=== PATIENT | female | born 1945 | race Caucasian/White ===

== ENCOUNTER → 2016-04-30 | Outpatient (CLI) | payer MEDICARE, MEDICAID | LOC: RAD 14:34 | PROVIDERS: ATTEND Nurse Practitioner Adult Health | DX: R91.1 Solitary pulmonary nodule (principal) | CPT/HCPCS: 71250 ==

== ENCOUNTER 2016-07-01 14:19 | Emergency (ER) | payer MEDICARE, MEDICAID ==
[2016-07-01] MEDS ORDERED: IPRATROPIUM/ALBUTEROL 0.5-2.5 MG/3 ML AMPUL NEB ONE (16:31)
[2016-07-01] MEDS ORDERED: METHYLPREDNISOLONE INJ 125 MG/2 ML SDV IV ONE (16:32)
--- NOTE | 2016-07-01 16:45 | ER Document Report ---
ED Medical Screen (RME) - General Chief Complaint: General Weakness Stated Complaint: WEAKNESS,COUGH,CONGESTION Time seen by provider: 16:44 Mode of Arrival: Wheelchair Information source: Patient Notes: 70-year-old female history of COPD (oxygen dependent) presents to the emergency room with progressively worsening cough, shortness of breath, weakness unresponsive to outpatient antibiotics. PCP: Dr Sarabia TRAVEL OUTSIDE OF THE [place] IN LAST 30 DAYS: No - Related Data Allergies/Adverse Reactions: No Known Allergies Allergy (Verified 07/01/16 15:04) Past Medical History - Social History Frequency of alcohol use: Daily 1/2-1 glass wine Drug Abuse: None Pulmonary Medical History: Reports: Hx Bronchitis, Hx COPD, Hx Pneumonia Renal/ Medical History: Denies: Hx Peritoneal Dialysis Past Surgical History: Reports: Hx Cholecystectomy, Hx Orthopedic Surgery - Right Hip Replacement - Immunizations Hx Diphtheria, Pertussis, Tetanus Vaccination: No Physical Exam - Vital signs Vitals: Temp Pulse Resp BP Pulse Ox 98.9 F 88 20 117/66 94 07/01/16 15:01 07/01/16 15:01 07/01/16 15:01 07/01/16 15:01 07/01/16 15:01 Course - Vital Signs Vital signs: Temp Pulse Resp BP Pulse Ox 98.9 F 88 20 117/66 94 07/01/16 15:01 07/01/16 15:01 07/01/16 15:01 07/01/16 15:01 07/01/16 15:01
[2016-07-01 18:16] LABS: ABSOLUTE LYMPHOCYTES (AUTO) 0.4 10^3/uL (0.5-4.7); ABSOLUTE MONOCYTES (AUTO) 0.3 10^3/uL (0.1-1.4); ABSOLUTE NEUT (AUTO) 6.2 10^3/uL (1.7-8.2); BASOPHILS % (AUTO) 0.1 % (0-2); EOSINOPHILS % (AUTO) 0.1 % (0-6); HEMATOCRIT 43.6 % (36.0-47.0); HEMOGLOBIN 15.1 g/dL (12.0-15.5); HGB HCT DIFFERENCE 1.7; LYMPHOCYTES % (AUTO) 6.3 % (13-45); MEAN CORPUSCULAR HEMOGLOBIN 34.6 pg (27.0-33.4); MEAN CORPUSCULAR HGB CONC 34.6 g/dL (32.0-36.0); MEAN CORPUSCULAR VOLUME 100 fl (80-97); MONOCYTES % (AUTO) 3.8 % (3-13); RED BLOOD COUNT 4.37 10^6/uL (3.72-5.28); RED CELL DISTRIBUTION WIDTH 14.4 % (11.5-14.0); SEGMENTED NEUTROPHILS % (AUTO) 89.7 % (42-78)
[2016-07-01 18:34] LABS: ALANINE AMINOTRANSFERASE 80 U/L (9-52); ALBUMIN 4.1 g/dL (3.5-5.0); ALKALINE PHOSPHATASE 101 U/L (38-126); ANION GAP 7 (5-19); ASPARTATE AMINO TRANSFERASE 37 U/L (14-36); BILIRUBIN,DIRECT 0.2 mg/dL (0.0-0.4); BILIRUBIN,TOTAL 0.9 mg/dL (0.2-1.3); BLOOD UREA NITROGEN 30 mg/dL (7-20); CALCIUM 11.4 mg/dL (8.4-10.2); CARBON DIOXIDE 35 mmol/L (22-30); CHLORIDE 95 mmol/L (98-107); CREATINE KINASE 33 U/L (30-135); CREATININE RESULT 0.58 mg/dL (0.52-1.25); GLUCOSE 202 mg/dL (75-110); POTASSIUM 3.6 mmol/L (3.6-5.0); SODIUM 137.2 mmol/L (137-145); TOTAL PROTEIN 6.5 g/dL (6.3-8.2)
[2016-07-01 18:47] LABS: CREATINE KINASE MB 2.59 ng/mL (<4.55); TROPONIN I 0.027 ng/mL
--- NOTE | 2016-07-01 18:54 | ER Document Report ---
ED General - General Chief Complaint: General Weakness Stated Complaint: WEAKNESS,COUGH,CONGESTION Mode of Arrival: Wheelchair Notes: Patient is a 70-year-old female with past medical history of oxygen dependent COPD who presents with 3 weeks of persistent cough and mildly worsened shortness of breath relative to her baseline. She has associated generalized weakness. She has seen her primary care doctor on 3 occasions and notes that despite 3 rounds of different antibiotics her symptoms have not improved. She has also continued on steroids. Nothing seems to worsen her symptoms. Denies any associated fever, nausea, vomiting, chest pain, headache or altered mental status. States she's had similar symptoms in the past with bronchitis. She does not currently smoke. Her symptoms have been unchanged since onset. TRAVEL OUTSIDE OF THE [place] IN LAST 30 DAYS: No - Related Data Allergies/Adverse Reactions: No Known Allergies Allergy (Verified 07/01/16 15:04) Past Medical History - General Information source: Patient - Social History Smoking Status: Former Smoker Frequency of alcohol use: Daily 1/2-1 glass wine Drug Abuse: None Lives with: Spouse/Significant other Family History: Reviewed & Not Pertinent Patient has suicidal ideation: No Patient has homicidal ideation: No Pulmonary Medical History: Reports: Hx Bronchitis, Hx COPD, Hx Pneumonia Renal/ Medical History: Denies: Hx Peritoneal Dialysis Past Surgical History: Reports: Hx Cholecystectomy, Hx Orthopedic Surgery - Right Hip Replacement - Immunizations Hx Diphtheria, Pertussis, Tetanus Vaccination: No Hx Pneumococcal Vaccination: 02/25/11 Review of Systems - Review of Systems Notes: Constitutional: Negative for fever. HENT: Negative for sore throat. Eyes: Negative for visual changes. Cardiovascular: Negative for chest pain. Respiratory: Positive for shortness of breath. Gastrointestinal: Negative for abdominal pain, vomiting or diarrhea. Genitourinary: Negative for dysuria. Musculoskeletal: Negative for back pain. Skin: Negative for rash. Neurological: Negative for headaches, weakness or numbness. 10 point ROS negative except as marked above and in HPI. Physical Exam - Vital signs Vitals: Temp Pulse Resp BP Pulse Ox 98.9 F 88 20 117/66 94 07/01/16 15:01 07/01/16 15:01 07/01/16 15:01 07/01/16 15:01 07/01/16 15:01 Interpretation: Normal Notes: PHYSICAL EXAMINATION: GENERAL: Well-appearing, well-nourished and in no acute distress. HEAD: Atraumatic, normocephalic. EYES: Pupils equal round and reactive to light, extraocular movements intact, sclera anicteric, conjunctiva are normal. ENT: nares patent, oropharynx clear without exudates. Moist mucous membranes. NECK: Normal range of motion, supple without lymphadenopathy LUNGS: Breath sounds clear to auscultation bilaterally and equal. Trace wheezes in all lung springer without diminished air movement HEART: Regular rate and rhythm without murmurs ABDOMEN: Soft, nontender, normoactive bowel sounds. No guarding, no rebound. No masses appreciated. EXTREMITIES: Normal range of motion, no pitting or edema. No cyanosis. NEUROLOGICAL: No focal neurological deficits. Moves all extremities spontaneously and on command. PSYCH: Normal mood, normal affect. SKIN: Warm, Dry, normal turgor, no rashes or lesions noted. Course - Re-evaluation Re-evalutation: 07/01/16 18:52 Patient presents with a mild exacerbation of their baseline COPD. Mild wheezing at time of presentation but vitals do not show significant hypoxemia or tachypnea. No retractions. Patient did clinically improve after receiving nebulizers here in the emergency department. Chest x-ray without evidence of an acute pneumonia. She has already been treated with 3 different antibiotics as an outpatient and her symptoms are likely secondary to a viral bronchitis as opposed to an actual bacterial infection. Laboratories do not show acute kidney injury or significant leukocytosis. Patient able to ambulate without any respiratory distress. 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 Patient is already on steroids. Patient has nebulizers at home. I do not suspect an acute alternative pathology at this time based on history and exam including acute pulmonary embolus, ACS, pneumothorax, or aortic dissection. At this time will discharge with return precautions and follow-up recommendations. Verbal discharge instructions given a the bedside and opportunity for questions given. Medication warnings reviewed. Patient is in agreement with this plan and has verbalized understanding of return precautions and the need for primary care follow-up in the next 24-72 hours. 07/02/16 03:13 - Vital Signs Vital signs: Temp Pulse Resp BP Pulse Ox 98.1 F 84 20 124/71 96 07/01/16 19:13 07/01/16 19:13 07/01/16 15:01 07/01/16 19:13 07/01/16 19:13 - Laboratory Result Diagrams: 07/01/16 17:50 07/01/16 17:50 Laboratory results interpreted by me: 07/01/16 07/01/16 17:50 17:50 MCV 100 H MCH 34.6 H RDW 14.4 H Plt Count 143 L Seg Neutrophils % 89.7 H Lymphocytes % 6.3 L Absolute Lymphocytes 0.4 L Chloride 95 L Carbon Dioxide 35 H BUN 30 H Glucose 202 H Calcium 11.4 H AST 37 H ALT 80 H - Diagnostic Test Radiology reviewed: Image reviewed, Reports reviewed Radiology results interpreted by me: 07/01/16 18:53 Chest x-ray: No acute infiltrate - EKG Interpretation by Me Additional EKG results interpreted by me: 07/02/16 03:14 Sinus rhythm. Rate 79. No ST elevations or depressions. QTC is 441. Limited interpretation secondary to movement Discharge - Discharge Clinical Impression: COPD exacerbation Condition: Good Disposition: HOME, SELF-CARE Additional Instructions: You were seen for a COPD exacerbation. Your symptoms improved with treatment here in the emergency department. However, it is very important that you return to the emergency department immediately if you began to have worsening difficulty breathing that does not respond to your normal home nebulizers. Please continue to take your home steroids as prescribed. Please also follow closely with your primary care physician. You should eturn to emergency department if you develop fever greater than 101, persistent cough, persistent vomiting, pass out, or any other symptoms that are concerning to you. Referrals: DANYA DE LA TORRE MD [Primary Care Provider] - Follow up as needed
[2016-07-01 19:15] VITALS: BP 124/71
--- NOTE | 2016-07-01 20:46 | EKG REPORT ---
SEVERITY:- ABNORMAL ECG - SINUS RHYTHM BIATRIAL ABNORMALITIES ABNORMAL T, CONSIDER ISCHEMIA, LATERAL LEADS BORDERLINE ST ELEVATION, INFERIOR LEADS : Confirmed by: Abrahan James MD 01-Jul-2016 20:46:05
== END 2016-07-01 19:24 | disposition home or self-care (01) ==
LOC: ER 14:19
DX: J44.1 Chronic obstructive pulmonary disease with (acute) exacerbation (principal); Z99.81 Dependence on supplemental oxygen; R05 Cough; R06.02 Shortness of breath; R53.1 Weakness; Z79.2 Long term (current) use of antibiotics; Z87.891 Personal history of nicotine dependence; Z87.01 Personal history of pneumonia (recurrent)
CPT/HCPCS: 93005; 94640; 99285; 96374; 36415; 82553; 82550; 85025; 80053; 84484; 71020; 93010; J2930; A9270; J7620

== ENCOUNTER → 2016-08-07 | Outpatient (CLI) | payer MEDICARE, MEDICAID ==
[2016-08-07 18:54] LABS: ABSOLUTE LYMPHOCYTES (AUTO) 0.6 10^3/uL (0.5-4.7); ABSOLUTE MONOCYTES (AUTO) 0.5 10^3/uL (0.1-1.4); ABSOLUTE NEUT (AUTO) 8.9 10^3/uL (1.7-8.2); BASOPHILS % (AUTO) 0.2 % (0-2); EOSINOPHILS % (AUTO) 0.2 % (0-6); HEMATOCRIT 39.3 % (36.0-47.0); HEMOGLOBIN 13.1 g/dL (12.0-15.5); LYMPHOCYTES % (AUTO) 5.9 % (13-45); MEAN CORPUSCULAR HEMOGLOBIN 34.3 pg (27.0-33.4); MEAN CORPUSCULAR HGB CONC 33.3 g/dL (32.0-36.0); MEAN CORPUSCULAR VOLUME 103 fl (80-97); MONOCYTES % (AUTO) 4.9 % (3-13); RED BLOOD COUNT 3.81 10^6/uL (3.72-5.28); RED CELL DISTRIBUTION WIDTH 15.3 % (11.5-14.0); SEGMENTED NEUTROPHILS % (AUTO) 88.8 % (42-78); WHITE BLOOD COUNT 10.1 10^3/uL (4.0-10.5)
[2016-08-07 19:28] LABS: ALANINE AMINOTRANSFERASE 131 U/L (9-52); ALBUMIN 4.2 g/dL (3.5-5.0); ALKALINE PHOSPHATASE 103 U/L (38-126); ANION GAP 9 (5-19); ASPARTATE AMINO TRANSFERASE 60 U/L (14-36); BILIRUBIN,DIRECT 0.3 mg/dL (0.0-0.4); BILIRUBIN,TOTAL 0.8 mg/dL (0.2-1.3); BLOOD UREA NITROGEN 26 mg/dL (7-20); CALCIUM 10.2 mg/dL (8.4-10.2); CARBON DIOXIDE 36 mmol/L (22-30); CHLORIDE 92 mmol/L (98-107); CREATININE RESULT 0.63 mg/dL (0.52-1.25); GLUCOSE 157 mg/dL (75-110); POTASSIUM 3.6 mmol/L (3.6-5.0); TOTAL PROTEIN 6.7 g/dL (6.3-8.2)
[2016-08-09 16:40] LABS: A/G RATIO 1.8 (0.7-1.7); ALPHA-1-GLOBULIN 2 0.2 g/dL (0.0-0.4); GAMMA GLOBULIN 0.4 g/dL (0.4-1.8); PROTEIN TOTAL SERUM 6.2 g/dL (6.0-8.5)
[2016-08-10 16:39] LABS: M-SPIKE % UR Not Observed % (Not Observed)
[2016-08-11 02:36] LABS: M001-IGE PENICILLIUM CHRYSOGEN <0.10 kU/L (Class 0); M002-IGE CLADOSPORIUM HERBARUM <0.10 kU/L (Class 0); M003-IGE ASPERGILLUS FUMIGATUS <0.10 kU/L (Class 0); M004-IGE MUCOR RACEMOSUS <0.10 kU/L (Class 0); M005-IGE CANDIDA ALBICANS <0.10 kU/L (Class 0); M006-IGE ALTERNARIA ALTERNATA <0.10 kU/L (Class 0); M008-IGE SETOMELANOMMA ROSTRAT <0.10 kU/L (Class 0); M009-IGE FUSARIUM PROLIFERATUM <0.10 kU/L (Class 0); M012-IGE AUREOBASIDI PULLULANS <0.10 kU/L (Class 0); M013-IGE PHOMA BETAE <0.10 kU/L (Class 0); M014-IGE EPICOCCUM PURPURASCEN <0.10 kU/L (Class 0)
[2016-08-11 10:57] LABS: M010-IGE STEMPHYLIUM HERBARUM <0.10 kU/L (Class 0)
== END ==
LOC: LAB 18:17
PROVIDERS: ATTEND Internal Medicine Pulmonary Disease
DX: E83.52 Hypercalcemia (principal); J96.11 Chronic respiratory failure with hypoxia; D53.1 Other megaloblastic anemias, not elsewhere classified; Z87.2 Personal history of diseases of the skin and subcutaneous tissue
CPT/HCPCS: 36415; 80053; 84165; 84166; 85025; 86003

== ENCOUNTER 2016-08-23 14:52 | Inpatient (IN) | payer MEDICARE, MEDICAID ==
[2016-08-23] MEDS ORDERED: NORMAL SALINE 1000 ML 1,000 ML IV ONE (15:09)
[2016-08-23] MEDS ORDERED: ONDANSETRON HCL INJ/PF 4 MG/2 ML SDV IV ONE (15:10)
--- NOTE | 2016-08-23 15:10 | ER Document Report ---
ED Medical Screen (RME) - General Chief Complaint: Back Pain Stated Complaint: BACK PAIN Time Seen by Provider: 08/23/16 15:08 TRAVEL OUTSIDE OF THE [place] IN LAST 30 DAYS: No - HPI Notes: 08/23/16 15:10 Nausea vomiting dehydration lower back pain. Patient is on chronic home O2 requesting laboratory results from recent pulmonary visit - Related Data Allergies/Adverse Reactions: No Known Allergies Allergy (Verified 08/23/16 15:00) Past Medical History Pulmonary Medical History: Reports: Hx Bronchitis, Hx COPD, Hx Pneumonia Renal/ Medical History: Denies: Hx Peritoneal Dialysis Past Surgical History: Reports: Hx Cholecystectomy, Hx Orthopedic Surgery - Right Hip Replacement - Immunizations Hx Diphtheria, Pertussis, Tetanus Vaccination: No Review of Systems - Review of Systems Gastrointestinal: Nausea, Vomiting Physical Exam - Vital signs Vitals: Temp Pulse Resp BP Pulse Ox 97.5 F 88 20 133/76 H 92 08/23/16 15:00 08/23/16 15:00 08/23/16 15:00 08/23/16 15:00 08/23/16 15:00 - Cardiovascular Rhythm: Regular Heart sounds: Normal auscultation Course - Vital Signs Vital signs: Temp Pulse Resp BP Pulse Ox 97.5 F 88 20 133/76 H 92 08/23/16 15:00 08/23/16 15:00 08/23/16 15:00 08/23/16 15:00 08/23/16 15:00
[2016-08-23 15:54] LABS: HEMATOCRIT 44.7 % (36.0-47.0); HEMOGLOBIN 15.1 g/dL (12.0-15.5); HGB HCT DIFFERENCE 0.6; MEAN CORPUSCULAR HEMOGLOBIN 34.4 pg (27.0-33.4); MEAN CORPUSCULAR HGB CONC 33.7 g/dL (32.0-36.0); MEAN CORPUSCULAR VOLUME 102 fl (80-97); RED BLOOD COUNT 4.38 10^6/uL (3.72-5.28); RED CELL DISTRIBUTION WIDTH 13.9 % (11.5-14.0); WHITE BLOOD COUNT 15.8 10^3/uL (4.0-10.5)
[2016-08-23 16:02] LABS: BAND NEUTROPHILS % (MANUAL) 2 % (3-5); BASOPHILS % (MANUAL) 0 % (0-2); EOSINOPHILS % (MANUAL) 0 % (0-6); LYMPHOCYTES % (MANUAL) 9 % (13-45); TOTAL CELLS COUNTED 100
[2016-08-23 16:06] LABS: TOXIC GRANULATION SLIGHT
[2016-08-23 16:07] LABS: ANISOCYTOSIS SLIGHT; PLATELET CLUMPS PRESENT; POIKILOCYTOSIS SLIGHT; TOXIC VACUOLATION PRESENT
--- NOTE | 2016-08-23 16:08 | ER Document Report ---
ED General - General Mode of Arrival: Ambulatory Information source: Patient TRAVEL OUTSIDE OF THE [place] IN LAST 30 DAYS: No - HPI Patient complains to provider of: Vomiting, Headache, and Poor Apetite Onset: Other - 2 weeks ago Associated symptoms: Other - see notes above <MAX ROLON - Last Filed: 08/23/16 19:57> <GREYVIKA ANN - Last Filed: 08/23/16 22:27> - General Chief Complaint: Back Pain Stated Complaint: BACK PAIN Time Seen by Provider: 08/23/16 16:00 Notes: 70 year old female with history of oxygen dependent COPD (recently stopped taking chronic Prednisone) presents to the ED complaining of headache that started 2 weeks ago and vomiting and poor appetite that started 5 days ago and worsened over the past few days. Patient reports that she develops nausea and a 'gaggy' feeling to her abdomen when eating. The reports that the patient has been having coughing 'spells' and the patient explains that her chronic back pain is worsening because of this. Patient denies any trouble with her bowel movements. Patient was given kaopectate x2 at 1100 this morning secondary to nausea. Patient has not vomited since leaving her house earlier this morning. PCP: Dr. Macedo (MAX ROLON) - Related Data Allergies/Adverse Reactions: No Known Allergies Allergy (Verified 08/23/16 15:00) Home Medications: Current Home Medications Albuterol Sulfate [Proair HFA] 2 puff IH Q4HP PRN 08/23/16 [History] Fluticasone/Salmeterol [Advair 250-50 Diskus 28 dose] 1 puff IH BID 08/23/16 [ History] Furosemide [Lasix] 40 mg PO DAILY 08/23/16 [History] Potassium Chloride [K-Tab ER] 10 meq PO BID 08/23/16 [History] Prednisone [Deltasone 10 mg Tablet] 10 mg PO BID 08/23/16 [History] Roflumilast [Daliresp 500 mcg Tablet] 500 mcg PO DAILY 08/23/16 [History] Tiotropium [place] [Spiriva Respimat] 2 puff IH DAILY 08/23/16 [History] Past Medical History - Social History Family History: Reviewed & Not Pertinent Patient has suicidal ideation: No Patient has homicidal ideation: No Pulmonary Medical History: Reports: Hx Bronchitis, Hx COPD, Hx Pneumonia Renal/ Medical History: Denies: Hx Peritoneal Dialysis Past Surgical History: Reports: Hx Cholecystectomy, Hx Orthopedic Surgery - Right Hip Replacement - Immunizations Hx Diphtheria, Pertussis, Tetanus Vaccination: No Hx Pneumococcal Vaccination: 02/25/11 <MAX ROLON - Last Filed: 08/23/16 19:57> - Social History Smoking Status: Former Smoker <VIKA EDMONDS - Last Filed: 08/23/16 22:27> Review of Systems - Review of Systems Constitutional: See HPI, Chills EENT: No symptoms reported Cardiovascular: No symptoms reported Respiratory: See HPI, Cough Gastrointestinal: See HPI, Abdominal pain, Nausea, Vomiting, Poor appetite. denies: Diarrhea, Constipation Genitourinary: No symptoms reported Female Genitourinary: No symptoms reported Musculoskeletal: No symptoms reported Skin: No symptoms reported Hematologic/Lymphatic: No symptoms reported Neurological/Psychological: See HPI, Headaches -: Yes All other systems reviewed and negative <MAX ROLON - Last Filed: 08/23/16 19:57> Physical Exam - Vital signs Interpretation: Hypoxic - General General appearance: Alert In distress: Mild - HEENT Head: Normocephalic, Atraumatic Eyes: Normal Pupils: PERRL Mucous membranes: Dry - Respiratory Respiratory status: No respiratory distress Chest status: Nontender Breath sounds: Normal Chest palpation: Normal - Cardiovascular Rhythm: Regular Heart sounds: Normal auscultation Murmur: No - Abdominal Inspection: Normal Distension: Distended Bowel sounds: Normal Tenderness: Tender - periUmbilical Organomegaly: No organomegaly - Back Back: Normal, Nontender - Extremities General upper extremity: Normal inspection, Nontender, Normal color, Normal ROM , Normal temperature General lower extremity: Normal inspection, Nontender, Normal color, Normal ROM , Normal temperature, Normal weight bearing. No: Bakari's sign - Neurological Neuro grossly intact: Yes Orientation: AAOx4 Osbaldo Coma Scale Eye Opening: Spontaneous Osbaldo Coma Scale Verbal: Oriented Osbaldo Coma Scale Motor: Obeys Commands Osbaldo Coma Scale Total: 15 Speech: Normal Motor strength normal: LUE, RUE, LLE, RLE Sensory: Normal - Psychological Associated symptoms: Normal affect, Normal mood - Skin Skin Temperature: Warm Skin Moisture: Dry Skin Color: Normal <VIKA EDMONDS - Last Filed: 08/23/16 22:27> - Vital signs Vitals: Temp Pulse Resp BP Pulse Ox 97.5 F 88 20 133/76 H 92 08/23/16 15:00 08/23/16 15:00 08/23/16 15:00 08/23/16 15:00 08/23/16 15:00 Course - Laboratory Result Diagrams: 08/23/16 15:20 08/23/16 16:48 - Consults Dr. Abraham Time consulted: 17:30 <MAX ROLON - Last Filed: 08/23/16 19:57> - Laboratory Result Diagrams: 08/23/16 15:20 08/23/16 16:48 - Diagnostic Test Radiology reviewed: Reports reviewed <VIKA EDMONDS - Last Filed: 08/23/16 22:27> - Re-evaluation Re-evalutation: 08/23/16 Patient is a 70-year-old female who comes in for vomiting. Patient with elevated lipase and pancreatitis on CT. Patient denies any pain right now. Patient is also hypokalemic and hypercalcemic. Potassium has been replaced with IV. Patient was discussed with the hospitalist service and will be referred for admission. Stable at time of admission. (VIKA EDMONDS) - Vital Signs Vital signs: Temp Pulse Resp BP Pulse Ox 97.5 F 67 18 148/71 H 98 08/23/16 21:55 08/23/16 21:55 08/23/16 21:55 08/23/16 21:55 08/23/16 21:55 - Laboratory Laboratory results interpreted by me: 08/23/16 08/23/16 15:20 16:48 WBC 15.8 H MCV 102 H MCH 34.4 H Seg Neuts % (Manual) 85 H Band Neutrophils % 2 L Lymphocytes % (Manual) 9 L Abs Neuts (Manual) 13.7 H Sodium 134.9 L Potassium 2.7 L* Chloride 80 L Carbon Dioxide 38 H BUN 30 H Glucose 148 H Calcium 12.7 H* Direct Bilirubin 0.5 H AST 70 H ALT 77 H Lipase 3539.6 H - Consults Dr. Abraham Reason for consultation: 08/23/16 19:30 Patient was discussed with Dr. Abraham who agrees to admit the patient. (MAX ROLON) Discharge <MAX ROLON - Last Filed: 08/23/16 19:57> - Discharge Admitting Provider: Hospitalist - [place] [facility] Admitted: [facility] <VIKA EDMONDS - Last Filed: 08/23/16 22:27> - Discharge Clinical Impression: Hypokalemia, Dehydration Pancreatitis Qualifiers: Chronicity: acute Pancreatitis type: unspecified pancreatitis type Acute pancreatitis complication: unspecified Qualified Code(s): K85.90 - Acute pancreatitis without necrosis or infection, unspecified Condition: Stable Disposition: ADMITTED INPATIENT Scribe Attestation: 08/23/16 22:27 I personally performed the services described in the documentation, reviewed and edited the documentation which was dictated to the scribe in my presence, and it accurately records my words and actions. (VIKA EDMONDS) Scribe Documentation - Scribe Written by Scribe:: Deven Alfred, 08/23/2016 1743 acting as scribe for :: Grey <MAX ROLON - Last Filed: 08/23/16 19:57>
--- NOTE | 2016-08-23 16:50 | RADIOLOGY REPORT (SQ) ---
EXAM DESCRIPTION: CT ABD/PELVIS NO ORAL OR IV COMPLETED DATE/TIME: 08/23/2016 4:31 pm REASON FOR STUDY: abd pain, N/V COMPARISON: None. TECHNIQUE: CT scan of the abdomen and pelvis performed without intravenous or oral contrast. Images reviewed with lung, soft tissue, and bone windows. Reconstructed coronal and sagittal MPR images revi ewed. All images stored on PACS. All CT scanners at this facility use dose modulation, iterative reconstruction, and/or weight based d osing when appropriate to reduce radiation dose to as low as reasonably achievable (ALARA). [facility]: Dose Right [facility]: CareDose [facility]: Dose Right [facility]: Teradose 4D [facility]: [employer] RADIATION DOSE: Up-to-date CT equipment and radiation dose reduction techniques were employed. CTDIv ol: 16.9 mGy. DLP: 825 mGy-cm.mGy. LIMITATIONS: None. FINDINGS: LOWER CHEST: No significant findings. No nodules or infiltrates. NON-CONTRASTED LIVER, SPLEEN, ADRENALS: Evaluation limited by lack of IV contrast. Diffuse decreased attenuation throughout the liver consistent with fatty deposition. No identified significant masses . PANCREAS: There is haziness surrounding the pancreatic head. There is enlargement of the pancreatic head as well as the remainder of the pancreas. No peripancreatic fluid noted. No pancreatic fluid c ollections. Definite mass lesion is seen in this area though evaluation is limited without IV contra st. Question possible pancreatitis. GALLBLADDER: Surgically absent. RIGHT KIDNEY AND URETER: No suspicious masses. Assessment limited by lack of IV contrast. No signif icant calcifications. No hydronephrosis or hydroureter. LEFT KIDNEY AND URETER: No suspicious masses. Assessment limited by lack of IV contrast. No signifi cant calcifications. No hydronephrosis or hydroureter. AORTA AND RETROPERITONEUM: No aneurysm. Calcific atherosclerotic plaque throughout the aorta and its branches. No retroperitoneal masses or adenopathy. BOWEL AND PERITONEAL CAVITY: No obvious masses or inflammatory changes. No free fluid. Diffuse moder ate colonic diverticulosis without acute inflammation. APPENDIX: Normal. PELVIS, BLADDER, AND ABDOMINAL WALL:No abnormal masses. No free fluid. Bladder normal. BONES: Right total hip arthroplasty. No acute abnormality identified. Degenerative changes noted in the spine. OTHER: No other significant finding. IMPRESSION: 1. Inflammatory fat stranding surrounding the pancreatic head as well as diffuse enlarg ement of the pancreas most notably in the pancreatic head. Question possible pancreatitis, correlate clinically. No definite pancreatic mass lesion is identified this region toe evaluation is limited without IV contrast. No peripancreatic fluid collections or pseudocysts identified. No intra-abdomi nal free air fluid. 2. Uncomplicated moderate colonic diverticulosis. 3. Hepatic steatosis. 4. Prior cholecystectomy. TECHNICAL DOCUMENTATION: JOB ID: [id number] Quality ID # [id number]: Final reports with documentation of one or more dose reduction techniques (e.g., Au tomated exposure control, adjustment of the mA and/or kV according to patient size, use of iterative reconstruction technique) 2010 [employer]- All Rights Reserved
[2016-08-23 17:15] LABS: ALANINE AMINOTRANSFERASE 77 U/L (9-52); ALBUMIN 4.3 g/dL (3.5-5.0); ALKALINE PHOSPHATASE 71 U/L (38-126); ANION GAP 17 (5-19); ASPARTATE AMINO TRANSFERASE 70 U/L (14-36); BILIRUBIN,DIRECT 0.5 mg/dL (0.0-0.4); BILIRUBIN,TOTAL 1.1 mg/dL (0.2-1.3); BLOOD UREA NITROGEN 30 mg/dL (7-20); CARBON DIOXIDE 38 mmol/L (22-30); CHLORIDE 80 mmol/L (98-107); GLUCOSE 148 mg/dL (75-110); SODIUM 134.9 mmol/L (137-145); TOTAL PROTEIN 6.9 g/dL (6.3-8.2)
[2016-08-23 17:23] LABS: LIPASE 3539.6 U/L (23-300)
[2016-08-23 17:26] LABS: CALCIUM 12.7 mg/dL (8.4-10.2); POTASSIUM 2.7 mmol/L (3.6-5.0)
[2016-08-23] MEDS ORDERED: ACETAMINOPHEN 325 MG TABLET PO PRN (17:43)
--- NOTE | 2016-08-23 18:23 | PDOC H&P ---
History of Present Illness Admission Date/PCP: DANYA DE LA TORRE, Patient complains of: nausea, vomiting History of Present Illness: ALIE PATTERSON is a 70 year old female with past medical history of chronic pain, oxygen dependent COPD and presents with 2 week history of nausea, vomiting , headache, chills, cough. Patient stated to the emergency department provider that she did not drink however upon further questioning it appears that she does have a couple glasses of wine a day. She has no prior history of pancreatitis. She is status post cholecystectomy. Last cholesterol panel a few years ago indicated normal triglyceride level. Medications have not been verified but include Lasix, Daliresp, potassium chloride, prednisone, Advair. Past Medical History Pulmonary Medical History: Reports: Bronchitis, Chronic Obstructive Pulmonary Disease (COPD), Pneumonia Musculoskeltal Medical History: Reports: Arthritis Psychiatric Medical History: Reports: Alcohol Dependency Past Surgical History Past Surgical History: Reports: Cholecystectomy, Orthopedic Surgery - Right Hip Replacement Social History Information Source: Patient Lives with: Spouse/Significant other Smoking Status: Former Smoker Frequency of Alcohol Use: Heavy - 2 drinks daily - Advance Directive Resuscitation Status: Full Code Surrogate healthcare decision maker:: Merle Family History Family History: Malignancy - father-?rectal cancer Parental Family History Reviewed: Yes Children Family History Reviewed: Yes Sibling(s) Family History Reviewed.: Yes Medication/Allergy Home Medications: Albuterol Sulfate [Proair HFA Inhalation Aerosol 8.5 gm MDI] 2 puff IH Q4H 04/25 Cyclobenzaprine HCl [Flexeril 10 Mg Tablet] 10 mg PO TID #10 tablet 04/25/12 Doxycycline Hyclate [Morgidox] 100 mg PO BID 04/25/12 Prednisone [Deltasone 10 mg Tablet] 10 mg PO ASDIR PRN 04/25/12 Tiotropium [place] [Spiriva Handihaler 18 mcg/dose (30 Dose)] 1 cap IH DAILY 03/09 Allergies/Adverse Reactions: No Known Allergies Allergy (Verified 08/23/16 15:00) Review of Systems Constitutional: PRESENT: fatigue, fever(s), headache(s), weakness. ABSENT: chills, weight gain, weight loss Eyes: ABSENT: visual disturbances Ears: ABSENT: hearing changes Cardiovascular: ABSENT: chest pain, dyspnea on exertion, edema, orthropnea, palpitations Respiratory: PRESENT: cough. ABSENT: hemoptysis Gastrointestinal: PRESENT: abdominal pain, nausea, vomiting. ABSENT: constipation, diarrhea, hematemesis, hematochezia Genitourinary: ABSENT: dysuria, hematuria Musculoskeletal: ABSENT: joint swelling Integumentary: ABSENT: rash, wounds Neurological: ABSENT: abnormal gait, abnormal speech, confusion, dizziness, focal weakness, syncope Psychiatric: ABSENT: anxiety, depression, homidical ideation, suicidal ideation Endocrine: ABSENT: cold intolerance, heat intolerance, polydipsia, polyuria Hematologic/Lymphatic: ABSENT: easy bleeding, easy bruising Physical Exam Vital Signs: Temp Pulse Resp BP Pulse Ox 97.5 F 88 20 133/76 H 92 08/23/16 15:00 08/23/16 15:00 08/23/16 15:00 08/23/16 15:00 08/23/16 15:00 Intake & Output 08/22/16 08/23/16 08/24/16 06:59 06:59 06:59 Weight 80.2 kg PHYSICAL EXAM: GENERAL: Appears well, no acute distress HEENT: Normocephalic, no scleral icterus, conjunctiva clear, EOEM intact, PERRLA , moist mucous membranes NECK: trachea midline, no thyromegally RESPIRATORY: Rhonchi noted in the left anterior lung field CARDIAC: Regular rate and rhythm, no murmur/hernando/rub ABDOMEN: Soft, no distension, mild mid abdominal tenderness, no guarding, normal bowel sounds, negative Camp sign RECTAL: deferred : deferred EXTREMITIES: No edema, cyanosis, clubbing MUSCULOSKELETAL: No joint swelling or deformity VASCULAR: normal peripheral pulses NEUROLOGIC: Alert, oriented to person/place/time, normal speech, cranial nerves grossly intact, 5/5 strength in all extremities, tactile sensation intact in all extremities SKIN: No rash, no wounds, no worrisome skin lesions PSYCHIATRIC: Normal mood, normal affect Results Laboratory Results: 08/23/16 15:20 08/23/16 16:48 08/23/16 08/23/16 08/23/16 15:20 15:20 16:48 WBC 15.8 H RBC 4.38 Hgb 15.1 Hct 44.7 MCV 102 H MCH 34.4 H MCHC 33.7 RDW 13.9 Plt Count 317 Seg Neutrophils % Not Reportable Lymphocytes % Not Reportable Monocytes % Not Reportable Eosinophils % Not Reportable Basophils % Not Reportable Absolute Neutrophils Not Reportable Absolute Lymphocytes Not Reportable Absolute Monocytes Not Reportable Absolute Eosinophils Not Reportable Absolute Basophils Not Reportable Sodium Cancelled 134.9 L Potassium Cancelled 2.7 L* Chloride Cancelled 80 L Carbon Dioxide Cancelled 38 H Anion Gap Cancelled 17 BUN Cancelled 30 H Creatinine Cancelled 0.90 Est GFR ( Amer) Cancelled > 60 Est GFR (Non-Af Amer) Cancelled > 60 Glucose Cancelled 148 H Calcium Cancelled 12.7 H* Total Bilirubin Cancelled 1.1 AST Cancelled 70 H ALT Cancelled 77 H Alkaline Phosphatase Cancelled 71 Total Protein Cancelled 6.9 Albumin Cancelled 4.3 Lipase Cancelled 3539.6 H Impressions: Abdomen/Pelvis CT 08/23/16 16:07 IMPRESSION: 1. Inflammatory fat stranding surrounding the pancreatic head as well as diffuse enlargement of the pancreas most notably in the pancreatic head. Question possible pancreatitis, correlate clinically. No definite pancreatic mass lesion is identified this region toe evaluation is limited without IV contrast. No peripancreatic fluid collections or pseudocysts identified. No intra-abdominal free air fluid. 2. Uncomplicated moderate colonic diverticulosis. 3. Hepatic steatosis. 4. Prior cholecystectomy. Assessment & Plan - Diagnosis (1) Pancreatitis Is this a current diagnosis for this admission?: YesPlan: Likely secondary to alcohol use. Viral illness also consideration given other constitutional symptoms. Patient is status post cholecystectomy. I will repeat cholesterol panel however triglyceride level was normal on cholesterol panel a few years ago. N.p.o., IV fluids, analgesic, antiemetics. (2) COPD (chronic obstructive pulmonary disease) Is this a current diagnosis for this admission?: YesPlan: Continue Advair, prednisone, albuterol. Patient is followed by Dr. Dhaliwal as an outpatient. She is chronic oxygen dependent at baseline. (3) Alcohol abuse Is this a current diagnosis for this admission?: YesPlan: Thiamine. As needed Ativan. (4) Hypercalcemia Is this a current diagnosis for this admission?: YesPlan: Repeat labs when dehydration is corrected. (5) Cough Is this a current diagnosis for this admission?: YesPlan: Check chest x-ray. Patient clinically sounds like she has pneumonia so I will initiate IV Rocephin and IV azithromycin. We will check blood cultures. (6) Chronic hypoxemic respiratory failure Is this a current diagnosis for this admission?: Yes (7) Dehydration Is this a current diagnosis for this admission?: Yes (8) Hypokalemia Is this a current diagnosis for this admission?: YesPlan: Replace. Repeat potassium and magnesium level in the morning. - Time Time Spent: Greater than 70 Minutes
--- NOTE | 2016-08-23 18:35 | RADIOLOGY REPORT (SQ) ---
EXAM DESCRIPTION: CHEST SINGLE VIEW COMPLETED DATE/TIME: 08/23/2016 6:24 pm REASON FOR STUDY: cough, left lung rhonchi COMPARISON: 07/01/2016. NUMBER OF VIEWS: One view. TECHNIQUE: Single frontal radiographic view of the chest acquired. LIMITATIONS: None. FINDINGS: LUNGS AND PLEURA: No opacities, masses or pneumothorax. No pleural effusion. Attenuated bl ood vessels and flattened aquilino-diaphragms. MEDIASTINUM AND HILAR STRUCTURES: No masses. Contour normal. HEART AND VASCULAR STRUCTURES: Heart normal in size. Normal vasculature. BONES: No acute findings. HARDWARE: None in the chest. OTHER: No other significant finding. IMPRESSION: COPD. NO ACUTE RADIOGRAPHIC FINDING IN THE CHEST. TECHNICAL DOCUMENTATION: JOB ID: [id number] [employer]- All Rights Reserved
[2016-08-23] MEDS: POTASSI CL 20 MEQ/D5NS 1L 1,000 ML IV PRN (18:39)
[2016-08-23] MEDS: POTASSI CL 20 MEQ/50 ML RIDER 50 ML IV SCH ×2 (18:40→22:00)
[2016-08-23] MEDS ORDERED: ENOXAPARIN SODIUM INJ 40 MG/0.4 ML DISP.SYRIN SUBCUT ONE (20:00)
[2016-08-23] MEDS: CEFTRIAXONE 1 GM/D5W RTU 1 GM/50 ML RTUPB IV SCH (20:16)
[2016-08-23] MEDS: ALBUTEROL SULFATE 0.083% NEB 2.5 MG/3 ML AMPUL NEB PRN ×2 (20:23→23:36)
[2016-08-23] MEDS: FAMOTIDINE INJ/PF 20 MG/2 ML SDV IV SCH (22:37)
[2016-08-23] MEDS: FLUTICASONE/SALMETEROL DISKUS 250-50 MCG/DOSE IH SCH (22:37)
[2016-08-23] MEDS: AZITHROMYCIN 500 MG in DEXTROSE 5%-WATER 250 ML IV SCH (22:38)
[2016-08-23] MEDS: ONDANSETRON HCL INJ/PF 4 MG/2 ML SDV IV PRN (23:51)
[2016-08-24] MEDS: POTASSI CL 20 MEQ/D5NS 1L 1,000 ML IV PRN ×2 (02:47→11:43)
[2016-08-24 02:57] LABS: APPEARANCE,URINE CLOUDY; BILIRUBIN,URINE NEGATIVE (NEGATIVE); GLUCOSE, URINE NEGATIVE (NEGATIVE); KETONES,URINE TRACE mg/dL (NEGATIVE); LEUKOCYTE ESTERASE,URINE NEGATIVE (NEGATIVE); NITRITE,URINE NEGATIVE (NEGATIVE); PROTEIN,URINE 30 mg/dL (NEGATIVE); URINE SPECIFIC GRAVITY 1.014; UROBILINOGEN,URINE NEGATIVE mg/dL (<2.0)
[2016-08-24] MEDS: ALBUTEROL SULFATE 0.083% NEB 2.5 MG/3 ML AMPUL NEB PRN ×4 (04:06→20:12)
[2016-08-24 07:17] LABS: HEMOGLOBIN 13.9 g/dL (12.0-15.5); HGB HCT DIFFERENCE 0.7; MEAN CORPUSCULAR HEMOGLOBIN 34.3 pg (27.0-33.4); MEAN CORPUSCULAR HGB CONC 33.8 g/dL (32.0-36.0); MEAN CORPUSCULAR VOLUME 102 fl (80-97); RED BLOOD COUNT 4.04 10^6/uL (3.72-5.28); RED CELL DISTRIBUTION WIDTH 13.9 % (11.5-14.0); WHITE BLOOD COUNT 16.2 10^3/uL (4.0-10.5)
[2016-08-24 07:34] LABS: ALANINE AMINOTRANSFERASE 64 U/L (9-52); ALBUMIN 3.7 g/dL (3.5-5.0); ALKALINE PHOSPHATASE 60 U/L (38-126); ANION GAP 9 (5-19); ASPARTATE AMINO TRANSFERASE 54 U/L (14-36); BILIRUBIN,DIRECT 0.4 mg/dL (0.0-0.4); BILIRUBIN,TOTAL 0.8 mg/dL (0.2-1.3); BLOOD UREA NITROGEN 29 mg/dL (7-20); CARBON DIOXIDE 35 mmol/L (22-30); CHLORIDE 93 mmol/L (98-107); CREATININE RESULT 0.82 mg/dL (0.52-1.25); Direct HDL 76 mg/dL (>40); GLUCOSE 212 mg/dL (75-110); MAGNESIUM 1.3 mg/dL (1.6-2.3); POTASSIUM 3.2 mmol/L (3.6-5.0); SODIUM 136.8 mmol/L (137-145); TOTAL PROTEIN 6.4 g/dL (6.3-8.2); TRIGLYCERIDES 141 mg/dL (<150)
[2016-08-24 07:40] LABS: BASOPHILS % (MANUAL) 0 % (0-2); EOSINOPHILS % (MANUAL) 1 % (0-6); LYMPHOCYTES % (MANUAL) 1 % (13-45); TOTAL CELLS COUNTED 100
[2016-08-24 07:42] LABS: TOXIC GRANULATION SLIGHT
[2016-08-24 07:45] LABS: DIRECT LDL 72 mg/dL (<100)
[2016-08-24 07:58] LABS: LIPASE 4971.4 U/L (23-300)
[2016-08-24] MEDS ORDERED: MAGNESIUM SULFATE/D5W 100 ML IV ONE (08:10)
[2016-08-24] MEDS: POTASSI CL 20 MEQ/50 ML RIDER 50 ML IV SCH ×2 (08:39→10:00)
[2016-08-24] MEDS: FAMOTIDINE INJ/PF 20 MG/2 ML SDV IV SCH ×2 (10:00→22:31)
[2016-08-24] MEDS: PREDNISONE 10 MG TABLET PO SCH ×2 (10:00→17:22)
[2016-08-24] MEDS: THIAMINE HCL 100 MG in NORMAL SALINE 50 ML IV SCH (10:00)
[2016-08-24] MEDS: ENOXAPARIN SODIUM INJ 40 MG/0.4 ML DISP.SYRIN SUBCUT SCH (10:00)
[2016-08-24] MEDS: FLUTICASONE/SALMETEROL DISKUS 250-50 MCG/DOSE IH SCH ×2 (10:01→22:30)
[2016-08-24] MEDS ORDERED: FUROSEMIDE INJ/PF 20 MG/2 ML SDV IV ONE (14:49)
[2016-08-24] MEDS ORDERED: POTASSI CL 20 MEQ/D5NS 1L 1,000 ML IV PRN (14:49)
--- NOTE | 2016-08-24 17:14 | PDOC PROGRESS REPORT ---
Subjective Progress Note for:: 08/24/16 Subjective:: Patient has continued abdominal pain. Physical Exam Vital Signs: Temp Pulse Resp BP Pulse Ox 97.5 F 101 H 18 149/85 H 100 08/24/16 15:19 08/24/16 15:19 08/24/16 15:19 08/24/16 15:19 08/24/16 15:19 Intake & Output 08/23/16 08/24/16 08/25/16 06:59 06:59 06:59 Intake Total 1481 Output Total 0 Balance 1481 0 Weight 82.4 kg GENERAL: No acute distress HEENT: Conjunctiva clear, nonicteric, moist mucous membranes, no JVD, midline trachea RESPIRATORY: Clear to auscultation bilaterally, no wheezes, no rhonchi CARDIAC: Regular rate and rhythm, no murmurs/gallops/rubs ABDOMEN: Soft, nondistended, mid abdominal tenderness, positive bowel sounds, no rebound, no guarding EXTREMETIES: No edema, cyanosis, clubbing NEUROLOGIC: Alert, oriented to person/place/time, CN's grossly intact, no focal deficits SKIN: No rash, wounds PSYCH: Normal mood, normal affect Results Laboratory Results: 08/24/16 06:58 08/24/16 06:00 08/24/16 08/24/16 08/24/16 02:34 06:00 06:58 WBC 16.2 H RBC 4.04 Hgb 13.9 Hct 41.0 MCV 102 H MCH 34.3 H MCHC 33.8 RDW 13.9 Plt Count 256 Seg Neutrophils % Not Reportable Lymphocytes % Not Reportable Monocytes % Not Reportable Eosinophils % Not Reportable Basophils % Not Reportable Absolute Neutrophils Not Reportable Absolute Lymphocytes Not Reportable Absolute Monocytes Not Reportable Absolute Eosinophils Not Reportable Absolute Basophils Not Reportable Sodium 136.8 L Potassium 3.2 L Chloride 93 L Carbon Dioxide 35 H Anion Gap 9 BUN 29 H Creatinine 0.82 Est GFR ( Amer) > 60 Est GFR (Non-Af Amer) > 60 Glucose 212 H Calcium 12.0 H* Magnesium 1.3 L Total Bilirubin 0.8 AST 54 H ALT 64 H Alkaline Phosphatase 60 Total Protein 6.4 Albumin 3.7 Triglycerides 141 Cholesterol 188.40 LDL Cholesterol Direct 72 VLDL Cholesterol 28.0 HDL Cholesterol 76 Lipase 4971.4 H Urine Color YELLOW Urine Appearance CLOUDY Urine pH 5.0 Ur Specific [place] 1.014 Urine Protein 30 H Urine Glucose (UA) NEGATIVE Urine Ketones TRACE H Urine Blood SMALL H Urine Nitrite NEGATIVE Ur Leukocyte Esterase NEGATIVE Urine WBC (Auto) 17 Urine RBC (Auto) 1 Impressions: Abdomen/Pelvis CT 08/23/16 16:07 IMPRESSION: 1. Inflammatory fat stranding surrounding the pancreatic head as well as diffuse enlargement of the pancreas most notably in the pancreatic head. Question possible pancreatitis, correlate clinically. No definite pancreatic mass lesion is identified this region toe evaluation is limited without IV contrast. No peripancreatic fluid collections or pseudocysts identified. No intra-abdominal free air fluid. 2. Uncomplicated moderate colonic diverticulosis. 3. Hepatic steatosis. 4. Prior cholecystectomy. Chest X-Ray 08/23/16 18:10 IMPRESSION: COPD. NO ACUTE RADIOGRAPHIC FINDING IN THE CHEST. Assessment & Plan - Diagnosis (1) Pancreatitis Qualifiers: Chronicity: acute Pancreatitis type: unspecified pancreatitis type Acute pancreatitis complication: unspecified Qualified Code(s): K85.90 - Acute pancreatitis without necrosis or infection, unspecified Is this a current diagnosis for this admission?: YesPlan: Likely secondary to alcohol use. Viral illness also consideration given other constitutional symptoms. Patient is status post cholecystectomy. N.p.o., IV fluids, analgesic, antiemetics. (2) COPD (chronic obstructive pulmonary disease) Is this a current diagnosis for this admission?: YesPlan: Continue Advair, prednisone, albuterol. Patient is followed by Dr. Dhaliwal as an outpatient. She is chronic oxygen dependent at baseline. (3) Alcohol abuse Is this a current diagnosis for this admission?: YesPlan: Thiamine. As needed Ativan. (4) Hypercalcemia Is this a current diagnosis for this admission?: YesPlan: Repeat labs when dehydration is corrected. (5) Chronic hypoxemic respiratory failure Is this a current diagnosis for this admission?: Yes (6) Dehydration Is this a current diagnosis for this admission?: Yes (7) Hypokalemia Is this a current diagnosis for this admission?: YesPlan: Replace. Repeat potassium and magnesium level in the morning. (8) Pulmonary edema Qualifiers: Chronicity: acute Qualified Code(s): J81.0 - Acute pulmonary edema Is this a current diagnosis for this admission?: YesPlan: Lasix 40 mg IV 1 dose. Decrease IV fluid rate. Check proBNP and echocardiogram. (9) Hypomagnesemia Is this a current diagnosis for this admission?: YesPlan: Replace as needed - Time Time Spent with patient: 35 or more minutes
[2016-08-24] MEDS: CEFTRIAXONE 1 GM/D5W RTU 1 GM/50 ML RTUPB IV SCH (18:12)
[2016-08-24] MEDS: AZITHROMYCIN 500 MG in DEXTROSE 5%-WATER 250 ML IV SCH (22:29)
[2016-08-24 22:31] LABS: VENOUS BLOOD BASE EXCESS 6.7 mmol/L; VENOUS BLOOD HCO3 34.4 mmol/L (20-32); VENOUS BLOOD PCO2 61.7 mmHg (35-63); VENOUS BLOOD PH 7.36 (7.30-7.42)
[2016-08-24 22:33] LABS: HEMOGLOBIN 13.6 g/dL (12.0-15.5); HGB HCT DIFFERENCE -0.2; MEAN CORPUSCULAR HEMOGLOBIN 34.3 pg (27.0-33.4); MEAN CORPUSCULAR HGB CONC 33.1 g/dL (32.0-36.0); MEAN CORPUSCULAR VOLUME 104 fl (80-97); RED BLOOD COUNT 3.95 10^6/uL (3.72-5.28); RED CELL DISTRIBUTION WIDTH 14.1 % (11.5-14.0); WHITE BLOOD COUNT 19.1 10^3/uL (4.0-10.5)
--- NOTE | 2016-08-24 22:33 | RADIOLOGY REPORT (SQ) ---
EXAM DESCRIPTION: CHEST SINGLE VIEW COMPLETED DATE/TIME: 08/24/2016 10:17 pm REASON FOR STUDY: pna, tachypnea COMPARISON: 08/23/2016 EXAM PARAMETERS: NUMBER OF VIEWS: One view. TECHNIQUE: Single frontal radiographic view of the chest acquired. RADIATION DOSE: NA LIMITATIONS: None. FINDINGS: LUNGS AND PLEURA: No opacities, masses or pneumothorax. No pleural effusion. MEDIASTINUM AND HILAR STRUCTURES: No masses. Contour normal. HEART AND VASCULAR STRUCTURES: Heart normal in size. Normal vasculature. BONES: No acute findings. HARDWARE: None in the chest. OTHER: No other significant finding. IMPRESSION: NO ACUTE RADIOGRAPHIC FINDING IN THE CHEST. TECHNICAL DOCUMENTATION: JOB ID: [id number]
[2016-08-24 22:44] LABS: ALANINE AMINOTRANSFERASE 63 U/L (9-52); ALBUMIN 3.3 g/dL (3.5-5.0); ALKALINE PHOSPHATASE 61 U/L (38-126); ANION GAP 8 (5-19); ASPARTATE AMINO TRANSFERASE 53 U/L (14-36); BILIRUBIN,DIRECT 0.4 mg/dL (0.0-0.4); BILIRUBIN,TOTAL 0.6 mg/dL (0.2-1.3); BLOOD UREA NITROGEN 22 mg/dL (7-20); CALCIUM 10.3 mg/dL (8.4-10.2); CARBON DIOXIDE 34 mmol/L (22-30); CHLORIDE 97 mmol/L (98-107); CREATININE RESULT 0.84 mg/dL (0.52-1.25); GLUCOSE 191 mg/dL (75-110); MAGNESIUM 1.4 mg/dL (1.6-2.3); POTASSIUM 3.4 mmol/L (3.6-5.0); SODIUM 139.3 mmol/L (137-145); TOTAL PROTEIN 5.9 g/dL (6.3-8.2)
[2016-08-24 22:49] LABS: BASOPHILS % (MANUAL) 0 % (0-2); EOSINOPHILS % (MANUAL) 0 % (0-6); LYMPHOCYTES % (MANUAL) 3 % (13-45); TOTAL CELLS COUNTED 100
[2016-08-24 22:51] LABS: ANISOCYTOSIS SLIGHT; TOXIC GRANULATION SLIGHT
[2016-08-24] MEDS ORDERED: MAGNESIUM SULFATE/D5W 1 GM/100 ML RTUPB IV SCH (23:30)
[2016-08-25] MEDS: POTASSI CL 20 MEQ/50 ML RIDER 20 MEQ/50 ML RTUPB IV SCH ×2 (00:54→03:18)
[2016-08-25] MEDS: ALBUTEROL SULFATE 0.083% NEB 2.5 MG/3 ML AMPUL NEB PRN (03:50)
[2016-08-25 06:28] LABS: HEMATOCRIT 37.3 % (36.0-47.0); HEMOGLOBIN 12.5 g/dL (12.0-15.5); HGB HCT DIFFERENCE 0.2; MEAN CORPUSCULAR HEMOGLOBIN 34.3 pg (27.0-33.4); MEAN CORPUSCULAR HGB CONC 33.4 g/dL (32.0-36.0); MEAN CORPUSCULAR VOLUME 103 fl (80-97); RED BLOOD COUNT 3.63 10^6/uL (3.72-5.28); RED CELL DISTRIBUTION WIDTH 14.3 % (11.5-14.0); VENOUS BLOOD BASE EXCESS 3.7 mmol/L; VENOUS BLOOD HCO3 29.9 mmol/L (20-32); VENOUS BLOOD PCO2 51.7 mmHg (35-63); VENOUS BLOOD PH 7.38 (7.30-7.42); WHITE BLOOD COUNT 15.9 10^3/uL (4.0-10.5)
[2016-08-25 06:38] LABS: ALANINE AMINOTRANSFERASE 64 U/L (9-52); ALKALINE PHOSPHATASE 60 U/L (38-126); ANION GAP 10 (5-19); ASPARTATE AMINO TRANSFERASE 43 U/L (14-36); BILIRUBIN,DIRECT 0.5 mg/dL (0.0-0.4); BILIRUBIN,TOTAL 0.7 mg/dL (0.2-1.3); BLOOD UREA NITROGEN 23 mg/dL (7-20); CALCIUM 9.5 mg/dL (8.4-10.2); CARBON DIOXIDE 28 mmol/L (22-30); CHLORIDE 100 mmol/L (98-107); CREATININE RESULT 0.78 mg/dL (0.52-1.25); GLUCOSE 181 mg/dL (75-110); MAGNESIUM 2.1 mg/dL (1.6-2.3); POTASSIUM 3.9 mmol/L (3.6-5.0); SODIUM 137.7 mmol/L (137-145); TOTAL PROTEIN 5.2 g/dL (6.3-8.2)
[2016-08-25 06:50] LABS: BAND NEUTROPHILS % (MANUAL) 1 % (3-5); BASOPHILS % (MANUAL) 0 % (0-2); EOSINOPHILS % (MANUAL) 0 % (0-6); LYMPHOCYTES % (MANUAL) 4 % (13-45); TOTAL CELLS COUNTED 100
[2016-08-25 06:52] LABS: ANISOCYTOSIS SLIGHT; TOXIC GRANULATION SLIGHT; TOXIC VACUOLATION PRESENT
[2016-08-25] MEDS ORDERED: FUROSEMIDE INJ/PF 40 MG/4 ML SDV IV ONE (08:00)
--- NOTE | 2016-08-25 08:29 | RADIOLOGY REPORT (SQ) ---
EXAM DESCRIPTION: CHEST SINGLE VIEW COMPLETED DATE/TIME: 08/25/2016 8:16 am REASON FOR STUDY: resp failure COMPARISON: 08/24/2016. FINDINGS: Single-view chest AP portable upright timed approximately 0808 hours. No developing infiltrates. Clear lungs without pneumothorax or pleural fluid. Stable cardiomediasti nal silhouette. IMPRESSION: Stable chest, no acute cardiopulmonary disease. TECHNICAL DOCUMENTATION: JOB ID: [id number]
[2016-08-25] MEDS: PREDNISONE 10 MG TABLET PO SCH (10:14)
[2016-08-25] MEDS: ENOXAPARIN SODIUM INJ 40 MG/0.4 ML DISP.SYRIN SUBCUT SCH (10:14)
[2016-08-25] MEDS: FAMOTIDINE INJ/PF 20 MG/2 ML SDV IV SCH ×2 (10:14→21:30)
[2016-08-25] MEDS: THIAMINE HCL 100 MG in NORMAL SALINE 50 ML IV SCH (10:18)
[2016-08-25] MEDS: FLUTICASONE/SALMETEROL DISKUS 250-50 MCG/DOSE IH SCH ×2 (10:27→21:27)
[2016-08-25] MEDS ORDERED: DEXTROSE 50%-WATER 25 GM/50 ML DISP.SYRIN IV PRN ×2 (11:14)
[2016-08-25] MEDS ORDERED: GLUCAGON,HUMAN RECOMB 1 MG INJ IM PRN (11:14)
[2016-08-25] MEDS ORDERED: DEXTROSE 40% GEL 15 GM TUBE PO PRN ×2 (11:14)
[2016-08-25] MEDS ORDERED: METHYLPREDNISOLONE INJ 40 MG/1 ML SDV IV ONE (12:00)
[2016-08-25] MEDS ORDERED: POTASSI CL 20 MEQ/1/2NS 1L 1,000 ML IV PRN (15:13)
--- NOTE | 2016-08-25 15:13 | PDOC PROGRESS REPORT ---
Subjective Progress Note for:: 08/25/16 Subjective:: Patient has had worsening dyspnea overnight and has required initiation of BiPAP. She is wondering when she is going to be able to eat but I have advised her that she needs to remain on bowel rest secondary to acute pancreatitis. Denies fever, chills, headache, chest pain. She does continue to have abdominal pain. Physical Exam Vital Signs: Temp Pulse Resp BP Pulse Ox 97.5 F 95 27 H 149/83 H 100 08/25/16 12:11 08/25/16 13:59 08/25/16 12:11 08/25/16 12:11 08/25/16 12:11 Intake & Output 08/24/16 08/25/16 08/26/16 06:59 06:59 06:59 Intake Total 1481 2772 Output Total 600 400 Balance 1481 2172 -400 Weight 82.4 kg 85.1 kg GENERAL: No acute distress HEENT: Conjunctiva clear, nonicteric, moist mucous membranes, no JVD, midline trachea RESPIRATORY: Bilateral wheezes, diminished air excursion CARDIAC: Regular rate and rhythm, no murmurs/gallops/rubs ABDOMEN: Soft, nondistended, mid abdominal tenderness, positive bowel sounds, no rebound, no guarding EXTREMETIES: No edema, cyanosis, clubbing NEUROLOGIC: Alert, oriented to person/place/time, CN's grossly intact, no focal deficits SKIN: No rash, wounds PSYCH: Normal mood, normal affect Results Laboratory Results: 08/25/16 06:16 08/25/16 06:16 08/24/16 08/24/16 08/24/16 22:19 22:19 22:19 WBC 19.1 H RBC 3.95 Hgb 13.6 Hct 41.0 MCV 104 H MCH 34.3 H MCHC 33.1 RDW 14.1 H Plt Count 225 Seg Neutrophils % Not Reportable Lymphocytes % Not Reportable Monocytes % Not Reportable Eosinophils % Not Reportable Basophils % Not Reportable Absolute Neutrophils Not Reportable Absolute Lymphocytes Not Reportable Absolute Monocytes Not Reportable Absolute Eosinophils Not Reportable Absolute Basophils Not Reportable VBG pH VBG pCO2 VBG HCO3 VBG Base Excess Sodium 139.3 Potassium 3.4 L Chloride 97 L Carbon Dioxide 34 H Anion Gap 8 BUN 22 H Creatinine 0.84 Est GFR ( Amer) > 60 Est GFR (Non-Af Amer) > 60 Glucose 191 H Calcium 10.3 H Magnesium 1.4 L Total Bilirubin 0.6 AST 53 H ALT 63 H Alkaline Phosphatase 61 Total Protein 5.9 L Albumin 3.3 L Lipase TSH 0.96 08/24/16 08/25/16 08/25/16 22:19 06:16 06:16 WBC 15.9 H RBC 3.63 L Hgb 12.5 Hct 37.3 MCV 103 H MCH 34.3 H MCHC 33.4 RDW 14.3 H Plt Count 172 Seg Neutrophils % Not Reportable Lymphocytes % Not Reportable Monocytes % Not Reportable Eosinophils % Not Reportable Basophils % Not Reportable Absolute Neutrophils Not Reportable Absolute Lymphocytes Not Reportable Absolute Monocytes Not Reportable Absolute Eosinophils Not Reportable Absolute Basophils Not Reportable VBG pH 7.36 VBG pCO2 61.7 VBG HCO3 34.4 H VBG Base Excess 6.7 Sodium 137.7 Potassium 3.9 Chloride 100 Carbon Dioxide 28 Anion Gap 10 BUN 23 H Creatinine 0.78 Est GFR ( Amer) > 60 Est GFR (Non-Af Amer) > 60 Glucose 181 H Calcium 9.5 Magnesium 2.1 Total Bilirubin 0.7 AST 43 H ALT 64 H Alkaline Phosphatase 60 Total Protein 5.2 L Albumin 3.0 L Lipase 1826.0 H TSH 08/25/16 06:16 WBC RBC Hgb Hct MCV MCH MCHC RDW Plt Count Seg Neutrophils % Lymphocytes % Monocytes % Eosinophils % Basophils % Absolute Neutrophils Absolute Lymphocytes Absolute Monocytes Absolute Eosinophils Absolute Basophils VBG pH 7.38 VBG pCO2 51.7 VBG HCO3 29.9 VBG Base Excess 3.7 Sodium Potassium Chloride Carbon Dioxide Anion Gap BUN Creatinine Est GFR ( Amer) Est GFR (Non-Af Amer) Glucose Calcium Magnesium Total Bilirubin AST ALT Alkaline Phosphatase Total Protein Albumin Lipase TSH 08/24/16 18:32 NT-Pro-B Natriuret Pep 3530 H Impressions: Abdomen/Pelvis CT 08/23/16 16:07 IMPRESSION: 1. Inflammatory fat stranding surrounding the pancreatic head as well as diffuse enlargement of the pancreas most notably in the pancreatic head. Question possible pancreatitis, correlate clinically. No definite pancreatic mass lesion is identified this region toe evaluation is limited without IV contrast. No peripancreatic fluid collections or pseudocysts identified. No intra-abdominal free air fluid. 2. Uncomplicated moderate colonic diverticulosis. 3. Hepatic steatosis. 4. Prior cholecystectomy. Chest X-Ray 08/25/16 07:45 IMPRESSION: Stable chest, no acute cardiopulmonary disease. Assessment & Plan - Diagnosis (1) Acute on chronic respiratory failure with hypoxemia Is this a current diagnosis for this admission?: YesPlan: Secondary to acute exacerbation of COPD. Continue oxygen supplementation. Patient has chronic home oxygen dependent at baseline. (2) Pancreatitis Qualifiers: Chronicity: acute Pancreatitis type: unspecified pancreatitis type Acute pancreatitis complication: unspecified Qualified Code(s): K85.90 - Acute pancreatitis without necrosis or infection, unspecified Is this a current diagnosis for this admission?: YesPlan: Likely secondary to alcohol use. Viral illness also consideration given other constitutional symptoms. Patient is status post cholecystectomy. Triglyceride level is normal. N.p.o., IV fluids, analgesic, antiemetics. (3) COPD (chronic obstructive pulmonary disease) Is this a current diagnosis for this admission?: YesPlan: Continue Advair, prednisone, albuterol. Patient is followed by Dr. Dhaliwal as an outpatient. She is chronic oxygen dependent at baseline. Start patient on IV Solu-Medrol. Continue bronchodilators. Continue IV azithromycin and IV Rocephin. (4) Alcohol abuse Is this a current diagnosis for this admission?: YesPlan: Thiamine. As needed Ativan. (5) Hypercalcemia Is this a current diagnosis for this admission?: YesPlan: Resolved. Resolved. (6) Dehydration Is this a current diagnosis for this admission?: Yes (7) Hypokalemia Is this a current diagnosis for this admission?: Yes (8) Pulmonary edema Qualifiers: Chronicity: acute Qualified Code(s): J81.0 - Acute pulmonary edema Is this a current diagnosis for this admission?: YesPlan: Lasix 40 mg IV 1 dose. Decrease IV fluid rate. ProBNP elevated. Echocardiogram pending. (9) Hypomagnesemia Is this a current diagnosis for this admission?: Yes (10) Hyperglycemia Is this a current diagnosis for this admission?: YesPlan: Hemoglobin A1c 6.1. Patient with no prior history of diabetes. Likely steroid- induced hyperglycemia. Sliding scale insulin coverage. Discontinue dextrose and maintenance IV fluids. - Time Time Spent with patient: 35 or more minutes
[2016-08-25] MEDS: METHYLPREDNISOLONE INJ 40 MG/1 ML SDV IV SCH (17:32)
[2016-08-25] MEDS: INSULIN LISPRO 100 UNIT/ML 3 ML VIAL SUBCUT PRN (17:33)
[2016-08-25] MEDS: CEFTRIAXONE 1 GM/D5W RTU 1 GM/50 ML RTUPB IV SCH (18:51)
[2016-08-25] MEDS: IPRATROPIUM/ALBUTEROL 0.5-2.5 MG/3 ML AMPUL NEB SCH (19:48)
[2016-08-25] MEDS: AZITHROMYCIN 500 MG in DEXTROSE 5%-WATER 250 ML IV SCH (21:28)
[2016-08-26] MEDS: METHYLPREDNISOLONE INJ 40 MG/1 ML SDV IV SCH (03:37)
[2016-08-26 06:54] LABS: ALANINE AMINOTRANSFERASE 57 U/L (9-52); ALBUMIN 2.8 g/dL (3.5-5.0); ALKALINE PHOSPHATASE 63 U/L (38-126); ANION GAP 7 (5-19); ASPARTATE AMINO TRANSFERASE 27 U/L (14-36); BILIRUBIN,DIRECT 0.3 mg/dL (0.0-0.4); BILIRUBIN,TOTAL 0.4 mg/dL (0.2-1.3); BLOOD UREA NITROGEN 24 mg/dL (7-20); CARBON DIOXIDE 30 mmol/L (22-30); CHLORIDE 102 mmol/L (98-107); CREATININE RESULT 0.68 mg/dL (0.52-1.25); GLUCOSE 146 mg/dL (75-110); LIPASE 586.8 U/L (23-300); MAGNESIUM 1.8 mg/dL (1.6-2.3); POTASSIUM 3.9 mmol/L (3.6-5.0); TOTAL PROTEIN 5.1 g/dL (6.3-8.2)
[2016-08-26 06:55] LABS: MEAN CORPUSCULAR HEMOGLOBIN 34.5 pg (27.0-33.4); MEAN CORPUSCULAR HGB CONC 33.3 g/dL (32.0-36.0); MEAN CORPUSCULAR VOLUME 104 fl (80-97); RED BLOOD COUNT 3.19 10^6/uL (3.72-5.28); RED CELL DISTRIBUTION WIDTH 14.2 % (11.5-14.0); WHITE BLOOD COUNT 9.7 10^3/uL (4.0-10.5)
[2016-08-26 07:43] LABS: BASOPHILS % (MANUAL) 0 % (0-2); EOSINOPHILS % (MANUAL) 0 % (0-6); LYMPHOCYTES % (MANUAL) 0 % (13-45); TOTAL CELLS COUNTED 100
[2016-08-26 07:45] LABS: HYPOCHROMASIA SLIGHT
[2016-08-26] MEDS: IPRATROPIUM/ALBUTEROL 0.5-2.5 MG/3 ML AMPUL NEB SCH ×3 (08:16→19:32)
--- NOTE | 2016-08-26 10:31 | PDOC PROGRESS REPORT ---
Subjective Progress Note for:: 08/26/16 Subjective:: Patient feeling much better with regard to abdominal pain, nausea. No vomiting. Dyspnea much improved. No fever, chills. Physical Exam Vital Signs: Temp Pulse Resp BP Pulse Ox 98.1 F 77 18 119/62 98 08/26/16 07:55 08/26/16 08:16 08/26/16 08:16 08/26/16 07:55 08/26/16 07:55 Intake & Output 08/25/16 08/26/16 08/27/16 06:59 06:59 06:59 Intake Total 2772 1557 Output Total 600 400 Balance 2172 1157 Weight 85.1 kg 85 kg General appearance: PRESENT: no acute distress, well-developed, well-nourished Head exam: PRESENT: atraumatic, normocephalic Eye exam: PRESENT: conjunctiva pink, EOMI, PERRLA. ABSENT: scleral icterus Ear exam: PRESENT: normal external ear exam Mouth exam: PRESENT: moist, tongue midline Neck exam: ABSENT: carotid bruit, JVD, lymphadenopathy, thyromegaly Respiratory exam: PRESENT: clear to auscultation madeline. ABSENT: rales, rhonchi, wheezes Cardiovascular exam: PRESENT: RRR. ABSENT: diastolic murmur, rubs, systolic murmur Pulses: PRESENT: normal dorsalis pedis pul Vascular exam: PRESENT: normal capillary refill GI/Abdominal exam: PRESENT: normal bowel sounds, soft. ABSENT: distended, guarding, mass, organolmegaly, rebound, tenderness Rectal exam: PRESENT: deferred Extremities exam: PRESENT: full ROM. ABSENT: calf tenderness, clubbing, pedal edema Neurological exam: PRESENT: alert, awake, oriented to person, oriented to place , oriented to time, oriented to situation, CN II-XII grossly intact. ABSENT: motor sensory deficit Psychiatric exam: PRESENT: appropriate affect, normal mood. ABSENT: homicidal ideation, suicidal ideation Skin exam: PRESENT: dry, intact, warm. ABSENT: cyanosis, rash Results Laboratory Results: 08/26/16 05:50 08/26/16 05:50 08/26/16 08/26/16 05:50 05:50 WBC 9.7 RBC 3.19 L Hgb 11.0 L Hct 33.0 L MCV 104 H MCH 34.5 H MCHC 33.3 RDW 14.2 H Plt Count 197 Seg Neutrophils % Not Reportable Lymphocytes % Not Reportable Monocytes % Not Reportable Eosinophils % Not Reportable Basophils % Not Reportable Absolute Neutrophils Not Reportable Absolute Lymphocytes Not Reportable Absolute Monocytes Not Reportable Absolute Eosinophils Not Reportable Absolute Basophils Not Reportable Sodium 139.0 Potassium 3.9 Chloride 102 Carbon Dioxide 30 Anion Gap 7 BUN 24 H Creatinine 0.68 Est GFR ( Amer) > 60 Est GFR (Non-Af Amer) > 60 Glucose 146 H Calcium 8.0 L Magnesium 1.8 Total Bilirubin 0.4 AST 27 ALT 57 H Alkaline Phosphatase 63 Total Protein 5.1 L Albumin 2.8 L Lipase 586.8 H 08/24/16 18:32 NT-Pro-B Natriuret Pep 3530 H Impressions: Abdomen/Pelvis CT 08/23/16 16:07 IMPRESSION: 1. Inflammatory fat stranding surrounding the pancreatic head as well as diffuse enlargement of the pancreas most notably in the pancreatic head. Question possible pancreatitis, correlate clinically. No definite pancreatic mass lesion is identified this region toe evaluation is limited without IV contrast. No peripancreatic fluid collections or pseudocysts identified. No intra-abdominal free air fluid. 2. Uncomplicated moderate colonic diverticulosis. 3. Hepatic steatosis. 4. Prior cholecystectomy. Chest X-Ray 08/25/16 07:45 IMPRESSION: Stable chest, no acute cardiopulmonary disease. Assessment & Plan - Diagnosis (1) Acute on chronic respiratory failure with hypoxemia Is this a current diagnosis for this admission?: YesPlan: Secondary to acute exacerbation of COPD. Continue oxygen supplementation. Patient has chronic home oxygen dependent at baseline. (2) Pancreatitis Qualifiers: Chronicity: acute Pancreatitis type: unspecified pancreatitis type Acute pancreatitis complication: unspecified Qualified Code(s): K85.90 - Acute pancreatitis without necrosis or infection, unspecified Is this a current diagnosis for this admission?: YesPlan: Start liquid diet. D/c IVF's (3) COPD (chronic obstructive pulmonary disease) Is this a current diagnosis for this admission?: YesPlan: Continue Advair, prednisone, albuterol. Patient is followed by Dr. Dhaliwal as an outpatient. She is chronic oxygen dependent at baseline. D/c IV Solu-Medrol. Start prednisone. Continue bronchodilators. Discontinue IV azithromycin and IV Rocephin. Start oral doxycycline. (4) Alcohol abuse Is this a current diagnosis for this admission?: YesPlan: Thiamine. As needed Ativan. (5) Hypercalcemia Is this a current diagnosis for this admission?: Yes (6) Dehydration Is this a current diagnosis for this admission?: Yes (7) Hypokalemia Is this a current diagnosis for this admission?: Yes (8) Pulmonary edema Qualifiers: Chronicity: acute Qualified Code(s): J81.0 - Acute pulmonary edema Is this a current diagnosis for this admission?: YesPlan: D/c IV fluid. ProBNP elevated. Echocardiogram pending. (9) Hypomagnesemia Is this a current diagnosis for this admission?: Yes (10) Hyperglycemia Is this a current diagnosis for this admission?: YesPlan: Hemoglobin A1c 6.1. Patient with no prior history of diabetes. Likely steroid- induced hyperglycemia. Sliding scale insulin coverage. - Time Time Spent with patient: 35 or more minutes Anticipated discharge: Home
[2016-08-26] MEDS: ENOXAPARIN SODIUM INJ 40 MG/0.4 ML DISP.SYRIN SUBCUT SCH (10:55)
[2016-08-26] MEDS: FLUTICASONE/SALMETEROL DISKUS 250-50 MCG/DOSE IH SCH ×2 (10:58→21:20)
[2016-08-26] MEDS ORDERED: POTASSIUM CHLORIDE 10 MEQ TABLET.SA PO ONE (11:04)
[2016-08-26] MEDS ORDERED: DOXYCYCLINE HYCLATE 100 MG TABLET PO ONE (11:30)
[2016-08-26] MEDS ORDERED: PREDNISONE 20 MG TABLET PO ONE (11:30)
[2016-08-26] MEDS ORDERED: THIAMINE HCL 100 MG TABLET PO ONE (11:30)
[2016-08-26] MEDS: HYDROMORPHONE HCL INJ/PF 2 MG/ML AMPULE IV PRN (18:42)
[2016-08-26] MEDS: DOXYCYCLINE HYCLATE 100 MG TABLET PO SCH (21:21)
[2016-08-26] MEDS: FAMOTIDINE 20 MG TABLET PO SCH (21:28)
[2016-08-26] MEDS: INSULIN LISPRO 100 UNIT/ML 3 ML VIAL SUBCUT PRN (22:47)
[2016-08-27 06:17] LABS: ALANINE AMINOTRANSFERASE 52 U/L (9-52); ALBUMIN 3.2 g/dL (3.5-5.0); ALKALINE PHOSPHATASE 72 U/L (38-126); ANION GAP 7 (5-19); ASPARTATE AMINO TRANSFERASE 27 U/L (14-36); BILIRUBIN,DIRECT 0.4 mg/dL (0.0-0.4); BILIRUBIN,TOTAL 0.5 mg/dL (0.2-1.3); BLOOD UREA NITROGEN 26 mg/dL (7-20); CALCIUM 7.9 mg/dL (8.4-10.2); CARBON DIOXIDE 32 mmol/L (22-30); CHLORIDE 100 mmol/L (98-107); CREATININE RESULT 0.58 mg/dL (0.52-1.25); GLUCOSE 156 mg/dL (75-110); LIPASE 599.7 U/L (23-300); SODIUM 138.9 mmol/L (137-145); TOTAL PROTEIN 5.7 g/dL (6.3-8.2)
[2016-08-27 06:37] LABS: POTASSIUM 4.9 mmol/L (3.6-5.0)
[2016-08-27 06:41] LABS: HEMATOCRIT 35.9 % (36.0-47.0); HEMOGLOBIN 11.9 g/dL (12.0-15.5); HGB HCT DIFFERENCE -0.2; MEAN CORPUSCULAR HEMOGLOBIN 34.4 pg (27.0-33.4); MEAN CORPUSCULAR HGB CONC 33.2 g/dL (32.0-36.0); MEAN CORPUSCULAR VOLUME 104 fl (80-97); RED BLOOD COUNT 3.47 10^6/uL (3.72-5.28); RED CELL DISTRIBUTION WIDTH 13.9 % (11.5-14.0); WHITE BLOOD COUNT 9.9 10^3/uL (4.0-10.5)
[2016-08-27 06:43] LABS: BAND NEUTROPHILS % (MANUAL) 1 % (3-5); BASOPHILS % (MANUAL) 0 % (0-2); EOSINOPHILS % (MANUAL) 0 % (0-6); LYMPHOCYTES % (MANUAL) 6 % (13-45); TOTAL CELLS COUNTED 100
[2016-08-27 06:45] LABS: TOXIC GRANULATION 1+
[2016-08-27 06:46] LABS: HYPOCHROMASIA SLIGHT; POLYCHROMASIA SLIGHT
[2016-08-27] MEDS: IPRATROPIUM/ALBUTEROL 0.5-2.5 MG/3 ML AMPUL NEB SCH ×3 (08:15→20:40)
[2016-08-27] MEDS: FAMOTIDINE 20 MG TABLET PO SCH (09:22)
[2016-08-27] MEDS: PREDNISONE 20 MG TABLET PO SCH (09:22)
[2016-08-27] MEDS: FLUTICASONE/SALMETEROL DISKUS 250-50 MCG/DOSE IH SCH ×2 (09:22→21:34)
[2016-08-27] MEDS: DOXYCYCLINE HYCLATE 100 MG TABLET PO SCH ×2 (09:22→21:31)
[2016-08-27] MEDS: ENOXAPARIN SODIUM INJ 40 MG/0.4 ML DISP.SYRIN SUBCUT SCH (09:22)
[2016-08-27] MEDS: THIAMINE HCL 100 MG TABLET PO SCH (09:22)
[2016-08-27] MEDS ORDERED: MAG HYDROX/AL HYDROX/SIMETH SUSP 30 ML UDCUP ONE (10:56)
[2016-08-27] MEDS: HYDROMORPHONE HCL INJ/PF 2 MG/ML AMPULE IV PRN ×3 (11:08→22:04)
[2016-08-27] MEDS ORDERED: PANTOPRAZOLE SODIUM 40 MG VIAL IV ONE (15:00)
[2016-08-27] MEDS: NORMAL SALINE 1000 ML 1,000 ML IV PRN (16:17)
--- NOTE | 2016-08-27 17:27 | PDOC PROGRESS REPORT ---
Subjective Progress Note for:: 08/27/16 Subjective:: Patient having more abdominal pain since being started on liquid diet yesterday. She denies nausea vomiting. She has continued dyspnea. Physical Exam Vital Signs: Temp Pulse Resp BP Pulse Ox 97.5 F 96 18 131/74 H 95 08/27/16 11:22 08/27/16 14:00 08/27/16 13:35 08/27/16 11:22 08/27/16 13:35 Intake & Output 08/26/16 08/27/16 08/28/16 06:59 06:59 06:59 Intake Total 1557 746 150 Output Total 400 800 Balance 1157 -54 150 Weight 85 kg 85.3 kg GENERAL: No acute distress HEENT: Conjunctiva clear, nonicteric, moist mucous membranes, no JVD, midline trachea RESPIRATORY: Bilateral wheezes, diminished air excursion CARDIAC: Regular rate and rhythm, no murmurs/gallops/rubs ABDOMEN: Soft, nondistended, mid abdominal tenderness, positive bowel sounds, no rebound, no guarding EXTREMETIES: No edema, cyanosis, clubbing NEUROLOGIC: Alert, oriented to person/place/time, CN's grossly intact, no focal deficits SKIN: No rash, wounds PSYCH: Normal mood, normal affect Results Laboratory Results: 08/27/16 05:36 08/27/16 05:36 08/27/16 08/27/16 05:36 05:36 WBC 9.9 RBC 3.47 L Hgb 11.9 L Hct 35.9 L MCV 104 H MCH 34.4 H MCHC 33.2 RDW 13.9 Plt Count 236 Seg Neutrophils % Not Reportable Lymphocytes % Not Reportable Monocytes % Not Reportable Eosinophils % Not Reportable Basophils % Not Reportable Absolute Neutrophils Not Reportable Absolute Lymphocytes Not Reportable Absolute Monocytes Not Reportable Absolute Eosinophils Not Reportable Absolute Basophils Not Reportable Sodium 138.9 Potassium 4.9 D Chloride 100 Carbon Dioxide 32 H Anion Gap 7 BUN 26 H Creatinine 0.58 Est GFR ( Amer) > 60 Est GFR (Non-Af Amer) > 60 Glucose 156 H Calcium 7.9 L Total Bilirubin 0.5 AST 27 ALT 52 Alkaline Phosphatase 72 Total Protein 5.7 L Albumin 3.2 L Lipase 599.7 H 08/24/16 18:32 NT-Pro-B Natriuret Pep 3530 H Impressions: Abdomen/Pelvis CT 08/23/16 16:07 IMPRESSION: 1. Inflammatory fat stranding surrounding the pancreatic head as well as diffuse enlargement of the pancreas most notably in the pancreatic head. Question possible pancreatitis, correlate clinically. No definite pancreatic mass lesion is identified this region toe evaluation is limited without IV contrast. No peripancreatic fluid collections or pseudocysts identified. No intra-abdominal free air fluid. 2. Uncomplicated moderate colonic diverticulosis. 3. Hepatic steatosis. 4. Prior cholecystectomy. Chest X-Ray 08/25/16 07:45 IMPRESSION: Stable chest, no acute cardiopulmonary disease. Assessment & Plan - Diagnosis (1) Acute on chronic respiratory failure with hypoxemia Is this a current diagnosis for this admission?: YesPlan: Secondary to acute exacerbation of COPD. Continue oxygen supplementation. Patient has chronic home oxygen dependent at baseline. (2) Pancreatitis Qualifiers: Chronicity: acute Pancreatitis type: unspecified pancreatitis type Acute pancreatitis complication: unspecified Qualified Code(s): K85.90 - Acute pancreatitis without necrosis or infection, unspecified Is this a current diagnosis for this admission?: YesPlan: Patient has had recurrence of pain since being initiated on liquid diet yesterday. I will make her n.p.o. again and start IV fluids. Repeat labs in the morning. (3) COPD (chronic obstructive pulmonary disease) Is this a current diagnosis for this admission?: YesPlan: Continue Advair, prednisone, albuterol. Patient is followed by Dr. Dhaliwal as an outpatient. She is chronic oxygen dependent at baseline. Continue prednisone. Continue bronchodilators. Continue oral doxycycline. (4) Alcohol abuse Is this a current diagnosis for this admission?: Yes (5) Hypercalcemia Is this a current diagnosis for this admission?: Yes (6) Dehydration Is this a current diagnosis for this admission?: Yes (7) Hypokalemia Is this a current diagnosis for this admission?: Yes (8) Pulmonary edema Qualifiers: Chronicity: acute Qualified Code(s): J81.0 - Acute pulmonary edema Is this a current diagnosis for this admission?: Yes (9) Hypomagnesemia Is this a current diagnosis for this admission?: Yes (10) Hyperglycemia Is this a current diagnosis for this admission?: Yes - Time Time Spent with patient: 15-24 minutes
--- NOTE | 2016-08-27 17:45 | XCELERA REPORT ---
[address] [address] Transthoracic Echocardiogram Report Name: ALIE PATTERSON Age: 70 yrs Gender: Female : 1945 Patient Status: Inpatient Patient Location: [id number]\S\330\S\A Study Date: 08/24/2016 03:41 PM Height: 67 in Weight: 181 lb BSA: 1.9 m2 Procedure: A two-dimensional transthoracic echocardiogram with color flow and Doppler was performed. Study Quality: Technically suboptimal. The study was technically difficult with many images being suboptimal in quality. The study was technically limited with all images being suboptimal in quality. Reason For Study: pulm edema, dyspnea History: pulm edema, dyspnea. Ordering Physician: MARLENE MURRY Performed By: Solis Aldana Interpretation Summary The left ventricle is normal in size. There is normal left ventricular wall thickness. Left ventricular systolic function is normal. Doppler measurements suggest normal left ventricular diastolic function The left ventricular wall motion is normal. The right ventricle is not well visualized secondary to technical limitations The left atrial size is normal. There is no evidence of mitral valve prolapse. There is no vegetation seen on the mitral valve. There is a mild amount of mitral regurgitation There is no mitral valve stenosis. There is no aortic valve stenosis There is no LVOT obstruction. No aortic regurgitation is present. There is a trace amount of tricuspid regurgitation Right ventricular systolic pressure is normal. RVSP is 25 MM OF Hg , with RA mean of 5. There is no pericardial effusion. MMode/2D Measurements \T\ Calculations RVDd: 2.5 cm LVIDd: 3.8 cm FS: 38.9 % Ao root diam: 3.2 cm IVSd: 0.96 cm LVIDs: 2.3 cm EDV(Teich): 61.7 ml LVPWd: 0.96 cm ESV(Teich): 18.5 ml Ao root area: 7.9 cm2 EF(Teich): 70.0 % LA dimension: 3.1 cm Doppler Measurements \T\ Calculations MV E max nickolas: MV P1/2t max nickolas: Ao V2 max: LV V1 max P.4 cm/sec 81.9 cm/sec 114.8 cm/sec 3.4 mmHg MV A max nickolas: MV P1/2t: 56.0 msec Ao max PG: LV V1 max: 109.1 cm/sec 5.3 mmHg 91.6 cm/sec MV E/A: 0.75 MVA(P1/2t): 3.9 cm2 MV dec slope: 428.3 cm/sec2 PA V2 max: TR max nickolas: RAP systole: 93.2 cm/sec 195.9 cm/sec 5.0 mmHg PA max P.5 mmHgTR max P.3 mmHg RVSP(TR): 20.3 mmHg Left Ventricle The left ventricle is normal in size. There is normal left ventricular wall thickness. LV EF is 65%. Left ventricular systolic function is normal. Doppler measurements suggest normal left ventricular diastolic function. The left ventricular wall motion is normal. Right Ventricle The right ventricle is not well visualized secondary to technical limitations. Atria Right atrium not well visualized secondary to technical limitations. The left atrial size is normal. Mitral Valve There is no evidence of mitral valve prolapse. There is no vegetation seen on the mitral valve. There is no mitral valve stenosis. There is a mild amount of mitral regurgitation. Aortic Valve There is no aortic valvular vegetation. There is no aortic valve stenosis. There is no LVOT obstruction. No aortic regurgitation is present. Tricuspid Valve There is no tricuspid stenosis. There is a trace amount of tricuspid regurgitation. Right ventricular systolic pressure is normal. RVSP is 25 MM OF Hg , with RA mean of 5. Pulmonic Valve There is no pulmonic valvular stenosis. There is no pulmonic valvular regurgitation. Great Vessels The aortic root is normal size. Effusions There is no pericardial effusion. : MARLENE MURRY Lakshmi
[2016-08-27] MEDS: PANTOPRAZOLE SODIUM 40 MG VIAL IV SCH (21:31)
[2016-08-27] MEDS: INSULIN LISPRO 100 UNIT/ML 3 ML VIAL SUBCUT PRN (23:43)
[2016-08-28] MEDS: NORMAL SALINE 1000 ML 1,000 ML IV PRN (02:54)
[2016-08-28] MEDS: HYDROMORPHONE HCL INJ/PF 2 MG/ML AMPULE IV PRN ×4 (03:10→19:52)
[2016-08-28 06:17] LABS: ALANINE AMINOTRANSFERASE 49 U/L (9-52); ALBUMIN 2.9 g/dL (3.5-5.0); ALKALINE PHOSPHATASE 63 U/L (38-126); ANION GAP 8 (5-19); ASPARTATE AMINO TRANSFERASE 45 U/L (14-36); BILIRUBIN,DIRECT 0.4 mg/dL (0.0-0.4); BILIRUBIN,TOTAL 0.5 mg/dL (0.2-1.3); BLOOD UREA NITROGEN 20 mg/dL (7-20); CARBON DIOXIDE 28 mmol/L (22-30); CHLORIDE 105 mmol/L (98-107); CREATININE RESULT 0.48 mg/dL (0.52-1.25); GLUCOSE 154 mg/dL (75-110); LIPASE 281.2 U/L (23-300); SODIUM 140.9 mmol/L (137-145); TOTAL PROTEIN 5.4 g/dL (6.3-8.2)
[2016-08-28 06:26] LABS: CALCIUM 6.8 mg/dL (8.4-10.2); POTASSIUM 3.6 mmol/L (3.6-5.0)
[2016-08-28 06:36] LABS: HEMATOCRIT 35.5 % (36.0-47.0); HEMOGLOBIN 11.6 g/dL (12.0-15.5); HGB HCT DIFFERENCE -0.7; MEAN CORPUSCULAR HEMOGLOBIN 34.4 pg (27.0-33.4); MEAN CORPUSCULAR HGB CONC 32.8 g/dL (32.0-36.0); MEAN CORPUSCULAR VOLUME 105 fl (80-97); RED BLOOD COUNT 3.38 10^6/uL (3.72-5.28); RED CELL DISTRIBUTION WIDTH 13.9 % (11.5-14.0); WHITE BLOOD COUNT 8.8 10^3/uL (4.0-10.5)
[2016-08-28 07:05] LABS: BAND NEUTROPHILS % (MANUAL) 1 % (3-5); BASOPHILS % (MANUAL) 0 % (0-2); EOSINOPHILS % (MANUAL) 0 % (0-6); LYMPHOCYTES % (MANUAL) 3 % (13-45); TOTAL CELLS COUNTED 100
[2016-08-28 07:06] LABS: POLYCHROMASIA SLIGHT; TEAR DROP CELLS SLIGHT; TOXIC GRANULATION SLIGHT; TOXIC VACUOLATION PRESENT
[2016-08-28 07:07] LABS: OVALOCYTES SLIGHT; POIKILOCYTOSIS SLIGHT
[2016-08-28] MEDS: IPRATROPIUM/ALBUTEROL 0.5-2.5 MG/3 ML AMPUL NEB SCH ×3 (08:13→20:52)
[2016-08-28] MEDS: PREDNISONE 20 MG TABLET PO SCH (09:02)
[2016-08-28] MEDS: THIAMINE HCL 100 MG TABLET PO SCH (09:02)
[2016-08-28] MEDS: DOXYCYCLINE HYCLATE 100 MG TABLET PO SCH ×2 (09:02→21:48)
[2016-08-28] MEDS: PANTOPRAZOLE SODIUM 40 MG VIAL IV SCH ×2 (09:03→21:47)
[2016-08-28] MEDS: ENOXAPARIN SODIUM INJ 40 MG/0.4 ML DISP.SYRIN SUBCUT SCH (09:03)
[2016-08-28] MEDS: FLUTICASONE/SALMETEROL DISKUS 250-50 MCG/DOSE IH SCH ×2 (09:03→21:48)
[2016-08-28] MEDS ORDERED: (PENDING PHARMACY ID) (Tiotropium Bromide [Spiriva Respimat] 2 PUFF) IH SCH (10:00)
[2016-08-28] MEDS ORDERED: CALCIUM GLUCONATE 2,000 MG in DEXTROSE 5%-WATER 100 ML IV ONE (10:00)
[2016-08-28] MEDS ORDERED: FUROSEMIDE INJ/PF 20 MG/2 ML SDV IV ONE (11:00)
[2016-08-28] MEDS: POTASSI CL 20 MEQ/50 ML RIDER 50 ML IV SCH ×3 (11:27→15:20)
--- NOTE | 2016-08-28 11:30 | RADIOLOGY REPORT (SQ) ---
EXAM DESCRIPTION: KUB/ABDOMEN (SINGLE VIEW) COMPLETED DATE/TIME: 08/28/2016 11:20 am REASON FOR STUDY: no bs concern for ileus COMPARISON: CT 08/23/2016. NUMBER OF VIEWS: One view. TECHNIQUE: Supine radiographic image of the abdomen acquired. LIMITATIONS: None. FINDINGS: BOWEL GAS PATTERN: Mild gaseous distension of the stomach. Mild gaseous distension of the transverse colon and rectum. No dilated small bowel loops to suggest obstruction. No significant s tool appreciated. CALCIFICATIONS: No suspicious calcifications. SOFT TISSUES: No gross mass or suggestion of organomegaly. HARDWARE: Right hip replacement. BONES: Osteopenic. OTHER: No other significant finding. IMPRESSION: No acute abnormality. Mild gaseous distension of stomach and a portion of colon and rec ronna. No significant stool retention. No dilated small bowel loops. TECHNICAL DOCUMENTATION: JOB ID: [id number] [employer]- All Rights Reserved
[2016-08-28] MEDS ORDERED: PHARMACY COMMUNICATION ORDER MC NR (13:00)
[2016-08-28] MEDS ORDERED: DIPHENHYDRAMINE HCL 50 MG/ML VIAL ONE (13:50)
[2016-08-28] MEDS: MAG HYDROX/AL HYDROX/SIMETH SUSP 30 ML UDCUP PO PRN (13:56)
[2016-08-28] MEDS ORDERED: DIPHENHYDRAMINE HCL 50 MG/ML VIAL IV PRN ×2 (14:22→14:48)
--- NOTE | 2016-08-28 15:25 | PDOC PROGRESS REPORT ---
Subjective Progress Note for:: 08/28/16 Subjective:: Patient reports she is having a significant amount of gas. Patient is not having flatus. Patient has not had a bowel movement. Patient is noted to have bilateral upper extremity edema. Her shortness of breath is worse with ambulation. Patient reports that her abdominal pain is well controlled. Patient complains of itching. Denies chest pain, fever, chills, vomiting. Physical Exam Vital Signs: Temp Pulse Resp BP Pulse Ox 97.5 F 84 12 131/71 H 97 08/28/16 03:26 08/28/16 03:26 08/28/16 04:13 08/28/16 03:26 08/28/16 04:13 Intake & Output 08/27/16 08/28/16 08/29/16 06:59 06:59 06:59 Intake Total 746 1580 Output Total 800 150 Balance -54 1430 Weight 85.3 kg 87 kg Exam: GENERAL: No acute distress, Mild pain, appears older than stated age HEENT: Conjunctiva clear, nonicteric, moist mucous membranes, no JVD, midline trachea RESPIRATORY: Prolonged expiratory phase, otherwise clear with poor air excursion CARDIAC: Regular rate and rhythm, no murmurs/gallops/rubs ABDOMEN: Soft, nondistended, mid abdominal tenderness, hypoactive bowel sounds, no rebound, no guarding EXTREMETIES: No cyanosis, clubbing; 1+ BUE edema, trace BLE edema NEUROLOGIC: Alert, oriented to person/place/time, CN's grossly intact, no focal deficits SKIN: No rash; ecchymosis right wrist/arm PSYCH: Normal mood, normal affect Results Laboratory Results: 08/28/16 05:00 08/28/16 05:00 08/28/16 08/28/16 05:00 05:00 WBC 8.8 RBC 3.38 L Hgb 11.6 L Hct 35.5 L MCV 105 H MCH 34.4 H MCHC 32.8 RDW 13.9 Plt Count 208 Seg Neutrophils % Not Reportable Lymphocytes % Not Reportable Monocytes % Not Reportable Eosinophils % Not Reportable Basophils % Not Reportable Absolute Neutrophils Not Reportable Absolute Lymphocytes Not Reportable Absolute Monocytes Not Reportable Absolute Eosinophils Not Reportable Absolute Basophils Not Reportable Sodium 140.9 Potassium 3.6 D Chloride 105 Carbon Dioxide 28 Anion Gap 8 BUN 20 Creatinine 0.48 L Est GFR ( Amer) > 60 Est GFR (Non-Af Amer) > 60 Glucose 154 H Calcium 6.8 L* Total Bilirubin 0.5 AST 45 H ALT 49 Alkaline Phosphatase 63 Total Protein 5.4 L Albumin 2.9 L Lipase 281.2 08/24/16 18:32 NT-Pro-B Natriuret Pep 3530 H Impressions: Abdomen/Pelvis CT 08/23/16 16:07 IMPRESSION: 1. Inflammatory fat stranding surrounding the pancreatic head as well as diffuse enlargement of the pancreas most notably in the pancreatic head. Question possible pancreatitis, correlate clinically. No definite pancreatic mass lesion is identified this region toe evaluation is limited without IV contrast. No peripancreatic fluid collections or pseudocysts identified. No intra-abdominal free air fluid. 2. Uncomplicated moderate colonic diverticulosis. 3. Hepatic steatosis. 4. Prior cholecystectomy. Chest X-Ray 08/25/16 07:45 IMPRESSION: Stable chest, no acute cardiopulmonary disease. Assessment & Plan - Diagnosis (1) Pancreatitis Qualifiers: Chronicity: acute Pancreatitis type: alcohol induced Acute pancreatitis complication: unspecified Qualified Code(s): K85.20 - Alcohol induced acute pancreatitis without necrosis or infection Is this a current diagnosis for this admission?: YesPlan: Patient has history per chart of alcohol abuse. Continue n.p.o. IV Fluids and pain relief Continue to monitor and replete electrolytes Concern for developing ileus. Will obtain KUB and place NG if needed. (2) Acute on chronic respiratory failure with hypoxemia Is this a current diagnosis for this admission?: YesPlan: Patient uses 2L home O2 and is still not at baseline. Continue patient on oxygen. Bipap if needed (3) COPD (chronic obstructive pulmonary disease) Qualifiers: COPD type: COPD with acute exacerbation Qualified Code(s): J44.1 - Chronic obstructive pulmonary disease with (acute) exacerbation Is this a current diagnosis for this admission?: YesPlan: Patient is on chronic prednisone and has done well with increasing this to 40mg po daily. Continue scheduled nebulized treatments. (4) Hypokalemia Is this a current diagnosis for this admission?: YesPlan: Replete and change fluids to contain KCl. Check and keep Mag repleted. (5) Hypomagnesemia Is this a current diagnosis for this admission?: YesPlan: Recheck and replete (6) Hypocalcemia Is this a current diagnosis for this admission?: YesPlan: 2/2 pancreatitis replete and recheck (7) Steatohepatitis, alcoholic Is this a current diagnosis for this admission?: YesPlan: Patient with steatohepatitis and history of alcohol abuse. Concern for evolution into cirrhosis. Discussed with patient modifying her risk factors including alcohol consumption, obesity, diabetes mellitus, and hyperlipidemia. (8) Obesity Qualifiers: Obesity type: due to excess calories Obesity severity: non-morbid Qualified Code(s): E66.09 - Other obesity due to excess calories Is this a current diagnosis for this admission?: YesPlan: Patient with severe obesity Recommend physician monitored weight loss as an outpatient - Time Time Spent with patient: 25-34 minutes Medications reviewed and adjusted accordingly: Yes - Inpatient Certification Based on my medical assessment, after consideration of the patient's comorbidities, presenting symptoms, or acuity I expect that the services needed warrant INPATIENT care.: Yes I certify that my determination is in accordance with my understanding of Medicare's requirements for reasonable and necessary INPATIENT services [42 CFR 412.3e].: Yes Medical Necessity: Need For IV Fluids, Need for Pain Control Post Hospital Care: D/C Cardiac Cath Rn Documentation
[2016-08-28] MEDS ORDERED: MAGNESIUM SULFATE/D5W 100 ML IV ONE (16:00)
--- NOTE | 2016-08-28 17:56 | RADIOLOGY REPORT (SQ) ---
EXAM DESCRIPTION: CHEST SINGLE VIEW COMPLETED DATE/TIME: 08/28/2016 5:41 pm REASON FOR STUDY: copd exacerbation COMPARISON: 08/25/2016 EXAM PARAMETERS: NUMBER OF VIEWS: One view. TECHNIQUE: Single frontal radiographic view of the chest acquired. RADIATION DOSE: NA LIMITATIONS: None. FINDINGS: LUNGS AND PLEURA: No opacities, masses or pneumothorax. No pleural effusion. I cannot exc lude a component of obstructive lung disease. MEDIASTINUM AND HILAR STRUCTURES: No masses. Contour normal. HEART AND VASCULAR STRUCTURES: Heart normal in size. Normal vasculature. BONES: No acute findings. HARDWARE: None in the chest. OTHER: No other significant finding. IMPRESSION: No significant interval change. No acute findings. Other findings as noted above TECHNICAL DOCUMENTATION: JOB ID: [id number]
[2016-08-28] MEDS: POTASSI CL 20 MEQ/NS 1L 1,000 ML IV PRN (18:00)
[2016-08-29] MEDS: HYDROMORPHONE HCL INJ/PF 2 MG/ML AMPULE IV PRN ×3 (02:30→20:41)
[2016-08-29] MEDS: POTASSI CL 20 MEQ/NS 1L 1,000 ML IV PRN ×2 (03:45→15:16)
[2016-08-29] MEDS: IPRATROPIUM/ALBUTEROL 0.5-2.5 MG/3 ML AMPUL NEB SCH ×3 (08:22→20:03)
[2016-08-29] MEDS: ENOXAPARIN SODIUM INJ 40 MG/0.4 ML DISP.SYRIN SUBCUT SCH (09:23)
[2016-08-29] MEDS: DOXYCYCLINE HYCLATE 100 MG TABLET PO SCH ×2 (09:23→22:55)
[2016-08-29] MEDS: THIAMINE HCL 100 MG TABLET PO SCH (09:23)
[2016-08-29] MEDS: PREDNISONE 20 MG TABLET PO SCH (09:23)
[2016-08-29] MEDS: FLUTICASONE/SALMETEROL DISKUS 250-50 MCG/DOSE IH SCH ×2 (09:23→22:56)
[2016-08-29] MEDS: PANTOPRAZOLE SODIUM 40 MG VIAL IV SCH ×2 (09:23→22:56)
[2016-08-29] MEDS: ALBUTEROL SULFATE 0.083% NEB 2.5 MG/3 ML AMPUL NEB PRN ×2 (12:12→17:53)
[2016-08-29] MEDS: LORAZEPAM INJ 2 MG/1 ML VIAL IV PRN ×2 (13:43→17:59)
--- NOTE | 2016-08-29 15:44 | PDOC PROGRESS REPORT ---
Subjective Progress Note for:: 08/29/16 Subjective:: The patient states to feel better. She is presently on BiPAP. She still has not had a bowel movement. She denies any significant abdominal pain. She has not been out of bed. She is presently n.p.o. Physical Exam Vital Signs: Temp Pulse Resp BP Pulse Ox 97.7 F 111 H 18 148/71 H 98 08/29/16 11:25 08/29/16 14:37 08/29/16 14:37 08/29/16 11:25 08/29/16 12:12 Intake & Output 08/28/16 08/29/16 08/30/16 06:59 06:59 06:59 Intake Total 1580 1800 Output Total 150 1700 300 Balance 1430 100 -300 Weight 87 kg 87 kg General appearance: PRESENT: mild distress Head exam: PRESENT: atraumatic Eye exam: PRESENT: conjunctival injection Neck exam: ABSENT: carotid bruit Respiratory exam: PRESENT: decreased breath sounds, prolonged expiratory phas, rhonchi, wheezes Cardiovascular exam: PRESENT: RRR, +S1, +S2 Pulses: PRESENT: +1 pedal pulses bilateral GI/Abdominal exam: PRESENT: soft, tenderness Extremities exam: PRESENT: tenderness Musculoskeletal exam: PRESENT: tenderness Neurological exam: PRESENT: alert, altered, oriented to time, CN II-XII grossly intact Results Laboratory Results: 08/28/16 05:00 08/28/16 05:00 08/23/16 22:11 Blood Blood Culture - Final NO GROWTH IN 5 DAYS 08/23/16 20:44 Blood Blood Culture - Final NO GROWTH IN 5 DAYS 08/24/16 18:32 NT-Pro-B Natriuret Pep 3530 H Impressions: Abdomen/Pelvis CT 08/23/16 16:07 IMPRESSION: 1. Inflammatory fat stranding surrounding the pancreatic head as well as diffuse enlargement of the pancreas most notably in the pancreatic head. Question possible pancreatitis, correlate clinically. No definite pancreatic mass lesion is identified this region toe evaluation is limited without IV contrast. No peripancreatic fluid collections or pseudocysts identified. No intra-abdominal free air fluid. 2. Uncomplicated moderate colonic diverticulosis. 3. Hepatic steatosis. 4. Prior cholecystectomy. Chest X-Ray 08/28/16 00:00 IMPRESSION: No significant interval change. No acute findings. Other findings as noted above KUB X-Ray 08/28/16 00:00 IMPRESSION: No acute abnormality. Mild gaseous distension of stomach and a portion of colon and rectum. No significant stool retention. No dilated small bowel loops. Assessment & Plan - Diagnosis (1) Acute on chronic respiratory failure with hypoxemia Is this a current diagnosis for this admission?: YesPlan: Continue BiPAP and steroids (2) Pancreatitis Qualifiers: Chronicity: acute Pancreatitis type: alcohol induced Acute pancreatitis complication: unspecified Qualified Code(s): K85.20 - Alcohol induced acute pancreatitis without necrosis or infection Is this a current diagnosis for this admission?: YesPlan: Improving with lipase down below 300. Discussed with the patient the pancreatitis. He states that she only drinks less than glass of wine every night (3) Hypomagnesemia Is this a current diagnosis for this admission?: YesPlan: Improving with supplementation (4) Hypokalemia Is this a current diagnosis for this admission?: Yes
[2016-08-30] MEDS: ALBUTEROL SULFATE 0.083% NEB 2.5 MG/3 ML AMPUL NEB PRN (02:20)
[2016-08-30 04:55] LABS: HEMATOCRIT 36.6 % (36.0-47.0); HGB HCT DIFFERENCE -0.6; MEAN CORPUSCULAR HEMOGLOBIN 34.5 pg (27.0-33.4); MEAN CORPUSCULAR HGB CONC 32.8 g/dL (32.0-36.0); MEAN CORPUSCULAR VOLUME 105 fl (80-97); RED BLOOD COUNT 3.48 10^6/uL (3.72-5.28); RED CELL DISTRIBUTION WIDTH 14.3 % (11.5-14.0)
[2016-08-30 05:12] LABS: ALANINE AMINOTRANSFERASE 75 U/L (9-52); ALBUMIN 2.9 g/dL (3.5-5.0); ALKALINE PHOSPHATASE 85 U/L (38-126); ANION GAP 12 (5-19); ASPARTATE AMINO TRANSFERASE 70 U/L (14-36); BILIRUBIN,DIRECT 0.5 mg/dL (0.0-0.4); BILIRUBIN,TOTAL 0.6 mg/dL (0.2-1.3); BLOOD UREA NITROGEN 15 mg/dL (7-20); CARBON DIOXIDE 21 mmol/L (22-30); CHLORIDE 111 mmol/L (98-107); CREATININE RESULT 0.44 mg/dL (0.52-1.25); GLUCOSE 145 mg/dL (75-110); MAGNESIUM 1.6 mg/dL (1.6-2.3); POTASSIUM 4.2 mmol/L (3.6-5.0); SODIUM 144.4 mmol/L (137-145); TOTAL PROTEIN 5.3 g/dL (6.3-8.2)
[2016-08-30 05:25] LABS: BAND NEUTROPHILS % (MANUAL) 5 % (3-5); BASOPHILS % (MANUAL) 0 % (0-2); EOSINOPHILS % (MANUAL) 0 % (0-6); LYMPHOCYTES % (MANUAL) 5 % (13-45); TOTAL CELLS COUNTED 100
[2016-08-30 05:27] LABS: ANISOCYTOSIS SLIGHT; OVALOCYTES SLIGHT; POIKILOCYTOSIS SLIGHT; SCHISTOCYTES SLIGHT; TOXIC GRANULATION SLIGHT
[2016-08-30 06:17] LABS: ARTERIAL BLOOD BASE EXCESS -2.2 mmol/L; ARTERIAL BLOOD O2 SATURATION 97.6 % (94-98)
[2016-08-30] MEDS: IPRATROPIUM/ALBUTEROL 0.5-2.5 MG/3 ML AMPUL NEB SCH ×2 (07:40→13:41)
[2016-08-30] MEDS ORDERED: (PENDING PHARMACY ID) (Roflumilast [Daliresp 500 Mcg Tablet] 500 MCG) PO SCH (10:00)
[2016-08-30] MEDS: MAGNESIUM OXIDE 400 MG TABLET PO SCH ×2 (11:01→18:30)
[2016-08-30] MEDS: POTASSIUM CHLORIDE 10 MEQ TABLET.SA PO SCH ×2 (11:01→22:13)
[2016-08-30] MEDS: DOXYCYCLINE HYCLATE 100 MG TABLET PO SCH (11:01)
[2016-08-30] MEDS: FUROSEMIDE 40 MG TABLET PO SCH ×2 (11:02→18:30)
[2016-08-30] MEDS: PREDNISONE 20 MG TABLET PO SCH (11:02)
[2016-08-30] MEDS: ENOXAPARIN SODIUM INJ 40 MG/0.4 ML DISP.SYRIN SUBCUT SCH (11:05)
[2016-08-30] MEDS: ROFLUMILAST 500 MCG TABLET PO SCH (11:06)
[2016-08-30] MEDS: PANTOPRAZOLE SODIUM 40 MG VIAL IV SCH ×2 (11:06→22:12)
[2016-08-30] MEDS: FLUTICASONE/SALMETEROL DISKUS 250-50 MCG/DOSE IH SCH ×2 (11:08→22:12)
[2016-08-30] MEDS: TIOTROPIUM BROMIDE DPI 5 CAP/KIT (18 MCG/CAP) IH SCH (11:09)
[2016-08-30] MEDS: THIAMINE HCL 100 MG TABLET PO SCH (11:29)
--- NOTE | 2016-08-30 12:48 | PDOC PROGRESS REPORT ---
Subjective Progress Note for:: 08/30/16 Subjective:: The patient is still complaining of shortness of breath. She is having difficulty staying off the BiPAP. Her abdominal pain has improved. She denies any bowel movements. Discussed the need for pulmonary consultation with the patient. Physical Exam Vital Signs: Temp Pulse Resp BP Pulse Ox 98.3 F 107 H 25 H 175/87 H 97 08/30/16 08:09 08/30/16 08:09 08/30/16 12:17 08/30/16 08:09 08/30/16 12:17 Intake & Output 08/29/16 08/30/16 08/31/16 06:59 06:59 06:59 Intake Total 1800 1350 0 Output Total 1700 1300 700 Balance 100 50 -700 Weight 87 kg 87.6 kg General appearance: PRESENT: mild distress Head exam: PRESENT: atraumatic Eye exam: PRESENT: conjunctival injection Neck exam: ABSENT: carotid bruit Respiratory exam: PRESENT: accessory muscle use, rhonchi, tachypnea Cardiovascular exam: PRESENT: +S1, +S2 Pulses: PRESENT: normal carotid pulses Vascular exam: PRESENT: normal capillary refill GI/Abdominal exam: PRESENT: soft, tenderness Extremities exam: PRESENT: full ROM, pedal edema Neurological exam: PRESENT: alert, awake Psychiatric exam: PRESENT: anxious Results Laboratory Results: 08/30/16 04:38 08/30/16 04:38 08/30/16 08/30/16 08/30/16 04:38 04:38 04:38 WBC 9.0 RBC 3.48 L Hgb 12.0 Hct 36.6 MCV 105 H MCH 34.5 H MCHC 32.8 RDW 14.3 H Plt Count 270 Seg Neutrophils % Not Reportable Lymphocytes % Not Reportable Monocytes % Not Reportable Eosinophils % Not Reportable Basophils % Not Reportable Absolute Neutrophils Not Reportable Absolute Lymphocytes Not Reportable Absolute Monocytes Not Reportable Absolute Eosinophils Not Reportable Absolute Basophils Not Reportable Carbonic Acid HCO3/H2CO3 Ratio ABG pH ABG pCO2 ABG pO2 ABG HCO3 ABG O2 Saturation ABG Base Excess FiO2 Sodium 144.4 Potassium 4.2 Chloride 111 H Carbon Dioxide 21 L Anion Gap 12 BUN 15 Creatinine 0.44 L Est GFR ( Amer) > 60 Est GFR (Non-Af Amer) > 60 Glucose 145 H Calcium 7.0 L* Magnesium 1.6 Total Bilirubin 0.6 AST 70 H ALT 75 H Alkaline Phosphatase 85 Total Protein 5.3 L Albumin 2.9 L TSH 2.27 08/30/16 06:05 WBC RBC Hgb Hct MCV MCH MCHC RDW Plt Count Seg Neutrophils % Lymphocytes % Monocytes % Eosinophils % Basophils % Absolute Neutrophils Absolute Lymphocytes Absolute Monocytes Absolute Eosinophils Absolute Basophils Carbonic Acid 1.01 L HCO3/H2CO3 Ratio 21:1 ABG pH 7.43 ABG pCO2 33.4 L ABG pO2 96.7 ABG HCO3 21.4 ABG O2 Saturation 97.6 ABG Base Excess -2.2 FiO2 30% Sodium Potassium Chloride Carbon Dioxide Anion Gap BUN Creatinine Est GFR ( Amer) Est GFR (Non-Af Amer) Glucose Calcium Magnesium Total Bilirubin AST ALT Alkaline Phosphatase Total Protein Albumin TSH 08/24/16 08/30/16 18:32 04:38 NT-Pro-B Natriuret Pep 3530 H 2600 H Impressions: Abdomen/Pelvis CT 08/23/16 16:07 IMPRESSION: 1. Inflammatory fat stranding surrounding the pancreatic head as well as diffuse enlargement of the pancreas most notably in the pancreatic head. Question possible pancreatitis, correlate clinically. No definite pancreatic mass lesion is identified this region toe evaluation is limited without IV contrast. No peripancreatic fluid collections or pseudocysts identified. No intra-abdominal free air fluid. 2. Uncomplicated moderate colonic diverticulosis. 3. Hepatic steatosis. 4. Prior cholecystectomy. Chest X-Ray 08/28/16 00:00 IMPRESSION: No significant interval change. No acute findings. Other findings as noted above KUB X-Ray 08/28/16 00:00 IMPRESSION: No acute abnormality. Mild gaseous distension of stomach and a portion of colon and rectum. No significant stool retention. No dilated small bowel loops. Assessment & Plan - Diagnosis (1) Acute on chronic respiratory failure with hypoxemia Is this a current diagnosis for this admission?: YesPlan: We will continue with current treatment. Will add diuretics. Will consult pulmonary (2) Pancreatitis Qualifiers: Chronicity: acute Pancreatitis type: alcohol induced Acute pancreatitis complication: unspecified Qualified Code(s): K85.20 - Alcohol induced acute pancreatitis without necrosis or infection Is this a current diagnosis for this admission?: YesPlan: Improving with lipase down below 300. Discussed with the patient the pancreatitis. He states that she only drinks less than glass of wine every night (3) Hypomagnesemia Is this a current diagnosis for this admission?: YesPlan: Improving with supplementation (4) Hypokalemia Is this a current diagnosis for this admission?: YesPlan: We will supplement with oral potassium
--- NOTE | 2016-08-30 17:28 | PDOC CONSULTATION ---
Consultation Consult Date: 08/30/16 Attending physician:: DANYA DE LA TORRE Consult reason:: dyspnea History of Present Illness Admission Date/PCP: 08/23/16 17:44 DANYA DE LA TORRE, History of Present Illness: ALIE PATTERSON is a 70 year old female with past medical history of chronic pain, oxygen dependent COPD and presents with 2 week history of nausea, vomiting , headache, chills, cough. Patient stated to the emergency department provider that she did not drink however upon further questioning it appears that she does have a couple glasses of wine a day. She has no prior history of pancreatitis. She is status post cholecystectomy. Last cholesterol panel a few years ago indicated normal triglyceride level. .This time patient continues to complain of shortness of breath and a cough is nonproductive she denies hemoptysis and states her PPD was negative but she is not sure when this was no history of chronic lung disease as a child or adolescent exposure to passive smoke as a child as well as an adult no pets no recent travel frequent tightness in her chest sleeps in a recliner no PND no nocturnal cough chronic edema snoring restless sleep nocturia 3 unrestful sleep and daytime somnolence. Past Medical History Pulmonary Medical History: Reports: Bronchitis, Chronic Obstructive Pulmonary Disease (COPD), Pneumonia Musculoskeltal Medical History: Reports: Arthritis Psychiatric Medical History: Reports: Alcohol Dependency Past Surgical History Past Surgical History: Reports: Cholecystectomy, Orthopedic Surgery - Right Hip Replacement Social History Information Source: Patient, DrKami Jorge, [facility] Records Lives with: Spouse/Significant other Smoking Status: Former Smoker Passive smoke exposure as: Both Frequency of Alcohol Use: Social Hx Recreational Drug Use: No Drugs: None Hx Prescription Drug Abuse: No Do you have pets?: No Have you had any respiratory illnesses as a child?: No Have you been exposed to any sick contacts recently?: No Have you travelled outside of [place] in the past 12 months?: No - Advance Directive Resuscitation Status: Full Code Family History Family History: Reviewed & Not Pertinent Parental Family History Reviewed: Yes Children Family History Reviewed: Yes Sibling(s) Family History Reviewed.: Yes Medication/Allergy Home Medications: Albuterol Sulfate [Proair HFA] 2 puff IH Q4HP PRN 08/23/16 Fluticasone/Salmeterol [Advair 250-50 Diskus 28 dose] 1 puff IH BID 08/23/16 Furosemide [Lasix] 40 mg PO DAILY 08/23/16 Potassium Chloride [K-Tab ER] 10 meq PO BID 08/23/16 Prednisone [Deltasone 10 mg Tablet] 10 mg PO BID 08/23/16 Roflumilast [Daliresp 500 mcg Tablet] 500 mcg PO DAILY 08/23/16 Tiotropium [place] [Spiriva Respimat] 2 puff IH DAILY 08/23/16 Allergies/Adverse Reactions: No Known Allergies Allergy (Verified 08/23/16 15:00) Review of Systems All systems: reviewed and no additional remarkable complaints except as stated Physical Exam Vital Signs: Temp Pulse Resp BP Pulse Ox 98.3 F 105 H 24 H 175/87 H 98 08/30/16 08:09 08/30/16 13:49 08/30/16 13:49 08/30/16 08:09 08/30/16 13:49 Intake & Output 08/29/16 08/30/16 08/31/16 06:59 06:59 06:59 Intake Total 1800 1350 0 Output Total 1700 1300 700 Balance 100 50 -700 Weight 87 kg 87.6 kg General appearance: PRESENT: disheveled, mild distress, morbidly obese, well- developed Head exam: PRESENT: atraumatic, normocephalic Eye exam: PRESENT: conjunctiva pale, EOMI Mouth exam: PRESENT: dry mucosa, neck supple, tongue midline Neck exam: ABSENT: carotid bruit, JVD, lymphadenopathy, thyromegaly Respiratory exam: PRESENT: decreased breath sounds, prolonged expiratory phas, rhonchi, symmetrical, unlabored Cardiovascular exam: PRESENT: RRR, +S1, +S2 Pulses: PRESENT: normal radial pulses GI/Abdominal exam: PRESENT: normal bowel sounds, soft. ABSENT: distended, guarding, mass, organolmegaly, rebound, tenderness Rectal exam: PRESENT: deferred Gentrourinary exam: PRESENT: indwelling catheter Musculoskeletal exam: PRESENT: normal inspection Neurological exam: PRESENT: alert, awake Psychiatric exam: PRESENT: anxious Skin exam: PRESENT: dry, warm Results Laboratory Results: 08/30/16 04:38 08/30/16 04:38 08/30/16 08/30/16 08/30/16 04:38 04:38 04:38 WBC 9.0 RBC 3.48 L Hgb 12.0 Hct 36.6 MCV 105 H MCH 34.5 H MCHC 32.8 RDW 14.3 H Plt Count 270 Seg Neutrophils % Not Reportable Lymphocytes % Not Reportable Monocytes % Not Reportable Eosinophils % Not Reportable Basophils % Not Reportable Absolute Neutrophils Not Reportable Absolute Lymphocytes Not Reportable Absolute Monocytes Not Reportable Absolute Eosinophils Not Reportable Absolute Basophils Not Reportable Carbonic Acid HCO3/H2CO3 Ratio ABG pH ABG pCO2 ABG pO2 ABG HCO3 ABG O2 Saturation ABG Base Excess FiO2 Sodium 144.4 Potassium 4.2 Chloride 111 H Carbon Dioxide 21 L Anion Gap 12 BUN 15 Creatinine 0.44 L Est GFR ( Amer) > 60 Est GFR (Non-Af Amer) > 60 Glucose 145 H Calcium 7.0 L* Magnesium 1.6 Total Bilirubin 0.6 AST 70 H ALT 75 H Alkaline Phosphatase 85 Total Protein 5.3 L Albumin 2.9 L TSH 2.27 08/30/16 06:05 WBC RBC Hgb Hct MCV MCH MCHC RDW Plt Count Seg Neutrophils % Lymphocytes % Monocytes % Eosinophils % Basophils % Absolute Neutrophils Absolute Lymphocytes Absolute Monocytes Absolute Eosinophils Absolute Basophils Carbonic Acid 1.01 L HCO3/H2CO3 Ratio 21:1 ABG pH 7.43 ABG pCO2 33.4 L ABG pO2 96.7 ABG HCO3 21.4 ABG O2 Saturation 97.6 ABG Base Excess -2.2 FiO2 30% Sodium Potassium Chloride Carbon Dioxide Anion Gap BUN Creatinine Est GFR ( Amer) Est GFR (Non-Af Amer) Glucose Calcium Magnesium Total Bilirubin AST ALT Alkaline Phosphatase Total Protein Albumin TSH 08/24/16 08/30/16 18:32 04:38 NT-Pro-B Natriuret Pep 3530 H 2600 H Impressions: Abdomen/Pelvis CT 08/23/16 16:07 IMPRESSION: 1. Inflammatory fat stranding surrounding the pancreatic head as well as diffuse enlargement of the pancreas most notably in the pancreatic head. Question possible pancreatitis, correlate clinically. No definite pancreatic mass lesion is identified this region toe evaluation is limited without IV contrast. No peripancreatic fluid collections or pseudocysts identified. No intra-abdominal free air fluid. 2. Uncomplicated moderate colonic diverticulosis. 3. Hepatic steatosis. 4. Prior cholecystectomy. Chest X-Ray 08/28/16 00:00 IMPRESSION: No significant interval change. No acute findings. Other findings as noted above KUB X-Ray 08/28/16 00:00 IMPRESSION: No acute abnormality. Mild gaseous distension of stomach and a portion of colon and rectum. No significant stool retention. No dilated small bowel loops. Assessment & Plan - Diagnosis (1) Acute on chronic respiratory failure with hypoxemia Is this a current diagnosis for this admission?: YesPlan: Mild distress was supplemented with BiPAP (2) COPD (chronic obstructive pulmonary disease) Qualifiers: COPD type: COPD with acute exacerbation Qualified Code(s): J44.1 - Chronic obstructive pulmonary disease with (acute) exacerbation Is this a current diagnosis for this admission?: YesPlan: Patient on optimal medication deborah, laba,lama and inhaled corticosteroids and Daliresp,i will check MOD ba swallow (3) Hypercalcemia Is this a current diagnosis for this admission?: Yes
[2016-08-31] MEDS: ONDANSETRON HCL INJ/PF 4 MG/2 ML SDV IV PRN (04:07)
[2016-08-31 04:56] LABS: HEMATOCRIT 35.4 % (36.0-47.0); HEMOGLOBIN 11.7 g/dL (12.0-15.5); HGB HCT DIFFERENCE -0.3; MEAN CORPUSCULAR HEMOGLOBIN 34.5 pg (27.0-33.4); MEAN CORPUSCULAR VOLUME 105 fl (80-97); RED BLOOD COUNT 3.38 10^6/uL (3.72-5.28); RED CELL DISTRIBUTION WIDTH 14.1 % (11.5-14.0); WHITE BLOOD COUNT 8.9 10^3/uL (4.0-10.5)
[2016-08-31 05:26] LABS: ANION GAP 10 (5-19); BLOOD UREA NITROGEN 16 mg/dL (7-20); CARBON DIOXIDE 25 mmol/L (22-30); CHLORIDE 110 mmol/L (98-107); CREATININE RESULT 0.45 mg/dL (0.52-1.25); GLUCOSE 120 mg/dL (75-110); LIPASE 893.1 U/L (23-300); MAGNESIUM 1.7 mg/dL (1.6-2.3); POTASSIUM 3.6 mmol/L (3.6-5.0); SODIUM 144.8 mmol/L (137-145)
[2016-08-31 05:43] LABS: BAND NEUTROPHILS % (MANUAL) 7 % (3-5); BASOPHILS % (MANUAL) 0 % (0-2); EOSINOPHILS % (MANUAL) 0 % (0-6); LYMPHOCYTES % (MANUAL) 7 % (13-45); TOTAL CELLS COUNTED 100
[2016-08-31 05:46] LABS: CALCIUM 6.9 mg/dL (8.4-10.2)
[2016-08-31 06:32] LABS: ARTERIAL BLOOD O2 SATURATION 98.3 % (94-98)
--- NOTE | 2016-08-31 09:00 | RADIOLOGY REPORT (SQ) ---
EXAM DESCRIPTION: CHEST SINGLE VIEW COMPLETED DATE/TIME: 08/31/2016 8:35 am REASON FOR STUDY: resp distress COMPARISON: CT chest 04/30/2016 08/23/2016, 08/28/2016 EXAM PARAMETERS: NUMBER OF VIEWS: One view. TECHNIQUE: Single frontal radiographic view of the chest acquired. RADIATION DOSE: NA LIMITATIONS: None. FINDINGS: LUNGS AND PLEURA: Upper lobes hyperlucent from obstructive disease. MEDIASTINUM AND HILAR STRUCTURES: No masses. Contour normal. HEART AND VASCULAR STRUCTURES: Mild cardiomegaly. Normal vasculature. BONES: No acute findings. HARDWARE: None in the chest. OTHER: No other significant finding. IMPRESSION: Obstructive disease. Mild cardiomegaly. No acute infiltrates TECHNICAL DOCUMENTATION: JOB ID: [id number]
--- NOTE | 2016-08-31 10:55 | PDOC PROGRESS REPORT ---
Subjective Progress Note for:: 08/31/16 Subjective:: The patient is still complaining of shortness of breath. She is still having difficulty coming off the BiPAP. Blood gas was O2 saturation of over 100 on 30%. He is still complaining of back pain. She is upset about having excessive gas but have not had bowel movements yet. Physical Exam Vital Signs: Temp Pulse Resp BP Pulse Ox 98.4 F 95 26 H 130/71 H 100 08/31/16 07:39 08/31/16 07:39 08/31/16 08:55 08/31/16 07:39 08/31/16 07:39 Intake & Output 08/30/16 08/31/16 09/01/16 06:59 06:59 06:59 Intake Total 1350 124 Output Total 1300 1508 Balance 50 -1384 Weight 87.6 kg 87.4 kg General appearance: PRESENT: mild distress Head exam: PRESENT: atraumatic Eye exam: PRESENT: conjunctiva pink Neck exam: ABSENT: carotid bruit Respiratory exam: PRESENT: rhonchi Cardiovascular exam: PRESENT: +S1, +S2 Pulses: PRESENT: +1 pedal pulses bilateral GI/Abdominal exam: PRESENT: soft, tenderness Extremities exam: PRESENT: full ROM Neurological exam: PRESENT: alert Results Laboratory Results: 08/31/16 04:16 08/31/16 04:16 08/31/16 08/31/16 08/31/16 04:16 04:16 06:15 WBC 8.9 RBC 3.38 L Hgb 11.7 L Hct 35.4 L MCV 105 H MCH 34.5 H MCHC 33.0 RDW 14.1 H Plt Count 276 Seg Neutrophils % Not Reportable Lymphocytes % Not Reportable Monocytes % Not Reportable Eosinophils % Not Reportable Basophils % Not Reportable Absolute Neutrophils Not Reportable Absolute Lymphocytes Not Reportable Absolute Monocytes Not Reportable Absolute Eosinophils Not Reportable Absolute Basophils Not Reportable Carbonic Acid 1.10 HCO3/H2CO3 Ratio 24:1 ABG pH 7.48 H ABG pCO2 36.4 ABG pO2 109.4 H ABG HCO3 26.4 H ABG O2 Saturation 98.3 H ABG Base Excess 3.0 FiO2 30% Sodium 144.8 Potassium 3.6 Chloride 110 H Carbon Dioxide 25 Anion Gap 10 BUN 16 Creatinine 0.45 L Est GFR ( Amer) > 60 Est GFR (Non-Af Amer) > 60 Glucose 120 H Calcium 6.9 L* Magnesium 1.7 Lipase 893.1 H 08/24/16 08/30/16 18:32 04:38 NT-Pro-B Natriuret Pep 3530 H 2600 H Impressions: Abdomen/Pelvis CT 08/23/16 16:07 IMPRESSION: 1. Inflammatory fat stranding surrounding the pancreatic head as well as diffuse enlargement of the pancreas most notably in the pancreatic head. Question possible pancreatitis, correlate clinically. No definite pancreatic mass lesion is identified this region toe evaluation is limited without IV contrast. No peripancreatic fluid collections or pseudocysts identified. No intra-abdominal free air fluid. 2. Uncomplicated moderate colonic diverticulosis. 3. Hepatic steatosis. 4. Prior cholecystectomy. KUB X-Ray 08/28/16 00:00 IMPRESSION: No acute abnormality. Mild gaseous distension of stomach and a portion of colon and rectum. No significant stool retention. No dilated small bowel loops. Chest X-Ray 08/31/16 06:00 IMPRESSION: Obstructive disease. Mild cardiomegaly. No acute infiltrates Assessment & Plan - Diagnosis (1) Acute on chronic respiratory failure with hypoxemia Is this a current diagnosis for this admission?: YesPlan: Discussed with product safety tester. Her blood gas looked okay and we will attempt to wean her off the BiPAP if possible. Unfortunately because of back pain and panic attack and anxiety she is having severe tachypnea once she comes off the BiPAP (2) Pancreatitis Qualifiers: Chronicity: acute Pancreatitis type: alcohol induced Acute pancreatitis complication: unspecified Qualified Code(s): K85.20 - Alcohol induced acute pancreatitis without necrosis or infection Is this a current diagnosis for this admission?: YesPlan: Has resolved and will advance the diet from clear liquid to possibly full liquid once the patient has a bowel movement (3) Hypomagnesemia Is this a current diagnosis for this admission?: Yes (4) Hypokalemia Is this a current diagnosis for this admission?: Yes (5) Back pain Qualifiers: Back pain location: low back pain Chronicity: chronic Is this a current diagnosis for this admission?: YesPlan: We will attempt some nonsteroidals. Because of recent pancreatitis and some mild ileus will avoid narcotics (6) Fluid overload, unspecified Is this a current diagnosis for this admission?: YesPlan: Possibly because of third spacing and fluid overload with IV fluids and antibiotics. Will continue with diuretics since there is a -1700 fluid balance over the past 24 hours which might improve respiratory status
[2016-08-31] MEDS: ENOXAPARIN SODIUM INJ 40 MG/0.4 ML DISP.SYRIN SUBCUT SCH (11:06)
[2016-08-31] MEDS: PREDNISONE 20 MG TABLET PO SCH (11:08)
[2016-08-31] MEDS: FUROSEMIDE 40 MG TABLET PO SCH ×2 (11:08→18:59)
[2016-08-31] MEDS: ROFLUMILAST 500 MCG TABLET PO SCH (11:12)
[2016-08-31] MEDS: FLUTICASONE/SALMETEROL DISKUS 250-50 MCG/DOSE IH SCH ×2 (11:16→21:03)
[2016-08-31] MEDS: THIAMINE HCL 100 MG TABLET PO SCH (11:17)
[2016-08-31] MEDS: POTASSIUM CHLORIDE 10 MEQ TABLET.SA PO SCH ×2 (11:17→21:03)
[2016-08-31] MEDS: MAGNESIUM OXIDE 400 MG TABLET PO SCH ×2 (11:18→19:00)
--- NOTE | 2016-08-31 16:09 | PDOC PROGRESS REPORT ---
Subjective Progress Note for:: 08/31/16 Physical Exam Vital Signs: Temp Pulse Resp BP Pulse Ox 98.4 F 95 26 H 130/71 H 100 08/31/16 07:39 08/31/16 07:39 08/31/16 08:55 08/31/16 07:39 08/31/16 07:39 Intake & Output 08/30/16 08/31/16 09/01/16 06:59 06:59 06:59 Intake Total 1350 124 Output Total 1300 1508 Balance 50 -1384 Weight 87.6 kg 87.4 kg General appearance: PRESENT: cooperative, disheveled, mild distress, morbidly obese, well-developed Head exam: PRESENT: atraumatic, normocephalic Eye exam: PRESENT: conjunctiva pale, EOMI Mouth exam: PRESENT: dry mucosa, neck supple, tongue midline Neck exam: ABSENT: carotid bruit, JVD, lymphadenopathy, thyromegaly Respiratory exam: PRESENT: decreased breath sounds, prolonged expiratory phas, rhonchi, unlabored Cardiovascular exam: PRESENT: RRR, +S1, +S2 Pulses: PRESENT: normal radial pulses GI/Abdominal exam: PRESENT: normal bowel sounds, soft. ABSENT: distended, guarding, mass, organolmegaly, rebound, tenderness Rectal exam: PRESENT: deferred Gentrourinary exam: PRESENT: indwelling catheter Neurological exam: PRESENT: alert, awake Psychiatric exam: PRESENT: anxious Skin exam: PRESENT: warm Results Laboratory Results: 08/31/16 04:16 08/31/16 04:16 08/31/16 08/31/16 08/31/16 04:16 04:16 06:15 WBC 8.9 RBC 3.38 L Hgb 11.7 L Hct 35.4 L MCV 105 H MCH 34.5 H MCHC 33.0 RDW 14.1 H Plt Count 276 Seg Neutrophils % Not Reportable Lymphocytes % Not Reportable Monocytes % Not Reportable Eosinophils % Not Reportable Basophils % Not Reportable Absolute Neutrophils Not Reportable Absolute Lymphocytes Not Reportable Absolute Monocytes Not Reportable Absolute Eosinophils Not Reportable Absolute Basophils Not Reportable Carbonic Acid 1.10 HCO3/H2CO3 Ratio 24:1 ABG pH 7.48 H ABG pCO2 36.4 ABG pO2 109.4 H ABG HCO3 26.4 H ABG O2 Saturation 98.3 H ABG Base Excess 3.0 FiO2 30% Sodium 144.8 Potassium 3.6 Chloride 110 H Carbon Dioxide 25 Anion Gap 10 BUN 16 Creatinine 0.45 L Est GFR ( Amer) > 60 Est GFR (Non-Af Amer) > 60 Glucose 120 H Calcium 6.9 L* Magnesium 1.7 Lipase 893.1 H 08/24/16 08/30/16 18:32 04:38 NT-Pro-B Natriuret Pep 3530 H 2600 H Impressions: Abdomen/Pelvis CT 08/23/16 16:07 IMPRESSION: 1. Inflammatory fat stranding surrounding the pancreatic head as well as diffuse enlargement of the pancreas most notably in the pancreatic head. Question possible pancreatitis, correlate clinically. No definite pancreatic mass lesion is identified this region toe evaluation is limited without IV contrast. No peripancreatic fluid collections or pseudocysts identified. No intra-abdominal free air fluid. 2. Uncomplicated moderate colonic diverticulosis. 3. Hepatic steatosis. 4. Prior cholecystectomy. KUB X-Ray 08/28/16 00:00 IMPRESSION: No acute abnormality. Mild gaseous distension of stomach and a portion of colon and rectum. No significant stool retention. No dilated small bowel loops. Chest X-Ray 08/31/16 06:00 IMPRESSION: Obstructive disease. Mild cardiomegaly. No acute infiltrates Assessment & Plan - Diagnosis (1) Acute on chronic respiratory failure with hypoxemia Is this a current diagnosis for this admission?: YesPlan: S.O.B. associated with pain will limit use of bipap to sleep/naps (2) COPD (chronic obstructive pulmonary disease) Qualifiers: COPD type: COPD with acute exacerbation Qualified Code(s): J44.1 - Chronic obstructive pulmonary disease with (acute) exacerbation Is this a current diagnosis for this admission?: YesPlan: oxygenation and ventilation ok with only supplemental O2 (3) Hypercalcemia Is this a current diagnosis for this admission?: Yes
[2016-09-01] MEDS: LANSOPRAZOLE 30 MG TAB.RAP.DR PO SCH (06:16)
[2016-09-01 06:30] LABS: ARTERIAL BLOOD BASE EXCESS 1.9 mmol/L; ARTERIAL BLOOD O2 SATURATION 97.3 % (94-98)
[2016-09-01 07:11] LABS: HEMATOCRIT 35.3 % (36.0-47.0); HEMOGLOBIN 11.7 g/dL (12.0-15.5); HGB HCT DIFFERENCE -0.2; MEAN CORPUSCULAR HEMOGLOBIN 34.4 pg (27.0-33.4); MEAN CORPUSCULAR HGB CONC 33.1 g/dL (32.0-36.0); MEAN CORPUSCULAR VOLUME 104 fl (80-97); RED CELL DISTRIBUTION WIDTH 13.7 % (11.5-14.0); WHITE BLOOD COUNT 8.6 10^3/uL (4.0-10.5)
[2016-09-01 07:29] LABS: ALANINE AMINOTRANSFERASE 69 U/L (9-52); ALBUMIN 2.8 g/dL (3.5-5.0); ALKALINE PHOSPHATASE 92 U/L (38-126); ANION GAP 11 (5-19); ASPARTATE AMINO TRANSFERASE 52 U/L (14-36); BILIRUBIN,DIRECT 0.4 mg/dL (0.0-0.4); BILIRUBIN,TOTAL 0.6 mg/dL (0.2-1.3); BLOOD UREA NITROGEN 12 mg/dL (7-20); CARBON DIOXIDE 28 mmol/L (22-30); CHLORIDE 100 mmol/L (98-107); CREATININE RESULT 0.41 mg/dL (0.52-1.25); GLUCOSE 110 mg/dL (75-110); MAGNESIUM 1.4 mg/dL (1.6-2.3); PHOSPHORUS 1.3 mg/dL (2.5-4.5); POTASSIUM 3.5 mmol/L (3.6-5.0); TOTAL PROTEIN 5.3 g/dL (6.3-8.2)
[2016-09-01 07:42] LABS: BAND NEUTROPHILS % (MANUAL) 2 % (3-5); BASOPHILS % (MANUAL) 0 % (0-2); EOSINOPHILS % (MANUAL) 0 % (0-6); LYMPHOCYTES % (MANUAL) 6 % (13-45); TOTAL CELLS COUNTED 100
[2016-09-01 07:43] LABS: POLYCHROMASIA SLIGHT
[2016-09-01 07:50] LABS: CALCIUM 6.7 mg/dL (8.4-10.2)
--- NOTE | 2016-09-01 08:55 | RADIOLOGY REPORT (SQ) ---
EXAM DESCRIPTION: CHEST SINGLE VIEW COMPLETED DATE/TIME: 09/01/2016 8:32 am REASON FOR STUDY: volume overload COMPARISON: 08/31/2016 EXAM PARAMETERS: NUMBER OF VIEWS: One view. TECHNIQUE: Single frontal radiographic view of the chest acquired. RADIATION DOSE: NA LIMITATIONS: Patient has made a shallow inspiration. FINDINGS: LUNGS AND PLEURA: No opacities, masses or pneumothorax. No pleural effusion. I cannot exc lude a component of obstructive lung disease. MEDIASTINUM AND HILAR STRUCTURES: No masses. Contour normal. HEART AND VASCULAR STRUCTURES: The configuration of the heart and mediastinal structures is unchanged . BONES: No acute findings. HARDWARE: None in the chest. OTHER: No other significant finding. IMPRESSION: No significant interval change. No acute findings. Other findings as noted above TECHNICAL DOCUMENTATION: JOB ID: [id number]
[2016-09-01] MEDS ORDERED: POTASSIUM PHOS,M-BASIC-D-BASIC 60 MMOL in NORMAL SALINE 1000 ML 1,000 ML IV ONE (10:04)
[2016-09-01] MEDS ORDERED: POTASSIUM CHLORIDE 10 MEQ TABLET.SA PO ONE (10:04)
[2016-09-01] MEDS ORDERED: KETOROLAC TROMETHAMINE INJ/PF 30 MG/1 ML SDV IV PRN (10:05)
[2016-09-01] MEDS ORDERED: LIDOCAINE 5% (700 MG) TRANSDERMAL ADH..PATCH TP ONE (10:30)
[2016-09-01] MEDS: PREDNISONE 20 MG TABLET PO SCH (11:01)
[2016-09-01] MEDS: MAGNESIUM OXIDE 400 MG TABLET PO SCH ×2 (11:03→18:17)
[2016-09-01] MEDS: FUROSEMIDE 40 MG TABLET PO SCH ×2 (11:03→18:22)
[2016-09-01] MEDS: THIAMINE HCL 100 MG TABLET PO SCH (11:03)
[2016-09-01] MEDS: ENOXAPARIN SODIUM INJ 40 MG/0.4 ML DISP.SYRIN SUBCUT SCH (11:03)
[2016-09-01] MEDS: MAGNESIUM SULFATE/D5W 100 ML IV SCH ×2 (11:09→13:01)
[2016-09-01] MEDS: POTASSIUM CHLORIDE 10 MEQ TABLET.SA PO SCH ×2 (11:14→22:24)
[2016-09-01] MEDS: FLUTICASONE/SALMETEROL DISKUS 250-50 MCG/DOSE IH SCH ×2 (13:08→22:24)
[2016-09-01] MEDS: ROFLUMILAST 500 MCG TABLET PO SCH (13:09)
[2016-09-01] MEDS: TIOTROPIUM BROMIDE DPI 5 CAP/KIT (18 MCG/CAP) IH SCH (13:09)
--- NOTE | 2016-09-01 18:48 | PDOC PROGRESS REPORT ---
Subjective Progress Note for:: 09/01/16 Subjective:: Patient is having a significant amount of diarrhea at this time and does continue to be short of breath. Patient also complains of some anxiety and lower back pain. Denies fevers, chills, chest pain, vomiting, constipation. Physical Exam Vital Signs: Temp Pulse Resp BP Pulse Ox 98.4 F 87 18 123/73 100 09/01/16 15:47 09/01/16 15:47 09/01/16 15:47 09/01/16 15:47 09/01/16 15:47 Intake & Output 08/31/16 09/01/16 09/02/16 06:59 06:59 06:59 Intake Total 124 0 375 Output Total 1508 Balance -1384 0 375 Weight 87.4 kg 87.2 kg Exam: GENERAL: No acute distress, appears older than stated age HEENT: Conjunctiva clear, nonicteric, moist mucous membranes, no JVD, midline trachea RESPIRATORY: Prolonged expiratory phase, otherwise clear with poor air excursion CARDIAC: Regular rate and rhythm, no murmurs/gallops/rubs ABDOMEN: Soft, nondistended, NTTP, no rebound, no guarding EXTREMETIES: No cyanosis, clubbing, edema NEUROLOGIC: Alert, oriented to person/place/time, CN's grossly intact, no focal deficits SKIN: No rash; ecchymosis right wrist/arm PSYCH: anxious Results Laboratory Results: 09/01/16 06:47 09/01/16 06:47 09/01/16 09/01/16 09/01/16 06:15 06:47 06:47 WBC 8.6 RBC 3.40 L Hgb 11.7 L Hct 35.3 L MCV 104 H MCH 34.4 H MCHC 33.1 RDW 13.7 Plt Count 247 Seg Neutrophils % Not Reportable Lymphocytes % Not Reportable Monocytes % Not Reportable Eosinophils % Not Reportable Basophils % Not Reportable Absolute Neutrophils Not Reportable Absolute Lymphocytes Not Reportable Absolute Monocytes Not Reportable Absolute Eosinophils Not Reportable Absolute Basophils Not Reportable Carbonic Acid 1.08 HCO3/H2CO3 Ratio 23:1 ABG pH 7.47 H ABG pCO2 35.8 ABG pO2 89.5 ABG HCO3 25.4 ABG O2 Saturation 97.3 ABG Base Excess 1.9 FiO2 25% Sodium 139.0 Potassium 3.5 L Chloride 100 Carbon Dioxide 28 Anion Gap 11 BUN 12 Creatinine 0.41 L Est GFR ( Amer) > 60 Est GFR (Non-Af Amer) > 60 Glucose 110 Calcium 6.7 L* Phosphorus 1.3 L Magnesium 1.4 L Total Bilirubin 0.6 AST 52 H ALT 69 H Alkaline Phosphatase 92 Total Protein 5.3 L Albumin 2.8 L 09/01/16 14:19 WBC RBC Hgb Hct MCV MCH MCHC RDW Plt Count Seg Neutrophils % Lymphocytes % Monocytes % Eosinophils % Basophils % Absolute Neutrophils Absolute Lymphocytes Absolute Monocytes Absolute Eosinophils Absolute Basophils Carbonic Acid HCO3/H2CO3 Ratio ABG pH ABG pCO2 ABG pO2 ABG HCO3 ABG O2 Saturation ABG Base Excess FiO2 Sodium Potassium Chloride Carbon Dioxide Anion Gap BUN Creatinine Est GFR ( Amer) Est GFR (Non-Af Amer) Glucose Calcium Phosphorus Magnesium Total Bilirubin AST ALT Alkaline Phosphatase Total Protein Albumin Cancelled 08/24/16 08/30/16 09/01/16 18:32 04:38 06:47 NT-Pro-B Natriuret Pep 3530 H 2600 H 864 Impressions: Abdomen/Pelvis CT 08/23/16 16:07 IMPRESSION: 1. Inflammatory fat stranding surrounding the pancreatic head as well as diffuse enlargement of the pancreas most notably in the pancreatic head. Question possible pancreatitis, correlate clinically. No definite pancreatic mass lesion is identified this region toe evaluation is limited without IV contrast. No peripancreatic fluid collections or pseudocysts identified. No intra-abdominal free air fluid. 2. Uncomplicated moderate colonic diverticulosis. 3. Hepatic steatosis. 4. Prior cholecystectomy. KUB X-Ray 08/28/16 00:00 IMPRESSION: No acute abnormality. Mild gaseous distension of stomach and a portion of colon and rectum. No significant stool retention. No dilated small bowel loops. Chest X-Ray 09/01/16 06:00 IMPRESSION: No significant interval change. No acute findings. Other findings as noted above Assessment & Plan - Diagnosis (1) Diarrhea Qualifiers: Diarrhea type: unspecified type Qualified Code(s): R19.7 - Diarrhea , unspecified Is this a current diagnosis for this admission?: YesPlan: We will check this for C. difficile. However, I suspect the patient's anxiety and her diarrhea are likely both the result of Daliresp and will stop this medication and monitor for symptomatic resolution. (2) Pancreatitis Qualifiers: Chronicity: acute Pancreatitis type: alcohol induced Acute pancreatitis complication: unspecified Qualified Code(s): K85.20 - Alcohol induced acute pancreatitis without necrosis or infection Is this a current diagnosis for this admission?: YesPlan: Appears to be resolved at this time (3) Acute on chronic respiratory failure with hypoxemia Is this a current diagnosis for this admission?: YesPlan: Patient uses 2L home O2 and is still not at baseline. Continue patient on oxygen. Bipap if needed (4) COPD (chronic obstructive pulmonary disease) Qualifiers: COPD type: COPD with acute exacerbation Qualified Code(s): J44.1 - Chronic obstructive pulmonary disease with (acute) exacerbation Is this a current diagnosis for this admission?: YesPlan: Patient is on chronic prednisone and has done well with increasing this to 40mg po daily. Continue scheduled nebulized treatments. (5) Hypokalemia Is this a current diagnosis for this admission?: YesPlan: replete and Recheck (6) Hypomagnesemia Is this a current diagnosis for this admission?: YesPlan: replete and Recheck (7) Hypocalcemia Is this a current diagnosis for this admission?: YesPlan: replete and Recheck (8) Steatohepatitis, alcoholic Is this a current diagnosis for this admission?: Yes (9) Obesity Qualifiers: Obesity type: due to excess calories Is this a current diagnosis for this admission?: Yes (10) Hypophosphatemia Is this a current diagnosis for this admission?: YesPlan: replete and Recheck - Time Time Spent with patient: 25-34 minutes Medications reviewed and adjusted accordingly: Yes
[2016-09-01] MEDS: OXYCODONE-ACETAMINOPHEN 5-325 MG TABLET PO PRN (22:25)
[2016-09-02 05:46] LABS: HEMATOCRIT 34.3 % (36.0-47.0); HEMOGLOBIN 11.6 g/dL (12.0-15.5); HGB HCT DIFFERENCE 0.5; MEAN CORPUSCULAR HEMOGLOBIN 34.5 pg (27.0-33.4); MEAN CORPUSCULAR HGB CONC 33.8 g/dL (32.0-36.0); MEAN CORPUSCULAR VOLUME 102 fl (80-97); RED BLOOD COUNT 3.36 10^6/uL (3.72-5.28); RED CELL DISTRIBUTION WIDTH 13.9 % (11.5-14.0); WHITE BLOOD COUNT 8.2 10^3/uL (4.0-10.5)
[2016-09-02 05:52] LABS: ALANINE AMINOTRANSFERASE 58 U/L (9-52); ALBUMIN 2.9 g/dL (3.5-5.0); ALKALINE PHOSPHATASE 85 U/L (38-126); ANION GAP 6 (5-19); ASPARTATE AMINO TRANSFERASE 42 U/L (14-36); BILIRUBIN,DIRECT 0.4 mg/dL (0.0-0.4); BILIRUBIN,TOTAL 0.5 mg/dL (0.2-1.3); BLOOD UREA NITROGEN 12 mg/dL (7-20); CARBON DIOXIDE 30 mmol/L (22-30); CHLORIDE 102 mmol/L (98-107); CREATININE RESULT 0.45 mg/dL (0.52-1.25); GLUCOSE 152 mg/dL (75-110); MAGNESIUM 1.5 mg/dL (1.6-2.3); PHOSPHORUS 3.2 mg/dL (2.5-4.5); POTASSIUM 4.3 mmol/L (3.6-5.0); SODIUM 138.4 mmol/L (137-145); TOTAL PROTEIN 5.7 g/dL (6.3-8.2)
[2016-09-02 06:02] LABS: CALCIUM 6.4 mg/dL (8.4-10.2)
[2016-09-02] MEDS: LANSOPRAZOLE 30 MG TAB.RAP.DR PO SCH (06:09)
[2016-09-02] MEDS ORDERED: CALCIUM GLUCONATE 1000 MG/10 ML INJ IV ONE ×2 (06:45→07:33)
[2016-09-02 06:55] LABS: BAND NEUTROPHILS % (MANUAL) 2 % (3-5); BASOPHILS % (MANUAL) 0 % (0-2); EOSINOPHILS % (MANUAL) 0 % (0-6); LYMPHOCYTES % (MANUAL) 2 % (13-45); TOTAL CELLS COUNTED 100
[2016-09-02 06:59] LABS: ANISOCYTOSIS SLIGHT; POIKILOCYTOSIS SLIGHT; POLYCHROMASIA SLIGHT; TEAR DROP CELLS SLIGHT
[2016-09-02] MEDS: MAGNESIUM SULFATE/D5W 1 GM/100 ML RTUPB IV SCH ×3 (08:28→10:41)
[2016-09-02] MEDS: ALBUTEROL SULFATE 0.083% NEB 2.5 MG/3 ML AMPUL NEB PRN ×2 (08:46→14:29)
--- NOTE | 2016-09-02 08:52 | RADIOLOGY REPORT (SQ) ---
EXAM DESCRIPTION: CHEST SINGLE VIEW COMPLETED DATE/TIME: 09/02/2016 8:41 am REASON FOR STUDY: shortness of breath COMPARISON: 09/01/2016 EXAM PARAMETERS: NUMBER OF VIEWS: One view. TECHNIQUE: Single frontal radiographic view of the chest acquired. RADIATION DOSE: NA LIMITATIONS: None. FINDINGS: LUNGS AND PLEURA: No opacities, masses or pneumothorax. No pleural effusion. Oblique line ar density is identified in the left lung base most consistent with subsegmental atelectasis. MEDIASTINUM AND HILAR STRUCTURES: No masses. Contour normal. HEART AND VASCULAR STRUCTURES: Heart normal in size. Normal vasculature. BONES: No acute findings. HARDWARE: None in the chest. OTHER: No other significant finding. IMPRESSION: NO ACUTE RADIOGRAPHIC FINDING IN THE CHEST. TECHNICAL DOCUMENTATION: JOB ID: [id number]
[2016-09-02] MEDS: FUROSEMIDE 40 MG TABLET PO SCH ×2 (09:43→17:07)
[2016-09-02] MEDS: THIAMINE HCL 100 MG TABLET PO SCH (09:44)
[2016-09-02] MEDS: MAGNESIUM OXIDE 400 MG TABLET PO SCH ×2 (09:44→17:07)
[2016-09-02] MEDS: ENOXAPARIN SODIUM INJ 40 MG/0.4 ML DISP.SYRIN SUBCUT SCH (09:44)
[2016-09-02] MEDS: POTASSIUM CHLORIDE 10 MEQ TABLET.SA PO SCH ×2 (09:44→21:44)
[2016-09-02] MEDS: PREDNISONE 20 MG TABLET PO SCH (09:44)
[2016-09-02] MEDS: TIOTROPIUM BROMIDE DPI 5 CAP/KIT (18 MCG/CAP) IH SCH (09:52)
[2016-09-02] MEDS: FLUTICASONE/SALMETEROL DISKUS 250-50 MCG/DOSE IH SCH ×2 (09:52→21:44)
[2016-09-02] MEDS: LIDOCAINE 5% (700 MG) TRANSDERMAL ADH..PATCH TP SCH (09:53)
[2016-09-02] MEDS: INSULIN LISPRO 100 UNIT/ML 3 ML VIAL SUBCUT PRN ×2 (12:03→17:05)
--- NOTE | 2016-09-02 13:14 | PDOC PROGRESS REPORT ---
Subjective Progress Note for:: 09/02/16 Subjective:: Patient reports her diarrhea and anxiety have improved with cessation of darliresp. Patient reports her back pain has improved with toradol and lidoderm patch. She does have continued shortness of breath with exertion, but no PND, orthopnea , or edema. Denies fevers, chills, chest pain, vomiting, constipation. Physical Exam Vital Signs: Temp Pulse Resp BP Pulse Ox 98.5 F 66 22 H 135/73 H 100 09/02/16 03:43 09/02/16 03:43 09/02/16 03:43 09/02/16 03:43 09/02/16 03:43 Intake & Output 09/01/16 09/02/16 09/03/16 06:59 06:59 06:59 Intake Total 0 1485 Output Total 400 Balance 0 1085 Weight 87.2 kg 88 kg Exam: GENERAL: No acute distress, appears older than stated age HEENT: Conjunctiva clear, nonicteric, moist mucous membranes, no JVD, midline trachea RESPIRATORY: Prolonged expiratory phase, otherwise clear with baseline poor air excursion CARDIAC: Regular rate and rhythm, no murmurs/gallops/rubs ABDOMEN: Soft, nondistended, mildly TTP abi, no rebound, no guarding EXTREMETIES: No cyanosis, clubbing, edema NEUROLOGIC: Alert, oriented to person/place/time, CN's grossly intact, no focal deficits SKIN: No rash; ecchymosis right wrist/arm PSYCH: normal mood and affect Results Laboratory Results: 09/02/16 04:45 09/02/16 04:45 09/01/16 09/01/16 09/01/16 06:47 06:47 14:19 WBC 8.6 RBC 3.40 L Hgb 11.7 L Hct 35.3 L MCV 104 H MCH 34.4 H MCHC 33.1 RDW 13.7 Plt Count 247 Seg Neutrophils % Not Reportable Lymphocytes % Not Reportable Monocytes % Not Reportable Eosinophils % Not Reportable Basophils % Not Reportable Absolute Neutrophils Not Reportable Absolute Lymphocytes Not Reportable Absolute Monocytes Not Reportable Absolute Eosinophils Not Reportable Absolute Basophils Not Reportable Sodium 139.0 Potassium 3.5 L Chloride 100 Carbon Dioxide 28 Anion Gap 11 BUN 12 Creatinine 0.41 L Est GFR ( Amer) > 60 Est GFR (Non-Af Amer) > 60 Glucose 110 Calcium 6.7 L* Phosphorus 1.3 L Magnesium 1.4 L Total Bilirubin 0.6 AST 52 H ALT 69 H Alkaline Phosphatase 92 Total Protein 5.3 L Albumin 2.8 L Cancelled 09/02/16 09/02/16 04:45 04:45 WBC 8.2 RBC 3.36 L Hgb 11.6 L Hct 34.3 L MCV 102 H MCH 34.5 H MCHC 33.8 RDW 13.9 Plt Count 222 Seg Neutrophils % Not Reportable Lymphocytes % Not Reportable Monocytes % Not Reportable Eosinophils % Not Reportable Basophils % Not Reportable Absolute Neutrophils Not Reportable Absolute Lymphocytes Not Reportable Absolute Monocytes Not Reportable Absolute Eosinophils Not Reportable Absolute Basophils Not Reportable Sodium 138.4 Potassium 4.3 Chloride 102 Carbon Dioxide 30 Anion Gap 6 BUN 12 Creatinine 0.45 L Est GFR ( Amer) > 60 Est GFR (Non-Af Amer) > 60 Glucose 152 H Calcium 6.4 L* Phosphorus 3.2 Magnesium 1.5 L Total Bilirubin 0.5 AST 42 H ALT 58 H Alkaline Phosphatase 85 Total Protein 5.7 L Albumin 2.9 L 08/24/16 08/30/16 09/01/16 18:32 04:38 06:47 NT-Pro-B Natriuret Pep 3530 H 2600 H 864 Impressions: Abdomen/Pelvis CT 08/23/16 16:07 IMPRESSION: 1. Inflammatory fat stranding surrounding the pancreatic head as well as diffuse enlargement of the pancreas most notably in the pancreatic head. Question possible pancreatitis, correlate clinically. No definite pancreatic mass lesion is identified this region toe evaluation is limited without IV contrast. No peripancreatic fluid collections or pseudocysts identified. No intra-abdominal free air fluid. 2. Uncomplicated moderate colonic diverticulosis. 3. Hepatic steatosis. 4. Prior cholecystectomy. KUB X-Ray 08/28/16 00:00 IMPRESSION: No acute abnormality. Mild gaseous distension of stomach and a portion of colon and rectum. No significant stool retention. No dilated small bowel loops. Chest X-Ray 09/01/16 06:00 IMPRESSION: No significant interval change. No acute findings. Other findings as noted above Assessment & Plan - Diagnosis (1) Diarrhea Qualifiers: Diarrhea type: unspecified type Qualified Code(s): R19.7 - Diarrhea , unspecified Is this a current diagnosis for this admission?: YesPlan: C. difficile is negative. However, I suspect the patient's anxiety and her diarrhea are likely both the result of Daliresp and has improved with the cessation of this medication. (2) Pancreatitis Qualifiers: Chronicity: acute Pancreatitis type: alcohol induced Acute pancreatitis complication: unspecified Qualified Code(s): K85.20 - Alcohol induced acute pancreatitis without necrosis or infection Is this a current diagnosis for this admission?: YesPlan: Appears to be resolved at this time Patient reports drinking approximately 4oz of wine nightly. She has had a cholecystectomy and normal triglycerides. Possible also secondary to medication. (3) Acute on chronic respiratory failure with hypoxemia Is this a current diagnosis for this admission?: YesPlan: Patient uses 2L home O2 and is still not at baseline. Continue patient on oxygen. Bipap if needed (4) COPD (chronic obstructive pulmonary disease) Qualifiers: COPD type: COPD with acute exacerbation Qualified Code(s): J44.1 - Chronic obstructive pulmonary disease with (acute) exacerbation Is this a current diagnosis for this admission?: YesPlan: Patient is on chronic prednisone and will begin decreasing this medication. Continue scheduled nebulized treatments. (5) Hypokalemia Is this a current diagnosis for this admission?: YesPlan: repleted and recheck in am (6) Hypomagnesemia Is this a current diagnosis for this admission?: YesPlan: replete and Recheck (7) Hypocalcemia Is this a current diagnosis for this admission?: YesPlan: replete and Recheck (8) Steatohepatitis, alcoholic Is this a current diagnosis for this admission?: YesPlan: Patient with steatohepatitis and history of alcohol abuse. Concern for evolution into cirrhosis. Discussed with patient modifying her risk factors including alcohol consumption, obesity, diabetes mellitus, and hyperlipidemia. (9) Hypophosphatemia Is this a current diagnosis for this admission?: YesPlan: repleted and recheck in am (10) Physical deconditioning Is this a current diagnosis for this admission?: YesPlan: This is likely part of patients overall shortness of breath. OOB to chair TID with meals. Encourage ADAT Inpt rehabilitation (11) Obesity Qualifiers: Obesity type: due to excess calories Is this a current diagnosis for this admission?: YesPlan: Patient with severe obesity Recommend physician monitored weight loss as an outpatient - Time Time Spent with patient: 25-34 minutes Medications reviewed and adjusted accordingly: Yes Anticipated discharge: SNF
[2016-09-02] MEDS: OXYCODONE-ACETAMINOPHEN 5-325 MG TABLET PO PRN (16:21)
[2016-09-02] MEDS: MAG HYDROX/AL HYDROX/SIMETH SUSP 30 ML UDCUP PO PRN (22:49)
[2016-09-03 04:57] LABS: HEMATOCRIT 34.8 % (36.0-47.0); HEMOGLOBIN 11.6 g/dL (12.0-15.5); MEAN CORPUSCULAR HGB CONC 33.2 g/dL (32.0-36.0); MEAN CORPUSCULAR VOLUME 102 fl (80-97); WHITE BLOOD COUNT 11.8 10^3/uL (4.0-10.5)
[2016-09-03 05:12] LABS: ALANINE AMINOTRANSFERASE 55 U/L (9-52); ALBUMIN 2.7 g/dL (3.5-5.0); ALKALINE PHOSPHATASE 95 U/L (38-126); ANION GAP 8 (5-19); ASPARTATE AMINO TRANSFERASE 38 U/L (14-36); BILIRUBIN,DIRECT 0.3 mg/dL (0.0-0.4); BILIRUBIN,TOTAL 0.4 mg/dL (0.2-1.3); BLOOD UREA NITROGEN 10 mg/dL (7-20); CALCIUM 7.9 mg/dL (8.4-10.2); CARBON DIOXIDE 30 mmol/L (22-30); CHLORIDE 98 mmol/L (98-107); CREATININE RESULT 0.42 mg/dL (0.52-1.25); GLUCOSE 139 mg/dL (75-110); POTASSIUM 3.6 mmol/L (3.6-5.0); SODIUM 135.6 mmol/L (137-145); TOTAL PROTEIN 5.2 g/dL (6.3-8.2)
[2016-09-03 05:39] LABS: BAND NEUTROPHILS % (MANUAL) 6 % (3-5); BASOPHILS % (MANUAL) 0 % (0-2); EOSINOPHILS % (MANUAL) 0 % (0-6); LYMPHOCYTES % (MANUAL) 3 % (13-45); TOTAL CELLS COUNTED 100
[2016-09-03 05:43] LABS: ANISOCYTOSIS SLIGHT; POLYCHROMASIA SLIGHT; TOXIC GRANULATION 1+; TOXIC VACUOLATION PRESENT
[2016-09-03] MEDS: LANSOPRAZOLE 30 MG TAB.RAP.DR PO SCH (05:45)
[2016-09-03] MEDS: ALBUTEROL SULFATE 0.083% NEB 2.5 MG/3 ML AMPUL NEB PRN ×4 (06:41→21:53)
--- NOTE | 2016-09-03 08:59 | ST Inp Modified Barium Swallow ---
Medical Diagnosis - Medical Diagnoses Medical Diagnosis Description & ICD-10 Code(s): coughing, wheezing - ICD-10 Tx Diagnosis Coding (1) Dysphagia, oropharyngeal phase ICD-10 Code(s): R13.12 - DYSPHAGIA, OROPHARYNGEAL PHASE ST [place] [facility] [place]: 09/03/16 Date of Onset: 08/23/16 - History History Obtained From: Patient - per EMR -: Medical - per EMR; pt admitted for back pain, acute pancreatitis, nausea, vomiting, headache, chills, cough, COPD, alcohol abuse, hyperkalemia, dehydration, chronic hypoxemic, respiratory failure. chest xray WNL. PMHx: chronic pain, O2 dependence, bronchitis, COPD, PNA, arthritis, alcohol dependence. Pt denies coughing or choking with PO intake, pt denies globus sensation. Medications: Medications Reviewed Allergies: Refer to medical record - Subjective Current Nutritional Means: PO Current PO Diet: Mechanical- ground Current Symptoms: Coughing, other - wheezing Pain: 4/5 - back pain - Objective Assessment: Upright, Left Lateral - Food Trials Food Trials Used: Thin liquids, Pureed, Soft solids The Patient: Was Able to Self Feed - Assessment Labial Function: Within Normal Limits Lingual Function: Within Normal Limits Mandibular Function: Within Normal Limits Dentition: Edentulous Velo-Pharyngeal Function: Unremarkable Laryngeal Function: Volitional Cough, Volitional Swallow - Pharyngeal Stage Initiation of Pharyngeal Stage: Normal Decreased Laryngeal Elevation: No Reduced Velo-Pharyngeal Closure: no Reduced Pressure Generation: Yes - mild Reduced Tongue Base Retraction: Yes - mild Pre-Swallowing Pooling in Valleculae: None Pre-Swallowing Pooling in Pyriforms: None Reduced Thyro-Hyiod Approximation: No Reduced Epiglottic Excursion: No Reduced Pharyngeal Peristalsis: No Multiple Swallows With: Cleared w/ Liquid Assist Post Swallow Residuals in Valleculae: Mild - on soft and regular solids Post Swallow Residuals in Pyriforms: None - Impression/Summary Laryngeal Penetration: No Tracheal Aspiration: no Patient Presents With: Oral-Pharyngeal dysph. - mild Risk of Aspiration: Mild - Recommendations NPO: no Solid Diet Recommendations: Mechanical Soft, Ground Meat Liquid Diet Recommendations: Thin Dysphagia Therapy with PHOTOGRAPH EDITOR: No Recommended Techniques: Fully Upright During Meal, Small Bites and Sips - slow rate of intake, Alternate Bites/Sips Supervision: Independent Other Recommendations: 1) DIET: recommend continued current diet of mech soft ground meats and thin liquids. Pt does not have dentures present and voiced difficulty chewing without them. 2) STRATEGIES: alternate bites and sips, slow rate of intake, small bites and sips. SUMMARY: Pt presents with a mild oropharyngeal dysphagia characterized by mildly reduced base of tongue and decreased pressure generation resulting in trace to mild residuals at the level of the valleculae on soft and regular solids. Residuals observed to clear with liquid assist. Pt educated on results of study as well as recommendations, pt verbalized understanding. ST to sign off at this time, please re-consult PRN. - Time Total Time: 20 Total Timed Minutes: 0 ST F.L. Impairment Category - Rationale Based On Rationale Based On: Clin Find., Obj Measures - Swallowing Current G8996: CI 1-19% Impaired Goal G8997: CI 1-19% Impaired Discharge G8998: CI 1-19% Impaired
--- NOTE | 2016-09-03 09:02 | PDOC PROGRESS REPORT ---
Subjective Progress Note for:: 09/03/16 Subjective:: The patient states to feel slightly better. Her breathing has improved. She is presently scheduled for a cookie swallow. She still having loose BMs. He is complaining of back pain. Physical Exam Vital Signs: Temp Pulse Resp BP Pulse Ox 97.8 F 95 19 136/67 H 100 09/03/16 08:12 09/03/16 08:12 09/03/16 08:12 09/03/16 08:12 09/03/16 08:40 Intake & Output 09/02/16 09/03/16 09/04/16 06:59 06:59 06:59 Intake Total 1485 1404 Output Total 400 500 Balance 1085 904 Weight 88 kg 88 kg General appearance: PRESENT: mild distress Head exam: PRESENT: atraumatic Eye exam: PRESENT: conjunctival injection Neck exam: ABSENT: carotid bruit Respiratory exam: PRESENT: rhonchi Cardiovascular exam: PRESENT: tachycardia Pulses: PRESENT: +1 pedal pulses bilateral GI/Abdominal exam: PRESENT: normal bowel sounds, soft Extremities exam: PRESENT: tenderness Musculoskeletal exam: PRESENT: tenderness Neurological exam: PRESENT: alert, awake Results Laboratory Results: 09/03/16 04:15 09/03/16 04:15 09/03/16 09/03/16 04:15 04:15 WBC 11.8 H RBC 3.40 L Hgb 11.6 L Hct 34.8 L MCV 102 H MCH 34.0 H MCHC 33.2 RDW 14.0 Plt Count 228 Seg Neutrophils % Not Reportable Lymphocytes % Not Reportable Monocytes % Not Reportable Eosinophils % Not Reportable Basophils % Not Reportable Absolute Neutrophils Not Reportable Absolute Lymphocytes Not Reportable Absolute Monocytes Not Reportable Absolute Eosinophils Not Reportable Absolute Basophils Not Reportable Sodium 135.6 L Potassium 3.6 Chloride 98 Carbon Dioxide 30 Anion Gap 8 BUN 10 Creatinine 0.42 L Est GFR ( Amer) > 60 Est GFR (Non-Af Amer) > 60 Glucose 139 H Calcium 7.9 L Total Bilirubin 0.4 AST 38 H ALT 55 H Alkaline Phosphatase 95 Total Protein 5.2 L Albumin 2.7 L 08/24/16 08/30/16 09/01/16 18:32 04:38 06:47 NT-Pro-B Natriuret Pep 3530 H 2600 H 864 Impressions: Abdomen/Pelvis CT 08/23/16 16:07 IMPRESSION: 1. Inflammatory fat stranding surrounding the pancreatic head as well as diffuse enlargement of the pancreas most notably in the pancreatic head. Question possible pancreatitis, correlate clinically. No definite pancreatic mass lesion is identified this region toe evaluation is limited without IV contrast. No peripancreatic fluid collections or pseudocysts identified. No intra-abdominal free air fluid. 2. Uncomplicated moderate colonic diverticulosis. 3. Hepatic steatosis. 4. Prior cholecystectomy. KUB X-Ray 08/28/16 00:00 IMPRESSION: No acute abnormality. Mild gaseous distension of stomach and a portion of colon and rectum. No significant stool retention. No dilated small bowel loops. Chest X-Ray 09/02/16 06:00 IMPRESSION: NO ACUTE RADIOGRAPHIC FINDING IN THE CHEST. Assessment & Plan - Diagnosis (1) Acute on chronic respiratory failure with hypoxemia Is this a current diagnosis for this admission?: YesPlan: Continue weaning off the BiPAP. We will continue with nebulization treatments. Will start weaning off the steroids (2) Pancreatitis Qualifiers: Qualified Code(s): K85.20 - Alcohol induced acute pancreatitis without necrosis or infection Is this a current diagnosis for this admission?: YesPlan: Resolved (3) Hypomagnesemia Is this a current diagnosis for this admission?: Yes (4) Hypokalemia Is this a current diagnosis for this admission?: Yes (5) Back pain Is this a current diagnosis for this admission?: YesPlan: Started on Toradol and presently on steroids. (6) Fluid overload, unspecified Is this a current diagnosis for this admission?: YesPlan: Had a negative balance over the weekend
[2016-09-03] MEDS: TIOTROPIUM BROMIDE DPI 5 CAP/KIT (18 MCG/CAP) IH SCH (10:17)
[2016-09-03] MEDS: FLUTICASONE/SALMETEROL DISKUS 250-50 MCG/DOSE IH SCH ×2 (10:19→21:39)
[2016-09-03] MEDS: PREDNISONE 20 MG TABLET PO SCH (10:19)
[2016-09-03] MEDS: THIAMINE HCL 100 MG TABLET PO SCH (10:20)
[2016-09-03] MEDS: FUROSEMIDE 40 MG TABLET PO SCH ×2 (10:20→17:16)
[2016-09-03] MEDS: POTASSIUM CHLORIDE 10 MEQ TABLET.SA PO SCH ×2 (10:20→21:39)
[2016-09-03] MEDS: LIDOCAINE 5% (700 MG) TRANSDERMAL ADH..PATCH TP SCH (10:21)
[2016-09-03] MEDS: ENOXAPARIN SODIUM INJ 40 MG/0.4 ML DISP.SYRIN SUBCUT SCH (10:21)
[2016-09-03] MEDS: MAGNESIUM OXIDE 400 MG TABLET PO SCH ×2 (10:21→17:16)
--- NOTE | 2016-09-03 17:52 | RADIOLOGY REPORT (SQ) ---
EXAM DESCRIPTION: NAZARIOIE SWALLOW COMPLETED DATE/TIME: 09/03/2016 9:03 am REASON FOR STUDY: Dysphagia unspecified R13.10, food in pharynx causing other injury, sequelae T17.2 28S ,cough wheezing COMPARISON: None. TECHNIQUE: Videofluoroscopic swallowing examination was performed in conjunction with speech patholo gy. Videofluoroscopic imaging was obtained and reviewed and these are the findings: RADIATION DOSE: Total fluoroscopy time: 1 min 26 sec 2 fluoro images saved to PACS. LIMITATIONS: None FINDINGS: The patient was brought into the fluoro room and placed upright on a modified barium swall ow chair. The patient was then given multiple consistencies mixed with barium to swallow under live fluoroscopic video guidance. According to the Speech Pathologist there was no laryngeal penetration or tracheal aspiration. Normal oral and pharyngeal transit time. No significant post swallow residu al. Please see speech pathology report for further details and information. IMPRESSION: NO EVIDENCE OF PENETRATION OR ASPIRATION. PLEASE SEE SPEECH PATHOLOGIST REPORT FOR OTHER FINDINGS AND RECOMMENDATIONS. COMMENT: Quality ID [id number]: Final reports for procedures using fluoroscopy that document radiation exp osure indices, or exposure time and number of fluorographic images (if radiation exposure indices are not available) TECHNICAL DOCUMENTATION: JOB ID: [id number] [employer]- All Rights Reserved
[2016-09-04] MEDS: OXYCODONE-ACETAMINOPHEN 5-325 MG TABLET PO PRN ×2 (00:26→14:46)
[2016-09-04] MEDS: ALBUTEROL SULFATE 0.083% NEB 2.5 MG/3 ML AMPUL NEB PRN ×5 (02:21→23:59)
[2016-09-04 05:16] LABS: HEMATOCRIT 35.5 % (36.0-47.0); HEMOGLOBIN 11.7 g/dL (12.0-15.5); HGB HCT DIFFERENCE -0.4; MEAN CORPUSCULAR HEMOGLOBIN 34.1 pg (27.0-33.4); MEAN CORPUSCULAR HGB CONC 33.1 g/dL (32.0-36.0); MEAN CORPUSCULAR VOLUME 103 fl (80-97); RED BLOOD COUNT 3.44 10^6/uL (3.72-5.28); RED CELL DISTRIBUTION WIDTH 13.7 % (11.5-14.0); WHITE BLOOD COUNT 11.3 10^3/uL (4.0-10.5)
[2016-09-04] MEDS: LANSOPRAZOLE 30 MG TAB.RAP.DR PO SCH (05:28)
[2016-09-04 05:33] LABS: ALANINE AMINOTRANSFERASE 67 U/L (9-52); ALBUMIN 2.8 g/dL (3.5-5.0); ALKALINE PHOSPHATASE 96 U/L (38-126); ANION GAP 10 (5-19); ASPARTATE AMINO TRANSFERASE 51 U/L (14-36); BILIRUBIN,DIRECT 0.4 mg/dL (0.0-0.4); BILIRUBIN,TOTAL 0.6 mg/dL (0.2-1.3); BLOOD UREA NITROGEN 12 mg/dL (7-20); CALCIUM 8.1 mg/dL (8.4-10.2); CARBON DIOXIDE 30 mmol/L (22-30); CHLORIDE 95 mmol/L (98-107); CREATININE RESULT 0.42 mg/dL (0.52-1.25); GLUCOSE 173 mg/dL (75-110); POTASSIUM 3.4 mmol/L (3.6-5.0); SODIUM 134.8 mmol/L (137-145); TOTAL PROTEIN 4.8 g/dL (6.3-8.2)
[2016-09-04 05:48] LABS: BAND NEUTROPHILS % (MANUAL) 1 % (3-5); BASOPHILS % (MANUAL) 0 % (0-2); EOSINOPHILS % (MANUAL) 0 % (0-6); LYMPHOCYTES % (MANUAL) 4 % (13-45); TOTAL CELLS COUNTED 100
[2016-09-04 05:53] LABS: NUCLEATED RED BLOOD CELLS 1 /100 WBC (0)
[2016-09-04 05:58] LABS: ANISOCYTOSIS SLIGHT; POIKILOCYTOSIS SLIGHT; TARGET CELLS SLIGHT; TOXIC GRANULATION 1+; TOXIC VACUOLATION PRESENT
[2016-09-04] MEDS: ENOXAPARIN SODIUM INJ 40 MG/0.4 ML DISP.SYRIN SUBCUT SCH (10:36)
[2016-09-04] MEDS: FUROSEMIDE 40 MG TABLET PO SCH ×2 (10:37→18:00)
[2016-09-04] MEDS: POTASSIUM CHLORIDE 10 MEQ TABLET.SA PO SCH ×2 (10:37→21:46)
[2016-09-04] MEDS: THIAMINE HCL 100 MG TABLET PO SCH (10:37)
[2016-09-04] MEDS: PREDNISONE 20 MG TABLET PO SCH (10:37)
[2016-09-04] MEDS: MAGNESIUM OXIDE 400 MG TABLET PO SCH ×2 (10:37→18:00)
[2016-09-04] MEDS: LIDOCAINE 5% (700 MG) TRANSDERMAL ADH..PATCH TP SCH (10:38)
[2016-09-04] MEDS: FLUTICASONE/SALMETEROL DISKUS 250-50 MCG/DOSE IH SCH ×2 (10:39→21:46)
[2016-09-04] MEDS: TIOTROPIUM BROMIDE DPI 5 CAP/KIT (18 MCG/CAP) IH SCH (10:39)
--- NOTE | 2016-09-04 12:16 | PDOC PROGRESS REPORT ---
Subjective Progress Note for:: 09/04/16 Subjective:: The patient states to feel better but she is still complaining of severe back pain which stops her from getting out of bed. Her shortness of breath has improved. Abdomen feels much better. Her diarrhea has resolved. Physical Exam Vital Signs: Temp Pulse Resp BP Pulse Ox 97.7 F 73 18 150/88 H 97 09/04/16 08:21 09/04/16 08:53 09/04/16 08:53 09/04/16 08:21 09/04/16 08:53 Intake & Output 09/03/16 09/04/16 09/05/16 06:59 06:59 06:59 Intake Total 1404 540 Output Total 500 0 Balance 904 540 Weight 88 kg 85.2 kg General appearance: PRESENT: mild distress Head exam: PRESENT: atraumatic Eye exam: PRESENT: conjunctiva pink Neck exam: ABSENT: carotid bruit Respiratory exam: PRESENT: rhonchi, tachypnea Cardiovascular exam: PRESENT: RRR, +S1, +S2 Pulses: PRESENT: +1 pedal pulses bilateral GI/Abdominal exam: PRESENT: normal bowel sounds, soft Extremities exam: PRESENT: tenderness Musculoskeletal exam: PRESENT: tenderness Additional comments: Tender to palpation over both thoracic and lumbar spine Neurological exam: PRESENT: alert, awake Results Laboratory Results: 09/04/16 04:43 09/04/16 04:43 09/04/16 09/04/16 04:43 04:43 WBC 11.3 H RBC 3.44 L Hgb 11.7 L Hct 35.5 L MCV 103 H MCH 34.1 H MCHC 33.1 RDW 13.7 Plt Count 217 Seg Neutrophils % Not Reportable Lymphocytes % Not Reportable Monocytes % Not Reportable Eosinophils % Not Reportable Basophils % Not Reportable Absolute Neutrophils Not Reportable Absolute Lymphocytes Not Reportable Absolute Monocytes Not Reportable Absolute Eosinophils Not Reportable Absolute Basophils Not Reportable Sodium 134.8 L Potassium 3.4 L Chloride 95 L Carbon Dioxide 30 Anion Gap 10 BUN 12 Creatinine 0.42 L Est GFR ( Amer) > 60 Est GFR (Non-Af Amer) > 60 Glucose 173 H Calcium 8.1 L Total Bilirubin 0.6 AST 51 H ALT 67 H Alkaline Phosphatase 96 Total Protein 4.8 L Albumin 2.8 L 06/30/17 07/06/17 07/08/17 18:32 04:38 06:47 NT-Pro-B Natriuret Pep 3530 H 2600 H 864 Impressions: Abdomen/Pelvis CT 08/23/16 16:07 IMPRESSION: 1. Inflammatory fat stranding surrounding the pancreatic head as well as diffuse enlargement of the pancreas most notably in the pancreatic head. Question possible pancreatitis, correlate clinically. No definite pancreatic mass lesion is identified this region toe evaluation is limited without IV contrast. No peripancreatic fluid collections or pseudocysts identified. No intra-abdominal free air fluid. 2. Uncomplicated moderate colonic diverticulosis. 3. Hepatic steatosis. 4. Prior cholecystectomy. KUB X-Ray 08/28/16 00:00 IMPRESSION: No acute abnormality. Mild gaseous distension of stomach and a portion of colon and rectum. No significant stool retention. No dilated small bowel loops. Chest X-Ray 09/02/16 06:00 IMPRESSION: NO ACUTE RADIOGRAPHIC FINDING IN THE CHEST. Modified Barium Swallow 09/03/16 00:00 IMPRESSION: NO EVIDENCE OF PENETRATION OR ASPIRATION. PLEASE SEE SPEECH PATHOLOGIST REPORT FOR OTHER FINDINGS AND RECOMMENDATIONS. Assessment & Plan - Diagnosis (1) Acute on chronic respiratory failure with hypoxemia Is this a current diagnosis for this admission?: YesPlan: Improving. Patient is on nasal cannula and off the BiPAP (2) Pancreatitis Qualifiers: Chronicity: acute Pancreatitis type: alcohol induced Acute pancreatitis complication: unspecified Qualified Code(s): K85.20 - Alcohol induced acute pancreatitis without necrosis or infection Is this a current diagnosis for this admission?: YesPlan: Resolved (3) Hypomagnesemia Is this a current diagnosis for this admission?: Yes (4) Hypokalemia Is this a current diagnosis for this admission?: Yes (5) Back pain Qualifiers: Back pain location: low back pain Chronicity: chronic Is this a current diagnosis for this admission?: YesPlan: Lumbar and thoracic radiculopathy. Will consult with pain management. (6) Fluid overload, unspecified Is this a current diagnosis for this admission?: YesPlan: Improving with diuretics
[2016-09-04 12:49] LABS: ARTERIAL BLOOD O2 SATURATION 97.5 % (94-98)
--- NOTE | 2016-09-04 13:52 | PDOC PROGRESS REPORT ---
Subjective Progress Note for:: 09/04/16 Subjective:: Back still hurts like... breathing better Physical Exam Vital Signs: Temp Pulse Resp BP Pulse Ox 97.4 F 99 19 130/65 H 99 09/04/16 11:28 09/04/16 11:28 09/04/16 11:28 09/04/16 11:28 09/04/16 11:28 Intake & Output 09/03/16 09/04/16 09/05/16 06:59 06:59 06:59 Intake Total 1404 540 236 Output Total 500 0 Balance 904 540 236 Weight 88 kg 85.2 kg General appearance: PRESENT: disheveled, mild distress, morbidly obese Head exam: PRESENT: atraumatic, normocephalic Eye exam: PRESENT: conjunctiva pale, EOMI Mouth exam: PRESENT: dry mucosa, neck supple, tongue midline Neck exam: ABSENT: carotid bruit, JVD, lymphadenopathy, thyromegaly Respiratory exam: PRESENT: decreased breath sounds, prolonged expiratory phas, rhonchi, symmetrical, unlabored Cardiovascular exam: PRESENT: RRR, +S1, +S2 Pulses: PRESENT: normal radial pulses GI/Abdominal exam: PRESENT: normal bowel sounds, soft. ABSENT: distended, guarding, mass, organolmegaly, rebound, tenderness Rectal exam: PRESENT: deferred Musculoskeletal exam: PRESENT: normal inspection Neurological exam: PRESENT: alert, awake Psychiatric exam: PRESENT: normal mood Skin exam: PRESENT: dry, warm Results Laboratory Results: 09/04/16 04:43 09/04/16 04:43 09/04/16 09/04/16 09/04/16 04:43 04:43 12:40 WBC 11.3 H RBC 3.44 L Hgb 11.7 L Hct 35.5 L MCV 103 H MCH 34.1 H MCHC 33.1 RDW 13.7 Plt Count 217 Seg Neutrophils % Not Reportable Lymphocytes % Not Reportable Monocytes % Not Reportable Eosinophils % Not Reportable Basophils % Not Reportable Absolute Neutrophils Not Reportable Absolute Lymphocytes Not Reportable Absolute Monocytes Not Reportable Absolute Eosinophils Not Reportable Absolute Basophils Not Reportable Carbonic Acid 1.42 H HCO3/H2CO3 Ratio 24:1 ABG pH 7.49 H ABG pCO2 47.2 H ABG pO2 92.7 ABG HCO3 34.8 H ABG O2 Saturation 97.5 ABG Base Excess 10.0 FiO2 2L Sodium 134.8 L Potassium 3.4 L Chloride 95 L Carbon Dioxide 30 Anion Gap 10 BUN 12 Creatinine 0.42 L Est GFR ( Amer) > 60 Est GFR (Non-Af Amer) > 60 Glucose 173 H Calcium 8.1 L Total Bilirubin 0.6 AST 51 H ALT 67 H Alkaline Phosphatase 96 Total Protein 4.8 L Albumin 2.8 L 08/24/16 08/30/16 09/01/16 18:32 04:38 06:47 NT-Pro-B Natriuret Pep 3530 H 2600 H 864 Impressions: Abdomen/Pelvis CT 08/23/16 16:07 IMPRESSION: 1. Inflammatory fat stranding surrounding the pancreatic head as well as diffuse enlargement of the pancreas most notably in the pancreatic head. Question possible pancreatitis, correlate clinically. No definite pancreatic mass lesion is identified this region toe evaluation is limited without IV contrast. No peripancreatic fluid collections or pseudocysts identified. No intra-abdominal free air fluid. 2. Uncomplicated moderate colonic diverticulosis. 3. Hepatic steatosis. 4. Prior cholecystectomy. KUB X-Ray 08/28/16 00:00 IMPRESSION: No acute abnormality. Mild gaseous distension of stomach and a portion of colon and rectum. No significant stool retention. No dilated small bowel loops. Chest X-Ray 09/02/16 06:00 IMPRESSION: NO ACUTE RADIOGRAPHIC FINDING IN THE CHEST. Modified Barium Swallow 09/03/16 00:00 IMPRESSION: NO EVIDENCE OF PENETRATION OR ASPIRATION. PLEASE SEE SPEECH PATHOLOGIST REPORT FOR OTHER FINDINGS AND RECOMMENDATIONS. Assessment & Plan - Diagnosis (1) Acute on chronic respiratory failure with hypoxemia Is this a current diagnosis for this admission?: YesPlan: Doing well very little assistance from noninvasive positive pressure ventilation (2) COPD (chronic obstructive pulmonary disease) Qualifiers: COPD type: COPD with acute exacerbation Qualified Code(s): J44.1 - Chronic obstructive pulmonary disease with (acute) exacerbation Is this a current diagnosis for this admission?: YesPlan: Continue supplemental oxygen and bronchodilator therapy (3) Hypercalcemia Is this a current diagnosis for this admission?: Yes
--- NOTE | 2016-09-04 14:28 | RADIOLOGY REPORT (SQ) ---
EXAM DESCRIPTION: SPINE ENTIRE AP/LAT COMPLETED DATE/TIME: 09/04/2016 2:10 pm REASON FOR STUDY: Thoracic and lumbar radiculopathy COMPARISON: None. NUMBER OF VIEWS: Two views. TECHNIQUE: Standing AP and lateral exam of the thoracolumbar spine. LIMITATIONS: None. FINDINGS: Rotatory levoscoliosis in the mid lumbar spine. Lumbar disc spaces are narrowed from L1-L 5. No compression changes seen. Mild dextroscoliosis in the lower thoracic spine. There is mild lo ss of height of what appears to be the T8 vertebral body. This does not appear to be acute. Osteope james is present. No significant abnormalities seen in the cervical spine. IMPRESSION: 1. There is loss of height of the T8 vertebral body that does not appear to be acute. 2. Scoliosis as described. 3. Multilevel lumbar degenerative disc changes. TECHNICAL DOCUMENTATION: JOB ID: [id number] [employer]- All Rights Reserved
[2016-09-04] MEDS ORDERED: GABAPENTIN 100 MG CAPSULE PO SCH (18:00)
[2016-09-04] MEDS: GABAPENTIN 300 MG CAPSULE PO SCH (21:46)
[2016-09-05] MEDS: LANSOPRAZOLE 30 MG TAB.RAP.DR PO SCH (05:05)
[2016-09-05] MEDS: OXYCODONE HCL IR 5 MG TABLET PO PRN ×2 (05:05→15:48)
[2016-09-05] MEDS: GABAPENTIN 300 MG CAPSULE PO SCH ×3 (05:06→22:16)
[2016-09-05 06:00] LABS: ANION GAP 9 (5-19); BLOOD UREA NITROGEN 13 mg/dL (7-20); CALCIUM 8.5 mg/dL (8.4-10.2); CARBON DIOXIDE 34 mmol/L (22-30); CHLORIDE 93 mmol/L (98-107); CREATININE RESULT 0.44 mg/dL (0.52-1.25); GLUCOSE 181 mg/dL (75-110); POTASSIUM 3.5 mmol/L (3.6-5.0); SODIUM 136.1 mmol/L (137-145)
[2016-09-05 06:02] LABS: ARTERIAL BLOOD BASE EXCESS 12.2 mmol/L; ARTERIAL BLOOD O2 SATURATION 97.8 % (94-98)
[2016-09-05] MEDS: ALBUTEROL SULFATE 0.083% NEB 2.5 MG/3 ML AMPUL NEB PRN (06:04)
--- NOTE | 2016-09-05 08:03 | PDOC PROGRESS REPORT ---
Subjective Progress Note for:: 09/05/16 Subjective:: The patient states to feel slightly better this morning. Had back pain has improved with gabapentin. Discussed the need to get out of bed to chair. Discussed the possibility of going to a rehab. Physical Exam Vital Signs: Temp Pulse Resp BP Pulse Ox 97.8 F 86 20 130/76 H 98 09/05/16 03:32 09/05/16 07:00 09/05/16 06:04 09/05/16 03:32 09/05/16 06:04 Intake & Output 09/04/16 09/05/16 09/06/16 06:59 06:59 06:59 Intake Total 540 436 Output Total 0 Balance 540 436 Weight 85.2 kg 84.6 kg General appearance: PRESENT: mild distress Head exam: PRESENT: atraumatic Eye exam: PRESENT: conjunctiva pink Neck exam: ABSENT: carotid bruit Respiratory exam: PRESENT: rhonchi Cardiovascular exam: PRESENT: +S1, +S2 Pulses: PRESENT: +1 pedal pulses bilateral GI/Abdominal exam: PRESENT: hyperactive bowel sounds, soft Extremities exam: PRESENT: full ROM, tenderness Neurological exam: PRESENT: alert, awake Results Laboratory Results: 09/04/16 04:43 09/05/16 04:32 09/04/16 09/05/16 09/05/16 12:40 04:32 05:40 Carbonic Acid 1.42 H 1.43 H HCO3/H2CO3 Ratio 24:1 25:1 ABG pH 7.49 H 7.51 H ABG pCO2 47.2 H 47.5 H ABG pO2 92.7 97.3 ABG HCO3 34.8 H 36.9 H ABG O2 Saturation 97.5 97.8 ABG Base Excess 10.0 12.2 FiO2 2L 2L Sodium 136.1 L Potassium 3.5 L Chloride 93 L Carbon Dioxide 34 H Anion Gap 9 BUN 13 Creatinine 0.44 L Est GFR ( Amer) > 60 Est GFR (Non-Af Amer) > 60 Glucose 181 H Calcium 8.5 08/24/16 08/30/16 09/01/16 18:32 04:38 06:47 NT-Pro-B Natriuret Pep 3530 H 2600 H 864 Impressions: Abdomen/Pelvis CT 08/23/16 16:07 IMPRESSION: 1. Inflammatory fat stranding surrounding the pancreatic head as well as diffuse enlargement of the pancreas most notably in the pancreatic head. Question possible pancreatitis, correlate clinically. No definite pancreatic mass lesion is identified this region toe evaluation is limited without IV contrast. No peripancreatic fluid collections or pseudocysts identified. No intra-abdominal free air fluid. 2. Uncomplicated moderate colonic diverticulosis. 3. Hepatic steatosis. 4. Prior cholecystectomy. KUB X-Ray 08/28/16 00:00 IMPRESSION: No acute abnormality. Mild gaseous distension of stomach and a portion of colon and rectum. No significant stool retention. No dilated small bowel loops. Chest X-Ray 09/02/16 06:00 IMPRESSION: NO ACUTE RADIOGRAPHIC FINDING IN THE CHEST. Modified Barium Swallow 09/03/16 00:00 IMPRESSION: NO EVIDENCE OF PENETRATION OR ASPIRATION. PLEASE SEE SPEECH PATHOLOGIST REPORT FOR OTHER FINDINGS AND RECOMMENDATIONS. Spine X-Ray 09/04/16 00:00 IMPRESSION: 1. There is loss of height of the T8 vertebral body that does not appear to be acute. 2. Scoliosis as described. 3. Multilevel lumbar degenerative disc changes. Assessment & Plan - Diagnosis (1) Acute on chronic respiratory failure with hypoxemia Is this a current diagnosis for this admission?: YesPlan: Improving (2) Pancreatitis Qualifiers: Chronicity: acute Pancreatitis type: alcohol induced Acute pancreatitis complication: unspecified Qualified Code(s): K85.20 - Alcohol induced acute pancreatitis without necrosis or infection Is this a current diagnosis for this admission?: YesPlan: Resolved (3) Hypomagnesemia Is this a current diagnosis for this admission?: YesPlan: Improving with supplementation (4) Hypokalemia Is this a current diagnosis for this admission?: YesPlan: We will supplement with oral potassium (5) Back pain Qualifiers: Back pain location: low back pain Chronicity: chronic Is this a current diagnosis for this admission?: YesPlan: Pain management consult appreciated. Back pain improved with adjustment of medication (6) Fluid overload, unspecified Is this a current diagnosis for this admission?: Yes
[2016-09-05] MEDS: INSULIN LISPRO 100 UNIT/ML 3 ML VIAL SUBCUT PRN ×3 (08:23→19:00)
[2016-09-05] MEDS: ALBUTEROL SULFATE 0.083% NEB 2.5 MG/3 ML AMPUL NEB SCH ×5 (09:42→23:43)
[2016-09-05] MEDS: TIOTROPIUM BROMIDE DPI 5 CAP/KIT (18 MCG/CAP) IH SCH (10:35)
[2016-09-05] MEDS: ENOXAPARIN SODIUM INJ 40 MG/0.4 ML DISP.SYRIN SUBCUT SCH (10:35)
[2016-09-05] MEDS: FLUTICASONE/SALMETEROL DISKUS 250-50 MCG/DOSE IH SCH ×2 (10:36→22:17)
[2016-09-05] MEDS: POTASSIUM CHLORIDE 10 MEQ TABLET.SA PO SCH ×2 (10:37→22:16)
[2016-09-05] MEDS: FUROSEMIDE 40 MG TABLET PO SCH ×2 (10:38→18:57)
[2016-09-05] MEDS: PREDNISONE 20 MG TABLET PO SCH (10:38)
[2016-09-05] MEDS: THIAMINE HCL 100 MG TABLET PO SCH (10:39)
[2016-09-05] MEDS: MAGNESIUM OXIDE 400 MG TABLET PO SCH ×2 (10:39→18:57)
[2016-09-05] MEDS: LIDOCAINE 5% (700 MG) TRANSDERMAL ADH..PATCH TP SCH (13:10)
--- NOTE | 2016-09-05 18:53 | PDOC PROGRESS REPORT ---
Subjective Progress Note for:: 09/05/16 Subjective:: Feeling much better no where near as much pain not using BiPAP at all Physical Exam Vital Signs: Temp Pulse Resp BP Pulse Ox 97.2 F 92 18 125/71 99 09/05/16 15:21 09/05/16 16:43 09/05/16 16:43 09/05/16 15:21 09/05/16 16:43 Intake & Output 09/04/16 09/05/16 09/06/16 06:59 06:59 06:59 Intake Total 540 436 336 Output Total 0 Balance 540 436 336 Weight 85.2 kg 84.6 kg General appearance: PRESENT: no acute distress, cooperative, disheveled, morbidly obese, well-developed Head exam: PRESENT: atraumatic, normocephalic Eye exam: PRESENT: conjunctiva pale, EOMI Mouth exam: PRESENT: dry mucosa, neck supple, tongue midline Neck exam: ABSENT: carotid bruit, JVD, lymphadenopathy, thyromegaly Respiratory exam: PRESENT: decreased breath sounds, prolonged expiratory phas, rhonchi, symmetrical Cardiovascular exam: PRESENT: RRR, +S1, +S2 Pulses: PRESENT: normal radial pulses GI/Abdominal exam: PRESENT: normal bowel sounds, soft. ABSENT: distended, guarding, mass, organolmegaly, rebound, tenderness Rectal exam: PRESENT: deferred Musculoskeletal exam: PRESENT: normal inspection Neurological exam: PRESENT: alert, awake Psychiatric exam: PRESENT: normal mood Skin exam: PRESENT: dry, warm Results Laboratory Results: 09/04/16 04:43 09/05/16 04:32 09/05/16 09/05/16 04:32 05:40 Carbonic Acid 1.43 H HCO3/H2CO3 Ratio 25:1 ABG pH 7.51 H ABG pCO2 47.5 H ABG pO2 97.3 ABG HCO3 36.9 H ABG O2 Saturation 97.8 ABG Base Excess 12.2 FiO2 2L Sodium 136.1 L Potassium 3.5 L Chloride 93 L Carbon Dioxide 34 H Anion Gap 9 BUN 13 Creatinine 0.44 L Est GFR ( Amer) > 60 Est GFR (Non-Af Amer) > 60 Glucose 181 H Calcium 8.5 08/24/16 08/30/16 09/01/16 18:32 04:38 06:47 NT-Pro-B Natriuret Pep 3530 H 2600 H 864 Impressions: Abdomen/Pelvis CT 08/23/16 16:07 IMPRESSION: 1. Inflammatory fat stranding surrounding the pancreatic head as well as diffuse enlargement of the pancreas most notably in the pancreatic head. Question possible pancreatitis, correlate clinically. No definite pancreatic mass lesion is identified this region toe evaluation is limited without IV contrast. No peripancreatic fluid collections or pseudocysts identified. No intra-abdominal free air fluid. 2. Uncomplicated moderate colonic diverticulosis. 3. Hepatic steatosis. 4. Prior cholecystectomy. KUB X-Ray 08/28/16 00:00 IMPRESSION: No acute abnormality. Mild gaseous distension of stomach and a portion of colon and rectum. No significant stool retention. No dilated small bowel loops. Chest X-Ray 09/02/16 06:00 IMPRESSION: NO ACUTE RADIOGRAPHIC FINDING IN THE CHEST. Modified Barium Swallow 09/03/16 00:00 IMPRESSION: NO EVIDENCE OF PENETRATION OR ASPIRATION. PLEASE SEE SPEECH PATHOLOGIST REPORT FOR OTHER FINDINGS AND RECOMMENDATIONS. Spine X-Ray 09/04/16 00:00 IMPRESSION: 1. There is loss of height of the T8 vertebral body that does not appear to be acute. 2. Scoliosis as described. 3. Multilevel lumbar degenerative disc changes. Assessment & Plan - Diagnosis (1) Acute on chronic respiratory failure with hypoxemia Is this a current diagnosis for this admission?: YesPlan: She is at or near her baseline (2) COPD (chronic obstructive pulmonary disease) Qualifiers: COPD type: COPD with acute exacerbation Qualified Code(s): J44.1 - Chronic obstructive pulmonary disease with (acute) exacerbation Is this a current diagnosis for this admission?: Yes (3) Hypercalcemia Is this a current diagnosis for this admission?: Yes
--- NOTE | 2016-09-05 23:14 | CONSULTATION REPORT E ---
Consultation Report NAME: ALIE PATTERSON : 1945 AGE: 70Y DATE: 09/04/2016 ROOM: 330 A TO: VERONICA DURAND M.D. FROM: MARLENE MURRY Requesting Physician [employer] ENGINEER REQUEST: Dr. Eder Macedo. CHIEF COMPLAINT: Back pain. HISTORY OF PRESENT ILLNESS: The patient is a 70-year-old female with a past medical history of COPD, chronic low back pain, arthritis, and alcohol dependency who was admitted on 08/23/2016 for abdominal pain and pancreatitis, as well as exacerbation of COPD. The patient is resolving from these issues but has noted worsening back pain over the past number of days. Notably the patient has really not been up and out of bed at all for a number of days. She states she is having bad pain in the lower back, bilateral hips, and bilateral legs. She has gone for x-rays for evaluation. She notably has been declining physical therapy and notes that it is too painful for her to get out of bed and get moving. The patient notes that she had back pain for a number of years. This was not anything specifically new for her just seemed to be worse over the recent few days. She states the pain is constant in nature. She has had injection therapies in her back in the past, per her report. Sometimes they were helpful but the last one she had was "terrible." The patient states that the last time she had an injection in her back the doctor, whom she cannot remember at this point, hit something wrong. She notes that she has had increased pain since and she is not particularly interested at this point in reinvestigation interventional therapies. She denies any new weakness or loss of bowel or bladder function. She also endorses some ongoing abdominal pain mid epigastric in nature without specific radiation. PAST MEDICAL HISTORY: 1. Pancreatitis. 2. COPD. 3. History of heavy alcohol use. 4. Chronic pain syndrome. 5. Obesity. 6. GERD. PAST SURGICAL HISTORY: Cholecystectomy and right hip replacement. FAMILY HISTORY: Noncontributory. SOCIAL HISTORY: The patient has a boyfriend who lives with her. She is a former smoker per her report. She has recently endorsed drinking "a few drinks every day." ALLERGIES: No known drug allergies. MEDICATIONS: Current in-house medications include; 1. Tylenol 650 mg p.o. q.4 p.r.n. 2. Albuterol nebulizer. 3. Lovenox 40 mg subcutaneous daily. 4. Lasix 40 mg p.o. b.i.d. 5. Gabapentin 100 mg p.o. t.i.d. 6. Insulin sliding scale. 7. Lansoprazole 30 mg p.o. daily. 8. Lidoderm patches 2 patches applied daily every 12 hours. 9. Magnesium oxide 400 mg p.o. b.i.d. 10. Zofran 4 mg IV p.o. p.r.n. 11. Percocet 5/325 mg p.o. q.6 hours p.r.n. pain. 12. Potassium chloride 20 mEq p.o. q.12 hours. 13. Prednisone 20 mg p.o. daily. 14. Fluticasone/salmeterol inhalation q.12 hours. 15. Thiamine 100 mg p.o. q. daily. 16. Tiotropium bromide 1 capsule daily. REVIEW OF SYSTEMS: The patient endorse some mild nausea, bloating, intermittent constipation. She denies any overt weakness in the lower extremities. She denies any overt numbness, tingling, or saddle anesthesia. She denies any pain in the mid back. All remainder of review of systems are negative. PHYSICAL EXAMINATION: VITAL SIGNS: Temperature 98.1, pulse 97, blood pressure 93/63, respiratory rate 21, saturating 100% on 2 L nasal cannula. GENERAL: The patient is a mildly obese female laying in hospital bed sleeping today when I walk in the room. She awakens easily and does not seem groggy when speaking with me. She is alert and oriented x3. HEENT: The patient wears glasses. Head is normocephalic, atraumatic. CARDIOVASCULAR: Pulse is regular. Even unlabored work of breathing in the room. Nasal cannula in place. MUSCULOSKELETAL: The patient notably declines examination of the back secondary to pain with movement. NEUROLOGIC: Moves all extremities x4. No overt or gross strength deficits or sensory deficits noted in the lower extremities. OBJECTIVE FINDINGS: Labs; the patient with a slightly elevated white count 11.3, hemoglobin and hematocrit 11.7 and 35.5 respectively. Platelet count 217. Sodium 136.1, potassium 3.5, glucose 201. X-ray of lumbar and thoracic spine performed today demonstrate mild loss of height vertebral body which does not appear to be acute. Mild dextroscoliosis in the lower thoracic spine and multilevel lumbar degenerative disk changes. IMPRESSION: 1. Chronic pain syndrome. 2. Deconditioning. 3. Lumbar disc disease. 4. History of pancreatitis due to alcohol abuse. ASSESSMENT AND PLAN: The patient is a 70-year-old female recently admitted for pancreatitis with a history of chronic low back pain which has been worsening over the course of her hospitalization. I really suspect that at a lot of this has been due to inactive and bed bound status. I strongly encouraged the patient that she needs to be getting up with physical therapy for ambulation as this will likely help to diminish inflammation and some of the pain in the back. Notably the patient has been given steroids and she is currently on prednisone as well as recent dosing of ketorolac which I am hopeful will jump start diminish inflammation. With regard to the patient's x-ray I do not suspect that the T8 compression noted on x-ray is acute given that she is not complaining of any mid back pain. I do not believe this needs further workup at this time. I have discussed possible interventional therapies with the patient though she is somewhat reticent to speak about this further. She has had a recent bad episode with lumbar injection per her report. As such I recommend the following medication changes: 1. Given elevated LFTs and history of alcohol use recommend switching from Percocet to oxycodone IR to remove the acetaminophen component. I will write this for 5 mg p.o. q.4 hours p.r.n. 2. I will increase gabapentin to 300 mg p.o. t.i.d. If this is well tolerated this can certainly be onward titrated upward to a dosing up to 2400 mg a day if need be. 3. Continue Lidoderm patches. I have requested physical therapy come by and again try to work with the patient tomorrow. Should these interventions fail to make headway we may consider being a bit more aggressive updating MRI of the lumbar spine and revisiting interventional therapy. For now we will start with medication management and proceed from there. Thank you very much for this interesting consultation. DICTATING PHYSICIAN: VERONICA DURAND M.D. [id number] [id number] ID: [id number] JOB#: [id number] ACCT: [id number] cc:VERONICA DURAND M.D. > [id number]
[2016-09-06] MEDS: OXYCODONE HCL IR 5 MG TABLET PO PRN ×4 (02:54→23:21)
[2016-09-06] MEDS: ALBUTEROL SULFATE 0.083% NEB 2.5 MG/3 ML AMPUL NEB SCH ×6 (04:34→23:54)
[2016-09-06] MEDS: LANSOPRAZOLE 30 MG TAB.RAP.DR PO SCH (05:39)
[2016-09-06] MEDS: GABAPENTIN 300 MG CAPSULE PO SCH ×3 (05:39→23:21)
[2016-09-06 05:42] LABS: ARTERIAL BLOOD BASE EXCESS 13.3 mmol/L; ARTERIAL BLOOD O2 SATURATION 95.9 % (94-98)
[2016-09-06 06:44] LABS: HEMATOCRIT 39.9 % (36.0-47.0); HEMOGLOBIN 13.2 g/dL (12.0-15.5); HGB HCT DIFFERENCE -0.3; MEAN CORPUSCULAR HEMOGLOBIN 33.7 pg (27.0-33.4); MEAN CORPUSCULAR HGB CONC 33.1 g/dL (32.0-36.0); MEAN CORPUSCULAR VOLUME 102 fl (80-97); RED BLOOD COUNT 3.91 10^6/uL (3.72-5.28)
[2016-09-06 07:05] LABS: BLOOD UREA NITROGEN 13 mg/dL (7-20); CALCIUM 9.1 mg/dL (8.4-10.2); CHLORIDE 89 mmol/L (98-107); CREATININE RESULT 0.61 mg/dL (0.52-1.25); GLUCOSE 136 mg/dL (75-110); POTASSIUM 3.6 mmol/L (3.6-5.0); SODIUM 137.1 mmol/L (137-145)
[2016-09-06 07:23] LABS: BASOPHILS % (MANUAL) 0 % (0-2); EOSINOPHILS % (MANUAL) 0 % (0-6); LYMPHOCYTES % (MANUAL) 1 % (13-45); TOTAL CELLS COUNTED 100
[2016-09-06 07:24] LABS: PLATELET CLUMPS PRESENT; TOXIC GRANULATION 2+; TOXIC VACUOLATION PRESENT
[2016-09-06 07:25] LABS: POLYCHROMASIA SLIGHT
[2016-09-06 07:40] LABS: ANION GAP 11 (5-19)
[2016-09-06 07:41] LABS: CARBON DIOXIDE 37 mmol/L (22-30)
--- NOTE | 2016-09-06 08:21 | PDOC PROGRESS REPORT ---
Subjective Progress Note for:: 09/06/16 Subjective:: The patient is complaining of severe lower abdominal pain. She states the pain started during the night. She states that the pain medicine has helped but now she is having pain again. Her back is doing much better. Her breathing has improved. Physical Exam Vital Signs: Temp Pulse Resp BP Pulse Ox 97.5 F 71 19 134/82 H 95 09/06/16 03:44 09/06/16 04:34 09/06/16 04:34 09/06/16 03:44 09/06/16 04:34 Intake & Output 09/05/16 09/06/16 09/07/16 06:59 06:59 06:59 Intake Total 436 746 Output Total 900 Balance 436 -154 Weight 84.6 kg 77.196 kg General appearance: PRESENT: severe distress Head exam: PRESENT: atraumatic Eye exam: PRESENT: conjunctiva pink Neck exam: ABSENT: carotid bruit Respiratory exam: PRESENT: rhonchi Cardiovascular exam: PRESENT: +S1, +S2 GI/Abdominal exam: PRESENT: tenderness. ABSENT: guarding Extremities exam: PRESENT: full ROM Neurological exam: PRESENT: alert, awake Results Laboratory Results: 09/06/16 06:24 09/06/16 06:24 09/06/16 09/06/16 09/06/16 04:41 06:24 06:24 WBC 16.0 H RBC 3.91 Hgb 13.2 Hct 39.9 MCV 102 H MCH 33.7 H MCHC 33.1 RDW 14.0 Plt Count 273 Seg Neutrophils % Not Reportable Lymphocytes % Not Reportable Monocytes % Not Reportable Eosinophils % Not Reportable Basophils % Not Reportable Absolute Neutrophils Not Reportable Absolute Lymphocytes Not Reportable Absolute Monocytes Not Reportable Absolute Eosinophils Not Reportable Absolute Basophils Not Reportable Carbonic Acid 1.66 H HCO3/H2CO3 Ratio 23:1 ABG pH 7.48 H ABG pCO2 55.0 H ABG pO2 77.3 L ABG HCO3 39.6 H ABG O2 Saturation 95.9 ABG Base Excess 13.3 FiO2 28% Sodium 137.1 Potassium 3.6 Chloride 89 L Carbon Dioxide 37 H Anion Gap 11 BUN 13 Creatinine 0.61 Est GFR ( Amer) > 60 Est GFR (Non-Af Amer) > 60 Glucose 136 H Calcium 9.1 08/24/16 08/30/16 09/01/16 18:32 04:38 06:47 NT-Pro-B Natriuret Pep 3530 H 2600 H 864 Impressions: Abdomen/Pelvis CT 08/23/16 16:07 IMPRESSION: 1. Inflammatory fat stranding surrounding the pancreatic head as well as diffuse enlargement of the pancreas most notably in the pancreatic head. Question possible pancreatitis, correlate clinically. No definite pancreatic mass lesion is identified this region toe evaluation is limited without IV contrast. No peripancreatic fluid collections or pseudocysts identified. No intra-abdominal free air fluid. 2. Uncomplicated moderate colonic diverticulosis. 3. Hepatic steatosis. 4. Prior cholecystectomy. KUB X-Ray 08/28/16 00:00 IMPRESSION: No acute abnormality. Mild gaseous distension of stomach and a portion of colon and rectum. No significant stool retention. No dilated small bowel loops. Chest X-Ray 09/02/16 06:00 IMPRESSION: NO ACUTE RADIOGRAPHIC FINDING IN THE CHEST. Modified Barium Swallow 09/03/16 00:00 IMPRESSION: NO EVIDENCE OF PENETRATION OR ASPIRATION. PLEASE SEE SPEECH PATHOLOGIST REPORT FOR OTHER FINDINGS AND RECOMMENDATIONS. Spine X-Ray 09/04/16 00:00 IMPRESSION: 1. There is loss of height of the T8 vertebral body that does not appear to be acute. 2. Scoliosis as described. 3. Multilevel lumbar degenerative disc changes. Assessment & Plan - Diagnosis (1) Acute on chronic respiratory failure with hypoxemia Is this a current diagnosis for this admission?: Yes (2) Pancreatitis Qualifiers: Chronicity: acute Pancreatitis type: alcohol induced Acute pancreatitis complication: unspecified Qualified Code(s): K85.20 - Alcohol induced acute pancreatitis without necrosis or infection Is this a current diagnosis for this admission?: Yes (3) Hypomagnesemia Is this a current diagnosis for this admission?: Yes (4) Hypokalemia Is this a current diagnosis for this admission?: Yes (5) Back pain Qualifiers: Back pain location: low back pain Chronicity: chronic Is this a current diagnosis for this admission?: YesPlan: Improved with medication (6) Fluid overload, unspecified Is this a current diagnosis for this admission?: Yes (7) Acute bilateral lower abdominal pain Plan: Will place patient on n.p.o. Will recheck amylase and lipase. KUB stat (8) COPD (chronic obstructive pulmonary disease) Qualifiers: COPD type: COPD with acute exacerbation Qualified Code(s): J44.1 - Chronic obstructive pulmonary disease with (acute) exacerbation Is this a current diagnosis for this admission?: YesPlan: Stable continue current treatment
[2016-09-06 08:46] LABS: LIPASE 450.6 U/L (23-300)
--- NOTE | 2016-09-06 09:35 | RADIOLOGY REPORT (SQ) ---
EXAM DESCRIPTION: KUB/ABDOMEN (SINGLE VIEW) COMPLETED DATE/TIME: 09/06/2016 9:13 am REASON FOR STUDY: abd pain COMPARISON: Cookie swallow 09/03/2016 KUB 08/28/2016 CT abdomen pelvis 08/23/2016 NUMBER OF VIEWS: One view. TECHNIQUE: Supine radiographic image of the abdomen acquired. LIMITATIONS: None. FINDINGS: BOWEL GAS PATTERN: Normal bowel gas pattern. No dilated loops. There is barium in descend ing colon and sigmoid colon diverticuli from cookie swallow 09/03/2016. CALCIFICATIONS: No suspicious calcifications. SOFT TISSUES: No gross mass or suggestion of organomegaly. HARDWARE: Right hip replacement BONES: Degenerative convex leftward lumbar curvature OTHER: No other significant finding. IMPRESSION: NO RADIOGRAPHIC EVIDENCE FOR ACUTE ABDOMINAL DISEASE. TECHNICAL DOCUMENTATION: JOB ID: [id number] [employer]- All Rights Reserved
[2016-09-06] MEDS: TIOTROPIUM BROMIDE DPI 5 CAP/KIT (18 MCG/CAP) IH SCH (10:55)
[2016-09-06] MEDS: FLUTICASONE/SALMETEROL DISKUS 250-50 MCG/DOSE IH SCH ×2 (10:55→23:20)
[2016-09-06] MEDS: FUROSEMIDE 40 MG TABLET PO SCH ×2 (10:56→18:12)
[2016-09-06] MEDS: MAGNESIUM OXIDE 400 MG TABLET PO SCH ×2 (10:56→18:12)
[2016-09-06] MEDS: POTASSIUM CHLORIDE 10 MEQ TABLET.SA PO SCH ×2 (10:56→23:20)
[2016-09-06] MEDS: PREDNISONE 20 MG TABLET PO SCH (10:56)
[2016-09-06] MEDS: THIAMINE HCL 100 MG TABLET PO SCH (10:56)
[2016-09-06] MEDS: ENOXAPARIN SODIUM INJ 40 MG/0.4 ML DISP.SYRIN SUBCUT SCH (10:57)
[2016-09-06] MEDS: LIDOCAINE 5% (700 MG) TRANSDERMAL ADH..PATCH TP SCH (11:10)
[2016-09-06 15:15] LABS: ALANINE AMINOTRANSFERASE 59 U/L (9-52); ALBUMIN 3.2 g/dL (3.5-5.0); ALKALINE PHOSPHATASE 125 U/L (38-126); ASPARTATE AMINO TRANSFERASE 37 U/L (14-36); BILIRUBIN,DIRECT 0.3 mg/dL (0.0-0.4); BILIRUBIN,TOTAL 0.5 mg/dL (0.2-1.3); TOTAL PROTEIN 6.2 g/dL (6.3-8.2)
[2016-09-06] MEDS: ONDANSETRON HCL INJ/PF 4 MG/2 ML SDV IV PRN (15:28)
--- NOTE | 2016-09-06 16:00 | PDOC CONSULTATION ---
Consultation Consult Date: 09/06/16 Consult reason:: Abdominal pain History of Present Illness Admission Date/PCP: 08/23/16 17:44 DANYA DE LA TORRE, History of Present Illness: 70-year-old female who has a long history of couple glasses of wine intake per night but no history of alcohol-related health issues presenting with 1 month history of poor appetite with diffuse abdominal pain that is worsened with p.o. intake. No nausea or vomiting. Some loose bowel movements but no profuse diarrhea. No signs or symptoms of gastrointestinal bleed. Patient was noted with elevated lipase and pancreatic head abnormality on CT scan and was admitted with diagnosis of pancreatitis. Patient apparently had some improvement during her hospital stay but a day after resumption of diet she had recurrent diffuse abdominal pain. Patient denies any history of NSAID abuse. Patient does take steroids intermittently for her COPD that is oxygen dependent. She has had a open cholecystectomy in the remote past. No family history of pancreatic cancer. Past Medical History Pulmonary Medical History: Reports: Bronchitis, Chronic Obstructive Pulmonary Disease (COPD), Pneumonia Musculoskeltal Medical History: Reports: Arthritis Psychiatric Medical History: Reports: Alcohol Dependency Past Surgical History Past Surgical History: Reports: Cholecystectomy, Orthopedic Surgery - Right Hip Replacement Social History Lives with: Spouse/Significant other Smoking Status: Former Smoker Frequency of Alcohol Use: Social Hx Recreational Drug Use: No Drugs: None Hx Prescription Drug Abuse: No - Advance Directive Resuscitation Status: Full Code Family History Family History: Reviewed & Not Pertinent Parental Family History Reviewed: No Children Family History Reviewed: No Sibling(s) Family History Reviewed.: No Medication/Allergy Home Medications: Albuterol Sulfate [Proair HFA] 2 puff IH Q4HP PRN 08/23/16 Fluticasone/Salmeterol [Advair 250-50 Diskus 28 dose] 1 puff IH BID 08/23/16 Furosemide [Lasix] 40 mg PO DAILY 08/23/16 Potassium Chloride [K-Tab ER] 10 meq PO BID 08/23/16 Prednisone [Deltasone 10 mg Tablet] 10 mg PO BID 08/23/16 Roflumilast [Daliresp 500 mcg Tablet] 500 mcg PO DAILY 08/23/16 Tiotropium [place] [Spiriva Respimat] 2 puff IH DAILY 08/23/16 Allergies/Adverse Reactions: No Known Allergies Allergy (Verified 08/23/16 15:00) Physical Exam Vital Signs: Temp Pulse Resp BP Pulse Ox 97.7 F 81 22 H 98/82 L 94 09/06/16 11:28 09/06/16 12:17 09/06/16 12:17 09/06/16 11:28 09/06/16 12:17 Intake & Output 09/05/16 09/06/16 09/07/16 06:59 06:59 06:59 Intake Total 436 746 200 Output Total 900 900 Balance 436 154 -700 Weight 84.6 kg 77.196 kg General appearance: PRESENT: no acute distress, cooperative - Please see epic please Eye exam: PRESENT: conjunctiva pink Respiratory exam: PRESENT: chest wall tenderness Cardiovascular exam: PRESENT: RRR GI/Abdominal exam: PRESENT: other - Soft, moderately distended with diffuse abdominal tenderness to palpation without peritoneal signs. Extremities exam: PRESENT: other - No swelling. Lower extremity demonstrates some atrophy. Neurological exam: PRESENT: alert, awake Psychiatric exam: PRESENT: appropriate affect, other - Irritable Skin exam: PRESENT: warm Results Laboratory Results: 09/06/16 06:24 09/06/16 06:24 09/06/16 09/06/16 09/06/16 04:41 06:24 06:24 WBC 16.0 H RBC 3.91 Hgb 13.2 Hct 39.9 MCV 102 H MCH 33.7 H MCHC 33.1 RDW 14.0 Plt Count 273 Seg Neutrophils % Not Reportable Lymphocytes % Not Reportable Monocytes % Not Reportable Eosinophils % Not Reportable Basophils % Not Reportable Absolute Neutrophils Not Reportable Absolute Lymphocytes Not Reportable Absolute Monocytes Not Reportable Absolute Eosinophils Not Reportable Absolute Basophils Not Reportable Carbonic Acid 1.66 H HCO3/H2CO3 Ratio 23:1 ABG pH 7.48 H ABG pCO2 55.0 H ABG pO2 77.3 L ABG HCO3 39.6 H ABG O2 Saturation 95.9 ABG Base Excess 13.3 FiO2 28% Sodium 137.1 Potassium 3.6 Chloride 89 L Carbon Dioxide 37 H Anion Gap 11 BUN 13 Creatinine 0.61 Est GFR ( Amer) > 60 Est GFR (Non-Af Amer) > 60 Glucose 136 H Calcium 9.1 Total Bilirubin AST ALT Alkaline Phosphatase Total Protein Albumin Amylase Lipase 09/06/16 09/06/16 06:24 06:24 WBC RBC Hgb Hct MCV MCH MCHC RDW Plt Count Seg Neutrophils % Lymphocytes % Monocytes % Eosinophils % Basophils % Absolute Neutrophils Absolute Lymphocytes Absolute Monocytes Absolute Eosinophils Absolute Basophils Carbonic Acid HCO3/H2CO3 Ratio ABG pH ABG pCO2 ABG pO2 ABG HCO3 ABG O2 Saturation ABG Base Excess FiO2 Sodium Potassium Chloride Carbon Dioxide Anion Gap BUN Creatinine Est GFR ( Amer) Est GFR (Non-Af Amer) Glucose Calcium Total Bilirubin 0.5 AST 37 H ALT 59 H Alkaline Phosphatase 125 Total Protein 6.2 L Albumin 3.2 L Amylase 117 H Lipase 450.6 H 08/24/16 08/30/16 09/01/16 18:32 04:38 06:47 NT-Pro-B Natriuret Pep 3530 H 2600 H 864 Impressions: Abdomen/Pelvis CT 08/23/16 16:07 IMPRESSION: 1. Inflammatory fat stranding surrounding the pancreatic head as well as diffuse enlargement of the pancreas most notably in the pancreatic head. Question possible pancreatitis, correlate clinically. No definite pancreatic mass lesion is identified this region toe evaluation is limited without IV contrast. No peripancreatic fluid collections or pseudocysts identified. No intra-abdominal free air fluid. 2. Uncomplicated moderate colonic diverticulosis. 3. Hepatic steatosis. 4. Prior cholecystectomy. Chest X-Ray 09/02/16 06:00 IMPRESSION: NO ACUTE RADIOGRAPHIC FINDING IN THE CHEST. Modified Barium Swallow 09/03/16 00:00 IMPRESSION: NO EVIDENCE OF PENETRATION OR ASPIRATION. PLEASE SEE SPEECH PATHOLOGIST REPORT FOR OTHER FINDINGS AND RECOMMENDATIONS. Spine X-Ray 09/04/16 00:00 IMPRESSION: 1. There is loss of height of the T8 vertebral body that does not appear to be acute. 2. Scoliosis as described. 3. Multilevel lumbar degenerative disc changes. KUB X-Ray 09/06/16 00:00 IMPRESSION: NO RADIOGRAPHIC EVIDENCE FOR ACUTE ABDOMINAL DISEASE. Assessment & Plan - Diagnosis (1) Pancreatitis Qualifiers: Chronicity: acute Acute pancreatitis complication: unspecified Is this a current diagnosis for this admission?: YesPlan: Pancreatitis. Need better imaging study of the pancreas. Pending CT scan. I have discussed with radiologist obtaining a pancreatic protocol CT. Will also obtain an MRCP tomorrow. Keep patient n.p.o. Recommend PICC line for TPN. Surgical service will follow along with you.
--- NOTE | 2016-09-06 18:05 | RADIOLOGY REPORT (SQ) ---
EXAM DESCRIPTION: CT ABD/PELVIS WITH IV ORAL COMPLETED DATE/TIME: 09/06/2016 5:38 pm REASON FOR STUDY: h/o pancreatits with persistent abd pain COMPARISON: 08/23/2016 TECHNIQUE: CT scan of the abdomen and pelvis performed using helical scanning technique with dynamic intravenous contrast injection. Oral contrast. Images reviewed with lung, soft tissue, and bone win dows. Reconstructed coronal and sagittal MPR images reviewed. Delayed images for evaluation of the ur inary system also acquired. All images stored on PACS. All CT scanners at this facility use dose modulation, iterative reconstruction, and/or weight based d osing when appropriate to reduce radiation dose to as low as reasonably achievable (ALARA). [facility]: Dose Right [facility]: CareDose [facility]: Dose Right [facility]: Teradose 4D [facility]: [employer]Park CONTRAST TYPE AND DOSE: contrast/concentration: Isovue 370.00 mg/ml; Total Contrast Delivered: 83.0 ml; Total Saline Delivered: 63.4 ml RENAL FUNCTION: Creatinine 0.6 BUN 13 RADIATION DOSE: Up-to-date CT equipment and radiation dose reduction techniques were employed. CTDIv ol: 16.3 - 19.4 mGy. DLP: 1777 mGy-cm.. LIMITATIONS: None. FINDINGS: LOWER CHEST: No significant findings. No nodules or infiltrates. LIVER: The liver is diffusely hypodense. No masses are seen. SPLEEN: Normal size. No focal lesions. PANCREAS: The pancreas is enlarged. There is a fluid around the pancreas. There is no evidence of s ignificant necrosis within the pancreas. There is no hemorrhage within the pancreas. There is no du ctal dilatation. GALLBLADDER: Surgically absent. ADRENAL GLANDS: No significant masses or asymmetry. RIGHT KIDNEY AND URETER: No solid masses. No significant calcifications. No hydronephrosis or hyd roureter. LEFT KIDNEY AND URETER: No solid masses. No significant calcifications. No hydronephrosis or hydr oureter. AORTA AND VESSELS: Atherosclerotic, tortuous. No aneurysm. RETROPERITONEUM: No retroperitoneal adenopathy, hemorrhage or masses. BOWEL AND PERITONEAL CAVITY: There are diverticula with no acute associated inflammatory changes. Th ere is some free fluid in the mesentery. APPENDIX: Not identified. PELVIS: There is free fluid. The urinary bladder is normal. Uterus is normal for age. There is no adnexal mass or fluid collection. ABDOMINAL WALL: No masses. No hernias. BONES: Osteopenia is present. Lumbar degenerative disc changes are present. Levoscoliosis is presen t. OTHER: No other significant finding. IMPRESSION: 1. There is fatty infiltration of the liver. 2. Pancreatitis with peripancreatic, mesenteric, and pelvic fluid. There is no evidence of signific ant pancreatic necrosis. There is no hemorrhage. 3. Diverticulosis coli. 4. Osteopenia was lumbar scoliosis and degenerative disc change. TECHNICAL DOCUMENTATION: JOB ID: [id number] Quality ID # [id number]: Final reports with documentation of one or more dose reduction techniques (e.g., Au tomated exposure control, adjustment of the mA and/or kV according to patient size, use of iterative reconstruction technique) 2010 [employer]- All Rights Reserved
--- NOTE | 2016-09-06 19:02 | PDOC CONSULTATION ---
Consultation Consult Date: 09/06/16 History of Present Illness Admission Date/PCP: 08/23/16 17:44 DANYA DE LA TORRE, History of Present Illness: This is a 70-year-old patient who was admitted on 08/23/2016 with nausea, vomiting, and abdominal pain. On admission her lipase was 3500 and she was diagnosed with alcohol induced pancreatitis. Since admission she has had other medical problems including respiratory failure, diarrhea, hypokalemia, and physical deconditioning. She was given solid food last night and she woke up during the night with abdominal pain. She has been having a constant discomfort since then. Her initial CAT scan on 08/23/2016 showed enlargement of the pancreatic head with no peripancreatic fluid. She has had a previous cholecystectomy. Due to her significant abdominal pain today she had another CAT scan that showed peripancreatic, mesenteric, and pelvic fluid with diffuse enlargement of the pancreas. There was no evidence for necrosis or hemorrhage. Pancreatic duct was not dilated. She does drink alcohol every day but has never had acute pancreatitis until now. However LFTs today only showed mild elevation of the transaminases with a normal bilirubin. Her lipase her lipase today was 450 with amylase of 117 Past Medical History Pulmonary Medical History: Reports: Bronchitis, Chronic Obstructive Pulmonary Disease (COPD), Pneumonia Musculoskeltal Medical History: Reports: Arthritis Psychiatric Medical History: Reports: Alcohol Dependency Past Surgical History Past Surgical History: Reports: Cholecystectomy, Orthopedic Surgery - Right Hip Replacement Social History Lives with: Spouse/Significant other Smoking Status: Former Smoker Frequency of Alcohol Use: Social Hx Recreational Drug Use: No Drugs: None Hx Prescription Drug Abuse: No - Advance Directive Resuscitation Status: Full Code Family History Family History: Reviewed & Not Pertinent Parental Family History Reviewed: No Children Family History Reviewed: NA Sibling(s) Family History Reviewed.: NA Medication/Allergy Home Medications: Albuterol Sulfate [Proair HFA] 2 puff IH Q4HP PRN 08/23/16 Fluticasone/Salmeterol [Advair 250-50 Diskus 28 dose] 1 puff IH BID 08/23/16 Furosemide [Lasix] 40 mg PO DAILY 08/23/16 Potassium Chloride [K-Tab ER] 10 meq PO BID 08/23/16 Prednisone [Deltasone 10 mg Tablet] 10 mg PO BID 08/23/16 Roflumilast [Daliresp 500 mcg Tablet] 500 mcg PO DAILY 08/23/16 Tiotropium [place] [Spiriva Respimat] 2 puff IH DAILY 08/23/16 Allergies/Adverse Reactions: No Known Allergies Allergy (Verified 08/23/16 15:00) Review of Systems All systems: reviewed and no additional remarkable complaints except as stated Physical Exam Vital Signs: Temp Pulse Resp BP Pulse Ox 98.4 F 85 20 120/39 L 95 09/06/16 16:01 09/06/16 16:34 09/06/16 16:34 09/06/16 16:01 09/06/16 16:34 Intake & Output 09/05/16 09/06/16 09/07/16 06:59 06:59 06:59 Intake Total 436 746 200 Output Total 900 900 Balance 436 -154 -700 Weight 84.6 kg 77.196 kg Exam: General: Patient is alert with some discomfort. She is obese. HEENT: There is no pallor or jaundice. PERRLA. Oropharynx normal Respiratory: No chest deformity. No respiratory distress. Chest wall palpitation was unremarkable. Breath sounds were normal Cardiovascular: Heart sounds 1 and 2 normal with no murmurs. Abdominal: Abdomen is slightly distended and obese. There is mild tenderness in the epigastrium. Liver and spleen not palpable. No ascites demonstrated. Bowel sounds active. Rectal examination was deferred. Extremities: No edema Neurological: Alert and oriented x4. Grossly nonfocal. Normal speech Skin: No significant rash Psychological: Not examined Results Laboratory Results: 09/06/16 06:24 09/06/16 06:24 09/06/16 09/06/16 09/06/16 04:41 06:24 06:24 WBC 16.0 H RBC 3.91 Hgb 13.2 Hct 39.9 MCV 102 H MCH 33.7 H MCHC 33.1 RDW 14.0 Plt Count 273 Seg Neutrophils % Not Reportable Lymphocytes % Not Reportable Monocytes % Not Reportable Eosinophils % Not Reportable Basophils % Not Reportable Absolute Neutrophils Not Reportable Absolute Lymphocytes Not Reportable Absolute Monocytes Not Reportable Absolute Eosinophils Not Reportable Absolute Basophils Not Reportable Carbonic Acid 1.66 H HCO3/H2CO3 Ratio 23:1 ABG pH 7.48 H ABG pCO2 55.0 H ABG pO2 77.3 L ABG HCO3 39.6 H ABG O2 Saturation 95.9 ABG Base Excess 13.3 FiO2 28% Sodium 137.1 Potassium 3.6 Chloride 89 L Carbon Dioxide 37 H Anion Gap 11 BUN 13 Creatinine 0.61 Est GFR ( Amer) > 60 Est GFR (Non-Af Amer) > 60 Glucose 136 H Calcium 9.1 Total Bilirubin AST ALT Alkaline Phosphatase Total Protein Albumin Amylase Lipase 09/06/16 09/06/16 06:24 06:24 WBC RBC Hgb Hct MCV MCH MCHC RDW Plt Count Seg Neutrophils % Lymphocytes % Monocytes % Eosinophils % Basophils % Absolute Neutrophils Absolute Lymphocytes Absolute Monocytes Absolute Eosinophils Absolute Basophils Carbonic Acid HCO3/H2CO3 Ratio ABG pH ABG pCO2 ABG pO2 ABG HCO3 ABG O2 Saturation ABG Base Excess FiO2 Sodium Potassium Chloride Carbon Dioxide Anion Gap BUN Creatinine Est GFR ( Amer) Est GFR (Non-Af Amer) Glucose Calcium Total Bilirubin 0.5 AST 37 H ALT 59 H Alkaline Phosphatase 125 Total Protein 6.2 L Albumin 3.2 L Amylase 117 H Lipase 450.6 H 08/24/16 08/30/16 09/01/16 18:32 04:38 06:47 NT-Pro-B Natriuret Pep 3530 H 2600 H 864 Impressions: Chest X-Ray 09/02/16 06:00 IMPRESSION: NO ACUTE RADIOGRAPHIC FINDING IN THE CHEST. Modified Barium Swallow 09/03/16 00:00 IMPRESSION: NO EVIDENCE OF PENETRATION OR ASPIRATION. PLEASE SEE SPEECH PATHOLOGIST REPORT FOR OTHER FINDINGS AND RECOMMENDATIONS. Spine X-Ray 09/04/16 00:00 IMPRESSION: 1. There is loss of height of the T8 vertebral body that does not appear to be acute. 2. Scoliosis as described. 3. Multilevel lumbar degenerative disc changes. Abdomen/Pelvis CT 09/06/16 00:00 IMPRESSION: 1. There is fatty infiltration of the liver. 2. Pancreatitis with peripancreatic, mesenteric, and pelvic fluid. There is no evidence of significant pancreatic necrosis. There is no hemorrhage. 3. Diverticulosis coli. 4. Osteopenia was lumbar scoliosis and degenerative disc change. KUB X-Ray 09/06/16 00:00 IMPRESSION: NO RADIOGRAPHIC EVIDENCE FOR ACUTE ABDOMINAL DISEASE. Assessment & Plan - Diagnosis (1) Pancreatitis, alcoholic, acute Qualifiers: Acute pancreatitis complication: no infection or necrosis Qualified Code(s): K85.20 - Alcohol induced acute pancreatitis without necrosis or infection Is this a current diagnosis for this admission?: YesPlan: She developed increased abdominal pain during the night and the pain persists. She has more abnormalities noted on her CAT scan consistent with worsening acute pancreatitis. There is peripancreatic fluid that was not present on admission. I will suggest we keep her n.p.o. for another 24 hours and then try her on clear liquids. Diet should be slowly advanced as tolerated. Due to her age she should have endoscopic ultrasound to rule out neoplasm and this can be arranged as outpatient (2) COPD (chronic obstructive pulmonary disease) Qualifiers: COPD type: COPD with acute exacerbation Qualified Code(s): J44.1 - Chronic obstructive pulmonary disease with (acute) exacerbation Is this a current diagnosis for this admission?: Yes (3) Obesity Qualifiers: Obesity type: due to excess calories Is this a current diagnosis for this admission?: Yes (4) Pancreatitis Qualifiers: Chronicity: acute Acute pancreatitis complication: unspecified Is this a current diagnosis for this admission?: Yes (5) Steatohepatitis, alcoholic Is this a current diagnosis for this admission?: Yes
[2016-09-07] MEDS: ALBUTEROL SULFATE 0.083% NEB 2.5 MG/3 ML AMPUL NEB SCH ×5 (03:48→20:42)
[2016-09-07] MEDS: GABAPENTIN 300 MG CAPSULE PO SCH ×4 (06:36→23:31)
[2016-09-07] MEDS: LANSOPRAZOLE 30 MG TAB.RAP.DR PO SCH (06:36)
--- NOTE | 2016-09-07 08:24 | PDOC PROGRESS REPORT ---
Subjective Progress Note for:: 09/07/16 Subjective:: The patient states to feel much better. Her abdominal pain has improved. She was seen by the GI and surgery. She is presently n.p.o. Surgery has recommended the PICC line and parenteral nutrition. He is presently scheduled for MRCP. Her breathing has improved. Discussed the need for short-term rehab after the hospitalization. Physical Exam Vital Signs: Temp Pulse Resp BP Pulse Ox 98.6 F 87 20 108/66 89 L 09/07/16 03:35 09/07/16 07:40 09/07/16 07:40 09/07/16 03:35 09/07/16 03:35 Intake & Output 09/06/16 09/07/16 09/08/16 06:59 06:59 06:59 Intake Total 746 211 Output Total 900 900 Balance -154 -689 Weight 77.196 kg 77.224 kg General appearance: PRESENT: mild distress Head exam: PRESENT: atraumatic Neck exam: ABSENT: carotid bruit Respiratory exam: PRESENT: rhonchi Cardiovascular exam: PRESENT: +S1, +S2 Pulses: PRESENT: +1 pedal pulses bilateral GI/Abdominal exam: PRESENT: soft, tenderness Extremities exam: PRESENT: full ROM Results Laboratory Results: 09/06/16 06:24 09/06/16 06:24 09/06/16 09/06/16 09/06/16 06:24 06:24 06:24 WBC 16.0 H RBC 3.91 Hgb 13.2 Hct 39.9 MCV 102 H MCH 33.7 H MCHC 33.1 RDW 14.0 Plt Count 273 Total Bilirubin 0.5 AST 37 H ALT 59 H Alkaline Phosphatase 125 Total Protein 6.2 L Albumin 3.2 L Amylase 117 H Lipase 450.6 H 08/24/16 08/30/16 09/01/16 18:32 04:38 06:47 NT-Pro-B Natriuret Pep 3530 H 2600 H 864 Impressions: Chest X-Ray 09/02/16 06:00 IMPRESSION: NO ACUTE RADIOGRAPHIC FINDING IN THE CHEST. Modified Barium Swallow 09/03/16 00:00 IMPRESSION: NO EVIDENCE OF PENETRATION OR ASPIRATION. PLEASE SEE SPEECH PATHOLOGIST REPORT FOR OTHER FINDINGS AND RECOMMENDATIONS. Spine X-Ray 09/04/16 00:00 IMPRESSION: 1. There is loss of height of the T8 vertebral body that does not appear to be acute. 2. Scoliosis as described. 3. Multilevel lumbar degenerative disc changes. Abdomen/Pelvis CT 09/06/16 00:00 IMPRESSION: 1. There is fatty infiltration of the liver. 2. Pancreatitis with peripancreatic, mesenteric, and pelvic fluid. There is no evidence of significant pancreatic necrosis. There is no hemorrhage. 3. Diverticulosis coli. 4. Osteopenia was lumbar scoliosis and degenerative disc change. KUB X-Ray 09/06/16 00:00 IMPRESSION: NO RADIOGRAPHIC EVIDENCE FOR ACUTE ABDOMINAL DISEASE. Assessment & Plan - Diagnosis (1) Acute on chronic respiratory failure with hypoxemia Is this a current diagnosis for this admission?: Yes (2) Pancreatitis Qualifiers: Chronicity: acute Acute pancreatitis complication: unspecified Is this a current diagnosis for this admission?: YesPlan: We will place a PICC line and start TPN (3) Hypomagnesemia Is this a current diagnosis for this admission?: Yes (4) Hypokalemia Is this a current diagnosis for this admission?: Yes (5) Back pain Qualifiers: Back pain location: low back pain Chronicity: chronic Is this a current diagnosis for this admission?: YesPlan: Much better controlled with medications (6) Fluid overload, unspecified Is this a current diagnosis for this admission?: Yes (8) COPD (chronic obstructive pulmonary disease) Qualifiers: COPD type: COPD with acute exacerbation Qualified Code(s): J44.1 - Chronic obstructive pulmonary disease with (acute) exacerbation Is this a current diagnosis for this admission?: YesPlan: Stable will start weaning off the prednisone
[2016-09-07] MEDS ORDERED: PREDNISONE 10 MG TABLET PO SCH (10:00)
[2016-09-07] MEDS: ENOXAPARIN SODIUM INJ 40 MG/0.4 ML DISP.SYRIN SUBCUT SCH (10:41)
[2016-09-07] MEDS: MAGNESIUM OXIDE 400 MG TABLET PO SCH (10:41)
[2016-09-07] MEDS: FUROSEMIDE 40 MG TABLET PO SCH (10:42)
[2016-09-07] MEDS: THIAMINE HCL 100 MG TABLET PO SCH (10:42)
[2016-09-07] MEDS: POTASSIUM CHLORIDE 10 MEQ TABLET.SA PO SCH (10:42)
[2016-09-07] MEDS: FLUTICASONE/SALMETEROL DISKUS 250-50 MCG/DOSE IH SCH ×2 (10:43→22:26)
[2016-09-07] MEDS: TIOTROPIUM BROMIDE DPI 5 CAP/KIT (18 MCG/CAP) IH SCH (10:43)
[2016-09-07] MEDS: LIDOCAINE 5% (700 MG) TRANSDERMAL ADH..PATCH TP SCH (10:44)
[2016-09-07] MEDS: OXYCODONE HCL IR 5 MG TABLET PO PRN ×2 (10:50→15:59)
--- NOTE | 2016-09-07 10:53 | RADIOLOGY REPORT (SQ) ---
EXAM DESCRIPTION: PICC INSERTION; FLUORO/CV PLACEMENT; U/S GUIDE FOR VASCULAR ACCESS COMPLETED DATE/TIME: 09/07/2016 10:33 am REASON FOR STUDY: prolonged antibiotics; IV ABX COMPARISON: Chest films 09/02/2016 FLUOROSCOPY TIME: 13 seconds 1 ultrasound and 1 digital fluoro images saved to PACS. TECHNIQUE: Fluoroscopic and ultrasound guided PICC placement. LIMITATIONS: None. PROCEDURE: After written consent and assessment were obtained, the patient was brought into the fluo roscopy room and place supine on the table. Ultrasound was used on the patient's left arm for PICC a ccess. The left arm was prepped and draped in a sterile fashion along with the ultrasound probe. The entry site was anesthetized with 4 mL of 1% lidocaine. A 21 gauge 7 cm needle was advanced through th e skin and into the left basilic vein under live ultrasound guidance. An ultrasound image was saved to PACS confirming access site. A .018 guide wire was then inserted through the needle and into the venous system. The needle was the removed and an 11 blade scalpel was used to make a 1cm skin incisio n. A 5 fr peel-away sheath was advanced over the wire and into the venous system. A measurement was then made using the existing wire and live fluoroscopic guidance. The wire was then removed and the t rimmed. The PICC was advanced through the peel-away sheath and into the venous system. The peel-away sheath was removed and the catheter was adhered to the patients arm with a stat lock. The catheter wa s then aspirated and flushed and a sterile bandage was placed over the access site. A fluoroscopic s pot image was saved to PACS confirming the catheter tip within the superior vena cava. IMPRESSION: SUCCESSFUL PLACEMENT OF A 5 FR DUAL LUMEN 42 CM PICC IN THE left basilic VEIN. COMMENT: Patient medication list reviewed: Yes- Quality ID# [id number]:Eligible professional attests to doc umenting in the medical record they obtained, updated, or reviewed the patient's current medications. . Quality ID 145: Final reports for procedures using fluoroscopy that document radiation exposure julio jennifer, or exposure time and number of fluorographic images (if radiation exposure indices are not avail able) Quality ID #76: The patient was prepped and draped using maximum sterile barrier technique including cap, mask, sterile gown, sterile gloves, a large sterile sheet, hand hygiene, and 2% Chlorhexidine fo r cutaneous antisepsis. When ultrasound is used, sterile ultrasound techniques are followed requiring sterile gel and sterile probes. TECHNICAL DOCUMENTATION: JOB ID: [id number] [employer]- All Rights Reserved
[2016-09-07 13:33] LABS: HEMATOCRIT 35.9 % (36.0-47.0); HEMOGLOBIN 11.9 g/dL (12.0-15.5); HGB HCT DIFFERENCE -0.2; MEAN CORPUSCULAR HEMOGLOBIN 33.9 pg (27.0-33.4); MEAN CORPUSCULAR VOLUME 103 fl (80-97); RED CELL DISTRIBUTION WIDTH 14.2 % (11.5-14.0); WHITE BLOOD COUNT 14.6 10^3/uL (4.0-10.5)
[2016-09-07 13:40] LABS: PROTHROMBIN TIME 13.3 SEC (11.4-15.4)
[2016-09-07 13:51] LABS: ALANINE AMINOTRANSFERASE 57 U/L (9-52); ALKALINE PHOSPHATASE 106 U/L (38-126); ANION GAP 10 (5-19); ASPARTATE AMINO TRANSFERASE 39 U/L (14-36); BILIRUBIN,DIRECT 0.4 mg/dL (0.0-0.4); BILIRUBIN,TOTAL 0.8 mg/dL (0.2-1.3); BLOOD UREA NITROGEN 16 mg/dL (7-20); CALCIUM 8.6 mg/dL (8.4-10.2); CARBON DIOXIDE 34 mmol/L (22-30); CHLORIDE 90 mmol/L (98-107); CREATININE RESULT 0.54 mg/dL (0.52-1.25); GLUCOSE 165 mg/dL (75-110); MAGNESIUM 1.9 mg/dL (1.6-2.3); PHOSPHORUS 3.8 mg/dL (2.5-4.5); POTASSIUM 3.9 mmol/L (3.6-5.0); SODIUM 133.8 mmol/L (137-145); TOTAL PROTEIN 5.6 g/dL (6.3-8.2)
[2016-09-07 13:59] LABS: PREALBUMIN 14.2 mg/dL (17.6-36.0)
--- NOTE | 2016-09-07 16:43 | RADIOLOGY REPORT (SQ) ---
EXAM DESCRIPTION: MRI ABDOMEN WITHOUT COMPLETED DATE/TIME: 09/07/2016 3:56 pm REASON FOR STUDY: MRCP requested in pt with pancreatitis. COMPARISON: CT abdomen pelvis 09/06/2016 Abdominal films 09/06/2016 TECHNIQUE: Noncontrast MRCP. Source and MIP images reviewed. LIMITATIONS: None. FINDINGS: GALLBLADDER: Normal. INTRAHEPATIC DUCTS: Nondilated. EXTRAHEPATIC DUCTS: Common duct is normal caliber. No dilatation of the pancreatic duct. No ductal filling defects noted. PANCREAS: Generally homogeneous, no gross mass or significant signal alteration. Pancreatic duct is n ormal. 7 x 3 cm fluid collection along the ventral aspect of the pancreatic tail, along the lesser s ac best shown on axial images 18-26. 3 x 2 cm fluid collection ventral to the pancreatic neck, best shown on axial STIR image 22. LIVER, SPLEEN, KIDNEYS, ADRENALS: No significant abnormality. VESSELS: No evidence of aneurysm. Grossly appropriate flow voids in the major vascular structures. LUNG BASES: Grossly clear. OTHER: No other significant finding. IMPRESSION: No gallstones. No choledocholithiasis or biliary ductal dilatation. Pancreatitis with peripancreatic fluid collections as above TECHNICAL DOCUMENTATION: JOB ID: [id number] [employer]- All Rights Reserved
--- NOTE | 2016-09-07 17:29 | Progress Note ---
Provider Note Provider Note: PANCREATITIS- Hold po meds. IV meds prn. Stop Lasix for now.
--- NOTE | 2016-09-07 20:39 | PDOC PROGRESS REPORT ---
Subjective Progress Note for:: 09/06/16 Subjective:: feeling better much less pain Physical Exam Vital Signs: Temp Pulse Resp BP Pulse Ox 98.5 F 102 H 18 121/78 100 09/07/16 19:23 09/07/16 19:23 09/07/16 19:23 09/07/16 19:23 09/07/16 19:23 Intake & Output 09/06/16 09/07/16 09/08/16 06:59 06:59 06:59 Intake Total 746 211 10 Output Total 900 900 150 Balance -154 -689 -140 Weight 77.196 kg 77.224 kg General appearance: PRESENT: no acute distress, disheveled, morbidly obese, well -developed, well-nourished Head exam: PRESENT: atraumatic, normocephalic Eye exam: PRESENT: conjunctiva pink, EOMI, PERRLA. ABSENT: scleral icterus Ear exam: PRESENT: normal external ear exam Mouth exam: PRESENT: moist, tongue midline Neck exam: ABSENT: carotid bruit, JVD, lymphadenopathy, thyromegaly Respiratory exam: PRESENT: clear to auscultation madeline. ABSENT: rales, rhonchi, wheezes Cardiovascular exam: PRESENT: RRR. ABSENT: diastolic murmur, rubs, systolic murmur Pulses: PRESENT: normal dorsalis pedis pul Vascular exam: PRESENT: normal capillary refill GI/Abdominal exam: PRESENT: normal bowel sounds, soft. ABSENT: distended, guarding, mass, organolmegaly, rebound, tenderness Rectal exam: PRESENT: deferred Extremities exam: PRESENT: full ROM. ABSENT: calf tenderness, clubbing, pedal edema Neurological exam: PRESENT: alert, awake, oriented to person, oriented to place , oriented to time, oriented to situation, CN II-XII grossly intact. ABSENT: motor sensory deficit Psychiatric exam: PRESENT: appropriate affect, normal mood. ABSENT: homicidal ideation, suicidal ideation Skin exam: PRESENT: dry, intact, warm. ABSENT: cyanosis, rash Results Laboratory Results: 09/07/16 13:17 09/07/16 13:17 09/07/16 09/07/16 13: 13:17 WBC 14.6 H RBC 3.50 L Hgb 11.9 L Hct 35.9 L MCV 103 H MCH 33.9 H MCHC 33.0 RDW 14.2 H Plt Count 261 Sodium 133.8 L Potassium 3.9 Chloride 90 L Carbon Dioxide 34 H Anion Gap 10 BUN 16 Creatinine 0.54 Est GFR ( Amer) > 60 Est GFR (Non-Af Amer) > 60 Glucose 165 H Calcium 8.6 Phosphorus 3.8 Magnesium 1.9 Total Bilirubin 0.8 AST 39 H ALT 57 H Alkaline Phosphatase 106 Total Protein 5.6 L Albumin 3.0 L Prealbumin 14.2 L 08/24/16 08/30/16 09/01/16 18:32 04:38 06:47 NT-Pro-B Natriuret Pep 3530 H 2600 H 864 Impressions: Chest X-Ray 09/02/16 06:00 IMPRESSION: NO ACUTE RADIOGRAPHIC FINDING IN THE CHEST. Modified Barium Swallow 09/03/16 00:00 IMPRESSION: NO EVIDENCE OF PENETRATION OR ASPIRATION. PLEASE SEE SPEECH PATHOLOGIST REPORT FOR OTHER FINDINGS AND RECOMMENDATIONS. Spine X-Ray 09/04/16 00:00 IMPRESSION: 1. There is loss of height of the T8 vertebral body that does not appear to be acute. 2. Scoliosis as described. 3. Multilevel lumbar degenerative disc changes. Abdomen/Pelvis CT 09/06/16 00:00 IMPRESSION: 1. There is fatty infiltration of the liver. 2. Pancreatitis with peripancreatic, mesenteric, and pelvic fluid. There is no evidence of significant pancreatic necrosis. There is no hemorrhage. 3. Diverticulosis coli. 4. Osteopenia was lumbar scoliosis and degenerative disc change. KUB X-Ray 09/06/16 00:00 IMPRESSION: NO RADIOGRAPHIC EVIDENCE FOR ACUTE ABDOMINAL DISEASE. Abdomen MRI 09/07/16 00:00 IMPRESSION: No gallstones. No choledocholithiasis or biliary ductal dilatation. Pancreatitis with peripancreatic fluid collections as above Guidance Fluoroscopy 09/07/16 00:00 IMPRESSION: SUCCESSFUL PLACEMENT OF A 5 FR DUAL LUMEN 42 CM PICC IN THE left basilic VEIN. Interventional Vascular Procedure 09/07/16 00:00 IMPRESSION: SUCCESSFUL PLACEMENT OF A 5 FR DUAL LUMEN 42 CM PICC IN THE left basilic VEIN. PICC Line Insertion 09/07/16 00:00 IMPRESSION: SUCCESSFUL PLACEMENT OF A 5 FR DUAL LUMEN 42 CM PICC IN THE left basilic VEIN. Assessment & Plan - Diagnosis (1) Acute on chronic respiratory failure with hypoxemia Is this a current diagnosis for this admission?: Yes (2) COPD (chronic obstructive pulmonary disease) Qualifiers: COPD type: COPD with acute exacerbation Qualified Code(s): J44.1 - Chronic obstructive pulmonary disease with (acute) exacerbation Is this a current diagnosis for this admission?: Yes (3) Hypercalcemia Is this a current diagnosis for this admission?: Yes
--- NOTE | 2016-09-07 20:42 | PDOC PROGRESS REPORT ---
Subjective Progress Note for:: 09/06/16 Subjective:: patient pleased decreased pain Physical Exam Vital Signs: Temp Pulse Resp BP Pulse Ox 98.5 F 102 H 18 121/78 100 09/07/16 19:23 09/07/16 19:23 09/07/16 19:23 09/07/16 19:23 09/07/16 19:23 Intake & Output 09/06/16 09/07/16 09/08/16 06:59 06:59 06:59 Intake Total 746 211 10 Output Total 900 900 150 Balance -154 -689 -140 Weight 77.196 kg 77.224 kg General appearance: PRESENT: no acute distress, disheveled, morbidly obese Head exam: PRESENT: atraumatic, normocephalic Eye exam: PRESENT: conjunctiva pale, EOMI Mouth exam: PRESENT: moist, neck supple Neck exam: ABSENT: carotid bruit, JVD, lymphadenopathy, thyromegaly Respiratory exam: PRESENT: decreased breath sounds, prolonged expiratory phas, rhonchi, symmetrical, unlabored Cardiovascular exam: PRESENT: RRR, +S1, +S2 Pulses: PRESENT: normal radial pulses GI/Abdominal exam: PRESENT: normal bowel sounds, soft. ABSENT: distended, guarding, mass, organolmegaly, rebound, tenderness Rectal exam: PRESENT: deferred Musculoskeletal exam: PRESENT: normal inspection Results Laboratory Results: 09/07/16 13:17 09/07/16 13:17 09/07/16 09/07/16 13:17 13:17 WBC 14.6 H RBC 3.50 L Hgb 11.9 L Hct 35.9 L MCV 103 H MCH 33.9 H MCHC 33.0 RDW 14.2 H Plt Count 261 Sodium 133.8 L Potassium 3.9 Chloride 90 L Carbon Dioxide 34 H Anion Gap 10 BUN 16 Creatinine 0.54 Est GFR ( Amer) > 60 Est GFR (Non-Af Amer) > 60 Glucose 165 H Calcium 8.6 Phosphorus 3.8 Magnesium 1.9 Total Bilirubin 0.8 AST 39 H ALT 57 H Alkaline Phosphatase 106 Total Protein 5.6 L Albumin 3.0 L Prealbumin 14.2 L 08/24/16 08/30/16 09/01/16 18:32 04:38 06:47 NT-Pro-B Natriuret Pep 3530 H 2600 H 864 Impressions: Chest X-Ray 09/02/16 06:00 IMPRESSION: NO ACUTE RADIOGRAPHIC FINDING IN THE CHEST. Modified Barium Swallow 09/03/16 00:00 IMPRESSION: NO EVIDENCE OF PENETRATION OR ASPIRATION. PLEASE SEE SPEECH PATHOLOGIST REPORT FOR OTHER FINDINGS AND RECOMMENDATIONS. Spine X-Ray 09/04/16 00:00 IMPRESSION: 1. There is loss of height of the T8 vertebral body that does not appear to be acute. 2. Scoliosis as described. 3. Multilevel lumbar degenerative disc changes. Abdomen/Pelvis CT 09/06/16 00:00 IMPRESSION: 1. There is fatty infiltration of the liver. 2. Pancreatitis with peripancreatic, mesenteric, and pelvic fluid. There is no evidence of significant pancreatic necrosis. There is no hemorrhage. 3. Diverticulosis coli. 4. Osteopenia was lumbar scoliosis and degenerative disc change. KUB X-Ray 09/06/16 00:00 IMPRESSION: NO RADIOGRAPHIC EVIDENCE FOR ACUTE ABDOMINAL DISEASE. Abdomen MRI 09/07/16 00:00 IMPRESSION: No gallstones. No choledocholithiasis or biliary ductal dilatation. Pancreatitis with peripancreatic fluid collections as above Guidance Fluoroscopy 09/07/16 00:00 IMPRESSION: SUCCESSFUL PLACEMENT OF A 5 FR DUAL LUMEN 42 CM PICC IN THE left basilic VEIN. Interventional Vascular Procedure 09/07/16 00:00 IMPRESSION: SUCCESSFUL PLACEMENT OF A 5 FR DUAL LUMEN 42 CM PICC IN THE left basilic VEIN. PICC Line Insertion 09/07/16 00:00 IMPRESSION: SUCCESSFUL PLACEMENT OF A 5 FR DUAL LUMEN 42 CM PICC IN THE left basilic VEIN. Assessment & Plan - Diagnosis (1) Acute on chronic respiratory failure with hypoxemia Is this a current diagnosis for this admission?: Yes (2) COPD (chronic obstructive pulmonary disease) Qualifiers: COPD type: COPD with acute exacerbation Qualified Code(s): J44.1 - Chronic obstructive pulmonary disease with (acute) exacerbation Is this a current diagnosis for this admission?: Yes (3) Hypercalcemia Is this a current diagnosis for this admission?: No
[2016-09-07] MEDS: HYDROCORTISONE SOD SUCCINATE INJ/PF 100 MG/2 ML SDV IV SCH (22:25)
[2016-09-07] MEDS: PANTOPRAZOLE SODIUM 40 MG VIAL IV SCH (22:26)
[2016-09-07] MEDS: NORMAL SALINE 10 ML SDV (AFTER EACH USE) IV PRN (22:27)
[2016-09-07] MEDS: NORMAL SALINE 10 ML SDV (SCHEDULED) IV SCH (22:27)
[2016-09-07] MEDS: INSULIN LISPRO 100 UNIT/ML 3 ML VIAL SUBCUT PRN (23:33)
[2016-09-08] MEDS: ALBUTEROL SULFATE 0.083% NEB 2.5 MG/3 ML AMPUL NEB SCH ×6 (00:05→20:17)
[2016-09-08] MEDS: MORPHINE SULFATE 10 MG/ML INJ IV PRN ×2 (04:25→09:27)
[2016-09-08 06:32] LABS: ALANINE AMINOTRANSFERASE 56 U/L (9-52); ALBUMIN 2.8 g/dL (3.5-5.0); ALKALINE PHOSPHATASE 113 U/L (38-126); ANION GAP 9 (5-19); ASPARTATE AMINO TRANSFERASE 32 U/L (14-36); BILIRUBIN,DIRECT 0.5 mg/dL (0.0-0.4); BILIRUBIN,TOTAL 0.7 mg/dL (0.2-1.3); BLOOD UREA NITROGEN 18 mg/dL (7-20); CALCIUM 8.7 mg/dL (8.4-10.2); CARBON DIOXIDE 38 mmol/L (22-30); CHLORIDE 88 mmol/L (98-107); CREATININE RESULT 0.57 mg/dL (0.52-1.25); GLUCOSE 206 mg/dL (75-110); LIPASE 193.2 U/L (23-300); PHOSPHORUS 4.2 mg/dL (2.5-4.5); POTASSIUM 3.7 mmol/L (3.6-5.0); SODIUM 135.4 mmol/L (137-145); TOTAL PROTEIN 5.3 g/dL (6.3-8.2)
[2016-09-08 06:34] LABS: HEMOGLOBIN 11.3 g/dL (12.0-15.5); HGB HCT DIFFERENCE -0.1; MEAN CORPUSCULAR HEMOGLOBIN 34.2 pg (27.0-33.4); MEAN CORPUSCULAR HGB CONC 33.4 g/dL (32.0-36.0); MEAN CORPUSCULAR VOLUME 103 fl (80-97); RED BLOOD COUNT 3.31 10^6/uL (3.72-5.28); WHITE BLOOD COUNT 14.6 10^3/uL (4.0-10.5)
[2016-09-08 06:39] LABS: PREALBUMIN 11.9 mg/dL (17.6-36.0)
[2016-09-08 07:06] LABS: BASOPHILS % (MANUAL) 0 % (0-2); EOSINOPHILS % (MANUAL) 0 % (0-6); LYMPHOCYTES % (MANUAL) 5 % (13-45); TOTAL CELLS COUNTED 100
[2016-09-08 07:09] LABS: ANISOCYTOSIS SLIGHT; POLYCHROMASIA SLIGHT; TOXIC GRANULATION 1+
[2016-09-08 07:10] LABS: POIKILOCYTOSIS SLIGHT
[2016-09-08 07:11] LABS: OVALOCYTES SLIGHT
[2016-09-08] MEDS ORDERED: DEXTROSE 10%-WATER 1,000 ML IV PRN (08:45)
[2016-09-08] MEDS ORDERED: AMINO ACIDS 5%/D25W 1,000 ML IV PRN ×3 (08:45→16:00)
[2016-09-08] MEDS: HYDROCORTISONE SOD SUCCINATE INJ/PF 100 MG/2 ML SDV IV SCH (09:25)
[2016-09-08] MEDS: FLUTICASONE/SALMETEROL DISKUS 250-50 MCG/DOSE IH SCH ×2 (09:28→21:45)
[2016-09-08] MEDS: PANTOPRAZOLE SODIUM 40 MG VIAL IV SCH ×2 (09:28→21:45)
[2016-09-08] MEDS: TIOTROPIUM BROMIDE DPI 5 CAP/KIT (18 MCG/CAP) IH SCH (09:28)
[2016-09-08] MEDS: NORMAL SALINE 10 ML SDV (SCHEDULED) IV SCH ×2 (09:29→21:48)
[2016-09-08] MEDS: LIDOCAINE 5% (700 MG) TRANSDERMAL ADH..PATCH TP SCH (09:30)
[2016-09-08] MEDS: ENOXAPARIN SODIUM INJ 40 MG/0.4 ML DISP.SYRIN SUBCUT SCH (09:34)
--- NOTE | 2016-09-08 12:23 | PROGRESS NOTE E ---
Progress Note NAME: ALIE PATTERSON : 1945 AGE: 70Y DATE: 09/08/2016 ROOM: 330 SUBJECTIVE: She had her MRCP yesterday which showed no occlusion of the hepatobiliary tree. Her lipase came down to 193 this morning from 450. Her white count is still slightly elevated at around 14.6 which is almost the same as yesterday. Her abdomen is soft with minimal tenderness. She is complaining of back pain. I think her pancreatitis is improving and she should be gradually started on clear liquids. DICTATING PHYSICIAN: EARLE PATIÑO M.D. [id number] PHY#: [id number] ID: [id number] JOB#: [id number] ACCT: [id number] cc: >
--- NOTE | 2016-09-08 14:31 | PDOC PROGRESS REPORT ---
Subjective Progress Note for:: 09/08/16 Subjective:: Abdominal pain has improved. Patient has no nausea or vomiting. She denies chest pain, shortness of breath, fever, chills. Physical Exam Vital Signs: Temp Pulse Resp BP Pulse Ox 98.0 F 81 18 129/66 H 98 09/08/16 11:30 09/08/16 11:30 09/08/16 11:30 09/08/16 11:30 09/08/16 11:30 Intake & Output 09/07/16 09/08/16 09/09/16 06:59 06:59 06:59 Intake Total 211 20 Output Total 900 150 Balance -689 -130 Weight 77.224 kg 81.7 kg GENERAL: No acute distress HEENT: Conjunctiva clear, nonicteric, moist mucous membranes, no JVD, midline trachea RESPIRATORY: Faint bilateral wheezes, good air excursion CARDIAC: Regular rate and rhythm, no murmurs/gallops/rubs ABDOMEN: Soft, nondistended, mild mid abdominal tenderness, positive bowel sounds, no rebound, no guarding EXTREMETIES: No edema, cyanosis, clubbing NEUROLOGIC: Alert, oriented to person/place/time, CN's grossly intact, no focal deficits SKIN: No rash, wounds PSYCH: Normal mood, normal affect Results Laboratory Results: 09/08/16 06:00 09/08/16 06:00 09/08/16 09/08/16 06:00 06:00 WBC 14.6 H RBC 3.31 L Hgb 11.3 L Hct 34.0 L MCV 103 H MCH 34.2 H MCHC 33.4 RDW 14.0 Plt Count 220 Seg Neutrophils % Not Reportable Lymphocytes % Not Reportable Monocytes % Not Reportable Eosinophils % Not Reportable Basophils % Not Reportable Absolute Neutrophils Not Reportable Absolute Lymphocytes Not Reportable Absolute Monocytes Not Reportable Absolute Eosinophils Not Reportable Absolute Basophils Not Reportable Sodium 135.4 L Potassium 3.7 Chloride 88 L Carbon Dioxide 38 H Anion Gap 9 BUN 18 Creatinine 0.57 Est GFR ( Amer) > 60 Est GFR (Non-Af Amer) > 60 Glucose 206 H Calcium 8.7 Phosphorus 4.2 Magnesium 2.0 Total Bilirubin 0.7 AST 32 ALT 56 H Alkaline Phosphatase 113 Total Protein 5.3 L Albumin 2.8 L Prealbumin 11.9 L Lipase 193.2 08/24/16 08/30/16 09/01/16 18:32 04:38 06:47 NT-Pro-B Natriuret Pep 3530 H 2600 H 864 Impressions: Chest X-Ray 09/02/16 06:00 IMPRESSION: NO ACUTE RADIOGRAPHIC FINDING IN THE CHEST. Modified Barium Swallow 09/03/16 00:00 IMPRESSION: NO EVIDENCE OF PENETRATION OR ASPIRATION. PLEASE SEE SPEECH PATHOLOGIST REPORT FOR OTHER FINDINGS AND RECOMMENDATIONS. Spine X-Ray 09/04/16 00:00 IMPRESSION: 1. There is loss of height of the T8 vertebral body that does not appear to be acute. 2. Scoliosis as described. 3. Multilevel lumbar degenerative disc changes. Abdomen/Pelvis CT 09/06/16 00:00 IMPRESSION: 1. There is fatty infiltration of the liver. 2. Pancreatitis with peripancreatic, mesenteric, and pelvic fluid. There is no evidence of significant pancreatic necrosis. There is no hemorrhage. 3. Diverticulosis coli. 4. Osteopenia was lumbar scoliosis and degenerative disc change. KUB X-Ray 09/06/16 00:00 IMPRESSION: NO RADIOGRAPHIC EVIDENCE FOR ACUTE ABDOMINAL DISEASE. Abdomen MRI 09/07/16 00:00 IMPRESSION: No gallstones. No choledocholithiasis or biliary ductal dilatation. Pancreatitis with peripancreatic fluid collections as above Guidance Fluoroscopy 09/07/16 00:00 IMPRESSION: SUCCESSFUL PLACEMENT OF A 5 FR DUAL LUMEN 42 CM PICC IN THE left basilic VEIN. Interventional Vascular Procedure 09/07/16 00:00 IMPRESSION: SUCCESSFUL PLACEMENT OF A 5 FR DUAL LUMEN 42 CM PICC IN THE left basilic VEIN. PICC Line Insertion 09/07/16 00:00 IMPRESSION: SUCCESSFUL PLACEMENT OF A 5 FR DUAL LUMEN 42 CM PICC IN THE left basilic VEIN. Assessment & Plan - Diagnosis (1) Pancreatitis Qualifiers: Chronicity: acute Acute pancreatitis complication: unspecified Is this a current diagnosis for this admission?: YesPlan: Patient started on clear liquids today per recommendation of surgery. Continue TPN for now until patient can consistently maintain oral intake. Surgery and GI consult appreciated. (2) Acute on chronic respiratory failure with hypoxemia Is this a current diagnosis for this admission?: YesPlan: Secondary to acute exacerbation of COPD. Continue oxygen supplementation. Patient has chronic home oxygen dependent at baseline. (3) COPD (chronic obstructive pulmonary disease) Qualifiers: COPD type: COPD with acute exacerbation Qualified Code(s): J44.1 - Chronic obstructive pulmonary disease with (acute) exacerbation Is this a current diagnosis for this admission?: Yes (4) Alcohol abuse Is this a current diagnosis for this admission?: Yes (5) Hypercalcemia Is this a current diagnosis for this admission?: No (6) Dehydration Is this a current diagnosis for this admission?: Yes (7) Hypokalemia Is this a current diagnosis for this admission?: Yes (8) Pulmonary edema Qualifiers: Chronicity: acute Qualified Code(s): J81.0 - Acute pulmonary edema Is this a current diagnosis for this admission?: Yes (9) Hypomagnesemia Is this a current diagnosis for this admission?: Yes (10) Hyperglycemia Is this a current diagnosis for this admission?: YesPlan: Hemoglobin A1c 6.1. Continue sliding scale insulin while on TPN. (11) Moderate protein-calorie malnutrition Is this a current diagnosis for this admission?: YesPlan: Continue TPN until oral intake improves consistently. - Time Time Spent with patient: 25-34 minutes
[2016-09-08] MEDS: OXYCODONE HCL IR 5 MG TABLET PO PRN ×2 (14:41→17:59)
[2016-09-08] MEDS: PREDNISONE 10 MG TABLET PO SCH (17:59)
[2016-09-08] MEDS: INSULIN LISPRO 100 UNIT/ML 3 ML VIAL SUBCUT PRN (18:00)
[2016-09-09] MEDS: ALBUTEROL SULFATE 0.083% NEB 2.5 MG/3 ML AMPUL NEB SCH ×6 (00:20→20:25)
[2016-09-09] MEDS: INSULIN LISPRO 100 UNIT/ML 3 ML VIAL SUBCUT PRN (01:39)
[2016-09-09 06:13] LABS: ALANINE AMINOTRANSFERASE 42 U/L (9-52); ALBUMIN 2.7 g/dL (3.5-5.0); ALKALINE PHOSPHATASE 105 U/L (38-126); ASPARTATE AMINO TRANSFERASE 24 U/L (14-36); BILIRUBIN,DIRECT 0.4 mg/dL (0.0-0.4); BILIRUBIN,TOTAL 0.5 mg/dL (0.2-1.3); BLOOD UREA NITROGEN 25 mg/dL (7-20); CALCIUM 8.9 mg/dL (8.4-10.2); CHLORIDE 90 mmol/L (98-107); CREATININE RESULT 0.55 mg/dL (0.52-1.25); GLUCOSE 234 mg/dL (75-110); LIPASE 230.2 U/L (23-300); POTASSIUM 3.3 mmol/L (3.6-5.0); SODIUM 135.5 mmol/L (137-145); TOTAL PROTEIN 5.2 g/dL (6.3-8.2)
[2016-09-09 06:23] LABS: HEMATOCRIT 33.4 % (36.0-47.0); HEMOGLOBIN 11.1 g/dL (12.0-15.5); HGB HCT DIFFERENCE -0.1; MEAN CORPUSCULAR HEMOGLOBIN 33.9 pg (27.0-33.4); MEAN CORPUSCULAR HGB CONC 33.3 g/dL (32.0-36.0); MEAN CORPUSCULAR VOLUME 102 fl (80-97); RED BLOOD COUNT 3.28 10^6/uL (3.72-5.28); RED CELL DISTRIBUTION WIDTH 13.9 % (11.5-14.0); WHITE BLOOD COUNT 13.5 10^3/uL (4.0-10.5)
[2016-09-09 06:29] LABS: BAND NEUTROPHILS % (MANUAL) 2 % (3-5); BASOPHILS % (MANUAL) 0 % (0-2); EOSINOPHILS % (MANUAL) 0 % (0-6); LYMPHOCYTES % (MANUAL) 2 % (13-45); TOTAL CELLS COUNTED 100
[2016-09-09 06:31] LABS: ANISOCYTOSIS SLIGHT; POLYCHROMASIA SLIGHT; TOXIC GRANULATION SLIGHT; TOXIC VACUOLATION PRESENT
[2016-09-09 06:32] LABS: TEAR DROP CELLS SLIGHT
[2016-09-09 07:09] LABS: ANION GAP 7 (5-19)
[2016-09-09 07:23] LABS: CARBON DIOXIDE 39 mmol/L (22-30)
[2016-09-09] MEDS: FLUTICASONE/SALMETEROL DISKUS 250-50 MCG/DOSE IH SCH ×2 (09:52→21:20)
[2016-09-09] MEDS: ENOXAPARIN SODIUM INJ 40 MG/0.4 ML DISP.SYRIN SUBCUT SCH (09:52)
[2016-09-09] MEDS: LIDOCAINE 5% (700 MG) TRANSDERMAL ADH..PATCH TP SCH (09:53)
[2016-09-09] MEDS: PREDNISONE 10 MG TABLET PO SCH ×2 (09:53→17:27)
[2016-09-09] MEDS: PANTOPRAZOLE SODIUM 40 MG VIAL IV SCH ×2 (09:53→21:20)
[2016-09-09] MEDS: NORMAL SALINE 10 ML SDV (SCHEDULED) IV SCH ×2 (09:54→21:21)
[2016-09-09] MEDS: OXYCODONE HCL IR 5 MG TABLET PO PRN ×2 (09:55→15:07)
[2016-09-09] MEDS ORDERED: BISACODYL 10 MG SUPP.RECT PR ONE (10:46)
--- NOTE | 2016-09-09 10:52 | PDOC PROGRESS REPORT ---
Subjective Progress Note for:: 09/09/16 Subjective:: Patient has been very hyperglycemic since starting TPN. She also has a rash under her abdominal pannus and on both of her feet. She complains of constipation and would like something to make her go to the bathroom. Physical Exam Vital Signs: Temp Pulse Resp BP Pulse Ox 98.3 F 85 17 143/73 H 100 09/09/16 07:59 09/09/16 08:51 09/09/16 08:51 09/09/16 07:59 09/09/16 07:59 Intake & Output 09/08/16 09/09/16 09/10/16 06:59 06:59 06:59 Intake Total 20 2792 Output Total 150 0 Balance -130 2792 Weight 81.7 kg 81.6 kg GENERAL: No acute distress HEENT: Conjunctiva clear, nonicteric, moist mucous membranes, no JVD, midline trachea RESPIRATORY: Faint bilateral wheezes, good air excursion CARDIAC: Regular rate and rhythm, no murmurs/gallops/rubs ABDOMEN: Soft, nondistended, mild mid abdominal tenderness, positive bowel sounds, no rebound, no guarding EXTREMETIES: No edema, cyanosis, clubbing NEUROLOGIC: Alert, oriented to person/place/time, CN's grossly intact, no focal deficits SKIN: Erythematous peeling rash both feet PSYCH: Normal mood, normal affect Results Laboratory Results: 09/09/16 05:40 09/09/16 05:40 09/09/16 09/09/16 05:40 05:40 WBC 13.5 H RBC 3.28 L Hgb 11.1 L Hct 33.4 L MCV 102 H MCH 33.9 H MCHC 33.3 RDW 13.9 Plt Count 243 Seg Neutrophils % Not Reportable Lymphocytes % Not Reportable Monocytes % Not Reportable Eosinophils % Not Reportable Basophils % Not Reportable Absolute Neutrophils Not Reportable Absolute Lymphocytes Not Reportable Absolute Monocytes Not Reportable Absolute Eosinophils Not Reportable Absolute Basophils Not Reportable Sodium 135.5 L Potassium 3.3 L Chloride 90 L Carbon Dioxide 39 H Anion Gap 7 BUN 25 H Creatinine 0.55 Est GFR ( Amer) > 60 Est GFR (Non-Af Amer) > 60 Glucose 234 H Calcium 8.9 Phosphorus 3.0 Total Bilirubin 0.5 AST 24 ALT 42 Alkaline Phosphatase 105 Total Protein 5.2 L Albumin 2.7 L Lipase 230.2 08/24/16 08/30/16 09/01/16 18:32 04:38 06:47 NT-Pro-B Natriuret Pep 3530 H 2600 H 864 Impressions: Chest X-Ray 09/02/16 06:00 IMPRESSION: NO ACUTE RADIOGRAPHIC FINDING IN THE CHEST. Modified Barium Swallow 09/03/16 00:00 IMPRESSION: NO EVIDENCE OF PENETRATION OR ASPIRATION. PLEASE SEE SPEECH PATHOLOGIST REPORT FOR OTHER FINDINGS AND RECOMMENDATIONS. Spine X-Ray 09/04/16 00:00 IMPRESSION: 1. There is loss of height of the T8 vertebral body that does not appear to be acute. 2. Scoliosis as described. 3. Multilevel lumbar degenerative disc changes. Abdomen/Pelvis CT 09/06/16 00:00 IMPRESSION: 1. There is fatty infiltration of the liver. 2. Pancreatitis with peripancreatic, mesenteric, and pelvic fluid. There is no evidence of significant pancreatic necrosis. There is no hemorrhage. 3. Diverticulosis coli. 4. Osteopenia was lumbar scoliosis and degenerative disc change. KUB X-Ray 09/06/16 00:00 IMPRESSION: NO RADIOGRAPHIC EVIDENCE FOR ACUTE ABDOMINAL DISEASE. Abdomen MRI 09/07/16 00:00 IMPRESSION: No gallstones. No choledocholithiasis or biliary ductal dilatation. Pancreatitis with peripancreatic fluid collections as above Guidance Fluoroscopy 09/07/16 00:00 IMPRESSION: SUCCESSFUL PLACEMENT OF A 5 FR DUAL LUMEN 42 CM PICC IN THE left basilic VEIN. Interventional Vascular Procedure 09/07/16 00:00 IMPRESSION: SUCCESSFUL PLACEMENT OF A 5 FR DUAL LUMEN 42 CM PICC IN THE left basilic VEIN. PICC Line Insertion 09/07/16 00:00 IMPRESSION: SUCCESSFUL PLACEMENT OF A 5 FR DUAL LUMEN 42 CM PICC IN THE left basilic VEIN. Assessment & Plan - Diagnosis (1) Pancreatitis Qualifiers: Chronicity: acute Acute pancreatitis complication: unspecified Is this a current diagnosis for this admission?: YesPlan: Past to full liquid diet today and add Ensure clear twice daily for additional nutritional support. Discontinue TPN as patient should be able to maintain nutrition by mouth and she is very hyperglycemic since starting TPN. Surgery and GI consult appreciated. (2) Acute on chronic respiratory failure with hypoxemia Is this a current diagnosis for this admission?: YesPlan: Secondary to acute exacerbation of COPD. Continue oxygen supplementation. Patient has chronic home oxygen dependent at baseline. (3) COPD (chronic obstructive pulmonary disease) Qualifiers: COPD type: COPD with acute exacerbation Qualified Code(s): J44.1 - Chronic obstructive pulmonary disease with (acute) exacerbation Is this a current diagnosis for this admission?: YesPlan: Continue Advair, prednisone, albuterol. Patient is followed by Dr. Dhaliwal as an outpatient. She is chronic oxygen dependent at baseline. Continue prednisone. Continue bronchodilators. (4) Alcohol abuse Is this a current diagnosis for this admission?: YesPlan: Thiamine. As needed Ativan. Folic acid secondary to macrocytosis noted on CBC (5) Hypercalcemia Is this a current diagnosis for this admission?: No (6) Dehydration Is this a current diagnosis for this admission?: Yes (7) Hypokalemia Is this a current diagnosis for this admission?: Yes (8) Pulmonary edema Qualifiers: Chronicity: acute Qualified Code(s): J81.0 - Acute pulmonary edema Is this a current diagnosis for this admission?: Yes (9) Hypomagnesemia Is this a current diagnosis for this admission?: Yes (10) Hyperglycemia Is this a current diagnosis for this admission?: YesPlan: Hemoglobin A1c 6.1. Continue sliding scale insulin. Discontinue TPN. (11) Moderate protein-calorie malnutrition Is this a current diagnosis for this admission?: YesPlan: Discontinue TPN now the patient is taking oral intake. Add Ensure clear to meals twice daily. (12) Tinea pedis Qualifiers: Laterality: bilateral Qualified Code(s): B35.3 - Tinea pedis Is this a current diagnosis for this admission?: YesPlan: Nystatin cream twice daily. - Time Time Spent with patient: 35 or more minutes
[2016-09-09] MEDS: NYSTATIN TOPICAL POWDER 15 GM TP SCH ×2 (12:33→21:22)
[2016-09-09] MEDS: NYSTATIN CREAM 15 GM TP SCH ×2 (12:34→21:22)
[2016-09-09] MEDS: TIOTROPIUM BROMIDE DPI 5 CAP/KIT (18 MCG/CAP) IH SCH (12:35)
--- NOTE | 2016-09-09 17:08 | PROGRESS NOTE E ---
Progress Note NAME: ALIE PATTERSON : 1945 AGE: 70Y DATE: 09/09/2016 ROOM: 330 SUBJECTIVE: She remains afebrile today, and her white count is slightly lower at about 13.5. Her lipase is normal. She is able to tolerate some clear liquids. OBJECTIVE: ABDOMEN: Her abdomen is soft and particularly nontender, although there is a little bit of bloating. ASSESSMENT: HER PANCREATITIS APPEARS TO BE IMPROVING. PLAN: I told the family that the bloating may be more from the pancreatitis causing some ileus. She might want to just slow down with the clear-liquid diet at this time. Since clinically the patient is improved, will follow her on a p.r.n. basis. DICTATING PHYSICIAN: EARLE PATIÑO M.D. [id number] PHY#: [id number] ID: [id number] JOB#: [id number] ACCT: [id number] cc:EARLE PATIÑO M.D. >
[2016-09-09] MEDS: MORPHINE SULFATE 10 MG/ML INJ IV PRN (17:24)
[2016-09-10] MEDS: ALBUTEROL SULFATE 0.083% NEB 2.5 MG/3 ML AMPUL NEB SCH ×6 (00:15→20:22)
[2016-09-10] MEDS: MORPHINE SULFATE 10 MG/ML INJ IV PRN (03:01)
[2016-09-10 06:17] LABS: HEMOGLOBIN 10.5 g/dL (12.0-15.5); HGB HCT DIFFERENCE -0.5; MEAN CORPUSCULAR HEMOGLOBIN 33.6 pg (27.0-33.4); MEAN CORPUSCULAR HGB CONC 32.9 g/dL (32.0-36.0); MEAN CORPUSCULAR VOLUME 102 fl (80-97); RED BLOOD COUNT 3.13 10^6/uL (3.72-5.28); WHITE BLOOD COUNT 11.4 10^3/uL (4.0-10.5)
[2016-09-10 06:31] LABS: ALBUMIN 2.6 g/dL (3.5-5.0); ASPARTATE AMINO TRANSFERASE 32 U/L (14-36); BILIRUBIN,DIRECT 0.3 mg/dL (0.0-0.4); BILIRUBIN,TOTAL 0.5 mg/dL (0.2-1.3); BLOOD UREA NITROGEN 22 mg/dL (7-20); CHLORIDE 90 mmol/L (98-107); PROTHROMBIN TIME 12.5 SEC (11.4-15.4)
[2016-09-10 06:32] LABS: ANION GAP 5 (5-19)
[2016-09-10 06:57] LABS: CALCIUM 8.7 mg/dL (8.4-10.2); CREATININE RESULT 0.53 mg/dL (0.52-1.25); GLUCOSE 167 mg/dL (75-110)
[2016-09-10 06:58] LABS: ALANINE AMINOTRANSFERASE 49 U/L (9-52); ALKALINE PHOSPHATASE 112 U/L (38-126); LIPASE 373.4 U/L (23-300); PHOSPHORUS 3.4 mg/dL (2.5-4.5); SODIUM 134.6 mmol/L (137-145); TOTAL PROTEIN 5.1 g/dL (6.3-8.2)
[2016-09-10 07:09] LABS: CARBON DIOXIDE 40 mmol/L (22-30); POTASSIUM 2.9 mmol/L (3.6-5.0)
[2016-09-10] MEDS ORDERED: PREDNISONE 10 MG TABLET PO SCH (08:04)
--- NOTE | 2016-09-10 08:09 | PDOC PROGRESS REPORT ---
Subjective Progress Note for:: 09/10/16 Subjective:: The patient states to feel the same. She is complaining of abdominal pain and back pain. Her breathing has improved slightly. She has started on full liquid diet yesterday. Her blood sugars are better controlled. Physical Exam Vital Signs: Temp Pulse Resp BP Pulse Ox 97.9 F 91 16 108/58 L 97 09/10/16 03:51 09/10/16 04:00 09/10/16 04:00 09/10/16 03:51 09/10/16 04:00 Intake & Output 09/09/16 09/10/16 09/11/16 06:59 06:59 06:59 Intake Total 2792 656 Output Total 0 0 Balance 2792 656 Weight 81.6 kg 82.1 kg General appearance: PRESENT: mild distress Head exam: PRESENT: atraumatic Eye exam: PRESENT: conjunctiva pink Neck exam: ABSENT: carotid bruit - Physical therapy to do at least a range of motion and get her hemosiderotic may be in bed and let us do it a couple of times a day so we do not we do not lose muscle Respiratory exam: PRESENT: rhonchi - I know you did we also did but we need to keep on trying Cardiovascular exam: PRESENT: +S1, +S2 Pulses: PRESENT: +1 pedal pulses bilateral GI/Abdominal exam: PRESENT: soft, tenderness Extremities exam: PRESENT: full ROM Musculoskeletal exam: ABSENT: ambulatory Neurological exam: PRESENT: alert, awake Skin exam: PRESENT: dry, erythema Results Laboratory Results: 09/10/16 05:45 09/10/16 05:45 09/10/16 09/10/16 05:45 05:45 WBC 11.4 H RBC 3.13 L Hgb 10.5 L Hct 32.0 L MCV 102 H MCH 33.6 H MCHC 32.9 RDW 14.0 Plt Count 219 Sodium 134.6 L Potassium 2.9 L* Chloride 90 L Carbon Dioxide 40 H* Anion Gap 5 BUN 22 H Creatinine 0.53 Est GFR ( Amer) > 60 Est GFR (Non-Af Amer) > 60 Glucose 167 H Calcium 8.7 Phosphorus 3.4 Magnesium 2.0 Total Bilirubin 0.5 AST 32 ALT 49 Alkaline Phosphatase 112 Total Protein 5.1 L Albumin 2.6 L Lipase 373.4 H 08/24/16 08/30/1617 18:32 04:38 06:47 NT-Pro-B Natriuret Pep 3530 H 2600 H 864 Impressions: Chest X-Ray 09/02/16 06:00 IMPRESSION: NO ACUTE RADIOGRAPHIC FINDING IN THE CHEST. Modified Barium Swallow 09/03/16 00:00 IMPRESSION: NO EVIDENCE OF PENETRATION OR ASPIRATION. PLEASE SEE SPEECH PATHOLOGIST REPORT FOR OTHER FINDINGS AND RECOMMENDATIONS. Spine X-Ray 09/04/16 00:00 IMPRESSION: 1. There is loss of height of the T8 vertebral body that does not appear to be acute. 2. Scoliosis as described. 3. Multilevel lumbar degenerative disc changes. Abdomen/Pelvis CT 09/06/16 00:00 IMPRESSION: 1. There is fatty infiltration of the liver. 2. Pancreatitis with peripancreatic, mesenteric, and pelvic fluid. There is no evidence of significant pancreatic necrosis. There is no hemorrhage. 3. Diverticulosis coli. 4. Osteopenia was lumbar scoliosis and degenerative disc change. KUB X-Ray 09/06/16 00:00 IMPRESSION: NO RADIOGRAPHIC EVIDENCE FOR ACUTE ABDOMINAL DISEASE. Abdomen MRI 09/07/16 00:00 IMPRESSION: No gallstones. No choledocholithiasis or biliary ductal dilatation. Pancreatitis with peripancreatic fluid collections as above Guidance Fluoroscopy 09/07/16 00:00 IMPRESSION: SUCCESSFUL PLACEMENT OF A 5 FR DUAL LUMEN 42 CM PICC IN THE left basilic VEIN. Interventional Vascular Procedure 09/07/16 00:00 IMPRESSION: SUCCESSFUL PLACEMENT OF A 5 FR DUAL LUMEN 42 CM PICC IN THE left basilic VEIN. PICC Line Insertion 09/07/16 00:00 IMPRESSION: SUCCESSFUL PLACEMENT OF A 5 FR DUAL LUMEN 42 CM PICC IN THE left basilic VEIN. Assessment & Plan - Diagnosis (1) Acute on chronic respiratory failure with hypoxemia Is this a current diagnosis for this admission?: Yes (2) Pancreatitis Qualifiers: Chronicity: acute Acute pancreatitis complication: unspecified Is this a current diagnosis for this admission?: YesPlan: The abdominal pain and pancreatitis are acting up on and off (3) Hypomagnesemia Is this a current diagnosis for this admission?: Yes (4) Hypokalemia Is this a current diagnosis for this admission?: YesPlan: Potassium of 2.9 this morning will be supplemented with 40 mEq 4 doses (5) Back pain Qualifiers: Back pain location: low back pain Chronicity: chronic Is this a current diagnosis for this admission?: YesPlan: Back pain seems to be a problem. We will reconsult pain management. Will advance Neurontin to 600-8 and will add Cymbalta. (6) Fluid overload, unspecified Is this a current diagnosis for this admission?: Yes (8) COPD (chronic obstructive pulmonary disease) Qualifiers: COPD type: COPD with acute exacerbation Qualified Code(s): J44.1 - Chronic obstructive pulmonary disease with (acute) exacerbation Is this a current diagnosis for this admission?: YesPlan: Stable will continue slowly weaning off the prednisone
[2016-09-10] MEDS ORDERED: FAT EMULSIONS 250 ML IV SCH (10:00)
--- NOTE | 2016-09-10 10:36 | RADIOLOGY REPORT (SQ) ---
EXAM DESCRIPTION: CHEST PA/LAT COMPLETED DATE/TIME: 09/10/2016 10:04 am REASON FOR STUDY: sob COMPARISON: 07/01/2016 EXAM PARAMETERS: NUMBER OF VIEWS: two views TECHNIQUE: Digital Frontal and Lateral radiographic views of the chest acquired. RADIATION DOSE: NA LIMITATIONS: none FINDINGS: LUNGS AND PLEURA: COPD. On the lateral view, there is new linear density most prominently superiorly along 1 of the major fissures. Less marked changes are seen overlying the heart. Appear ance is most consistent with atelectasis. Pneumonia cannot be excluded. No effusions. MEDIASTINUM AND HILAR STRUCTURES: No masses or contour abnormalities. HEART AND VASCULAR STRUCTURES: Heart normal size. No evidence for failure. BONES: No acute findings. HARDWARE: Interval insertion of a right-sided PICC catheter with tip in the superior vena cava. OTHER: No other significant finding. IMPRESSION: 1. PICC catheter appears to be in good position. 2. COPD. 3. New linear density on the lateral view most consistent with atelectasis. TECHNICAL DOCUMENTATION: JOB ID: [id number] All Rights Reserved
[2016-09-10] MEDS: LIDOCAINE 5% (700 MG) TRANSDERMAL ADH..PATCH TP SCH (10:37)
[2016-09-10] MEDS: OXYCODONE HCL IR 5 MG TABLET PO PRN ×2 (10:50→14:20)
[2016-09-10] MEDS: POTASSIUM CHLORIDE 10 MEQ TABLET.SA PO SCH ×4 (10:51→22:44)
[2016-09-10] MEDS: PREDNISONE 5 MG TABLET PO SCH ×2 (10:51→19:00)
[2016-09-10] MEDS: DULOXETINE HCL 30 MG CAPSULE.DR PO SCH ×2 (10:52→22:43)
[2016-09-10] MEDS: ENOXAPARIN SODIUM INJ 40 MG/0.4 ML DISP.SYRIN SUBCUT SCH (10:52)
[2016-09-10] MEDS: PANTOPRAZOLE SODIUM 40 MG VIAL IV SCH (10:53)
[2016-09-10] MEDS: TIOTROPIUM BROMIDE DPI 5 CAP/KIT (18 MCG/CAP) IH SCH (10:54)
[2016-09-10] MEDS: FLUTICASONE/SALMETEROL DISKUS 250-50 MCG/DOSE IH SCH ×2 (10:54→22:43)
[2016-09-10] MEDS: NORMAL SALINE 10 ML SDV (SCHEDULED) IV SCH ×2 (10:55→22:43)
[2016-09-10] MEDS: NYSTATIN TOPICAL POWDER 15 GM TP SCH ×2 (11:04→21:23)
[2016-09-10] MEDS: NYSTATIN CREAM 15 GM TP SCH ×2 (11:04→21:23)
[2016-09-10] MEDS: FOLIC ACID 1 MG TABLET PO SCH (11:05)
[2016-09-10] MEDS: GABAPENTIN 300 MG CAPSULE PO SCH ×2 (14:21→22:43)
[2016-09-10] MEDS: ONDANSETRON HCL INJ/PF 4 MG/2 ML SDV IV PRN (22:55)
[2016-09-11] MEDS: ALBUTEROL SULFATE 0.083% NEB 2.5 MG/3 ML AMPUL NEB SCH ×7 (00:47→23:52)
[2016-09-11 04:41] LABS: HEMATOCRIT 32.4 % (36.0-47.0); HEMOGLOBIN 10.5 g/dL (12.0-15.5); HGB HCT DIFFERENCE -0.9; MEAN CORPUSCULAR HEMOGLOBIN 33.6 pg (27.0-33.4); MEAN CORPUSCULAR HGB CONC 32.2 g/dL (32.0-36.0); MEAN CORPUSCULAR VOLUME 104 fl (80-97); RED BLOOD COUNT 3.11 10^6/uL (3.72-5.28); RED CELL DISTRIBUTION WIDTH 14.3 % (11.5-14.0)
[2016-09-11 04:55] LABS: ALANINE AMINOTRANSFERASE 57 U/L (9-52); ALBUMIN 2.6 g/dL (3.5-5.0); ALKALINE PHOSPHATASE 133 U/L (38-126); ANION GAP 6 (5-19); ASPARTATE AMINO TRANSFERASE 59 U/L (14-36); BILIRUBIN,DIRECT 0.3 mg/dL (0.0-0.4); BILIRUBIN,TOTAL 0.5 mg/dL (0.2-1.3); BLOOD UREA NITROGEN 21 mg/dL (7-20); CALCIUM 8.6 mg/dL (8.4-10.2); CARBON DIOXIDE 37 mmol/L (22-30); CHLORIDE 93 mmol/L (98-107); CREATININE RESULT 0.54 mg/dL (0.52-1.25); GLUCOSE 245 mg/dL (75-110); SODIUM 135.7 mmol/L (137-145); TOTAL PROTEIN 4.9 g/dL (6.3-8.2)
[2016-09-11] MEDS: GABAPENTIN 300 MG CAPSULE PO SCH ×4 (05:08→23:47)
[2016-09-11] MEDS: NORMAL SALINE 10 ML SDV (AFTER EACH USE) IV PRN (05:09)
[2016-09-11 05:12] LABS: POTASSIUM 4.7 mmol/L (3.6-5.0)
[2016-09-11 05:20] LABS: BAND NEUTROPHILS % (MANUAL) 1 % (3-5); BASOPHILS % (MANUAL) 0 % (0-2); EOSINOPHILS % (MANUAL) 1 % (0-6); LYMPHOCYTES % (MANUAL) 3 % (13-45); TOTAL CELLS COUNTED 100
[2016-09-11 05:23] LABS: TOXIC VACUOLATION PRESENT
[2016-09-11 05:24] LABS: POLYCHROMASIA SLIGHT
[2016-09-11 05:25] LABS: OVALOCYTES SLIGHT; POIKILOCYTOSIS SLIGHT; TEAR DROP CELLS SLIGHT
[2016-09-11 05:27] LABS: TOXIC GRANULATION 1+
--- NOTE | 2016-09-11 09:01 | PDOC PROGRESS REPORT ---
Subjective Progress Note for:: 09/11/16 Subjective:: The patient seen on the rounds today. She is sitting up having breakfast. She is again complaining of lower abdominal pain and backache. She still has the productive cough. Physical Exam Vital Signs: Temp Pulse Resp BP Pulse Ox 97.8 F 70 16 118/79 97 09/11/16 07:28 09/11/16 08:51 09/11/16 08:51 09/11/16 07:28 09/11/16 08:51 Intake & Output 09/10/16 09/11/16 09/12/16 06:59 06:59 06:59 Intake Total 656 973 Output Total 0 1100 Balance 656 -127 Weight 82.1 kg 82 kg General appearance: PRESENT: mild distress Head exam: PRESENT: atraumatic Eye exam: PRESENT: conjunctiva pink Neck exam: ABSENT: carotid bruit Respiratory exam: PRESENT: prolonged expiratory phas, rhonchi Cardiovascular exam: PRESENT: +S1, +S2 Pulses: PRESENT: +1 pedal pulses bilateral GI/Abdominal exam: PRESENT: tenderness Additonal comments: Tender to palpation in both left and right lower quadrant and periumbilical area but no guarding Extremities exam: PRESENT: tenderness Musculoskeletal exam: PRESENT: tenderness Neurological exam: PRESENT: awake Results Laboratory Results: 09/11/16 04:02 09/11/16 04:02 09/10/16 09/11/16 09/11/16 05:45 04:02 04:02 WBC 12.0 H RBC 3.11 L Hgb 10.5 L Hct 32.4 L MCV 104 H MCH 33.6 H MCHC 32.2 RDW 14.3 H Plt Count 213 Seg Neutrophils % Not Reportable Lymphocytes % Not Reportable Monocytes % Not Reportable Eosinophils % Not Reportable Basophils % Not Reportable Absolute Neutrophils Not Reportable Absolute Lymphocytes Not Reportable Absolute Monocytes Not Reportable Absolute Eosinophils Not Reportable Absolute Basophils Not Reportable Sodium 135.7 L Potassium 4.7 D Chloride 93 L Carbon Dioxide 37 H Anion Gap 6 BUN 21 H Creatinine 0.54 Est GFR ( Amer) > 60 Est GFR (Non-Af Amer) > 60 Glucose 245 H Calcium 8.6 Magnesium 2.0 Total Bilirubin 0.5 AST 59 H ALT 57 H Alkaline Phosphatase 133 H Total Protein 4.9 L Albumin 2.6 L Prealbumin 11.9 L 08/24/16 08/30/16 09/01/16 18:32 04:38 06:47 NT-Pro-B Natriuret Pep 3530 H 2600 H 864 Impressions: Modified Barium Swallow 09/03/16 00:00 IMPRESSION: NO EVIDENCE OF PENETRATION OR ASPIRATION. PLEASE SEE SPEECH PATHOLOGIST REPORT FOR OTHER FINDINGS AND RECOMMENDATIONS. Spine X-Ray 09/04/16 00:00 IMPRESSION: 1. There is loss of height of the T8 vertebral body that does not appear to be acute. 2. Scoliosis as described. 3. Multilevel lumbar degenerative disc changes. Abdomen/Pelvis CT 09/06/16 00:00 IMPRESSION: 1. There is fatty infiltration of the liver. 2. Pancreatitis with peripancreatic, mesenteric, and pelvic fluid. There is no evidence of significant pancreatic necrosis. There is no hemorrhage. 3. Diverticulosis coli. 4. Osteopenia was lumbar scoliosis and degenerative disc change. KUB X-Ray 09/06/16 00:00 IMPRESSION: NO RADIOGRAPHIC EVIDENCE FOR ACUTE ABDOMINAL DISEASE. Abdomen MRI 09/07/16 00:00 IMPRESSION: No gallstones. No choledocholithiasis or biliary ductal dilatation. Pancreatitis with peripancreatic fluid collections as above Guidance Fluoroscopy 09/07/16 00:00 IMPRESSION: SUCCESSFUL PLACEMENT OF A 5 FR DUAL LUMEN 42 CM PICC IN THE left basilic VEIN. Interventional Vascular Procedure 09/07/16 00:00 IMPRESSION: SUCCESSFUL PLACEMENT OF A 5 FR DUAL LUMEN 42 CM PICC IN THE left basilic VEIN. PICC Line Insertion 09/07/16 00:00 IMPRESSION: SUCCESSFUL PLACEMENT OF A 5 FR DUAL LUMEN 42 CM PICC IN THE left basilic VEIN. Chest X-Ray 09/10/16 00:00 IMPRESSION: 1. PICC catheter appears to be in good position. 2. COPD. 3. New linear density on the lateral view most consistent with atelectasis. Assessment & Plan - Diagnosis (1) Acute on chronic respiratory failure with hypoxemia Is this a current diagnosis for this admission?: Yes (2) Pancreatitis Qualifiers: Chronicity: acute Acute pancreatitis complication: unspecified Is this a current diagnosis for this admission?: YesPlan: Still smoldering (3) Hypomagnesemia Is this a current diagnosis for this admission?: Yes (4) Hypokalemia Is this a current diagnosis for this admission?: Yes (5) Back pain Qualifiers: Back pain location: low back pain Chronicity: chronic Is this a current diagnosis for this admission?: Yes (6) Fluid overload, unspecified Is this a current diagnosis for this admission?: Yes (7) Acute bilateral lower abdominal pain Plan: We will start Levaquin which might help with both COPD and possible component of colitis and will add Flagyl (8) COPD (chronic obstructive pulmonary disease) Qualifiers: COPD type: COPD with acute exacerbation Qualified Code(s): J44.1 - Chronic obstructive pulmonary disease with (acute) exacerbation Is this a current diagnosis for this admission?: YesPlan: We will add some Mucinex to improve excretions
[2016-09-11] MEDS: LEVOFLOXACIN 500 MG TABLET PO SCH (09:59)
[2016-09-11] MEDS: DULOXETINE HCL 30 MG CAPSULE.DR PO SCH ×2 (09:59→21:34)
[2016-09-11] MEDS: GUAIFENESIN 600 MG TABLET.SA PO SCH ×2 (09:59→21:34)
[2016-09-11] MEDS: PREDNISONE 5 MG TABLET PO SCH ×2 (09:59→17:54)
[2016-09-11] MEDS: LIDOCAINE 5% (700 MG) TRANSDERMAL ADH..PATCH TP SCH (09:59)
[2016-09-11] MEDS: ENOXAPARIN SODIUM INJ 40 MG/0.4 ML DISP.SYRIN SUBCUT SCH (10:00)
[2016-09-11] MEDS: TIOTROPIUM BROMIDE DPI 5 CAP/KIT (18 MCG/CAP) IH SCH (10:00)
[2016-09-11] MEDS: NORMAL SALINE 10 ML SDV (SCHEDULED) IV SCH ×2 (10:00→21:34)
[2016-09-11] MEDS: FLUTICASONE/SALMETEROL DISKUS 250-50 MCG/DOSE IH SCH ×2 (10:00→21:34)
[2016-09-11] MEDS: OXYCODONE HCL IR 5 MG TABLET PO PRN (10:05)
[2016-09-11] MEDS: NYSTATIN CREAM 15 GM TP SCH ×2 (11:51→21:34)
[2016-09-11] MEDS: NYSTATIN TOPICAL POWDER 15 GM TP SCH ×2 (11:51→21:34)
[2016-09-11] MEDS: FOLIC ACID 1 MG TABLET PO SCH (11:51)
[2016-09-11] MEDS ORDERED: OXYCODONE HCL IR 5 MG TABLET PO PRN (12:25)
[2016-09-11] MEDS: METRONIDAZOLE 250 MG TABLET PO SCH ×2 (13:25→21:34)
[2016-09-11] MEDS: INSULIN LISPRO 100 UNIT/ML 3 ML VIAL SUBCUT PRN ×2 (13:26→22:21)
--- NOTE | 2016-09-11 16:48 | PDOC PROGRESS REPORT ---
Subjective Progress Note for:: 09/10/16 Subjective:: Resting comfortably at this time limited complain of pain Physical Exam Vital Signs: Temp Pulse Resp BP Pulse Ox 97.9 F 75 20 126/72 H 96 09/10/16 19:54 09/10/16 19:54 09/10/16 19:54 09/10/16 19:54 09/10/16 19:54 Intake & Output 09/09/16 09/10/16 09/11/16 06:59 06:59 06:59 Intake Total 2792 656 237 Output Total 0 0 Balance 2792 656 237 Weight 81.6 kg 82.1 kg General appearance: PRESENT: no acute distress, disheveled, obese, well- developed Head exam: PRESENT: atraumatic, normocephalic Eye exam: PRESENT: conjunctiva pale, EOMI Mouth exam: PRESENT: dry mucosa, neck supple, tongue midline Neck exam: ABSENT: carotid bruit, JVD, lymphadenopathy, thyromegaly Respiratory exam: PRESENT: decreased breath sounds, prolonged expiratory phas, rhonchi, symmetrical, unlabored Cardiovascular exam: PRESENT: RRR, +S1, +S2 Pulses: PRESENT: normal radial pulses GI/Abdominal exam: PRESENT: normal bowel sounds, soft. ABSENT: distended, guarding, mass, organolmegaly, rebound, tenderness Rectal exam: PRESENT: deferred Musculoskeletal exam: PRESENT: normal inspection Neurological exam: PRESENT: alert, awake Psychiatric exam: PRESENT: normal mood Skin exam: PRESENT: dry, warm Results Laboratory Results: 09/10/16 05:45 09/10/16 05:45 09/10/16 09/10/16 09/10/16 05:45 05:45 05:45 WBC 11.4 H RBC 3.13 L Hgb 10.5 L Hct 32.0 L MCV 102 H MCH 33.6 H MCHC 32.9 RDW 14.0 Plt Count 219 Sodium 134.6 L Potassium 2.9 L* Chloride 90 L Carbon Dioxide 40 H* Anion Gap 5 BUN 22 H Creatinine 0.53 Est GFR ( Amer) > 60 Est GFR (Non-Af Amer) > 60 Glucose 167 H Calcium 8.7 Phosphorus 3.4 Magnesium 2.0 Total Bilirubin 0.5 AST 32 ALT 49 Alkaline Phosphatase 112 Total Protein 5.1 L Albumin 2.6 L Prealbumin 11.9 L Lipase 373.4 H 08/24/16 08/30/16 09/01/16 18:32 04:38 06:47 NT-Pro-B Natriuret Pep 3530 H 2600 H 864 Impressions: Modified Barium Swallow 09/03/16 00:00 IMPRESSION: NO EVIDENCE OF PENETRATION OR ASPIRATION. PLEASE SEE SPEECH PATHOLOGIST REPORT FOR OTHER FINDINGS AND RECOMMENDATIONS. Spine X-Ray 09/04/16 00:00 IMPRESSION: 1. There is loss of height of the T8 vertebral body that does not appear to be acute. 2. Scoliosis as described. 3. Multilevel lumbar degenerative disc changes. Abdomen/Pelvis CT 09/06/16 00:00 IMPRESSION: 1. There is fatty infiltration of the liver. 2. Pancreatitis with peripancreatic, mesenteric, and pelvic fluid. There is no evidence of significant pancreatic necrosis. There is no hemorrhage. 3. Diverticulosis coli. 4. Osteopenia was lumbar scoliosis and degenerative disc change. KUB X-Ray 09/06/16 00:00 IMPRESSION: NO RADIOGRAPHIC EVIDENCE FOR ACUTE ABDOMINAL DISEASE. Abdomen MRI 09/07/16 00:00 IMPRESSION: No gallstones. No choledocholithiasis or biliary ductal dilatation. Pancreatitis with peripancreatic fluid collections as above Guidance Fluoroscopy 09/07/16 00:00 IMPRESSION: SUCCESSFUL PLACEMENT OF A 5 FR DUAL LUMEN 42 CM PICC IN THE left basilic VEIN. Interventional Vascular Procedure 09/07/16 00:00 IMPRESSION: SUCCESSFUL PLACEMENT OF A 5 FR DUAL LUMEN 42 CM PICC IN THE left basilic VEIN. PICC Line Insertion 09/07/16 00:00 IMPRESSION: SUCCESSFUL PLACEMENT OF A 5 FR DUAL LUMEN 42 CM PICC IN THE left basilic VEIN. Chest X-Ray 09/10/16 00:00 IMPRESSION: 1. PICC catheter appears to be in good position. 2. COPD. 3. New linear density on the lateral view most consistent with atelectasis. Assessment & Plan - Diagnosis (1) Acute on chronic respiratory failure with hypoxemia Is this a current diagnosis for this admission?: YesPlan: Stable at this time (2) COPD (chronic obstructive pulmonary disease) Qualifiers: COPD type: COPD with acute exacerbation Qualified Code(s): J44.1 - Chronic obstructive pulmonary disease with (acute) exacerbation Is this a current diagnosis for this admission?: YesPlan: Stable continue current bronchodilator therapy (3) Hypercalcemia Is this a current diagnosis for this admission?: No
--- NOTE | 2016-09-11 16:50 | PDOC PROGRESS REPORT ---
Subjective Progress Note for:: 09/11/16 Subjective:: Lethargic continues to complain of pain awaiting MRI Physical Exam Vital Signs: Temp Pulse Resp BP Pulse Ox 98.5 F 81 19 91/57 L 100 09/11/16 15:49 09/11/16 15:49 09/11/16 15:49 09/11/16 15:49 09/11/16 15:49 Intake & Output 09/10/16 09/11/16 09/12/16 06:59 06:59 06:59 Intake Total 656 973 325 Output Total 0 1100 200 Balance 656 -127 125 Weight 82.1 kg 82 kg General appearance: PRESENT: disheveled, mild distress, obese, well-developed Head exam: PRESENT: atraumatic, normocephalic Eye exam: PRESENT: conjunctiva pale, EOMI Mouth exam: PRESENT: dry mucosa, neck supple, tongue midline Neck exam: ABSENT: carotid bruit, JVD, lymphadenopathy, thyromegaly Respiratory exam: PRESENT: decreased breath sounds, prolonged expiratory phas, rhonchi, symmetrical, unlabored Cardiovascular exam: PRESENT: RRR, +S1, +S2 Pulses: PRESENT: normal radial pulses GI/Abdominal exam: PRESENT: normal bowel sounds, soft. ABSENT: distended, guarding, mass, organolmegaly, rebound, tenderness Rectal exam: PRESENT: deferred Musculoskeletal exam: PRESENT: normal inspection Neurological exam: PRESENT: awake Psychiatric exam: PRESENT: flat affect Skin exam: PRESENT: dry, warm Results Laboratory Results: 09/11/16 04:02 09/11/16 04:02 09/11/16 09/11/16 04:02 04:02 WBC 12.0 H RBC 3.11 L Hgb 10.5 L Hct 32.4 L MCV 104 H MCH 33.6 H MCHC 32.2 RDW 14.3 H Plt Count 213 Seg Neutrophils % Not Reportable Lymphocytes % Not Reportable Monocytes % Not Reportable Eosinophils % Not Reportable Basophils % Not Reportable Absolute Neutrophils Not Reportable Absolute Lymphocytes Not Reportable Absolute Monocytes Not Reportable Absolute Eosinophils Not Reportable Absolute Basophils Not Reportable Sodium 135.7 L Potassium 4.7 D Chloride 93 L Carbon Dioxide 37 H Anion Gap 6 BUN 21 H Creatinine 0.54 Est GFR ( Amer) > 60 Est GFR (Non-Af Amer) > 60 Glucose 245 H Calcium 8.6 Magnesium 2.0 Total Bilirubin 0.5 AST 59 H ALT 57 H Alkaline Phosphatase 133 H Total Protein 4.9 L Albumin 2.6 L 08/24/16 08/30/16 09/01/16 18:32 04:38 06:47 NT-Pro-B Natriuret Pep 3530 H 2600 H 864 Impressions: Modified Barium Swallow 09/03/16 00:00 IMPRESSION: NO EVIDENCE OF PENETRATION OR ASPIRATION. PLEASE SEE SPEECH PATHOLOGIST REPORT FOR OTHER FINDINGS AND RECOMMENDATIONS. Spine X-Ray 09/04/16 00:00 IMPRESSION: 1. There is loss of height of the T8 vertebral body that does not appear to be acute. 2. Scoliosis as described. 3. Multilevel lumbar degenerative disc changes. Abdomen/Pelvis CT 09/06/16 00:00 IMPRESSION: 1. There is fatty infiltration of the liver. 2. Pancreatitis with peripancreatic, mesenteric, and pelvic fluid. There is no evidence of significant pancreatic necrosis. There is no hemorrhage. 3. Diverticulosis coli. 4. Osteopenia was lumbar scoliosis and degenerative disc change. KUB X-Ray 09/06/16 00:00 IMPRESSION: NO RADIOGRAPHIC EVIDENCE FOR ACUTE ABDOMINAL DISEASE. Abdomen MRI 09/07/16 00:00 IMPRESSION: No gallstones. No choledocholithiasis or biliary ductal dilatation. Pancreatitis with peripancreatic fluid collections as above Guidance Fluoroscopy 09/07/16 00:00 IMPRESSION: SUCCESSFUL PLACEMENT OF A 5 FR DUAL LUMEN 42 CM PICC IN THE left basilic VEIN. Interventional Vascular Procedure 09/07/16 00:00 IMPRESSION: SUCCESSFUL PLACEMENT OF A 5 FR DUAL LUMEN 42 CM PICC IN THE left basilic VEIN. PICC Line Insertion 09/07/16 00:00 IMPRESSION: SUCCESSFUL PLACEMENT OF A 5 FR DUAL LUMEN 42 CM PICC IN THE left basilic VEIN. Chest X-Ray 09/10/16 00:00 IMPRESSION: 1. PICC catheter appears to be in good position. 2. COPD. 3. New linear density on the lateral view most consistent with atelectasis. Assessment & Plan - Diagnosis (1) Acute on chronic respiratory failure with hypoxemia Is this a current diagnosis for this admission?: YesPlan: Stable at this time (2) COPD (chronic obstructive pulmonary disease) Qualifiers: COPD type: COPD with acute exacerbation Qualified Code(s): J44.1 - Chronic obstructive pulmonary disease with (acute) exacerbation Is this a current diagnosis for this admission?: Yes (3) Hypercalcemia Is this a current diagnosis for this admission?: No
--- NOTE | 2016-09-11 19:58 | RADIOLOGY REPORT (SQ) ---
EXAM DESCRIPTION: MRI LUMBAR SPINE WITHOUT COMPLETED DATE/TIME: 09/11/2016 7:46 pm REASON FOR STUDY: LUMBAR DISC DEGENERATION COMPARISON: December 2014 TECHNIQUE: Sagittal and Axial imaging includes T1, T2, STIR and gradient echo sequences. Coronal T2/ HASTE imaging. LIMITATIONS: None. FINDINGS: VISUALIZED UPPER ABDOMEN: Limited evaluation. No acute or suspicious findings suggested. SEGMENTATION: No transitional anatomy. The lowest well-developed disc space is labeled L5-S1. ALIGNMENT: Lumbar scoliosis convex to the left is identified. VERTEBRAE: Intact. BONE MARROW: Normal. No marrow replacement or reactive changes. DISC SIGNAL: There is multilevel disc degeneration and disc space reduction. POSTERIOR ELEMENTS: Generally intact. No pars defect evident. HARDWARE: None in the spine. CORD AND CONUS: Normal in size and signal intensity. Conus at the appropriate level. SOFT TISSUES: No aortic aneurysm seen. No bulky retroperitoneal adenopathy or mass. No paraspinal mas s or fluid. L1-L2: No significant spinal stenosis or exit foraminal stenosis. L2-L3: Symmetric disc bulging is identified and in conjunction with bilateral facet arthropathy there is mild spinal stenosis without significant exit foraminal stenosis. L3-L4: Symmetric disc bulging is identified and in conjunction with posterior facet arthropathy and l igamentous hypertrophy there is moderate spinal stenosis without significant exit foraminal stenosis. L4-L5: Symmetric disc bulging is identified and in conjunction with posterior ligamentous hypertrophy and facet arthropathy there is mild spinal stenosis without significant exit foraminal stenosis. L5-S1: No significant spinal stenosis or exit foraminal stenosis. LOWER THORACIC: Incompletely imaged. No stenosis seen. SACRUM: Visualized upper sacrum intact. OTHER: No other significant findings. IMPRESSION: Multilevel disc degeneration and disc bulging as noted above. TECHNICAL DOCUMENTATION: JOB ID: [id number] [employer]- All Rights Reserved
[2016-09-12] MEDS: ALBUTEROL SULFATE 0.083% NEB 2.5 MG/3 ML AMPUL NEB SCH ×6 (04:43→23:40)
[2016-09-12] MEDS: GABAPENTIN 300 MG CAPSULE PO SCH ×3 (05:23→17:19)
[2016-09-12] MEDS: METRONIDAZOLE 250 MG TABLET PO SCH ×3 (05:24→22:00)
[2016-09-12] MEDS: GUAIFENESIN 600 MG TABLET.SA PO SCH ×2 (10:28→22:00)
[2016-09-12] MEDS: NORMAL SALINE 10 ML SDV (SCHEDULED) IV SCH ×2 (10:29→22:00)
[2016-09-12] MEDS: PREDNISONE 5 MG TABLET PO SCH ×2 (10:29→17:19)
[2016-09-12] MEDS: ENOXAPARIN SODIUM INJ 40 MG/0.4 ML DISP.SYRIN SUBCUT SCH (10:29)
[2016-09-12] MEDS: LEVOFLOXACIN 500 MG TABLET PO SCH (10:29)
[2016-09-12] MEDS: TIOTROPIUM BROMIDE DPI 5 CAP/KIT (18 MCG/CAP) IH SCH (10:29)
[2016-09-12] MEDS: FLUTICASONE/SALMETEROL DISKUS 250-50 MCG/DOSE IH SCH ×2 (10:29→22:00)
[2016-09-12] MEDS: DULOXETINE HCL 30 MG CAPSULE.DR PO SCH ×2 (10:29→22:00)
[2016-09-12] MEDS: LIDOCAINE 5% (700 MG) TRANSDERMAL ADH..PATCH TP SCH (10:29)
[2016-09-12] MEDS: FOLIC ACID 1 MG TABLET PO SCH (11:13)
[2016-09-12] MEDS: NYSTATIN TOPICAL POWDER 15 GM TP SCH ×2 (11:13→20:16)
[2016-09-12] MEDS: NYSTATIN CREAM 15 GM TP SCH ×2 (11:14→20:16)
[2016-09-12] MEDS ORDERED: OXYCODONE HCL IR 5 MG TABLET PO PRN (11:53)
--- NOTE | 2016-09-12 12:00 | PDOC PROGRESS REPORT ---
Subjective Progress Note for:: 09/12/16 Subjective:: Complains of low back pain. MRI yesterday showed bulging disc but no significant spinal stenosis Physical Exam Vital Signs: Temp Pulse Resp BP Pulse Ox 97.7 F 68 17 106/51 L 100 09/12/16 07:49 09/12/16 08:10 09/12/16 08:10 09/12/16 07:49 09/12/16 07:49 Intake & Output 09/11/16 09/12/16 09/13/16 06:59 06:59 06:59 Intake Total 973 510 Output Total 1100 200 Balance -127 310 Weight 82 kg 82.5 kg General appearance: PRESENT: no acute distress Eye exam: PRESENT: conjunctiva pink. ABSENT: scleral icterus Mouth exam: PRESENT: moist, tongue midline Neck exam: ABSENT: JVD Respiratory exam: PRESENT: clear to auscultation madeline. ABSENT: rales, rhonchi, wheezes Cardiovascular exam: PRESENT: RRR. ABSENT: diastolic murmur, rubs, systolic murmur GI/Abdominal exam: PRESENT: normal bowel sounds, soft. ABSENT: distended, guarding, mass, organolmegaly, rebound, tenderness Extremities exam: ABSENT: calf tenderness, clubbing, pedal edema Neurological exam: PRESENT: alert, awake, oriented to person, oriented to place , oriented to time, oriented to situation, CN II-XII grossly intact. ABSENT: motor sensory deficit Psychiatric exam: PRESENT: appropriate affect Skin exam: PRESENT: dry, intact, warm. ABSENT: cyanosis, rash Results Laboratory Results: 09/11/16 04:02 09/11/16 04:02 08/24/16 08/30/16 09/01/16 18:32 04:38 06:47 NT-Pro-B Natriuret Pep 3530 H 2600 H 864 Impressions: Modified Barium Swallow 09/03/16 00:00 IMPRESSION: NO EVIDENCE OF PENETRATION OR ASPIRATION. PLEASE SEE SPEECH PATHOLOGIST REPORT FOR OTHER FINDINGS AND RECOMMENDATIONS. Spine X-Ray 09/04/16 00:00 IMPRESSION: 1. There is loss of height of the T8 vertebral body that does not appear to be acute. 2. Scoliosis as described. 3. Multilevel lumbar degenerative disc changes. Abdomen/Pelvis CT 09/06/16 00:00 IMPRESSION: 1. There is fatty infiltration of the liver. 2. Pancreatitis with peripancreatic, mesenteric, and pelvic fluid. There is no evidence of significant pancreatic necrosis. There is no hemorrhage. 3. Diverticulosis coli. 4. Osteopenia was lumbar scoliosis and degenerative disc change. KUB X-Ray 09/06/16 00:00 IMPRESSION: NO RADIOGRAPHIC EVIDENCE FOR ACUTE ABDOMINAL DISEASE. Abdomen MRI 09/07/16 00:00 IMPRESSION: No gallstones. No choledocholithiasis or biliary ductal dilatation. Pancreatitis with peripancreatic fluid collections as above Guidance Fluoroscopy 09/07/16 00:00 IMPRESSION: SUCCESSFUL PLACEMENT OF A 5 FR DUAL LUMEN 42 CM PICC IN THE left basilic VEIN. Interventional Vascular Procedure 09/07/16 00:00 IMPRESSION: SUCCESSFUL PLACEMENT OF A 5 FR DUAL LUMEN 42 CM PICC IN THE left basilic VEIN. PICC Line Insertion 09/07/16 00:00 IMPRESSION: SUCCESSFUL PLACEMENT OF A 5 FR DUAL LUMEN 42 CM PICC IN THE left basilic VEIN. Chest X-Ray 09/10/16 00:00 IMPRESSION: 1. PICC catheter appears to be in good position. 2. COPD. 3. New linear density on the lateral view most consistent with atelectasis. Lumbar Spine MRI 09/11/16 08:00 IMPRESSION: Multilevel disc degeneration and disc bulging as noted above. Assessment & Plan - Diagnosis (1) Pancreatitis Qualifiers: Chronicity: acute Acute pancreatitis complication: unspecified Is this a current diagnosis for this admission?: YesPlan: The patient's pain has resolved and appears to have resolution of the pancreatitis. We will advance her diet today. (2) Acute bilateral lower abdominal pain Is this a current diagnosis for this admission?: YesPlan: Patient was started on antibiotics empirically for the possibility of diverticulitis. Her abdominal pain has improved. (3) Acute on chronic respiratory failure with hypoxemia Is this a current diagnosis for this admission?: YesPlan: Resolved. (4) Back pain Qualifiers: Back pain location: low back pain Chronicity: chronic Is this a current diagnosis for this admission?: YesPlan: MRI yesterday showed some bulging disc but no significant spinal stenosis. I have encouraged to get her up and ambulate. Patient is being evaluated by physical therapy (5) COPD (chronic obstructive pulmonary disease) Qualifiers: COPD type: COPD with acute exacerbation Qualified Code(s): J44.1 - Chronic obstructive pulmonary disease with (acute) exacerbation Is this a current diagnosis for this admission?: YesPlan: Stable (6) Hypomagnesemia Is this a current diagnosis for this admission?: Yes - Time Time Spent with patient: 25-34 minutes - Inpatient Certification Medical Necessity: Need Close Monitoring Due to Risk of Patient Decompensation - Plan Summary Plan Summary: The patient will go to rehab when a bed becomes available
[2016-09-12] MEDS: INSULIN LISPRO 100 UNIT/ML 3 ML VIAL SUBCUT PRN ×2 (13:37→22:00)
--- NOTE | 2016-09-12 18:48 | PROGRESS NOTE E ---
Progress Note NAME: ALIE PATTERSON : 1945 AGE: 70Y DATE: 09/12/2016 ROOM: 330 SUBJECTIVE: The patient has continued to complain of substantial back pain more so than abdominal pain over the last few days. She has had difficulty getting out of bed to chair. She has been unable to work with Physical Therapy due to limiting low back pain. Apparently she became fairly over-sedated with the increase in oxycodone, and therefore this was decreased back to 5 mg p.o. q.4 h. p.r.n. She has continued gabapentin. She notes today that the pain is too bad for her to get up and walk at all. She also underwent a lumbar spine MRI this morning. OBJECTIVE: VITAL SIGNS: Temperature 97.9. Blood pressure 99/71. Respirations 18. Oxygen saturation 98% on 1 liter nasal cannula. PAIN: 10 out of 10 on numeric rating scale. GENERAL: Obese female lying in bed with eyes closed, however, she arouses easily. She speaks somewhat to me but states that she is somewhat disinterested in speaking to me today. HEENT: The head is normocephalic/atraumatic. The patient wears glasses. CARDIOVASCULAR: Her pulse is regular. ABDOMEN: Mildly tender along the left and right lower quadrant and periumbilical region today. No rebound or guarding. No shifting tenderness. MUSCULOSKELETAL: The patient declines examination of the back today as she does not want to roll over. EXTREMITIES: Moves all extremities x4. NEUROLOGIC: Sensory examination is normal in the upper and lower extremities. The patient will not participate in strength examination of the lower extremities. DIAGNOSTIC DATA: She underwent MRI yesterday. MRI report demonstrates lumbar disk degeneration on multiple levels including L2-3, L3-4, L4-5 with facet arthropathy. However, there is no overt disk herniation or fracture appreciated. ASSESSMENT: 1. LUMBAR DISK DEGENERATION. 2. CHRONIC PAIN SYNDROME. 3. ABDOMINAL PAIN. PLAN: The patient is a 71-year-old female admitted with pancreatitis thought secondary to alcohol use. She has had a difficult hospital course as she has been largely bed bound. She has been unable to get out of bed more recently due to pain, and today she was complaining mostly of pain in her lower back, though yesterday she was complaining of pain in the abdomen. The pain in the abdomen seems to have somewhat resolved. She notably was started on Cipro and Flagyl for colitis though. Upon speaking with her admitting team, it is thought unlikely to be overt infection. The patient notes that she is not able to get up and out of bed at all secondary to pain in her back. We discussed options at length, and notably the patient has had injection therapies in the past with some relief, though her last injection seemed to make things worse per her report. This notably was months ago. However, at this point she notes she is willing to reconsider. I will see what we can do about potentially scheduling her for an epidural steroid injection within the next 2 days. Notably, if the patient does have a rehabilitation bed, I am happy to see her in my clinic for infection as an outpatient as well. DICTATING PHYSICIAN: VERONICA DURAND M.D. [id number] PHY#: [id number] ID: [id number] JOB#: [id number] ACCT: [id number] cc:VERONICA DURAND M.D. >
[2016-09-13] MEDS: GABAPENTIN 300 MG CAPSULE PO SCH ×5 (00:34→21:03)
[2016-09-13] MEDS: ALBUTEROL SULFATE 0.083% NEB 2.5 MG/3 ML AMPUL NEB SCH ×5 (03:03→20:19)
[2016-09-13] MEDS: METRONIDAZOLE 250 MG TABLET PO SCH ×3 (05:36→21:03)
[2016-09-13 06:29] LABS: POTASSIUM 4.1 mmol/L (3.6-5.0)
[2016-09-13 06:30] LABS: ABSOLUTE LYMPHOCYTES (AUTO) 0.7 10^3/uL (0.5-4.7); ABSOLUTE MONOCYTES (AUTO) 0.3 10^3/uL (0.1-1.4); ABSOLUTE NEUT (AUTO) 8.2 10^3/uL (1.7-8.2); BASOPHILS % (AUTO) 0.2 % (0-2); EOSINOPHILS % (AUTO) 0.3 % (0-6); HEMATOCRIT 30.3 % (36.0-47.0); HEMOGLOBIN 10.1 g/dL (12.0-15.5); LYMPHOCYTES % (AUTO) 7.1 % (13-45); MEAN CORPUSCULAR HEMOGLOBIN 34.6 pg (27.0-33.4); MEAN CORPUSCULAR HGB CONC 33.4 g/dL (32.0-36.0); MEAN CORPUSCULAR VOLUME 104 fl (80-97); MONOCYTES % (AUTO) 3.3 % (3-13); RED BLOOD COUNT 2.92 10^6/uL (3.72-5.28); RED CELL DISTRIBUTION WIDTH 14.3 % (11.5-14.0); SEGMENTED NEUTROPHILS % (AUTO) 89.1 % (42-78); WHITE BLOOD COUNT 9.2 10^3/uL (4.0-10.5)
[2016-09-13 07:16] LABS: ANION GAP 6 (5-19); BLOOD UREA NITROGEN 19 mg/dL (7-20); CALCIUM 8.5 mg/dL (8.4-10.2); CARBON DIOXIDE 32 mmol/L (22-30); CHLORIDE 92 mmol/L (98-107); GLUCOSE 137 mg/dL (75-110); SODIUM 129.5 mmol/L (137-145)
[2016-09-13] MEDS ORDERED: TRAMADOL HCL 50 MG TABLET PO PRN ×2 (08:46→15:02)
[2016-09-13] MEDS: FLUTICASONE/SALMETEROL DISKUS 250-50 MCG/DOSE IH SCH ×2 (09:50→21:02)
[2016-09-13] MEDS: ENOXAPARIN SODIUM INJ 40 MG/0.4 ML DISP.SYRIN SUBCUT SCH (09:51)
[2016-09-13] MEDS: LEVOFLOXACIN 500 MG TABLET PO SCH (09:51)
[2016-09-13] MEDS: DULOXETINE HCL 30 MG CAPSULE.DR PO SCH ×2 (09:51→21:03)
[2016-09-13] MEDS: GUAIFENESIN 600 MG TABLET.SA PO SCH ×2 (09:51→21:03)
[2016-09-13] MEDS: PREDNISONE 5 MG TABLET PO SCH ×2 (09:51→17:52)
[2016-09-13] MEDS: LIDOCAINE 5% (700 MG) TRANSDERMAL ADH..PATCH TP SCH (09:51)
[2016-09-13] MEDS: TIOTROPIUM BROMIDE DPI 5 CAP/KIT (18 MCG/CAP) IH SCH (09:51)
[2016-09-13] MEDS: NORMAL SALINE 10 ML SDV (SCHEDULED) IV SCH ×2 (09:52→21:02)
--- NOTE | 2016-09-13 10:55 | PDOC PROGRESS REPORT ---
Subjective Progress Note for:: 09/13/16 Subjective:: Complains of low back pain. Less confused today Physical Exam Vital Signs: Temp Pulse Resp BP Pulse Ox 98.4 F 75 18 109/68 96 09/13/16 08:02 09/13/16 08:48 09/13/16 08:48 09/13/16 08:02 09/13/16 08:48 Intake & Output 09/12/16 09/13/16 09/14/16 06:59 06:59 06:59 Intake Total 510 1146 Output Total 200 500 Balance 310 646 Weight 82.5 kg 83.5 kg General appearance: PRESENT: no acute distress Eye exam: PRESENT: conjunctiva pink. ABSENT: scleral icterus Mouth exam: PRESENT: moist, tongue midline Neck exam: ABSENT: JVD Respiratory exam: PRESENT: clear to auscultation madeline. ABSENT: rales, rhonchi, wheezes Cardiovascular exam: PRESENT: RRR. ABSENT: diastolic murmur, rubs, systolic murmur GI/Abdominal exam: PRESENT: normal bowel sounds, soft. ABSENT: distended, guarding, mass, organolmegaly, rebound, tenderness Extremities exam: ABSENT: calf tenderness, clubbing, pedal edema Neurological exam: PRESENT: alert, awake, oriented to person, oriented to place , oriented to situation, CN II-XII grossly intact. ABSENT: oriented to time, motor sensory deficit Psychiatric exam: PRESENT: appropriate affect Skin exam: PRESENT: dry, intact, warm. ABSENT: cyanosis, rash Results Laboratory Results: 09/13/16 04:05 09/13/16 04:05 09/13/16 09/13/16 04:05 04:05 WBC 9.2 RBC 2.92 L Hgb 10.1 L Hct 30.3 L MCV 104 H MCH 34.6 H MCHC 33.4 RDW 14.3 H Plt Count 218 Seg Neutrophils % 89.1 H Lymphocytes % 7.1 L Monocytes % 3.3 Eosinophils % 0.3 Basophils % 0.2 Absolute Neutrophils 8.2 Absolute Lymphocytes 0.7 Absolute Monocytes 0.3 Absolute Eosinophils 0.0 Absolute Basophils 0.0 Sodium 129.5 L Potassium 4.1 Chloride 92 L Carbon Dioxide 32 H Anion Gap 6 BUN 19 Creatinine 0.50 L Est GFR ( Amer) > 60 Est GFR (Non-Af Amer) > 60 Glucose 137 H Calcium 8.5 08/24/16 08/30/16 09/01/16 18:32 04:38 06:47 NT-Pro-B Natriuret Pep 3530 H 2600 H 864 Impressions: Modified Barium Swallow 09/03/16 00:00 IMPRESSION: NO EVIDENCE OF PENETRATION OR ASPIRATION. PLEASE SEE SPEECH PATHOLOGIST REPORT FOR OTHER FINDINGS AND RECOMMENDATIONS. Spine X-Ray 09/04/16 00:00 IMPRESSION: 1. There is loss of height of the T8 vertebral body that does not appear to be acute. 2. Scoliosis as described. 3. Multilevel lumbar degenerative disc changes. Abdomen/Pelvis CT 09/06/16 00:00 IMPRESSION: 1. There is fatty infiltration of the liver. 2. Pancreatitis with peripancreatic, mesenteric, and pelvic fluid. There is no evidence of significant pancreatic necrosis. There is no hemorrhage. 3. Diverticulosis coli. 4. Osteopenia was lumbar scoliosis and degenerative disc change. KUB X-Ray 09/06/16 00:00 IMPRESSION: NO RADIOGRAPHIC EVIDENCE FOR ACUTE ABDOMINAL DISEASE. Abdomen MRI 09/07/16 00:00 IMPRESSION: No gallstones. No choledocholithiasis or biliary ductal dilatation. Pancreatitis with peripancreatic fluid collections as above Guidance Fluoroscopy 09/07/16 00:00 IMPRESSION: SUCCESSFUL PLACEMENT OF A 5 FR DUAL LUMEN 42 CM PICC IN THE left basilic VEIN. Interventional Vascular Procedure 09/07/16 00:00 IMPRESSION: SUCCESSFUL PLACEMENT OF A 5 FR DUAL LUMEN 42 CM PICC IN THE left basilic VEIN. PICC Line Insertion 09/07/16 00:00 IMPRESSION: SUCCESSFUL PLACEMENT OF A 5 FR DUAL LUMEN 42 CM PICC IN THE left basilic VEIN. Chest X-Ray 09/10/16 00:00 IMPRESSION: 1. PICC catheter appears to be in good position. 2. COPD. 3. New linear density on the lateral view most consistent with atelectasis. Lumbar Spine MRI 09/11/16 08:00 IMPRESSION: Multilevel disc degeneration and disc bulging as noted above. Assessment & Plan - Diagnosis (1) Pancreatitis Qualifiers: Chronicity: acute Acute pancreatitis complication: unspecified Is this a current diagnosis for this admission?: YesPlan: Resolved (2) Acute bilateral lower abdominal pain Is this a current diagnosis for this admission?: YesPlan: Patient was started on antibiotics empirically for the possibility of diverticulitis. Her abdominal pain has resolved (3) Acute on chronic respiratory failure with hypoxemia Is this a current diagnosis for this admission?: YesPlan: Resolved. (4) Back pain Qualifiers: Back pain location: low back pain Chronicity: chronic Is this a current diagnosis for this admission?: YesPlan: Patient has not received any pain medications overnight and is much more alert. Will DC the oxycodone and try her on tramadol. Patient is being evaluated by physical therapy (5) COPD (chronic obstructive pulmonary disease) Qualifiers: COPD type: COPD with acute exacerbation Qualified Code(s): J44.1 - Chronic obstructive pulmonary disease with (acute) exacerbation Is this a current diagnosis for this admission?: YesPlan: Stable (6) Hypomagnesemia Is this a current diagnosis for this admission?: Yes - Time Time Spent with patient: 25-34 minutes - Inpatient Certification Medical Necessity: Need Close Monitoring Due to Risk of Patient Decompensation - Plan Summary Plan Summary: We will plan on transfer to rehab when a bed becomes available.
[2016-09-13] MEDS: NYSTATIN TOPICAL POWDER 15 GM TP SCH ×2 (11:18→19:24)
[2016-09-13] MEDS: NYSTATIN CREAM 15 GM TP SCH ×2 (11:18→19:24)
[2016-09-13] MEDS: FOLIC ACID 1 MG TABLET PO SCH (11:19)
[2016-09-13] MEDS: INSULIN LISPRO 100 UNIT/ML 3 ML VIAL SUBCUT PRN ×2 (12:13→22:24)
[2016-09-13 15:37] LABS: APPEARANCE,URINE CLEAR; BILIRUBIN,URINE NEGATIVE (NEGATIVE); GLUCOSE, URINE 50 mg/dL (NEGATIVE); KETONES,URINE NEGATIVE (NEGATIVE); LEUKOCYTE ESTERASE,URINE SMALL (NEGATIVE); NITRITE,URINE NEGATIVE (NEGATIVE); PROTEIN,URINE NEGATIVE (NEGATIVE); URINE SPECIFIC GRAVITY 1.018; UROBILINOGEN,URINE NEGATIVE mg/dL (<2.0)
[2016-09-14] MEDS: ALBUTEROL SULFATE 0.083% NEB 2.5 MG/3 ML AMPUL NEB SCH ×7 (00:45→23:46)
[2016-09-14 04:33] LABS: ABSOLUTE LYMPHOCYTES (AUTO) 0.4 10^3/uL (0.5-4.7); ABSOLUTE MONOCYTES (AUTO) 0.3 10^3/uL (0.1-1.4); ABSOLUTE NEUT (AUTO) 6.5 10^3/uL (1.7-8.2); BASOPHILS % (AUTO) 0.2 % (0-2); EOSINOPHILS % (AUTO) 0.3 % (0-6); HEMATOCRIT 29.2 % (36.0-47.0); HGB HCT DIFFERENCE 0.8; MEAN CORPUSCULAR HEMOGLOBIN 35.2 pg (27.0-33.4); MEAN CORPUSCULAR HGB CONC 34.2 g/dL (32.0-36.0); MEAN CORPUSCULAR VOLUME 103 fl (80-97); MONOCYTES % (AUTO) 4.1 % (3-13); RED BLOOD COUNT 2.83 10^6/uL (3.72-5.28); SEGMENTED NEUTROPHILS % (AUTO) 89.4 % (42-78); WHITE BLOOD COUNT 7.3 10^3/uL (4.0-10.5)
[2016-09-14 04:41] LABS: ANION GAP 8 (5-19); BLOOD UREA NITROGEN 11 mg/dL (7-20); CALCIUM 8.3 mg/dL (8.4-10.2); CARBON DIOXIDE 29 mmol/L (22-30); CHLORIDE 94 mmol/L (98-107); GLUCOSE 126 mg/dL (75-110); POTASSIUM 3.7 mmol/L (3.6-5.0); SODIUM 130.8 mmol/L (137-145)
[2016-09-14] MEDS: METRONIDAZOLE 250 MG TABLET PO SCH ×3 (05:19→23:24)
[2016-09-14] MEDS: GABAPENTIN 300 MG CAPSULE PO SCH ×3 (05:19→23:24)
[2016-09-14 09:21] LABS: ARTERIAL BLOOD BASE EXCESS 7.5 mmol/L; ARTERIAL BLOOD O2 SATURATION 98.1 % (94-98)
[2016-09-14] MEDS: DULOXETINE HCL 30 MG CAPSULE.DR PO SCH ×2 (09:46→23:24)
[2016-09-14] MEDS: GUAIFENESIN 600 MG TABLET.SA PO SCH ×2 (09:46→23:24)
[2016-09-14] MEDS: PREDNISONE 5 MG TABLET PO SCH ×2 (09:50→18:53)
[2016-09-14] MEDS: LEVOFLOXACIN 500 MG TABLET PO SCH (09:50)
[2016-09-14] MEDS: TIOTROPIUM BROMIDE DPI 5 CAP/KIT (18 MCG/CAP) IH SCH (09:50)
[2016-09-14] MEDS: NORMAL SALINE 10 ML SDV (SCHEDULED) IV SCH (09:51)
[2016-09-14] MEDS: FLUTICASONE/SALMETEROL DISKUS 250-50 MCG/DOSE IH SCH ×2 (09:51→23:24)
[2016-09-14] MEDS: NORMAL SALINE 10 ML SDV (AFTER EACH USE) IV PRN (09:51)
[2016-09-14] MEDS: LIDOCAINE 5% (700 MG) TRANSDERMAL ADH..PATCH TP SCH (09:52)
--- NOTE | 2016-09-14 10:36 | PDOC PROGRESS REPORT ---
Subjective Progress Note for:: 09/14/16 Subjective:: Patient is confused today. Not received any narcotics. She shows no evidence for CO2 retention Physical Exam Vital Signs: Temp Pulse Resp BP Pulse Ox 98.5 F 87 18 118/77 96 09/14/16 07:48 09/14/16 07:48 09/14/16 07:48 09/14/16 07:48 09/14/16 07:48 Intake & Output 09/13/16 09/14/16 09/15/16 06:59 06:59 06:59 Intake Total 1146 412 Output Total 500 500 Balance 646 -88 Weight 83.5 kg 84.7 kg General appearance: PRESENT: no acute distress Eye exam: PRESENT: conjunctiva pink. ABSENT: scleral icterus Mouth exam: PRESENT: moist, tongue midline Neck exam: ABSENT: JVD Respiratory exam: PRESENT: clear to auscultation madeline. ABSENT: rales, rhonchi, wheezes Cardiovascular exam: PRESENT: RRR. ABSENT: diastolic murmur, rubs, systolic murmur GI/Abdominal exam: PRESENT: normal bowel sounds, soft. ABSENT: distended, guarding, mass, organolmegaly, rebound, tenderness Extremities exam: ABSENT: calf tenderness, clubbing, pedal edema Neurological exam: PRESENT: awake, oriented to person, oriented to place, CN II- XII grossly intact. ABSENT: oriented to time, oriented to situation, motor sensory deficit Psychiatric exam: PRESENT: flat affect Skin exam: PRESENT: dry, intact, warm. ABSENT: cyanosis, rash Results Laboratory Results: 09/14/16 04:18 09/14/16 04:18 09/13/16 09/14/16 09/14/16 15:05 04:18 04:18 WBC 7.3 RBC 2.83 L Hgb 10.0 L Hct 29.2 L MCV 103 H MCH 35.2 H MCHC 34.2 RDW 14.0 Plt Count 241 Seg Neutrophils % 89.4 H Lymphocytes % 6.0 L Monocytes % 4.1 Eosinophils % 0.3 Basophils % 0.2 Absolute Neutrophils 6.5 Absolute Lymphocytes 0.4 L Absolute Monocytes 0.3 Absolute Eosinophils 0.0 Absolute Basophils 0.0 Carbonic Acid HCO3/H2CO3 Ratio ABG pH ABG pCO2 ABG pO2 ABG HCO3 ABG O2 Saturation ABG Base Excess FiO2 Sodium 130.8 L Potassium 3.7 Chloride 94 L Carbon Dioxide 29 Anion Gap 8 BUN 11 Creatinine 0.50 L Est GFR ( Amer) > 60 Est GFR (Non-Af Amer) > 60 Glucose 126 H Calcium 8.3 L Urine Color YELLOW Urine Appearance CLEAR Urine pH 7.0 Ur Specific [place] 1.018 Urine Protein NEGATIVE Urine Glucose (UA) 50 H Urine Ketones NEGATIVE Urine Blood NEGATIVE Urine Nitrite NEGATIVE Ur Leukocyte Esterase SMALL H Urine WBC (Auto) 27 Urine RBC (Auto) 1 09/14/16 09:03 WBC RBC Hgb Hct MCV MCH MCHC RDW Plt Count Seg Neutrophils % Lymphocytes % Monocytes % Eosinophils % Basophils % Absolute Neutrophils Absolute Lymphocytes Absolute Monocytes Absolute Eosinophils Absolute Basophils Carbonic Acid 1.33 HCO3/H2CO3 Ratio 23:1 ABG pH 7.48 H ABG pCO2 44.1 ABG pO2 104.1 H ABG HCO3 31.9 H ABG O2 Saturation 98.1 H ABG Base Excess 7.5 FiO2 2 LPM Sodium Potassium Chloride Carbon Dioxide Anion Gap BUN Creatinine Est GFR ( Amer) Est GFR (Non-Af Amer) Glucose Calcium Urine Color Urine Appearance Urine pH Ur Specific [place] Urine Protein Urine Glucose (UA) Urine Ketones Urine Blood Urine Nitrite Ur Leukocyte Esterase Urine WBC (Auto) Urine RBC (Auto) 08/24/16 08/30/16 09/01/16 18:32 04:38 06:47 NT-Pro-B Natriuret Pep 3530 H 2600 H 864 Impressions: Modified Barium Swallow 09/03/16 00:00 IMPRESSION: NO EVIDENCE OF PENETRATION OR ASPIRATION. PLEASE SEE SPEECH PATHOLOGIST REPORT FOR OTHER FINDINGS AND RECOMMENDATIONS. Spine X-Ray 09/04/16 00:00 IMPRESSION: 1. There is loss of height of the T8 vertebral body that does not appear to be acute. 2. Scoliosis as described. 3. Multilevel lumbar degenerative disc changes. Abdomen/Pelvis CT 09/06/16 00:00 IMPRESSION: 1. There is fatty infiltration of the liver. 2. Pancreatitis with peripancreatic, mesenteric, and pelvic fluid. There is no evidence of significant pancreatic necrosis. There is no hemorrhage. 3. Diverticulosis coli. 4. Osteopenia was lumbar scoliosis and degenerative disc change. KUB X-Ray 09/06/16 00:00 IMPRESSION: NO RADIOGRAPHIC EVIDENCE FOR ACUTE ABDOMINAL DISEASE. Abdomen MRI 09/07/16 00:00 IMPRESSION: No gallstones. No choledocholithiasis or biliary ductal dilatation. Pancreatitis with peripancreatic fluid collections as above Guidance Fluoroscopy 09/07/16 00:00 IMPRESSION: SUCCESSFUL PLACEMENT OF A 5 FR DUAL LUMEN 42 CM PICC IN THE left basilic VEIN. Interventional Vascular Procedure 09/07/16 00:00 IMPRESSION: SUCCESSFUL PLACEMENT OF A 5 FR DUAL LUMEN 42 CM PICC IN THE left basilic VEIN. PICC Line Insertion 09/07/16 00:00 IMPRESSION: SUCCESSFUL PLACEMENT OF A 5 FR DUAL LUMEN 42 CM PICC IN THE left basilic VEIN. Chest X-Ray 09/10/16 00:00 IMPRESSION: 1. PICC catheter appears to be in good position. 2. COPD. 3. New linear density on the lateral view most consistent with atelectasis. Lumbar Spine MRI 09/11/16 08:00 IMPRESSION: Multilevel disc degeneration and disc bulging as noted above. Assessment & Plan - Diagnosis (1) Pancreatitis Qualifiers: Chronicity: acute Acute pancreatitis complication: unspecified Is this a current diagnosis for this admission?: YesPlan: Resolved (2) Acute bilateral lower abdominal pain Is this a current diagnosis for this admission?: YesPlan: Patient was started on antibiotics empirically for the possibility of diverticulitis. Her abdominal pain has resolved (3) Acute on chronic respiratory failure with hypoxemia Is this a current diagnosis for this admission?: YesPlan: Resolved. (4) Back pain Qualifiers: Back pain location: low back pain Chronicity: chronic Is this a current diagnosis for this admission?: YesPlan: Improved (5) COPD (chronic obstructive pulmonary disease) Qualifiers: COPD type: COPD with acute exacerbation Qualified Code(s): J44.1 - Chronic obstructive pulmonary disease with (acute) exacerbation Is this a current diagnosis for this admission?: YesPlan: Stable (6) Hypomagnesemia Is this a current diagnosis for this admission?: Yes (7) Encephalopathy Is this a current diagnosis for this admission?: YesPlan: Patient has not gotten narcotics and is not retaining CO2. The possibility of Levaquin causing altered mental status is considered. If she is still confused tomorrow we will DC the Levaquin - Time Time Spent with patient: 25-34 minutes
[2016-09-14] MEDS: FOLIC ACID 1 MG TABLET PO SCH (12:16)
[2016-09-14] MEDS ORDERED: TRIAMCINOLONE ACETONIDE INJ 40 MG/1 ML VIAL INJ PRN (13:00)
[2016-09-14] MEDS: NYSTATIN TOPICAL POWDER 15 GM TP SCH (13:05)
[2016-09-14] MEDS: NYSTATIN CREAM 15 GM TP SCH (13:05)
[2016-09-14] MEDS ORDERED: ENOXAPARIN SODIUM INJ 40 MG/0.4 ML DISP.SYRIN SUBCUT ONE (15:00)
--- NOTE | 2016-09-14 15:59 | RADIOLOGY REPORT (SQ) ---
EXAM DESCRIPTION: SPINE SINGLE VIEW COMPLETED DATE/TIME: 09/14/2016 3:42 pm REASON FOR STUDY: EPIDURAL INJECTION ASSISTED WITH C ARM IN OR COMPARISON: None. FLUOROSCOPY TIME: 0.7 minutes 4 images saved to PACS. TECHNIQUE: Intra-operative images acquired during surgical procedure to evaluate progress. NUMBER OF IMAGES: 4 image LIMITATIONS: None. FINDINGS: Fluoroscopic images were obtained during performance of an epidural injection IMPRESSION: IMAGE(S) OBTAINED DURING PROCEDURE. COMMENT: Quality ID [id number]: Final reports for procedures using fluoroscopy that document radiation exp osure indices, or exposure time and number of fluorographic images (if radiation exposure indices are not available) Please consult full operative report of the attending physician for description of the procedure. TECHNICAL DOCUMENTATION: JOB ID: [id number] [email or web address]- All Rights Reserved
--- NOTE | 2016-09-14 16:00 | RADIOLOGY REPORT (SQ) ---
EXAM DESCRIPTION: NO CHG FLUORO COMPLETE DATE/TIME: 09/14/2016 3:42 pm REASON FOR STUDY: EPIDURAL INJECTION ASSISTED WITH C ARM IN OR FINDINGS: Please see combined report for performance of procedure and radiologic supervision and int erpretation. IMPRESSION: Please see combined report for performance of procedure and radiologic supervision and i nterpretation.
[2016-09-14] MEDS ORDERED: NALOXONE HCL INJ/PF 0.4 MG/1 ML SDV ONE (18:49)
[2016-09-15] MEDS: ALBUTEROL SULFATE 0.083% NEB 2.5 MG/3 ML AMPUL NEB SCH ×5 (04:45→20:24)
[2016-09-15 05:25] LABS: HEMATOCRIT 31.8 % (36.0-47.0); HGB HCT DIFFERENCE 1.2; MEAN CORPUSCULAR HEMOGLOBIN 35.5 pg (27.0-33.4); MEAN CORPUSCULAR HGB CONC 34.5 g/dL (32.0-36.0); MEAN CORPUSCULAR VOLUME 103 fl (80-97); RED BLOOD COUNT 3.09 10^6/uL (3.72-5.28); WHITE BLOOD COUNT 5.6 10^3/uL (4.0-10.5)
[2016-09-15 05:34] LABS: ANION GAP 11 (5-19); BLOOD UREA NITROGEN 11 mg/dL (7-20); CALCIUM 8.7 mg/dL (8.4-10.2); CARBON DIOXIDE 28 mmol/L (22-30); CHLORIDE 95 mmol/L (98-107); CREATININE RESULT 0.46 mg/dL (0.52-1.25); GLUCOSE 168 mg/dL (75-110); POTASSIUM 3.5 mmol/L (3.6-5.0); SODIUM 133.7 mmol/L (137-145)
[2016-09-15 05:44] LABS: BAND NEUTROPHILS % (MANUAL) 6 % (3-5); BASOPHILS % (MANUAL) 0 % (0-2); EOSINOPHILS % (MANUAL) 0 % (0-6); LYMPHOCYTES % (MANUAL) 4 % (13-45); TOTAL CELLS COUNTED 100
[2016-09-15 05:45] LABS: POLYCHROMASIA SLIGHT; TOXIC GRANULATION SLIGHT
[2016-09-15] MEDS: NYSTATIN CREAM 15 GM TP SCH ×3 (06:54→20:16)
[2016-09-15] MEDS: NYSTATIN TOPICAL POWDER 15 GM TP SCH ×3 (06:54→20:17)
[2016-09-15] MEDS: NORMAL SALINE 10 ML SDV (SCHEDULED) IV SCH ×3 (06:54→22:29)
[2016-09-15] MEDS: METRONIDAZOLE 250 MG TABLET PO SCH ×3 (06:55→22:21)
[2016-09-15] MEDS: GABAPENTIN 300 MG CAPSULE PO SCH ×3 (06:55→22:33)
[2016-09-15] MEDS: INSULIN LISPRO 100 UNIT/ML 3 ML VIAL SUBCUT PRN ×4 (07:21→22:22)
[2016-09-15] MEDS: PREDNISONE 5 MG TABLET PO SCH ×2 (09:30→17:15)
[2016-09-15] MEDS: LEVOFLOXACIN 500 MG TABLET PO SCH (09:30)
[2016-09-15] MEDS: DULOXETINE HCL 30 MG CAPSULE.DR PO SCH ×2 (09:30→22:22)
[2016-09-15] MEDS: GUAIFENESIN 600 MG TABLET.SA PO SCH ×2 (09:30→22:22)
[2016-09-15] MEDS: FLUTICASONE/SALMETEROL DISKUS 250-50 MCG/DOSE IH SCH ×2 (09:32→22:27)
[2016-09-15] MEDS: NORMAL SALINE 10 ML SDV (AFTER EACH USE) IV PRN (09:32)
[2016-09-15] MEDS: ENOXAPARIN SODIUM INJ 40 MG/0.4 ML DISP.SYRIN SUBCUT SCH (09:32)
[2016-09-15] MEDS: LIDOCAINE 5% (700 MG) TRANSDERMAL ADH..PATCH TP SCH (09:40)
--- NOTE | 2016-09-15 09:59 | PDOC PROGRESS REPORT ---
Subjective Progress Note for:: 09/15/16 Subjective:: The patient's confusion has resolved. She is alert and oriented 4 Physical Exam Vital Signs: Temp Pulse Resp BP Pulse Ox 98.3 F 79 16 131/73 H 97 09/15/16 07:18 09/15/16 07:55 09/15/16 07:55 09/15/16 07:18 09/15/16 07:55 Intake & Output 09/14/16 09/15/16 09/16/16 06:59 06:59 06:59 Intake Total 412 50 Output Total 500 Balance -88 50 Weight 84.7 kg 82.4 kg General appearance: PRESENT: no acute distress Eye exam: PRESENT: conjunctiva pink. ABSENT: scleral icterus Mouth exam: PRESENT: moist, tongue midline Neck exam: ABSENT: carotid bruit, JVD, lymphadenopathy, thyromegaly Respiratory exam: PRESENT: clear to auscultation madeline. ABSENT: rales, rhonchi, wheezes Cardiovascular exam: PRESENT: RRR. ABSENT: diastolic murmur, rubs, systolic murmur GI/Abdominal exam: PRESENT: normal bowel sounds, soft. ABSENT: distended, guarding, mass, organolmegaly, rebound, tenderness Extremities exam: ABSENT: calf tenderness, clubbing, pedal edema Neurological exam: PRESENT: alert, awake, oriented to person, oriented to place , oriented to time, oriented to situation, CN II-XII grossly intact. ABSENT: motor sensory deficit Psychiatric exam: PRESENT: appropriate affect Skin exam: PRESENT: dry, intact, warm. ABSENT: cyanosis, rash Results Laboratory Results: 09/15/16 04:41 09/15/16 04:41 09/15/16 09/15/16 04:41 04:41 WBC 5.6 RBC 3.09 L Hgb 11.0 L Hct 31.8 L MCV 103 H MCH 35.5 H MCHC 34.5 RDW 14.0 Plt Count 287 Seg Neutrophils % Not Reportable Lymphocytes % Not Reportable Monocytes % Not Reportable Eosinophils % Not Reportable Basophils % Not Reportable Absolute Neutrophils Not Reportable Absolute Lymphocytes Not Reportable Absolute Monocytes Not Reportable Absolute Eosinophils Not Reportable Absolute Basophils Not Reportable Sodium 133.7 L Potassium 3.5 L Chloride 95 L Carbon Dioxide 28 Anion Gap 11 BUN 11 Creatinine 0.46 L Est GFR ( Amer) > 60 Est GFR (Non-Af Amer) > 60 Glucose 168 H Calcium 8.7 08/24/16 08/30/16 09/01/16 18:32 04:38 06:47 NT-Pro-B Natriuret Pep 3530 H 2600 H 864 Impressions: Modified Barium Swallow 09/03/16 00:00 IMPRESSION: NO EVIDENCE OF PENETRATION OR ASPIRATION. PLEASE SEE SPEECH PATHOLOGIST REPORT FOR OTHER FINDINGS AND RECOMMENDATIONS. Abdomen/Pelvis CT 09/06/16 00:00 IMPRESSION: 1. There is fatty infiltration of the liver. 2. Pancreatitis with peripancreatic, mesenteric, and pelvic fluid. There is no evidence of significant pancreatic necrosis. There is no hemorrhage. 3. Diverticulosis coli. 4. Osteopenia was lumbar scoliosis and degenerative disc change. KUB X-Ray 09/06/16 00:00 IMPRESSION: NO RADIOGRAPHIC EVIDENCE FOR ACUTE ABDOMINAL DISEASE. Abdomen MRI 09/07/16 00:00 IMPRESSION: No gallstones. No choledocholithiasis or biliary ductal dilatation. Pancreatitis with peripancreatic fluid collections as above Guidance Fluoroscopy 09/07/16 00:00 IMPRESSION: SUCCESSFUL PLACEMENT OF A 5 FR DUAL LUMEN 42 CM PICC IN THE left basilic VEIN. Interventional Vascular Procedure 09/07/16 00:00 IMPRESSION: SUCCESSFUL PLACEMENT OF A 5 FR DUAL LUMEN 42 CM PICC IN THE left basilic VEIN. PICC Line Insertion 09/07/16 00:00 IMPRESSION: SUCCESSFUL PLACEMENT OF A 5 FR DUAL LUMEN 42 CM PICC IN THE left basilic VEIN. Chest X-Ray 09/10/16 00:00 IMPRESSION: 1. PICC catheter appears to be in good position. 2. COPD. 3. New linear density on the lateral view most consistent with atelectasis. Lumbar Spine MRI 09/11/16 08:00 IMPRESSION: Multilevel disc degeneration and disc bulging as noted above. Fluoroscopy 09/14/16 00:00 IMPRESSION: Please see combined report for performance of procedure and radiologic supervision and interpretation. Spine X-Ray 09/14/16 00:00 IMPRESSION: IMAGE(S) OBTAINED DURING PROCEDURE. Assessment & Plan - Diagnosis (1) Pancreatitis Qualifiers: Chronicity: acute Acute pancreatitis complication: unspecified Is this a current diagnosis for this admission?: YesPlan: Resolved (2) Acute bilateral lower abdominal pain Is this a current diagnosis for this admission?: YesPlan: Patient was started on antibiotics empirically for the possibility of diverticulitis. Her abdominal pain has resolved (3) Acute on chronic respiratory failure with hypoxemia Is this a current diagnosis for this admission?: YesPlan: Resolved. (4) Back pain Qualifiers: Back pain location: low back pain Chronicity: chronic Is this a current diagnosis for this admission?: YesPlan: Resolved. (5) COPD (chronic obstructive pulmonary disease) Qualifiers: COPD type: COPD with acute exacerbation Qualified Code(s): J44.1 - Chronic obstructive pulmonary disease with (acute) exacerbation Is this a current diagnosis for this admission?: YesPlan: Stable (6) Hypomagnesemia Is this a current diagnosis for this admission?: Yes (7) Encephalopathy Is this a current diagnosis for this admission?: YesPlan: Resolved. - Time Time Spent with patient: 25-34 minutes - Inpatient Certification Medical Necessity: Need Close Monitoring Due to Risk of Patient Decompensation - Plan Summary Plan Summary: Patient is ready for discharge when a rehab bed becomes available.
[2016-09-15] MEDS: TIOTROPIUM BROMIDE DPI 5 CAP/KIT (18 MCG/CAP) IH SCH (11:47)
[2016-09-15] MEDS: FOLIC ACID 1 MG TABLET PO SCH (11:47)
[2016-09-16] MEDS: ALBUTEROL SULFATE 0.083% NEB 2.5 MG/3 ML AMPUL NEB SCH ×3 (00:18→07:57)
[2016-09-16 05:02] LABS: HEMATOCRIT 31.1 % (36.0-47.0); HEMOGLOBIN 10.7 g/dL (12.0-15.5); MEAN CORPUSCULAR HEMOGLOBIN 35.3 pg (27.0-33.4); MEAN CORPUSCULAR HGB CONC 34.5 g/dL (32.0-36.0); MEAN CORPUSCULAR VOLUME 102 fl (80-97); RED BLOOD COUNT 3.04 10^6/uL (3.72-5.28); RED CELL DISTRIBUTION WIDTH 14.4 % (11.5-14.0); WHITE BLOOD COUNT 6.1 10^3/uL (4.0-10.5)
[2016-09-16 05:12] LABS: ANION GAP 7 (5-19); BLOOD UREA NITROGEN 13 mg/dL (7-20); CALCIUM 8.8 mg/dL (8.4-10.2); CARBON DIOXIDE 30 mmol/L (22-30); CHLORIDE 96 mmol/L (98-107); CREATININE RESULT 0.45 mg/dL (0.52-1.25); GLUCOSE 168 mg/dL (75-110); POTASSIUM 3.6 mmol/L (3.6-5.0); SODIUM 132.6 mmol/L (137-145)
[2016-09-16 05:21] LABS: BAND NEUTROPHILS % (MANUAL) 6 % (3-5); BASOPHILS % (MANUAL) 0 % (0-2); EOSINOPHILS % (MANUAL) 0 % (0-6); LYMPHOCYTES % (MANUAL) 3 % (13-45); TOTAL CELLS COUNTED 100
[2016-09-16 05:23] LABS: POLYCHROMASIA SLIGHT; TOXIC VACUOLATION PRESENT
[2016-09-16 05:24] LABS: ANISOCYTOSIS SLIGHT; OVALOCYTES SLIGHT; POIKILOCYTOSIS SLIGHT; TEAR DROP CELLS SLIGHT
[2016-09-16] MEDS: GABAPENTIN 300 MG CAPSULE PO SCH ×3 (05:39→21:10)
[2016-09-16] MEDS: METRONIDAZOLE 250 MG TABLET PO SCH ×3 (05:40→21:10)
[2016-09-16] MEDS: NORMAL SALINE 10 ML SDV (AFTER EACH USE) IV PRN ×2 (05:41→10:50)
[2016-09-16] MEDS: INSULIN LISPRO 100 UNIT/ML 3 ML VIAL SUBCUT PRN ×4 (08:09→22:46)
--- NOTE | 2016-09-16 10:00 | PDOC PROGRESS REPORT ---
Subjective Progress Note for:: 09/16/16 Subjective:: The patient's confusion has resolved. She is alert and oriented 4 Physical Exam Vital Signs: Temp Pulse Resp BP Pulse Ox 97.7 F 59 L 14 128/75 H 97 09/16/16 07:35 09/16/16 07:57 09/16/16 07:57 09/16/16 07:35 09/16/16 07:57 Intake & Output 09/15/16 09/16/16 09/17/16 06:59 06:59 06:59 Intake Total 50 2225 Output Total 0 Balance 50 2225 Weight 82.4 kg 82.5 kg General appearance: PRESENT: no acute distress Eye exam: PRESENT: conjunctiva pink. ABSENT: scleral icterus Mouth exam: PRESENT: moist, tongue midline Neck exam: ABSENT: JVD Respiratory exam: PRESENT: clear to auscultation madeline. ABSENT: rales, rhonchi, wheezes Cardiovascular exam: PRESENT: RRR. ABSENT: diastolic murmur, rubs, systolic murmur GI/Abdominal exam: PRESENT: normal bowel sounds, soft. ABSENT: distended, guarding, mass, organolmegaly, rebound, tenderness Extremities exam: ABSENT: calf tenderness, clubbing, pedal edema Neurological exam: PRESENT: alert, awake, oriented to person, oriented to place , oriented to time, oriented to situation, CN II-XII grossly intact. ABSENT: motor sensory deficit Psychiatric exam: PRESENT: appropriate affect Skin exam: PRESENT: dry, intact, warm. ABSENT: cyanosis, rash Results Laboratory Results: 09/16/16 04:50 09/16/16 04:50 09/16/16 09/16/16 04:50 04:50 WBC 6.1 RBC 3.04 L Hgb 10.7 L Hct 31.1 L MCV 102 H MCH 35.3 H MCHC 34.5 RDW 14.4 H Plt Count 319 Seg Neutrophils % Not Reportable Lymphocytes % Not Reportable Monocytes % Not Reportable Eosinophils % Not Reportable Basophils % Not Reportable Absolute Neutrophils Not Reportable Absolute Lymphocytes Not Reportable Absolute Monocytes Not Reportable Absolute Eosinophils Not Reportable Absolute Basophils Not Reportable Sodium 132.6 L Potassium 3.6 Chloride 96 L Carbon Dioxide 30 Anion Gap 7 BUN 13 Creatinine 0.45 L Est GFR ( Amer) > 60 Est GFR (Non-Af Amer) > 60 Glucose 168 H Calcium 8.8 08/24/16 08/30/16 09/01/16 18:32 04:38 06:47 NT-Pro-B Natriuret Pep 3530 H 2600 H 864 Impressions: Modified Barium Swallow 09/03/16 00:00 IMPRESSION: NO EVIDENCE OF PENETRATION OR ASPIRATION. PLEASE SEE SPEECH PATHOLOGIST REPORT FOR OTHER FINDINGS AND RECOMMENDATIONS. Abdomen/Pelvis CT 09/06/16 00:00 IMPRESSION: 1. There is fatty infiltration of the liver. 2. Pancreatitis with peripancreatic, mesenteric, and pelvic fluid. There is no evidence of significant pancreatic necrosis. There is no hemorrhage. 3. Diverticulosis coli. 4. Osteopenia was lumbar scoliosis and degenerative disc change. KUB X-Ray 09/06/16 00:00 IMPRESSION: NO RADIOGRAPHIC EVIDENCE FOR ACUTE ABDOMINAL DISEASE. Abdomen MRI 09/07/16 00:00 IMPRESSION: No gallstones. No choledocholithiasis or biliary ductal dilatation. Pancreatitis with peripancreatic fluid collections as above Guidance Fluoroscopy 09/07/16 00:00 IMPRESSION: SUCCESSFUL PLACEMENT OF A 5 FR DUAL LUMEN 42 CM PICC IN THE left basilic VEIN. Interventional Vascular Procedure 09/07/16 00:00 IMPRESSION: SUCCESSFUL PLACEMENT OF A 5 FR DUAL LUMEN 42 CM PICC IN THE left basilic VEIN. PICC Line Insertion 09/07/16 00:00 IMPRESSION: SUCCESSFUL PLACEMENT OF A 5 FR DUAL LUMEN 42 CM PICC IN THE left basilic VEIN. Chest X-Ray 09/10/16 00:00 IMPRESSION: 1. PICC catheter appears to be in good position. 2. COPD. 3. New linear density on the lateral view most consistent with atelectasis. Lumbar Spine MRI 09/11/16 08:00 IMPRESSION: Multilevel disc degeneration and disc bulging as noted above. Fluoroscopy 09/14/16 00:00 IMPRESSION: Please see combined report for performance of procedure and radiologic supervision and interpretation. Spine X-Ray 09/14/16 00:00 IMPRESSION: IMAGE(S) OBTAINED DURING PROCEDURE. Assessment & Plan - Diagnosis (1) Pancreatitis Qualifiers: Chronicity: acute Acute pancreatitis complication: unspecified Is this a current diagnosis for this admission?: YesPlan: Resolved (2) Acute bilateral lower abdominal pain Is this a current diagnosis for this admission?: YesPlan: Patient was started on antibiotics empirically for the possibility of diverticulitis. Her abdominal pain has resolved (3) Acute on chronic respiratory failure with hypoxemia Is this a current diagnosis for this admission?: YesPlan: Resolved. (4) Back pain Qualifiers: Back pain location: low back pain Chronicity: chronic Is this a current diagnosis for this admission?: YesPlan: Resolved. (5) COPD (chronic obstructive pulmonary disease) Qualifiers: COPD type: COPD with acute exacerbation Qualified Code(s): J44.1 - Chronic obstructive pulmonary disease with (acute) exacerbation Is this a current diagnosis for this admission?: YesPlan: Stable (6) Hypomagnesemia Is this a current diagnosis for this admission?: Yes (7) Encephalopathy Is this a current diagnosis for this admission?: YesPlan: Resolved. - Time Time Spent with patient: 25-34 minutes - Inpatient Certification Medical Necessity: Need Close Monitoring Due to Risk of Patient Decompensation - Plan Summary Plan Summary: Will DC to rehab when a bed becomes available
[2016-09-16] MEDS: PREDNISONE 5 MG TABLET PO SCH ×2 (10:47→17:25)
[2016-09-16] MEDS: GUAIFENESIN 600 MG TABLET.SA PO SCH ×2 (10:47→21:12)
[2016-09-16] MEDS: LEVOFLOXACIN 500 MG TABLET PO SCH (10:48)
[2016-09-16] MEDS: FLUTICASONE/SALMETEROL DISKUS 250-50 MCG/DOSE IH SCH ×2 (10:48→21:09)
[2016-09-16] MEDS: DULOXETINE HCL 30 MG CAPSULE.DR PO SCH ×2 (10:48→21:10)
[2016-09-16] MEDS: TIOTROPIUM BROMIDE DPI 5 CAP/KIT (18 MCG/CAP) IH SCH (10:49)
[2016-09-16] MEDS: NORMAL SALINE 10 ML SDV (SCHEDULED) IV SCH ×2 (10:50→21:12)
[2016-09-16] MEDS: ENOXAPARIN SODIUM INJ 40 MG/0.4 ML DISP.SYRIN SUBCUT SCH (10:51)
[2016-09-16] MEDS: LIDOCAINE 5% (700 MG) TRANSDERMAL ADH..PATCH TP SCH (11:02)
[2016-09-16] MEDS: FOLIC ACID 1 MG TABLET PO SCH (12:08)
[2016-09-16] MEDS: ALBUTEROL SULFATE 0.083% NEB 2.5 MG/3 ML AMPUL NEB PRN ×2 (18:18→23:06)
[2016-09-17 04:59] LABS: HEMATOCRIT 31.7 % (36.0-47.0); HEMOGLOBIN 10.6 g/dL (12.0-15.5); HGB HCT DIFFERENCE 0.1; MEAN CORPUSCULAR HEMOGLOBIN 34.6 pg (27.0-33.4); MEAN CORPUSCULAR HGB CONC 33.5 g/dL (32.0-36.0); MEAN CORPUSCULAR VOLUME 103 fl (80-97); RED BLOOD COUNT 3.06 10^6/uL (3.72-5.28); RED CELL DISTRIBUTION WIDTH 14.4 % (11.5-14.0); WHITE BLOOD COUNT 6.8 10^3/uL (4.0-10.5)
[2016-09-17] MEDS: ALBUTEROL SULFATE 0.083% NEB 2.5 MG/3 ML AMPUL NEB PRN ×3 (05:03→14:27)
[2016-09-17 05:24] LABS: BAND NEUTROPHILS % (MANUAL) 1 % (3-5); BASOPHILS % (MANUAL) 0 % (0-2); EOSINOPHILS % (MANUAL) 0 % (0-6); LYMPHOCYTES % (MANUAL) 11 % (13-45); TOTAL CELLS COUNTED 100
[2016-09-17 05:25] LABS: ANION GAP 6 (5-19); BLOOD UREA NITROGEN 18 mg/dL (7-20); CALCIUM 8.8 mg/dL (8.4-10.2); CARBON DIOXIDE 30 mmol/L (22-30); CHLORIDE 96 mmol/L (98-107); CREATININE RESULT 0.46 mg/dL (0.52-1.25); GLUCOSE 181 mg/dL (75-110); POTASSIUM 3.6 mmol/L (3.6-5.0); SODIUM 132.4 mmol/L (137-145)
[2016-09-17] MEDS: GABAPENTIN 300 MG CAPSULE PO SCH ×2 (05:28→13:28)
[2016-09-17 05:29] LABS: ANISOCYTOSIS 1+; OVALOCYTES SLIGHT; POIKILOCYTOSIS SLIGHT; POLYCHROMASIA SLIGHT
[2016-09-17] MEDS: METRONIDAZOLE 250 MG TABLET PO SCH ×2 (05:29→13:27)
[2016-09-17] MEDS: INSULIN LISPRO 100 UNIT/ML 3 ML VIAL SUBCUT PRN ×2 (07:29→12:00)
--- NOTE | 2016-09-17 09:09 | PDOC TRANSFER SUMMARY ---
General - Admit/Disc Date/PCP Admission Date/Primary Care Provider: 08/23/16 17:44 DANYA DE LA TORRE, Discharge Date: 09/17/16 - Discharge Diagnosis (1) Pancreatitis Is this a current diagnosis for this admission?: Yes (2) Acute bilateral lower abdominal pain Is this a current diagnosis for this admission?: YesSummary: Most likely secondary to acute diverticulitis. Patient has completed a 7 day course of antibiotics (3) Acute on chronic respiratory failure with hypoxemia Is this a current diagnosis for this admission?: Yes (4) Back pain Is this a current diagnosis for this admission?: YesSummary: Patient had been evaluated by pain management with epidural injection being done. (5) COPD (chronic obstructive pulmonary disease) Is this a current diagnosis for this admission?: YesSummary: Was evaluated by pulmonary medicine during this hospitalization. (6) Hypomagnesemia Is this a current diagnosis for this admission?: Yes (7) Encephalopathy Is this a current diagnosis for this admission?: YesSummary: Most likely secondary to medications. Patient has been managed without narcotics with resolution of her encephalopathy. Requiring tramadol for pain control. - Additional Information Resuscitation Status: Full Code Discharge Diet: Cardiac Discharge Activity: Activity As Tolerated Home Medications: Albuterol Sulfate [Proair HFA] 2 puff IH Q4HP PRN 08/23/16 Fluticasone/Salmeterol [Advair 250-50 Diskus 28 dose] 1 puff IH BID 08/23/16 Furosemide [Lasix] 40 mg PO DAILY 08/23/16 Potassium Chloride [K-Tab ER] 10 meq PO BID 08/23/16 Roflumilast [Daliresp 500 mcg Tablet] 500 mcg PO DAILY 08/23/16 Tiotropium [place] [Spiriva Respimat] 2 puff IH DAILY 08/23/16 Folic Acid [Folvite 1 mg Tablet] 1 mg PO NOON tablet 09/17/16 Gabapentin [Neurontin 300 mg Capsule] 600 mg PO Q8 capsule 09/17/16 Lidocaine [Lidoderm 5% (700 mg) Transdermal Patch] 2 patch TP DAILY adh..patch 09/17/16 Prednisone [Deltasone 5 mg Tablet] 5 mg PO BID tablet 09/17/16 Tramadol HCl [Ultram 50 mg Tablet] 50 mg PO Q6HP PRN #10 tablet 09/17/16 History of Present Illness Admission Date/PCP: 08/23/16 17:44 DANYA DE LA TORRE, History of Present Illness: This is a 70-year-old patient who was admitted on 08/23/2016 with nausea, vomiting, and abdominal pain. On admission her lipase was 3500 and she was diagnosed with alcohol induced pancreatitis. Patient reported that she had 2 glasses of wine per day. The patient is status post cholecystectomy. Patient' s last lipid panel showed normal triglycerides. Had a history of COPD but denies having any shortness of breath. She also has complaints of chronic low back pain. Hospital Course Hospital Course: 71-year-old female who presented with acute nausea vomiting and abdominal pain. Patient was diagnosed as having alcohol induced pancreatitis secondary to drinking 2 glasses of wine daily. Patient was made n.p.o. and given IV fluids and IV narcotics. The patient continued to have pain and GI was consulted. The patient eventually had resolution of her pancreatitis with bowel rest. The patient however during the hospitalization did develop worsening shortness of breath and was seen by pulmonary medicine. The patient's respiratory issues have resolved and she is back to her baseline breathing. She also did develop acute encephalopathy and it is not certain as to whether was all just narcotics as the cause or whether it may been the underlying illness but did not have any evidence for delirium tremens. The patient also had complaints of continuing back pain. There was concern this may represent diverticulitis. She was treated empirically with Levaquin and Flagyl and had resolution of her abdominal pain. Patient was seen by pain management because of her back pain while here. She had an MRI which showed no acute event and she underwent an epidural injection with partial but not complete relief of her low back pain. Patient's narcotics were held because of her confusion and that has resolved. She is now being treated with tramadol as needed. Patient pain issues have resolved well enough that she can do physical therapy and she is to be transferred to [facility] for rehabilitation. Physical Exam Vital Signs: Temp Pulse Resp BP Pulse Ox 98.1 F 70 20 110/73 97 09/17/16 07:10 09/17/16 07:10 09/17/16 07:10 09/17/16 07:10 09/17/16 07:10 Intake & Output 09/16/16 09/17/16 09/18/16 06:59 06:59 06:59 Intake Total 2225 1475 Output Total 0 1375 Balance 2225 100 Weight 82.5 kg 82.8 kg General appearance: PRESENT: no acute distress Eye exam: PRESENT: conjunctiva pink. ABSENT: scleral icterus Mouth exam: PRESENT: moist, tongue midline Neck exam: ABSENT: JVD Respiratory exam: PRESENT: clear to auscultation madeline. ABSENT: rales, rhonchi, wheezes Cardiovascular exam: PRESENT: RRR. ABSENT: diastolic murmur, rubs, systolic murmur GI/Abdominal exam: PRESENT: normal bowel sounds, soft. ABSENT: distended, guarding, mass, organolmegaly, rebound, tenderness Extremities exam: ABSENT: calf tenderness, clubbing, pedal edema Neurological exam: PRESENT: alert, awake, oriented to person, oriented to place , oriented to time, oriented to situation, CN II-XII grossly intact. ABSENT: motor sensory deficit Psychiatric exam: PRESENT: appropriate affect Skin exam: PRESENT: dry, intact, warm. ABSENT: cyanosis, rash Results Laboratory Results: 09/17/16 04:09 09/17/16 04:09 09/17/16 09/17/16 04:09 04:09 WBC 6.8 RBC 3.06 L Hgb 10.6 L Hct 31.7 L MCV 103 H MCH 34.6 H MCHC 33.5 RDW 14.4 H Plt Count 320 Seg Neutrophils % Not Reportable Lymphocytes % Not Reportable Monocytes % Not Reportable Eosinophils % Not Reportable Basophils % Not Reportable Absolute Neutrophils Not Reportable Absolute Lymphocytes Not Reportable Absolute Monocytes Not Reportable Absolute Eosinophils Not Reportable Absolute Basophils Not Reportable Sodium 132.4 L Potassium 3.6 Chloride 96 L Carbon Dioxide 30 Anion Gap 6 BUN 18 Creatinine 0.46 L Est GFR ( Amer) > 60 Est GFR (Non-Af Amer) > 60 Glucose 181 H Calcium 8.8 08/24/16 08/30/16 09/01/16 18:32 04:38 06:47 NT-Pro-B Natriuret Pep 3530 H 2600 H 864 Impressions: Modified Barium Swallow 09/03/16 00:00 IMPRESSION: NO EVIDENCE OF PENETRATION OR ASPIRATION. PLEASE SEE SPEECH PATHOLOGIST REPORT FOR OTHER FINDINGS AND RECOMMENDATIONS. Abdomen/Pelvis CT 09/06/16 00:00 IMPRESSION: 1. There is fatty infiltration of the liver. 2. Pancreatitis with peripancreatic, mesenteric, and pelvic fluid. There is no evidence of significant pancreatic necrosis. There is no hemorrhage. 3. Diverticulosis coli. 4. Osteopenia was lumbar scoliosis and degenerative disc change. KUB X-Ray 09/06/16 00:00 IMPRESSION: NO RADIOGRAPHIC EVIDENCE FOR ACUTE ABDOMINAL DISEASE. Abdomen MRI 09/07/16 00:00 IMPRESSION: No gallstones. No choledocholithiasis or biliary ductal dilatation. Pancreatitis with peripancreatic fluid collections as above Guidance Fluoroscopy 09/07/16 00:00 IMPRESSION: SUCCESSFUL PLACEMENT OF A 5 FR DUAL LUMEN 42 CM PICC IN THE left basilic VEIN. Interventional Vascular Procedure 09/07/16 00:00 IMPRESSION: SUCCESSFUL PLACEMENT OF A 5 FR DUAL LUMEN 42 CM PICC IN THE left basilic VEIN. PICC Line Insertion 09/07/16 00:00 IMPRESSION: SUCCESSFUL PLACEMENT OF A 5 FR DUAL LUMEN 42 CM PICC IN THE left basilic VEIN. Chest X-Ray 09/10/16 00:00 IMPRESSION: 1. PICC catheter appears to be in good position. 2. COPD. 3. New linear density on the lateral view most consistent with atelectasis. Lumbar Spine MRI 09/11/16 08:00 IMPRESSION: Multilevel disc degeneration and disc bulging as noted above. Fluoroscopy 09/14/16 00:00 IMPRESSION: Please see combined report for performance of procedure and radiologic supervision and interpretation. Spine X-Ray 09/14/16 00:00 IMPRESSION: IMAGE(S) OBTAINED DURING PROCEDURE. Transfer Plan - Disposition Transfer Plan: Patient is transferred to [facility] for short-term rehab with physical therapy. - Time Spent with Patient Time spent with patient: Greater than 30 Minutes Qualifiers PATEINT BEING DISCHARGED WITH ANY OF THE FOLLOWING DIAGNOSIS?: No Plan Discharge Plan: Patient is discharged to [facility] for rehab Time Spent: Greater than 30 Minutes
[2016-09-17] MEDS: TIOTROPIUM BROMIDE DPI 5 CAP/KIT (18 MCG/CAP) IH SCH (09:16)
[2016-09-17] MEDS: FLUTICASONE/SALMETEROL DISKUS 250-50 MCG/DOSE IH SCH (09:16)
[2016-09-17] MEDS: PREDNISONE 5 MG TABLET PO SCH (09:17)
[2016-09-17] MEDS: LEVOFLOXACIN 500 MG TABLET PO SCH (09:17)
[2016-09-17] MEDS: DULOXETINE HCL 30 MG CAPSULE.DR PO SCH (09:17)
[2016-09-17] MEDS: GUAIFENESIN 600 MG TABLET.SA PO SCH (09:17)
[2016-09-17] MEDS: ENOXAPARIN SODIUM INJ 40 MG/0.4 ML DISP.SYRIN SUBCUT SCH (09:18)
[2016-09-17] MEDS: LIDOCAINE 5% (700 MG) TRANSDERMAL ADH..PATCH TP SCH (09:31)
[2016-09-17] MEDS: NORMAL SALINE 10 ML SDV (SCHEDULED) IV SCH (09:31)
[2016-09-17] MEDS: FOLIC ACID 1 MG TABLET PO SCH (12:00)
--- NOTE | 2016-09-17 12:38 | OPERATIVE REPORT E ---
Operative Report NAME: ALIE PATTERSON : 1945 AGE: 70Y DATE OF SURGERY: ROOM: 330 PREOPERATIVE DIAGNOSIS: LUMBAR DISK DEGENERATION AND RADICULOPATHY. POSTOPERATIVE DIAGNOSIS: LUMBAR DISK DEGENERATION AND RADICULOPATHY. OPERATION: Lumbar epidural steroid injection. SURGEON: VERONICA DURAND M.D. FINDINGS: Epidural spread noted at the L4-L5 interspace with posterior epiduroscopy noted. SPECIMENS REMOVED: None. ESTIMATED BLOOD LOSS: None. PREOPERATIVE ANTIBIOTICS: None. INDICATIONS: The patient is a 71-year-old female recently admitted for pancreatitis. She has had ongoing issues with low back pain. Lumbar MRI demonstrated multilevel degenerative disk disease. As the patient's back was keeping her from being able to get out of bed and ambulate, it was determined to proceed with lumbar epidural steroid injection, as she had excellent results with this management modality in the past. PROCEDURE: All procedure risks and benefits were discussed with the patient in detail including but not limited to bleeding, bruising, infection, injury to nerves, arteries, veins, loss of bowel or bladder function, paralysis and potentially . The patient agreed to proceed. The patient was accompanied to the Endoscopy Suite where she was placed prone on the procedure table and all pressure points were checked and padded. AP and lateral fluoroscopic guidance was utilized to identify the L4-L5 vertebral body interspace. The patient was prepped and draped in sterile fashion using chlorhexidine gluconate solution and a drape provided in the epidural kit. A standard timeout protocol was performed as per [facility] operating standards. The skin overlying the target site for injection was anesthetized using 1% lidocaine and a 25-gauge needle. Deeper tissues were subsequently infiltrated. A 17-gauge Tuohy epidural needle was advanced using intermittent AP and oblique fluoroscopic guidance to the L4-L5 interspace in a right paramedian approach. Loss of resistance to the epidural space was gained using normal saline. Once loss of resistance was attained, placement was confirmed using Isovue 200 solution and no intravascular uptake was appreciated. Aspiration was negative for heme and CSF of note. After confirmation of placement in both AP and deep oblique fluoroscopic views, a solution containing 80 mg of Kenalog and 3 mL of normal saline was injected into the epidural space. The needle was removed. The skin was cleansed and a bandage applied. The patient tolerated the procedure without complication. Loss of resistance occurred at 7 cm. Total fluoroscopy time was 0.7 minutes. Total Isovue injected was 1 mL. DICTATING PHYSICIAN: VERONICA DURAND M.D. [id number] [facility]#: [id number] ID: [id number] JOB#: [id number] ACCT: [id number] cc:VERONICA DURAND M.D. >
[2016-09-17 12:44] VITALS: BP 130/65
--- NOTE | 2016-09-17 16:56 | PDOC PROGRESS REPORT ---
Subjective Progress Note for:: 09/13/16 Subjective:: Lethargic Physical Exam Vital Signs: Temp Pulse Resp BP Pulse Ox 98.0 F 77 20 124/71 96 09/13/16 11:20 09/13/16 14:00 09/13/16 12:20 09/13/16 11:20 09/13/16 12:20 Intake & Output 09/12/16 09/13/16 09/14/16 06:59 06:59 06:59 Intake Total 510 1146 237 Output Total 200 500 Balance 310 646 237 Weight 82.5 kg 83.5 kg General appearance: PRESENT: disheveled, morbidly obese, well-developed Head exam: PRESENT: atraumatic, normocephalic Eye exam: PRESENT: conjunctiva pale, EOMI Mouth exam: PRESENT: dry mucosa, neck supple, tongue midline Neck exam: ABSENT: carotid bruit, JVD, lymphadenopathy, thyromegaly Respiratory exam: PRESENT: decreased breath sounds, prolonged expiratory phas, rhonchi, symmetrical, unlabored Cardiovascular exam: PRESENT: RRR, +S1, +S2 Pulses: PRESENT: normal radial pulses GI/Abdominal exam: PRESENT: normal bowel sounds, soft. ABSENT: distended, guarding, mass, organolmegaly, rebound, tenderness Rectal exam: PRESENT: deferred Extremities exam: PRESENT: +1 edema Neurological exam: PRESENT: awake - Lethargic Psychiatric exam: PRESENT: flat affect Skin exam: PRESENT: dry, warm Results Laboratory Results: 09/13/16 04:05 09/13/16 04:05 09/13/16 09/13/16 04:05 04:05 WBC 9.2 RBC 2.92 L Hgb 10.1 L Hct 30.3 L MCV 104 H MCH 34.6 H MCHC 33.4 RDW 14.3 H Plt Count 218 Seg Neutrophils % 89.1 H Lymphocytes % 7.1 L Monocytes % 3.3 Eosinophils % 0.3 Basophils % 0.2 Absolute Neutrophils 8.2 Absolute Lymphocytes 0.7 Absolute Monocytes 0.3 Absolute Eosinophils 0.0 Absolute Basophils 0.0 Sodium 129.5 L Potassium 4.1 Chloride 92 L Carbon Dioxide 32 H Anion Gap 6 BUN 19 Creatinine 0.50 L Est GFR ( Amer) > 60 Est GFR (Non-Af Amer) > 60 Glucose 137 H Calcium 8.5 08/24/16 08/30/16 09/01/16 18:32 04:38 06:47 NT-Pro-B Natriuret Pep 3530 H 2600 H 864 Impressions: Modified Barium Swallow 09/03/16 00:00 IMPRESSION: NO EVIDENCE OF PENETRATION OR ASPIRATION. PLEASE SEE SPEECH PATHOLOGIST REPORT FOR OTHER FINDINGS AND RECOMMENDATIONS. Spine X-Ray 09/04/16 00:00 IMPRESSION: 1. There is loss of height of the T8 vertebral body that does not appear to be acute. 2. Scoliosis as described. 3. Multilevel lumbar degenerative disc changes. Abdomen/Pelvis CT 09/06/16 00:00 IMPRESSION: 1. There is fatty infiltration of the liver. 2. Pancreatitis with peripancreatic, mesenteric, and pelvic fluid. There is no evidence of significant pancreatic necrosis. There is no hemorrhage. 3. Diverticulosis coli. 4. Osteopenia was lumbar scoliosis and degenerative disc change. KUB X-Ray 09/06/16 00:00 IMPRESSION: NO RADIOGRAPHIC EVIDENCE FOR ACUTE ABDOMINAL DISEASE. Abdomen MRI 09/07/16 00:00 IMPRESSION: No gallstones. No choledocholithiasis or biliary ductal dilatation. Pancreatitis with peripancreatic fluid collections as above Guidance Fluoroscopy 09/07/16 00:00 IMPRESSION: SUCCESSFUL PLACEMENT OF A 5 FR DUAL LUMEN 42 CM PICC IN THE left basilic VEIN. Interventional Vascular Procedure 09/07/16 00:00 IMPRESSION: SUCCESSFUL PLACEMENT OF A 5 FR DUAL LUMEN 42 CM PICC IN THE left basilic VEIN. PICC Line Insertion 09/07/16 00:00 IMPRESSION: SUCCESSFUL PLACEMENT OF A 5 FR DUAL LUMEN 42 CM PICC IN THE left basilic VEIN. Chest X-Ray 09/10/16 00:00 IMPRESSION: 1. PICC catheter appears to be in good position. 2. COPD. 3. New linear density on the lateral view most consistent with atelectasis. Lumbar Spine MRI 09/11/16 08:00 IMPRESSION: Multilevel disc degeneration and disc bulging as noted above. Assessment & Plan - Diagnosis (1) Acute on chronic respiratory failure with hypoxemia Is this a current diagnosis for this admission?: YesPlan: Stable on oxygen nasal cannula no longer requiring BiPAP (2) COPD (chronic obstructive pulmonary disease) Qualifiers: COPD type: COPD with acute exacerbation Qualified Code(s): J44.1 - Chronic obstructive pulmonary disease with (acute) exacerbation Is this a current diagnosis for this admission?: YesPlan: Stable continue current bronchodilator therapy (3) Hypercalcemia Is this a current diagnosis for this admission?: No
--- NOTE | 2016-09-17 16:57 | PDOC PROGRESS REPORT ---
Subjective Progress Note for:: 09/14/16 Subjective:: Lethargic Physical Exam Vital Signs: Temp Pulse Resp BP Pulse Ox 98.1 F 75 16 130/65 H 100 09/17/16 11:59 09/17/16 14:27 09/17/16 14:27 09/17/16 11:59 09/17/16 11:59 Intake & Output 09/16/16 09/17/16 09/18/16 06:59 06:59 06:59 Intake Total 2225 1475 437 Output Total 0 1375 Balance 2225 100 437 Weight 82.5 kg 82.8 kg General appearance: PRESENT: disheveled, morbidly obese, well-developed Head exam: PRESENT: atraumatic, normocephalic Eye exam: PRESENT: conjunctiva pale, EOMI Mouth exam: PRESENT: dry mucosa, neck supple, tongue midline Neck exam: ABSENT: carotid bruit, JVD, lymphadenopathy, thyromegaly Respiratory exam: PRESENT: decreased breath sounds, prolonged expiratory phas, symmetrical, unlabored Cardiovascular exam: PRESENT: RRR, +S1, +S2 Pulses: PRESENT: normal radial pulses GI/Abdominal exam: PRESENT: normal bowel sounds, soft. ABSENT: distended, guarding, mass, organolmegaly, rebound, tenderness Rectal exam: PRESENT: deferred Extremities exam: PRESENT: +1 edema Neurological exam: PRESENT: awake - lethargic Psychiatric exam: PRESENT: flat affect Skin exam: PRESENT: dry, warm Results Laboratory Results: 09/17/16 04:09 09/17/16 04:09 09/17/16 09/17/16 04:09 04:09 WBC 6.8 RBC 3.06 L Hgb 10.6 L Hct 31.7 L MCV 103 H MCH 34.6 H MCHC 33.5 RDW 14.4 H Plt Count 320 Seg Neutrophils % Not Reportable Lymphocytes % Not Reportable Monocytes % Not Reportable Eosinophils % Not Reportable Basophils % Not Reportable Absolute Neutrophils Not Reportable Absolute Lymphocytes Not Reportable Absolute Monocytes Not Reportable Absolute Eosinophils Not Reportable Absolute Basophils Not Reportable Sodium 132.4 L Potassium 3.6 Chloride 96 L Carbon Dioxide 30 Anion Gap 6 BUN 18 Creatinine 0.46 L Est GFR ( Amer) > 60 Est GFR (Non-Af Amer) > 60 Glucose 181 H Calcium 8.8 08/24/16 08/30/1617 18:32 04:38 06:47 NT-Pro-B Natriuret Pep 3530 H 2600 H 864 Impressions: Modified Barium Swallow 09/03/16 00:00 IMPRESSION: NO EVIDENCE OF PENETRATION OR ASPIRATION. PLEASE SEE SPEECH PATHOLOGIST REPORT FOR OTHER FINDINGS AND RECOMMENDATIONS. Abdomen/Pelvis CT 09/06/16 00:00 IMPRESSION: 1. There is fatty infiltration of the liver. 2. Pancreatitis with peripancreatic, mesenteric, and pelvic fluid. There is no evidence of significant pancreatic necrosis. There is no hemorrhage. 3. Diverticulosis coli. 4. Osteopenia was lumbar scoliosis and degenerative disc change. KUB X-Ray 09/06/16 00:00 IMPRESSION: NO RADIOGRAPHIC EVIDENCE FOR ACUTE ABDOMINAL DISEASE. Abdomen MRI 09/07/16 00:00 IMPRESSION: No gallstones. No choledocholithiasis or biliary ductal dilatation. Pancreatitis with peripancreatic fluid collections as above Guidance Fluoroscopy 09/07/16 00:00 IMPRESSION: SUCCESSFUL PLACEMENT OF A 5 FR DUAL LUMEN 42 CM PICC IN THE left basilic VEIN. Interventional Vascular Procedure 09/07/16 00:00 IMPRESSION: SUCCESSFUL PLACEMENT OF A 5 FR DUAL LUMEN 42 CM PICC IN THE left basilic VEIN. PICC Line Insertion 09/07/16 00:00 IMPRESSION: SUCCESSFUL PLACEMENT OF A 5 FR DUAL LUMEN 42 CM PICC IN THE left basilic VEIN. Chest X-Ray 09/10/16 00:00 IMPRESSION: 1. PICC catheter appears to be in good position. 2. COPD. 3. New linear density on the lateral view most consistent with atelectasis. Lumbar Spine MRI 09/11/16 08:00 IMPRESSION: Multilevel disc degeneration and disc bulging as noted above. Fluoroscopy 09/14/16 00:00 IMPRESSION: Please see combined report for performance of procedure and radiologic supervision and interpretation. Spine X-Ray 09/14/16 00:00 IMPRESSION: IMAGE(S) OBTAINED DURING PROCEDURE. Assessment & Plan - Diagnosis (1) Acute on chronic respiratory failure with hypoxemia Is this a current diagnosis for this admission?: Yes (2) COPD (chronic obstructive pulmonary disease) Qualifiers: COPD type: COPD with acute exacerbation Qualified Code(s): J44.1 - Chronic obstructive pulmonary disease with (acute) exacerbation Is this a current diagnosis for this admission?: Yes (3) Hypercalcemia Is this a current diagnosis for this admission?: No
--- NOTE | 2016-09-17 16:59 | PDOC PROGRESS REPORT ---
Subjective Progress Note for:: 09/17/16 Subjective:: more awake Physical Exam Vital Signs: Temp Pulse Resp BP Pulse Ox 98.1 F 74 16 110/73 97 09/17/16 07:10 09/17/16 10:02 09/17/16 10:02 09/17/16 07:10 09/17/16 10:02 Intake & Output 09/16/16 09/17/16 09/18/16 06:59 06:59 06:59 Intake Total 2225 1475 Output Total 0 1375 Balance 2225 100 Weight 82.5 kg 82.8 kg General appearance: PRESENT: disheveled, morbidly obese, well-developed Head exam: PRESENT: atraumatic, normocephalic Eye exam: PRESENT: conjunctiva pale, EOMI Mouth exam: PRESENT: dry mucosa, neck supple, tongue midline Neck exam: ABSENT: carotid bruit, JVD, lymphadenopathy, thyromegaly Respiratory exam: PRESENT: decreased breath sounds, prolonged expiratory phas, rhonchi, symmetrical, unlabored, wheezes Cardiovascular exam: PRESENT: RRR, +S1, +S2 Pulses: PRESENT: normal radial pulses GI/Abdominal exam: PRESENT: normal bowel sounds, soft. ABSENT: distended, guarding, mass, organolmegaly, rebound, tenderness Rectal exam: PRESENT: deferred Extremities exam: PRESENT: +1 edema Neurological exam: PRESENT: awake Psychiatric exam: PRESENT: normal mood Skin exam: PRESENT: dry, warm Results Laboratory Results: 09/17/16 04:09 09/17/16 04:09 09/17/16 09/17/16 04:09 04:09 WBC 6.8 RBC 3.06 L Hgb 10.6 L Hct 31.7 L MCV 103 H MCH 34.6 H MCHC 33.5 RDW 14.4 H Plt Count 320 Seg Neutrophils % Not Reportable Lymphocytes % Not Reportable Monocytes % Not Reportable Eosinophils % Not Reportable Basophils % Not Reportable Absolute Neutrophils Not Reportable Absolute Lymphocytes Not Reportable Absolute Monocytes Not Reportable Absolute Eosinophils Not Reportable Absolute Basophils Not Reportable Sodium 132.4 L Potassium 3.6 Chloride 96 L Carbon Dioxide 30 Anion Gap 6 BUN 18 Creatinine 0.46 L Est GFR ( Amer) > 60 Est GFR (Non-Af Amer) > 60 Glucose 181 H Calcium 8.8 08/24/16 08/30/16 09/01/16 18:32 04:38 06:47 NT-Pro-B Natriuret Pep 3530 H 2600 H 864 Impressions: Modified Barium Swallow 09/03/16 00:00 IMPRESSION: NO EVIDENCE OF PENETRATION OR ASPIRATION. PLEASE SEE SPEECH PATHOLOGIST REPORT FOR OTHER FINDINGS AND RECOMMENDATIONS. Abdomen/Pelvis CT 09/06/16 00:00 IMPRESSION: 1. There is fatty infiltration of the liver. 2. Pancreatitis with peripancreatic, mesenteric, and pelvic fluid. There is no evidence of significant pancreatic necrosis. There is no hemorrhage. 3. Diverticulosis coli. 4. Osteopenia was lumbar scoliosis and degenerative disc change. KUB X-Ray 09/06/16 00:00 IMPRESSION: NO RADIOGRAPHIC EVIDENCE FOR ACUTE ABDOMINAL DISEASE. Abdomen MRI 09/07/16 00:00 IMPRESSION: No gallstones. No choledocholithiasis or biliary ductal dilatation. Pancreatitis with peripancreatic fluid collections as above Guidance Fluoroscopy 09/07/16 00:00 IMPRESSION: SUCCESSFUL PLACEMENT OF A 5 FR DUAL LUMEN 42 CM PICC IN THE left basilic VEIN. Interventional Vascular Procedure 09/07/16 00:00 IMPRESSION: SUCCESSFUL PLACEMENT OF A 5 FR DUAL LUMEN 42 CM PICC IN THE left basilic VEIN. PICC Line Insertion 09/07/16 00:00 IMPRESSION: SUCCESSFUL PLACEMENT OF A 5 FR DUAL LUMEN 42 CM PICC IN THE left basilic VEIN. Chest X-Ray 09/10/16 00:00 IMPRESSION: 1. PICC catheter appears to be in good position. 2. COPD. 3. New linear density on the lateral view most consistent with atelectasis. Lumbar Spine MRI 09/11/16 08:00 IMPRESSION: Multilevel disc degeneration and disc bulging as noted above. Fluoroscopy 09/14/16 00:00 IMPRESSION: Please see combined report for performance of procedure and radiologic supervision and interpretation. Spine X-Ray 09/14/16 00:00 IMPRESSION: IMAGE(S) OBTAINED DURING PROCEDURE. Assessment & Plan - Diagnosis (1) Acute on chronic respiratory failure with hypoxemia Is this a current diagnosis for this admission?: Yes (2) COPD (chronic obstructive pulmonary disease) Qualifiers: COPD type: COPD with acute exacerbation Qualified Code(s): J44.1 - Chronic obstructive pulmonary disease with (acute) exacerbation Is this a current diagnosis for this admission?: Yes (3) Hypercalcemia Is this a current diagnosis for this admission?: No
== END 2016-09-17 15:49 | DRG 438 ==
LOC: ER 14:52 → EH 17:44 → UNDOADMIN 18:19 → EH 18:19 → 3S 21:37
PROVIDERS: ADMIT Family Medicine; ATTEND Family Medicine
PROC: 3E0F73Z Introduction of Anti-inflammatory into Respiratory Tract, Via Natural or Artificial Opening (ICD-10-PCS; 2016-08-23)
PROC: 02HV33Z Insertion of Infusion Device into Superior Vena Cava, Percutaneous Approach (ICD-10-PCS; principal; 2016-09-07)
PROC: B518ZZA Fluoroscopy of Superior Vena Cava, Guidance (ICD-10-PCS; 2016-09-07)
PROC: 3E0436Z Introduction of Nutritional Substance into Central Vein, Percutaneous Approach (ICD-10-PCS; 2016-09-07)
PROC: B548ZZA Ultrasonography of Superior Vena Cava, Guidance (ICD-10-PCS; 2016-09-07)
PROC: 3E0R33Z Introduction of Anti-inflammatory into Spinal Canal, Percutaneous Approach (ICD-10-PCS; 2016-09-17)
DX: K85.20 Alcohol induced acute pancreatitis without necrosis or infection (principal); J96.21 Acute and chronic respiratory failure with hypoxia; G92 Toxic encephalopathy; J81.0 Acute pulmonary edema; K57.92 Diverticulitis of intestine, part unspecified, without perforation or abscess without bleeding; J44.1 Chronic obstructive pulmonary disease with (acute) exacerbation; E44.0 Moderate protein-calorie malnutrition; E83.42 Hypomagnesemia; M54.9 Dorsalgia, unspecified; Z66 Do not resuscitate; E87.6 Hypokalemia; M85.88 Other specified disorders of bone density and structure, other site; F10.20 Alcohol dependence, uncomplicated; M19.90 Unspecified osteoarthritis, unspecified site; M41.9 Scoliosis, unspecified; K21.9 Gastro-esophageal reflux disease without esophagitis; M51.36 Other intervertebral disc degeneration, lumbar region; G89.4 Chronic pain syndrome; E83.52 Hypercalcemia; R73.9 Hyperglycemia, unspecified; T38.0X5A Adverse effect of glucocorticoids and synthetic analogues, initial encounter; K76.0 Fatty (change of) liver, not elsewhere classified; E86.0 Dehydration; E83.39 Other disorders of phosphorus metabolism; E66.09 Other obesity due to excess calories; B35.3 Tinea pedis; Z68.28 Body mass index [BMI] 28.0-28.9, adult; Z90.49 Acquired absence of other specified parts of digestive tract; Z96.641 Presence of right artificial hip joint; Z87.891 Personal history of nicotine dependence; Z99.81 Dependence on supplemental oxygen; Z79.899 Other long term (current) drug therapy; Z82.61 Family history of arthritis; Z80.0 Family history of malignant neoplasm of digestive organs
CPT/HCPCS: 36415; 36569; 36600; 62273; 71010; 71020; 72020; 72082; 72148; 74000; 74176; 74177; 74181; 74230; 76937; 77001; 80048; 80053; 80061; 80076; 81001; 82150; 82803; 82962; 83036; 83690; 83735; 83880; 84100; 84134; 84443; 85025; 85027; 85610; 87040; 87493; 93306; 94640; 94660; 94667; 94668; 94799; 96361; 96374; 99285; G8978-GP; G8979-GP; G8996-GN; G8997-GN; G8998-GN; J0456; J0610; J0696; J1170; J1200; J1642; J1650; J1720; J1815; J1885; J1940; J2060; J2270; J2310; J2405; J2920; J3411; J3475; J3480; J3490; J7030; J7060; J7512; J7620; S0028; S0164

== ENCOUNTER 2017-05-08 03:15 | Emergency (ER) | payer MEDICARE, MEDICAID ==
[2017-05-08] MEDS ORDERED: NITROGLYCERIN 2% OINTMENT 1 GM PACKET ONE (03:23)
[2017-05-08] MEDS ORDERED: FUROSEMIDE INJ/PF 40 MG/4 ML SDV ONE (03:23)
[2017-05-08] MEDS ORDERED: FUROSEMIDE INJ/PF 100 MG/10 ML SDV IV ONE (03:24)
[2017-05-08] MEDS ORDERED: ENALAPRILAT DIHYDRATE INJ/PF 1.25 MG/1 ML SDV IV ONE (03:26)
[2017-05-08] MEDS ORDERED: IPRATROPIUM/ALBUTEROL 0.5-2.5 MG/3 ML AMPUL NEB ONE (03:27)
[2017-05-08] MEDS ORDERED: METHYLPREDNISOLONE INJ 125 MG/2 ML SDV IV ONE (03:28)
--- NOTE | 2017-05-08 03:57 | RADIOLOGY REPORT (SQ) ---
EXAM DESCRIPTION: CHEST SINGLE VIEW CLINICAL HISTORY: 71 years Female, dyspnea COMPARISON: 09/10/2016 NUMBER OF VIEWS/TECHNIQUE: 1/AP LIMITATIONS: None. FINDINGS: Small left basilar opacity-effusion. Moderate haziness of the right lung base. Normal cardiac silhouette. Atherosclerosis. Intact bony thorax. IMPRESSION: Bibasilar opacities which may indicate pneumonia, atelectasis, and/or effusion. Recommend CR/CT surveillance including at 7-12 weeks following initiation of clinically warranted therapy.
[2017-05-08 03:59] LABS: HEMATOCRIT 38.7 % (36.0-47.0); HEMOGLOBIN 12.5 g/dL (12.0-15.5); MEAN CORPUSCULAR HEMOGLOBIN 33.4 pg (27.0-33.4); MEAN CORPUSCULAR HGB CONC 32.2 g/dL (32.0-36.0); MEAN CORPUSCULAR VOLUME 104 fl (80-97); RED BLOOD COUNT 3.73 10^6/uL (3.72-5.28); RED CELL DISTRIBUTION WIDTH 15.6 % (11.5-14.0); WHITE BLOOD COUNT 12.1 10^3/uL (4.0-10.5)
[2017-05-08 04:12] LABS: ALANINE AMINOTRANSFERASE 188 U/L (9-52); ALBUMIN 3.6 g/dL (3.5-5.0); ALKALINE PHOSPHATASE 166 U/L (38-126); ANION GAP 17 (5-19); ASPARTATE AMINO TRANSFERASE 323 U/L (14-36); BILIRUBIN,DIRECT 1.2 mg/dL (0.0-0.4); BILIRUBIN,TOTAL 1.9 mg/dL (0.2-1.3); BLOOD UREA NITROGEN 40 mg/dL (7-20); CALCIUM 9.6 mg/dL (8.4-10.2); CARBON DIOXIDE 26 mmol/L (22-30); CHLORIDE 93 mmol/L (98-107); INTERNATIONAL RATION (INR) 0.91; POTASSIUM 4.7 mmol/L (3.6-5.0); PROTHROMBIN TIME 12.9 SEC (11.4-15.4); SODIUM 135.7 mmol/L (137-145); TOTAL PROTEIN 5.8 g/dL (6.3-8.2)
[2017-05-08 04:21] LABS: GLUCOSE 551 mg/dL (75-110)
[2017-05-08 04:25] LABS: ABSOLUTE MONOCYTES # (MANUAL) 0.6 10^3/uL (0.1-1.4); ABSOLUTE NEUTROPHILS# (MANUAL) 10.5 10^3/uL (1.7-8.2); BAND NEUTROPHILS % (MANUAL) 6 % (3-5); BASOPHILS % (MANUAL) 0 % (0-2); EOSINOPHILS % (MANUAL) 0 % (0-6); LYMPHOCYTES % (MANUAL) 8 % (13-45); MONOCYTES % (MANUAL) 5 % (3-13); SEGMENTED NEUTROPHILS % (MAN) 80 % (42-78); TOTAL CELLS COUNTED 100
[2017-05-08 04:26] LABS: PLATELET CLUMPS PRESENT; PLATELET COMMENT ADEQUATE
[2017-05-08 04:27] LABS: POLYCHROMASIA SLIGHT; RBC MORPHOLOGY COMMENT NORMO-CYTIC/CHROMIC
[2017-05-08 04:29] LABS: MYELOCYTES % (MANUAL) 1 % (0); PLATELET COUNT 289 10^3/uL (150-450)
[2017-05-08 04:30] LABS: TOXIC GRANULATION 1+; TOXIC VACUOLATION PRESENT
[2017-05-08 04:36] LABS: TROPONIN I 1.78 ng/mL
[2017-05-08 05:05] LABS: VENOUS BLOOD BASE EXCESS 0.5 mmol/L; VENOUS BLOOD HCO3 27.3 mmol/L (20-32); VENOUS BLOOD PH 7.34 (7.30-7.42)
[2017-05-08] MEDS ORDERED: INSULIN REG, HUMAN 100 UNIT/ML 3 ML VIAL (PYX) IV ONE (05:07)
[2017-05-08] MEDS ORDERED: PIPERACILLIN/TAZOBACTAM 3.375 GM VIAL IV ONE (05:52)
[2017-05-08 05:54] LABS: APPEARANCE,URINE CLOUDY; BILIRUBIN,URINE NEGATIVE (NEGATIVE); COLOR,URINE YELLOW; GLUCOSE, URINE >=500 mg/dL (NEGATIVE); KETONES,URINE TRACE mg/dL (NEGATIVE); LEUKOCYTE ESTERASE,URINE SMALL (NEGATIVE); NITRITE,URINE NEGATIVE (NEGATIVE); PROTEIN,URINE NEGATIVE (NEGATIVE); URINE SPECIFIC GRAVITY 1.008
[2017-05-08] MEDS ORDERED: LEVOFLOXACIN 750 MG/D5W RTU 750 MG/150 ML RTUPB IV SCH ×2 (06:00→10:00)
[2017-05-08] MEDS ORDERED: ONDANSETRON HCL INJ/PF 4 MG/2 ML SDV IV ONE (06:06)
--- NOTE | 2017-05-08 06:08 | ER Document Report ---
ED General - General Chief Complaint: Respiratory Distress Stated Complaint: DIFFICULTY BREATHING Time Seen by Provider: 05/08/17 03:22 Mode of Arrival: Medic Information source: Patient TRAVEL OUTSIDE OF THE [place] IN LAST 30 DAYS: No - HPI Notes: Patient is a 71-year-old ex-smoker with history of COPD and CHF presents with report that she has had increasing productive cough of yellow phlegm over the last 2-3 weeks with progressive dyspnea. The patient is usually on 3 L of home oxygen by nasal cannula. Due to her increasing dyspnea, the family placed her upon what sounds like a nonrebreather mask that they had from a previous admission, but only put her on 4 L of oxygen attached to it. The patient became more dyspneic and then became somnolent and then unresponsive. They removed the mask and she woke back up and started to respond by the time EMS arrived and found her to have an O2 sat of 84%. EMS placed her on BiPAP and brought her in for further evaluation. The patient initially denied chest pain, later admitted to some mild chest tightness. No fever or chills. Initially no nausea or vomiting or diarrhea. Patient has been compliant with her medications which include Lasix, calcium, nebulizer treatments and inhalers. Patient does report significant increase in lower extremity edema gradually over several weeks. - Related Data Allergies/Adverse Reactions: No Known Allergies Allergy (Verified 08/23/16 15:00) Past Medical History - General Information source: Patient - Social History Smoking Status: Former Smoker Frequency of alcohol use: None Drug Abuse: None Lives with: Family Family History: Reviewed & Not Pertinent Patient has suicidal ideation: No Patient has homicidal ideation: No Pulmonary Medical History: Reports: Hx Bronchitis, Hx COPD, Hx Pneumonia Renal/ Medical History: Denies: Hx Peritoneal Dialysis Musculoskeltal Medical History: Reports Hx Arthritis Past Surgical History: Reports: Hx Cholecystectomy, Hx Orthopedic Surgery - Right Hip Replacement - Immunizations Hx Diphtheria, Pertussis, Tetanus Vaccination: No Hx Pneumococcal Vaccination: 02/25/11 Review of Systems - Review of Systems Notes: REVIEW OF SYSTEMS: CONSTITUTIONAL : Denies fever, chills, or sweats. EENT: Denies eye, ear, throat, or mouth pain or symptoms. Denies throat, tongue, or mouth swelling or difficulty swallowing. CARDIOVASCULAr: Respiratory reports dyspnea and orthopnea or wheezing GASTROINTESTINAL: Denies abdominal pain or distention. Denies nausea, vomiting , or diarrhea. Denies blood in vomitus, stools, or per rectum. Denies black, tarry stools. Denies constipation. GENITOURINARY: Denies difficulty urinating, painful urination, burning, frequency, blood in urine, or discharge. FEMALE GENITOURINARY: Denies vaginal bleeding, heavy or abnormal periods, irregular periods. Denies vaginal discharge or odor. MUSCULOSKELETAL: Denies back or neck pain or stiffness. Denies joint pain or swelling. SKIN: Denies rash. Patient has mild skin breakdown on the gluteal region. HEMATOLOGIC : Denies easy bruising or bleeding. LYMPHATIC: Denies swollen, enlarged glands. NEUROLOGICAL: Denies confusion or altered mental status. Denies passing out or loss of consciousness. Denies dizziness or lightheadedness. Denies headache. Denies weakness or paralysis or loss of use of either side. Denies problems with gait or speech. Denies sensory loss, numbness, or tingling. Denies seizures. PSYCHIATRIC: Denies anxiety or stress. Denies depression, suicidal ideation, or homicidal ideation. ALL OTHER SYSTEMS REVIEWED AND NEGATIVE. Dictation was performed using [employer] voice recognition software Physical Exam - Vital signs Vitals: Resp BP Pulse Ox 36 H 142/94 H 99 05/08/17 03:21 05/08/17 03:21 05/08/17 03:21 - Notes Notes: PHYSICAL EXAMINATION: GENERAL: Well-appearing, well-nourished and in obvious respiratory distress, but alert. HEAD: Atraumatic, normocephalic. EYES: Pupils equal round and reactive to light, extraocular movements intact, conjunctiva are normal. ENT: Nares patent, oropharynx clear without exudates. Moist mucous membranes. NECK: Normal range of motion, supple without lymphadenopathy. Mild JVD noted LUNGS: Coarse breath sounds with scant Rales and wheezes noted. Some accessory muscle use. HEART: Somewhat irregular rhythm with rate of 100 with 2/6 systolic ejection murmur best auscultated over the apex. ABDOMEN: Soft, nontender, nondistended abdomen. No guarding, no rebound. No masses appreciated. Female : deferred Musculoskeletal: Normal range of motion. No cyanosis. 3+ bilateral lower extremity edema. NEUROLOGICAL: Cranial nerves grossly intact. Normal sensory, motor exams PSYCH: Normal mood, normal affect. SKIN: Cool extremities with mild mottling. Stage II decubitus posterior sacral region without evidence for infection. Course - Re-evaluation Re-evalutation: 05/08/17 07:10 Rectal temperature was 97.2. Patient blood cultures and lactic acid level drawn. Initially upon arrival, the patient was thought to be in congestive heart failure with COPD. Patient was kept on BiPAP And she remained alert. The patient was given IV Lasix 80 mg and 1 inch of nitroglycerin paste and was given Solu-Medrol IV and a DuoNeb. Blood pressure came down to 110 systolic, so patient was not given enalapril. Initial EKG as interpreted by me showed what appeared to be atrial fibrillation mixed with sinus rhythm heart rate controlled at 96. There is no gross evidence for acute [place] or ischemia with no significant change from previous EKG from 07/01/16. The patient had adequate diuresis. Chest x-ray showed evidence for pneumonia. After blood cultures, the patient was given IV Zosyn and Avelox. Patient was taken off of BiPAP, but she became dyspneic after 30 minutes and was placed back on BiPAP. Troponin was elevated at 1.7. Discussion was undertaken with the patient and family. The patient stated she was a DNR, and the went home to get the paperwork. DNR order was written. Urine culture was taken, his urine showed evidence for UTI. Patient had an elevated BNP, but also an elevated Lactic acid. Question was raised of sepsis versus significant hypoxic stress event which occurred at home related to having a nonrebreather mask 4 L of oxygen. Elevated troponin could not exclude an non-STEMI. Discussion was undertaken with patient and family and they were in agreement with potential transfer for further evaluation and management at [facility] where there was possibility of interventional cardiology if the patient was able to tolerate that. 05/08/17 07:15 Discussion was undertaken with Dr. Miles, who agreed to transfer the patient to [facility]. - Vital Signs Vital signs: Temp Pulse Resp BP Pulse Ox 97.8 F 23 H 119/70 99 05/08/17 06:59 05/08/17 06:35 05/08/17 06:35 05/08/17 06:35 - Laboratory Result Diagrams: 05/08/17 03:35 05/08/17 03:35 Laboratory results interpreted by me: 05/08/17 05/08/17 05/08/17 03:35 03:35 03:35 WBC 12.1 H MCV 104 H RDW 15.6 H Seg Neuts % (Manual) 80 H Band Neutrophils % 6 H Lymphocytes % (Manual) 8 L Myelocytes % 1 H Abs Neuts (Manual) 10.5 H Sodium 135.7 L Chloride 93 L BUN 40 H Glucose 551 H* Lactic Acid Total Bilirubin 1.9 H Direct Bilirubin 1.2 H AST 323 H ALT 188 H Alkaline Phosphatase 166 H NT-Pro-B Natriuret Pep 97640 H Total Protein 5.8 L Urine Glucose (UA) Urine Ketones Urine Blood Urine Urobilinogen Ur Leukocyte Esterase 05/08/17 05/08/17 03:35 05:23 WBC MCV RDW Seg Neuts % (Manual) Band Neutrophils % Lymphocytes % (Manual) Myelocytes % Abs Neuts (Manual) Sodium Chloride BUN Glucose Lactic Acid 5.5 H Total Bilirubin Direct Bilirubin AST ALT Alkaline Phosphatase NT-Pro-B Natriuret Pep Total Protein Urine Glucose (UA) >=500 H Urine Ketones TRACE H Urine Blood MODERATE H Urine Urobilinogen 2.0 H Ur Leukocyte Esterase SMALL H - EKG Interpretation by Me Additional EKG results interpreted by me: 05/08/17 07:15 Repeat EKG at 0 647 as interpreted by me showed atrial fibrillation with tachycardic rate of 107. There was no gross evidence for acute STEMI. There is no significant change otherwise noted. Critical Care Note - Critical Care Note Total time excluding time spent on procedures (mins): 56 Discharge - Discharge Clinical Impression: DNR (do not resuscitate), Hyperglycemia, Non-STEMI (non-ST elevated myocardial infarction) CHF (congestive heart failure) Qualifiers: Heart failure type: unspecified Heart failure chronicity: acute Qualified Code( s): I50.9 - Heart failure, unspecified Pneumonia Qualifiers: Pneumonia type: due to unspecified organism Laterality: left Lung location: lower lobe of lung Qualified Code(s): J18.1 - Lobar pneumonia, unspecified organism COPD (chronic obstructive pulmonary disease) Qualifiers: COPD type: COPD with acute lower respiratory infection Qualified Code(s): J44.0 - Chronic obstructive pulmonary disease with acute lower respiratory infection Atrial fibrillation Qualifiers: Atrial fibrillation type: unspecified Qualified Code(s): I48.91 - Unspecified atrial fibrillation Decubitus ulcer Qualifiers: Pressure ulcer location: sacral region Pressure ulcer stage: stage 2 Qualified Code(s): L89.152 - Pressure ulcer of sacral region, stage 2 Disposition: [facility] Referrals: DUSTIN GUERRA MD [Primary Care Provider] - Follow up as needed
[2017-05-08] MEDS ORDERED: NORMAL SALINE 1000 ML 1,000 ML IV ONE (06:34)
--- NOTE | 2017-05-08 08:19 | EKG REPORT ---
SEVERITY:- ABNORMAL ECG - ATRIAL FIBRILLATION, V-RATE 80-109 LEFT ANTERIOR FASCICULAR BLOCK BORDERLINE R WAVE PROGRESSION, ANTERIOR LEADS ABNORMAL T, CONSIDER ISCHEMIA, ANT-LAT LEADS BORDERLINE PROLONGED QT INTERVAL : Confirmed by: Abrahan James MD 08-May-2017 08:18:40
--- NOTE | 2017-05-08 08:19 | EKG REPORT ---
SEVERITY:- DEFECTIVE ECG - ATRIAL FIBRILLATION, V-RATE 75-87 BORDERLINE IVCD WITH LAD INFERIOR INFARCT, AGE INDETERMINATE : Confirmed by: Abrahan James MD 08-May-2017 08:18:12
[2017-05-08] MEDS ORDERED: IBUPROFEN 600 MG TABLET PO ONE (11:07)
[2017-05-08] MEDS ORDERED: ACETAMINOPHEN 325 MG TABLET PO ONE (11:07)
[2017-05-08] MEDS ORDERED: NORMAL SALINE 500 ML IV ONE (12:08)
[2017-05-08 12:59] VITALS: BP 91/66
== END 2017-05-08 13:23 | disposition short-term general hospital (02) ==
LOC: ER 03:15
DX: I21.4 Non-ST elevation (NSTEMI) myocardial infarction (principal); J18.1 Lobar pneumonia, unspecified organism; J44.0 Chronic obstructive pulmonary disease with (acute) lower respiratory infection; R73.9 Hyperglycemia, unspecified; I50.9 Heart failure, unspecified; I48.91 Unspecified atrial fibrillation; L89.152 Pressure ulcer of sacral region, stage 2; R05 Cough; R06.09 Other forms of dyspnea; R07.9 Chest pain, unspecified; Z87.891 Personal history of nicotine dependence
CPT/HCPCS: 93005; 94640; 99291; 96361; 51702; 96375; 96365; 96367; 36415; 87040; 82962; 83735; 85025; 85610; 87077; 80053; 81001; 84484; 87186; 82803; 83605; 83880; 71045; 93010; 94660; A9270 ×5; J1940; J2930; J2405; J7030; J1956; J2543; J1815; J7620

== ENCOUNTER → 2017-06-03 | Day surgery (SDC) | payer MEDICARE, MEDICAID ==
--- NOTE | 2017-06-03 12:28 | RADIOLOGY REPORT (SQ) ---
EXAM DESCRIPTION: PICC INSERTION; FLUORO/CV PLACEMENT; U/S GUIDE FOR VASCULAR ACCESS COMPLETED DATE/TIME: 06/03/2017 11:06 am; 06/03/2017 11:07 am REASON FOR STUDY: IV ANTIBIOTICS; IV ABX; IV ACCESS R10.84 GENERALIZED ABDOMINAL PAIN E87.8 OTH CHARLES CUADRADERS OF ELECTROLYTE AND FLUID BALANCE, NEC COMPARISON: AP chest 05/08/2017 FLUOROSCOPY TIME: 35 seconds 5 digital radiographic images, 1 ultrasound image saved to PACS. TECHNIQUE: Fluoroscopic and ultrasound guided PICC placement. LIMITATIONS: None. PROCEDURE: After written consent and assessment were obtained, the patient was brought into the fluo roscopy room and place supine on the table. Ultrasound was used on the patient's left arm for PICC a ccess. The left arm was prepped and draped in a sterile fashion along with the ultrasound probe. The entry site was anesthetized with 3 mL of 1% lidocaine. A 21 gauge 7 cm needle was advanced through th e skin and into the basilic vein under live ultrasound guidance. An ultrasound image was saved to [facility] confirming access site. A .018 guide wire was then inserted through the needle and into the venou s system. The needle was the removed and an 11 blade scalpel was used to make a 1cm skin incision. A 5 fr peel-away sheath was advanced over the wire and into the venous system. A measurement was then made using the existing wire and live fluoroscopic guidance. The wire was then removed and the trimme d. The PICC was advanced through the peel-away sheath and into the venous system. The peel-away sheat h was removed and the catheter was adhered to the patients arm with a stat lock. The catheter was the n aspirated and flushed and a sterile bandage was placed over the access site. A fluoroscopic spot i mage was saved to PACS confirming the catheter tip within the superior vena cava. IMPRESSION: SUCCESSFUL PLACEMENT OF A 5 FR DUAL LUMEN 39 CM PICC IN THE LEFT BASILIC VEIN. COMMENT: Patient medication list reviewed: Yes, quality ight ID 1. 30: Eligible professional at [facility] ts to documenting in the medical record the obtained, with updated current medications list. Quality ID 145: Final reports for procedures using fluoroscopy that document radiation exposure julio jennifer, or exposure time and number of fluorographic images (if radiation exposure indices are not avail able) Quality ID #76: The patient was prepped and draped using maximum sterile barrier technique including cap, mask, sterile gown, sterile gloves, a large sterile sheet, hand hygiene, and 2% Chlorhexidine fo r cutaneous antisepsis. When ultrasound is used, sterile ultrasound techniques are followed requiring sterile gel and sterile probes. TECHNICAL DOCUMENTATION: JOB ID: [id number] [employer]- All Rights Reserved Reading location - IP/workstation name: [email or web address] [id number]
--- NOTE | 2017-06-03 12:28 | RADIOLOGY REPORT (SQ) ---
EXAM DESCRIPTION: PICC INSERTION; FLUORO/CV PLACEMENT; U/S GUIDE FOR VASCULAR ACCESS COMPLETED DATE/TIME: 06/03/2017 11:06 am; 06/03/2017 11:07 am REASON FOR STUDY: IV ANTIBIOTICS; IV ABX; IV ACCESS R10.84 GENERALIZED ABDOMINAL PAIN E87.8 OTH CHARLES CUADRADERS OF ELECTROLYTE AND FLUID BALANCE, NEC COMPARISON: AP chest 05/08/2017 FLUOROSCOPY TIME: 35 seconds 5 digital radiographic images, 1 ultrasound image saved to PACS. TECHNIQUE: Fluoroscopic and ultrasound guided PICC placement. LIMITATIONS: None. PROCEDURE: After written consent and assessment were obtained, the patient was brought into the fluo roscopy room and place supine on the table. Ultrasound was used on the patient's left arm for PICC a ccess. The left arm was prepped and draped in a sterile fashion along with the ultrasound probe. The entry site was anesthetized with 3 mL of 1% lidocaine. A 21 gauge 7 cm needle was advanced through th e skin and into the basilic vein under live ultrasound guidance. An ultrasound image was saved to [facility] confirming access site. A .018 guide wire was then inserted through the needle and into the venou s system. The needle was the removed and an 11 blade scalpel was used to make a 1cm skin incision. A 5 fr peel-away sheath was advanced over the wire and into the venous system. A measurement was then made using the existing wire and live fluoroscopic guidance. The wire was then removed and the trimme d. The PICC was advanced through the peel-away sheath and into the venous system. The peel-away sheat h was removed and the catheter was adhered to the patients arm with a stat lock. The catheter was the n aspirated and flushed and a sterile bandage was placed over the access site. A fluoroscopic spot i mage was saved to PACS confirming the catheter tip within the superior vena cava. IMPRESSION: SUCCESSFUL PLACEMENT OF A 5 FR DUAL LUMEN 39 CM PICC IN THE LEFT BASILIC VEIN. COMMENT: Patient medication list reviewed: Yes, quality ight ID 1. 30: Eligible professional at [facility] ts to documenting in the medical record the obtained, with updated current medications list. Quality ID 145: Final reports for procedures using fluoroscopy that document radiation exposure julio jennifer, or exposure time and number of fluorographic images (if radiation exposure indices are not avail able) Quality ID #76: The patient was prepped and draped using maximum sterile barrier technique including cap, mask, sterile gown, sterile gloves, a large sterile sheet, hand hygiene, and 2% Chlorhexidine fo r cutaneous antisepsis. When ultrasound is used, sterile ultrasound techniques are followed requiring sterile gel and sterile probes. TECHNICAL DOCUMENTATION: JOB ID: [id number] [employer]- All Rights Reserved Reading location - IP/workstation name: [email or web address] [id number]
--- NOTE | 2017-06-03 12:28 | RADIOLOGY REPORT (SQ) ---
EXAM DESCRIPTION: PICC INSERTION; FLUORO/CV PLACEMENT; U/S GUIDE FOR VASCULAR ACCESS COMPLETED DATE/TIME: 06/03/2017 11:06 am; 06/03/2017 11:07 am REASON FOR STUDY: IV ANTIBIOTICS; IV ABX; IV ACCESS R10.84 GENERALIZED ABDOMINAL PAIN E87.8 OTH CHARLES CUADRADERS OF ELECTROLYTE AND FLUID BALANCE, NEC COMPARISON: AP chest 05/08/2017 FLUOROSCOPY TIME: 35 seconds 5 digital radiographic images, 1 ultrasound image saved to PACS. TECHNIQUE: Fluoroscopic and ultrasound guided PICC placement. LIMITATIONS: None. PROCEDURE: After written consent and assessment were obtained, the patient was brought into the fluo roscopy room and place supine on the table. Ultrasound was used on the patient's left arm for PICC a ccess. The left arm was prepped and draped in a sterile fashion along with the ultrasound probe. The entry site was anesthetized with 3 mL of 1% lidocaine. A 21 gauge 7 cm needle was advanced through th e skin and into the basilic vein under live ultrasound guidance. An ultrasound image was saved to [facility] confirming access site. A .018 guide wire was then inserted through the needle and into the venou s system. The needle was the removed and an 11 blade scalpel was used to make a 1cm skin incision. A 5 fr peel-away sheath was advanced over the wire and into the venous system. A measurement was then made using the existing wire and live fluoroscopic guidance. The wire was then removed and the trimme d. The PICC was advanced through the peel-away sheath and into the venous system. The peel-away sheat h was removed and the catheter was adhered to the patients arm with a stat lock. The catheter was the n aspirated and flushed and a sterile bandage was placed over the access site. A fluoroscopic spot i mage was saved to PACS confirming the catheter tip within the superior vena cava. IMPRESSION: SUCCESSFUL PLACEMENT OF A 5 FR DUAL LUMEN 39 CM PICC IN THE LEFT BASILIC VEIN. COMMENT: Patient medication list reviewed: Yes, quality ight ID 1. 30: Eligible professional at [facility] ts to documenting in the medical record the obtained, with updated current medications list. Quality ID 145: Final reports for procedures using fluoroscopy that document radiation exposure julio jennifer, or exposure time and number of fluorographic images (if radiation exposure indices are not avail able) Quality ID #76: The patient was prepped and draped using maximum sterile barrier technique including cap, mask, sterile gown, sterile gloves, a large sterile sheet, hand hygiene, and 2% Chlorhexidine fo r cutaneous antisepsis. When ultrasound is used, sterile ultrasound techniques are followed requiring sterile gel and sterile probes. TECHNICAL DOCUMENTATION: JOB ID: [id number] [employer]- All Rights Reserved Reading location - IP/workstation name: [email or web address] [id number]
--- NOTE | 2017-06-03 13:41 | RADIOLOGY REPORT (SQ) ---
EXAM DESCRIPTION: CT ABDOMEN IV CONTRAST ONLY COMPLETED DATE/TIME: 06/03/2017 11:21 am REASON FOR STUDY: GENERALIZED ABDOMINAL PAIN R10.84 GENERALIZED ABDOMINAL PAIN E87.8 OTH DISORDERS OF ELECTROLYTE AND FLUID BALANCE, NEC COMPARISON: 09/06/2016 TECHNIQUE: CT scan of the abdomen performed with intravenous and without oral contrast using helical scanning technique with dynamic intravenous contrast injection. Images reviewed with lung, soft tiss ue, and bone windows. Reconstructed coronal and sagittal MPR images reviewed. Delayed images for eval uation of the urinary system also acquired and evaluated. All images stored on PACS. All CT scanners at this facility use dose modulation, iterative reconstruc tion, and/or weight based dosing when appropriate to reduce radiation dose to as low as reasonably ac hievable (ALARA). [facility]: Dose Right [facility]: CareDose [facility]: Dose Right [facility]: Teradose 4D [facility]: iMOSPHERE CONTRAST TYPE AND DOSE: contrast/concentration: Isovue 370.00 mg/ml; Total Contrast Delivered: 83.0 ml; Total Saline Delivered: 68.0 ml RENAL FUNCTION: Creatinine 0.5 RADIATION DOSE: CT Rad equipment meets quality standard of care and radiation dose reduction techniq ues were employed. CTDIvol: 12.7 - 14.9 mGy. DLP: 772 mGy-cm. . LIMITATIONS: None. FINDINGS: LOWER CHEST: Small pleural effusions. LIVER: Normal size. No masses. No dilated ducts. SPLEEN: Normal size. No focal lesions. PANCREAS: There is a well-circumscribed 4 cm lesion inferior to the tail the pancreas measuring about 45 HU. There are smaller similar appearing lesions just inferior to the pancreatic body. GALLBLADDER: Not visualized. ADRENAL GLANDS: No significant masses or asymmetry. RIGHT KIDNEY AND URETER: No solid masses. No significant calcifications. No hydronephrosis or hyd roureter. LEFT KIDNEY AND URETER: No solid masses. No significant calcifications. No hydronephrosis or hydr oureter. AORTA AND VESSELS: No aneurysm. RETROPERITONEUM: No retroperitoneal adenopathy, hemorrhage or masses. BOWEL AND PERITONEAL CAVITY: Scattered diverticula. No masses or inflammatory changes. No free fluid or peritoneal masses. APPENDIX: Not visualized. ABDOMINAL WALL: No masses. No hernias. BONES: No acute findings. OTHER: No other significant finding. IMPRESSION: Peripancreatic lesions which do not measure fluid density, however in similar location t o previous pseudocysts. Consider follow-up dedicated pancreatic MRI or three-phase CT to exclude a s olid lesion. TECHNICAL DOCUMENTATION: JOB ID: [id number] Quality ID # [id number]: Final reports with documentation of one or more dose reduction techniques (e.g., Au tomated exposure control, adjustment of the mA and/or kV according to patient size, use of iterative reconstruction technique) 2010 [employer]- All Rights Reserved Reading location - IP/workstation name: [email or web address]
== END ==
LOC: RAD 10:04
PROVIDERS: ATTEND Family Medicine Geriatric Medicine
PROC: 05HD33Z Insertion of Infusion Device into Right Cephalic Vein, Percutaneous Approach (ICD-10-PCS; principal; 2017-06-03)
DX: R10.84 Generalized abdominal pain (principal); E87.8 Other disorders of electrolyte and fluid balance, not elsewhere classified; K86.89 Other specified diseases of pancreas; K57.30 Diverticulosis of large intestine without perforation or abscess without bleeding; J90 Pleural effusion, not elsewhere classified
CPT/HCPCS: 82565; 36569; 77001; 76937; 74160; C1769; J1642

== ENCOUNTER 2017-06-09 08:48 | Inpatient (IN) | payer MEDICARE, MEDICAID ==
[2017-06-09] MEDS ORDERED: ASPIRIN 81 MG TABLET, CHEWABLE PO ONE (08:50)
[2017-06-09 09:19] LABS: HEMATOCRIT 27.8 % (36.0-47.0); HEMOGLOBIN 9.4 g/dL (12.0-15.5); MEAN CORPUSCULAR HEMOGLOBIN 32.9 pg (27.0-33.4); MEAN CORPUSCULAR HGB CONC 33.8 g/dL (32.0-36.0); MEAN CORPUSCULAR VOLUME 98 fl (80-97); PLATELET COUNT 430 10^3/uL (150-450); RED BLOOD COUNT 2.85 10^6/uL (3.72-5.28); RED CELL DISTRIBUTION WIDTH 15.9 % (11.5-14.0); WHITE BLOOD COUNT 23.6 10^3/uL (4.0-10.5)
[2017-06-09 09:33] LABS: ALANINE AMINOTRANSFERASE 23 U/L (9-52); ALBUMIN 2.1 g/dL (3.5-5.0); ALKALINE PHOSPHATASE 217 U/L (38-126); ASPARTATE AMINO TRANSFERASE 30 U/L (14-36); BILIRUBIN,DIRECT 0.5 mg/dL (0.0-0.4); BILIRUBIN,TOTAL 0.5 mg/dL (0.2-1.3); BLOOD UREA NITROGEN 24 mg/dL (7-20); CARBON DIOXIDE 39 mmol/L (22-30); GLUCOSE 169 mg/dL (75-110); TOTAL PROTEIN 4.3 g/dL (6.3-8.2)
--- NOTE | 2017-06-09 09:33 | RADIOLOGY REPORT (SQ) ---
EXAM DESCRIPTION: CHEST SINGLE VIEW COMPLETED DATE/TIME: 06/09/2017 9:21 am REASON FOR STUDY: cp COMPARISON: 05/08/2017 EXAM PARAMETERS: NUMBER OF VIEWS: One view. TECHNIQUE: Single frontal radiographic view of the chest acquired. RADIATION DOSE: NA LIMITATIONS: None. FINDINGS: LUNGS AND PLEURA: Stable small bilateral pleural effusions, left greater than right with a ssociated atelectasis. MEDIASTINUM AND HILAR STRUCTURES: No masses. Contour normal. HEART AND VASCULAR STRUCTURES: Heart normal in size. Normal vasculature. BONES: No acute findings. HARDWARE: Interval placement of left-sided PICC terminating within the mid SVC. OTHER: No other significant finding. IMPRESSION: STABLE APPEARANCE OF THE CHEST WITH LEFT GREATER THAN RIGHT PLEURAL EFFUSIONS AND ASSOCI ATED COMPRESSIVE ATELECTASIS. SATISFACTORY POSITION LEFT-SIDED PICC. TECHNICAL DOCUMENTATION: JOB ID: [id number] [employer]- All Rights Reserved Reading location - IP/workstation name: [email or web address]
[2017-06-09 09:36] LABS: CREATINE KINASE < 20 U/L (30-135)
[2017-06-09 09:38] LABS: ANION GAP 5 (5-19); CHLORIDE 87 mmol/L (98-107); SODIUM 131.4 mmol/L (137-145)
[2017-06-09 09:43] LABS: POTASSIUM 2.7 mmol/L (3.6-5.0)
[2017-06-09 09:44] LABS: CREATINE KINASE MB 1.29 ng/mL (<4.55)
[2017-06-09 09:46] LABS: ABSOLUTE LYMPHOCYTES# (MANUAL) 0.7 10^3/uL (0.5-4.7); ABSOLUTE MONOCYTES # (MANUAL) 0.5 10^3/uL (0.1-1.4); ABSOLUTE NEUTROPHILS# (MANUAL) 22.4 10^3/uL (1.7-8.2); BAND NEUTROPHILS % (MANUAL) 1 % (3-5); BASOPHILS % (MANUAL) 0 % (0-2); EOSINOPHILS % (MANUAL) 0 % (0-6); LYMPHOCYTES % (MANUAL) 3 % (13-45); MONOCYTES % (MANUAL) 2 % (3-13); SEGMENTED NEUTROPHILS % (MAN) 94 % (42-78); TOTAL CELLS COUNTED 100; TROPONIN I 0.037 ng/mL
[2017-06-09 09:55] LABS: POLYCHROMASIA 1+; TOXIC GRANULATION 1+; TOXIC VACUOLATION PRESENT
[2017-06-09 09:56] LABS: ANISOCYTOSIS 1+; PLATELET COMMENT ADEQUATE
[2017-06-09] MEDS ORDERED: MAGNESIUM SULFATE/D5W 1 GM/100 ML RTUPB IV ONE (11:55)
[2017-06-09] MEDS ORDERED: POTASSIUM CHLORIDE 20 MEQ/15 ML UDCUP PO ONE ×2 (11:55→23:45)
[2017-06-09] MEDS ORDERED: POTASSI CL 20 MEQ/50 ML RIDER 20 MEQ/50 ML RTUPB IV ONE (11:55)
--- NOTE | 2017-06-09 12:46 | RADIOLOGY REPORT (SQ) ---
EXAM DESCRIPTION: KUB/ABDOMEN (SINGLE VIEW) COMPLETED DATE/TIME: 06/09/2017 12:31 pm REASON FOR STUDY: recent peg portable please COMPARISON: 09/06/2016 NUMBER OF VIEWS: One view. TECHNIQUE: Supine radiographic image of the abdomen acquired. LIMITATIONS: None. FINDINGS: BOWEL GAS PATTERN: Normal bowel gas pattern. No dilated loops. CALCIFICATIONS: No suspicious calcifications. SOFT TISSUES: No gross mass or suggestion of organomegaly. HARDWARE: Percutaneous gastrostomy tube projects over the stomach bubble. BONES: No acute fracture. No worrisome bone lesions. OTHER: No other significant finding. IMPRESSION: NO RADIOGRAPHIC EVIDENCE FOR ACUTE ABDOMINAL DISEASE. PERCUTANEOUS GASTROSTOMY TUBE PROJECTS OVER THE STOMACH BUBBLE. TECHNICAL DOCUMENTATION: JOB ID: [id number] [employer]- All Rights Reserved Reading location - IP/workstation name: [email or web address]
[2017-06-09] MEDS ORDERED: NORMAL SALINE 1000 ML 1,000 ML IV ONE ×2 (14:00→14:20)
[2017-06-09] MEDS ORDERED: ONDANSETRON HCL INJ/PF 4 MG/2 ML SDV IV ONE ×2 (14:26→20:59)
--- NOTE | 2017-06-09 14:55 | ER Document Report ---
ED General - General TRAVEL OUTSIDE OF THE [place] IN LAST 30 DAYS: No - HPI Patient complains to provider of: Chest wall pain abdominal pain <RAEANN JAIME - Last Filed: 06/09/17 15:24> <DAVID RIZZO - Last Filed: 06/09/17 21:25> - General Chief Complaint: Chest Wall Pain Stated Complaint: CHEST WALL PAIN Time Seen by Provider: 06/09/17 08:58 - HPI Notes: Patient coming in from local halfway facility for the above-stated complaint states ongoing for the last few days. Patient was recently here in the hospital had a PICC line placed and a PEG tube placed. Patient is a DNR according family members recently was discharged from [facility] to the halfway has not had anything to eat or drink for approximately a month therefore decision was made to place the PEG tube and also place a PICC line. Patient otherwise when asked where her pain is at points to the epigastric region. This hurts with movement and with palpation. Patient otherwise denies any other symptoms nausea vomiting fevers chills (RAEANN JAIME) - Related Data Allergies/Adverse Reactions: No Known Allergies Allergy (Verified 08/23/16 15:00) Past Medical History - Social History Smoking Status: Former Smoker Chew tobacco use (# tins/day): No Frequency of alcohol use: None Drug Abuse: None Family History: Reviewed & Not Pertinent Patient has suicidal ideation: No Patient has homicidal ideation: No Pulmonary Medical History: Reports: Hx Bronchitis, Hx COPD, Hx Pneumonia Renal/ Medical History: Denies: Hx Peritoneal Dialysis Musculoskeltal Medical History: Reports Hx Arthritis Past Surgical History: Reports: Hx Cholecystectomy, Hx Orthopedic Surgery - Right Hip Replacement - Immunizations Hx Diphtheria, Pertussis, Tetanus Vaccination: No Hx Pneumococcal Vaccination: 02/25/11 <RAEANN JAIME - Last Filed: 06/09/17 15:24> Review of Systems - Review of Systems Constitutional: No symptoms reported EENT: No symptoms reported Cardiovascular: Chest pain Respiratory: No symptoms reported Gastrointestinal: Abdominal pain Genitourinary: No symptoms reported Female Genitourinary: No symptoms reported Musculoskeletal: No symptoms reported Skin: No symptoms reported Hematologic/Lymphatic: No symptoms reported Neurological/Psychological: No symptoms reported -: Yes All other systems reviewed and negative <RAEANN JAIME - Last Filed: 06/09/17 15:24> Physical Exam - Vital signs Interpretation: Normal - General General appearance: Appears well, Alert - HEENT Head: Normocephalic, Atraumatic Eyes: Normal Pupils: PERRL - Respiratory Respiratory status: No respiratory distress Chest status: Tender - Reproducible chest wall tenderness Breath sounds: Normal Chest palpation: Normal - Cardiovascular Rhythm: Regular Heart sounds: Normal auscultation Murmur: No - Abdominal Inspection: Other - Patient with a PEG tube in place with some bruising to the abdomen there is no erythema. Patient is tender to palpation however the abdomen otherwise is soft Distension: No distension Bowel sounds: Normal Tenderness: Nontender Organomegaly: No organomegaly - Back Back: Normal, Nontender - Extremities General upper extremity: Normal inspection, Nontender, Normal color, Normal ROM , Normal temperature General lower extremity: Normal inspection, Nontender, Normal color, Normal ROM , Normal temperature, Normal weight bearing. No: Bakari's sign - Neurological Neuro grossly intact: Yes Cognition: Normal Orientation: AAOx4 Osbaldo Coma Scale Eye Opening: Spontaneous [place] Coma Scale Verbal: Oriented [place] Coma Scale Motor: Obeys Commands Osbaldo Coma Scale Total: 15 Speech: Normal Motor strength normal: LUE, RUE, LLE, RLE Sensory: Normal - Psychological Associated symptoms: Normal affect, Normal mood - Skin Skin Temperature: Warm Skin Moisture: Dry Skin Color: Normal <RAEANN JAIME - Last Filed: 06/09/17 15:24> - Vital signs Vitals: Resp BP Pulse Ox 28 H 96/62 L 94 06/09/17 09:01 06/09/17 09:01 06/09/17 09:01 Course - Laboratory Result Diagrams: 06/09/17 08:58 06/09/17 08:58 <RAEANN JAIME - Last Filed: 06/09/17 15:24> - Laboratory Result Diagrams: 06/09/17 08:58 06/09/17 08:58 - Diagnostic Test Radiology reviewed: Image reviewed, Reports reviewed <DAVID RIZZO - Last Filed: 06/09/17 21:25> - Re-evaluation Re-evalutation: 06/09/17 14:54 Patient lab work shows signs of malnutrition with hypokalemia hypo-calcium and hypomagnesemia. This was replaced orally and IV. Patient's lab work also does show a leukocytosis I believe this is more likely related to the patient's recent operative management placing the PEG tube. Patient's blood pressures have been 90-100 systolics was looks to be consistent with previous admissions. Patient remains afebrile patient is requesting to be discharged back to the halfway the splint and patient says elevation in her white count want to get a urinalysis and urinalysis otherwise negative agree with disposition back to halfway. Currently waiting on straight cath to be performed. A straight cath urinalysis does show signs of infection stably patient can be discharged back to halfway for further care (RAEANN JAIME) 06/09/17 19:36 Received patient as sign out at 1500, on evaluation patient does report epigastric tenderness, I note a history of pancreatitis in the past secondary to alcohol consumption, which is unlikely today as she is residing at [facility], however I added a lipase to her panel of tests, nursing staff also reports that anytime patient tries to eat or drink anything by mouth she vomits it up immediately, she did recently have a gastrostomy tube placed, therefore CT scan of the abdomen and pelvis has been ordered to rule out intra-abdominal pathology, otherwise patient has leukocytosis of 23,000, as well as evidence of a urinary tract infection, IV antibiotics have been ordered, and patient is agreeable to admission for further assessment and treatment 06/09/17 21:25 Patient was discussed with Dr. Oscar Vazquez who agrees to admit for further evaluation and treatment (DAVID RIZZO) - Vital Signs Vital signs: Temp Pulse Resp BP Pulse Ox 97.6 F 71 23 H 109/63 99 06/09/17 20:01 06/09/17 18:08 06/09/17 21:01 06/09/17 21:01 06/09/17 21:01 - Laboratory Laboratory results interpreted by me: 06/09/17 06/09/17 06/09/17 08:58 08:58 08:58 WBC 23.6 H RBC 2.85 L Hgb 9.4 L Hct 27.8 L MCV 98 H RDW 15.9 H Seg Neuts % (Manual) 94 H Band Neutrophils % 1 L Lymphocytes % (Manual) 3 L Monocytes % (Manual) 2 L Abs Neuts (Manual) 22.4 H Sodium 131.4 L Potassium 2.7 L* Chloride 87 L Carbon Dioxide 39 H BUN 24 H Glucose 169 H Calcium 7.0 L* Magnesium 1.4 L Direct Bilirubin 0.5 H Alkaline Phosphatase 217 H Creatine Kinase < 20 L Total Protein 4.3 L Albumin 2.1 L Urine Protein Urine Blood Ur Leukocyte Esterase 06/09/17 17:20 WBC RBC Hgb Hct MCV RDW Seg Neuts % (Manual) Band Neutrophils % Lymphocytes % (Manual) Monocytes % (Manual) Abs Neuts (Manual) Sodium Potassium Chloride Carbon Dioxide BUN Glucose Calcium Magnesium Direct Bilirubin Alkaline Phosphatase Creatine Kinase Total Protein Albumin Urine Protein 30 H Urine Blood MODERATE H Ur Leukocyte Esterase MODERATE H Discharge <RAEANN JAIME - Last Filed: 06/09/17 15:24> - Discharge Admitting Provider: Hospitalist Unit Admitted: [facility] <DAVID RIZZO - Last Filed: 06/09/17 21:25> - Discharge Clinical Impression: Hypocalcemia, Hypokalemia, Hypomagnesemia, DNR (do not resuscitate) Urinary tract infection Qualifiers: Urinary tract infection type: site unspecified Hematuria presence: without hematuria Qualified Code(s): N39.0 - Urinary tract infection, site not specified Sepsis Qualifiers: Sepsis type: sepsis due to unspecified organism Qualified Code(s): A41.9 - Sepsis, unspecified organism Condition: Serious Disposition: ADMITTED INPATIENT Instructions: Chest Wall Pain ([facility]), Urinary Tract Infection ([facility]) Additional Instructions: Your evaluation today shows that your electrolytes are low due to malnutrition. Continue tube feeds will aid in your low potassium and low magnesium. Would recommend that also continue with oral and hydration through PEG tube. Do believe the pain is due to your recent surgical procedures. Please return to the ER immediately if you develop fever or worsening of symptoms. Prescriptions: Cephalexin 500 mg PO QID 7 Days susp.recon Referrals: DANYA DE LA TORRE MD [Primary Care Provider] - Follow up as needed
--- NOTE | 2017-06-09 16:01 | EKG REPORT ---
SEVERITY:- ABNORMAL ECG - SINUS RHYTHM NONSPECIFIC INTRAVENTRICULAR CONDUCTION DELAY MINIMAL ST DEPRESSION, LATERAL LEADS : Confirmed by: Abrahan James MD 09-Jun-2017 16:01:13
[2017-06-09] MEDS ORDERED: CEFTRIAXONE INJ 1000 MG VIAL IV ONE (17:21)
[2017-06-09 18:25] LABS: APPEARANCE,URINE TURBID; BILIRUBIN,URINE NEGATIVE (NEGATIVE); COLOR,URINE YELLOW; GLUCOSE, URINE NEGATIVE (NEGATIVE); KETONES,URINE NEGATIVE (NEGATIVE); LEUKOCYTE ESTERASE,URINE MODERATE (NEGATIVE); NITRITE,URINE NEGATIVE (NEGATIVE); PROTEIN,URINE 30 mg/dL (NEGATIVE); URINE SPECIFIC GRAVITY 1.012; UROBILINOGEN,URINE NEGATIVE mg/dL (<2.0)
--- NOTE | 2017-06-09 21:07 | RADIOLOGY REPORT (SQ) ---
EXAM DESCRIPTION: CT ABD/PELVIS WITH IV ONLY COMPLETED DATE/TIME: 06/09/2017 8:48 pm REASON FOR STUDY: abd pain, recent g-tube placement COMPARISON: 06/03/2017 TECHNIQUE: CT scan of the abdomen and pelvis performed using helical scanning technique with dynamic intravenous contrast injection. No oral contrast. Images reviewed with lung, soft tissue, and bone windows. Reconstructed coronal and sagittal MPR images reviewed. Delayed images for evaluation of the urinary system also acquired. All images stored on PACS. All CT scanners at this facility use dose modulation, iterative reconstruction, and/or weight based d osing when appropriate to reduce radiation dose to as low as reasonably achievable (ALARA). [facility]: Dose Right [facility]: CareDose [facility]: Dose Right [facility]: Teradose 4D [facility]: bttn CONTRAST TYPE AND DOSE: contrast/concentration: Isovue 370.00 mg/ml; Total Contrast Delivered: 69.0 ml; Total Saline Delivered: 65.0 ml RENAL FUNCTION: GFR > 60. RADIATION DOSE: CT Rad equipment meets quality standard of care and radiation dose reduction techniq ues were employed. CTDIvol: 17.0 - 19.1 mGy. DLP: 1823 mGy-cm.. LIMITATIONS: None. FINDINGS: LOWER CHEST: Bilateral pleural reaction similar to previous. LIVER: Normal size. No masses. No dilated ducts. SPLEEN: Normal size. No focal lesions. PANCREAS: Peripancreatic lesions are unchanged from the previous study. Presumed to be residual pse udo cysts. Calcifications. Chronic pancreatitis. GALLBLADDER: Not identified. ADRENAL GLANDS: No significant masses or asymmetry. RIGHT KIDNEY AND URETER: No solid masses. No significant calcifications. No hydronephrosis or hyd roureter. LEFT KIDNEY AND URETER: No solid masses. No significant calcifications. No hydronephrosis or hydr oureter. AORTA AND VESSELS: No aneurysm. No dissection. Renal arteries, SMA, celiac without stenosis. RETROPERITONEUM: No retroperitoneal adenopathy, hemorrhage or masses. BOWEL AND PERITONEAL CAVITY: Interval placement of a G-tube which is expected location. Free intrape ritoneal air adjacent to the G-tube an along the liver. This is almost certainly related to the plac ement of NG tube. Diverticulosis. APPENDIX: Surgically absent. PELVIS: No mass. No free fluid. Normal bladder. ABDOMINAL WALL: No masses. No hernias. BONES: Right total hip replacement. OTHER: No other significant finding. IMPRESSION: Interval placement of NG tube. There is adjacent intraperitoneal air almost certainly r elated to placement of the G-tube. Tube appears to be expected location. 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 Diverticulosis. TECHNICAL DOCUMENTATION: JOB ID: [id number] Quality ID # [id number]: Final reports with documentation of one or more dose reduction techniques (e.g., Au tomated exposure control, adjustment of the mA and/or kV according to patient size, use of iterative reconstruction technique) 2010 [employer]- All Rights Reserved Reading location - IP/workstation name: [email or web address]
[2017-06-09] MEDS ORDERED: ACETAMINOPHEN 325 MG TABLET PO PRN (21:29)
[2017-06-09] MEDS ORDERED: IPRATROPIUM/ALBUTEROL 0.5-2.5 MG/3 ML AMPUL NEB PRN (21:29)
[2017-06-09] MEDS ORDERED: DEXTROSE 50%-WATER 25 GM/50 ML DISP.SYRIN IV PRN ×2 (21:29)
[2017-06-09] MEDS ORDERED: MAG HYDROX/AL HYDROX/SIMETH SUSP 30 ML UDCUP PO PRN (21:29)
[2017-06-09] MEDS ORDERED: INSULIN LISPRO 100 UNIT/ML 3 ML VIAL SUBCUT PRN (21:29)
[2017-06-09] MEDS ORDERED: DEXTROSE 40% GEL 15 GM TUBE PO PRN ×2 (21:29)
[2017-06-09] MEDS ORDERED: GLUCAGON,HUMAN RECOMB 1 MG INJ IM PRN (21:29)
[2017-06-09] MEDS ORDERED: PREDNISONE 5 MG TABLET PEG ONE (22:15)
[2017-06-09] MEDS: HEPARIN SOD (PORCINE) 5,000 UNIT/ML 1 ML SYRINGE SUBCUT SCH (22:21)
[2017-06-09] MEDS: GABAPENTIN 300 MG CAPSULE PEG SCH (22:21)
[2017-06-09 22:23] LABS: HEMATOCRIT 28.3 % (36.0-47.0); HEMOGLOBIN 9.4 g/dL (12.0-15.5); MEAN CORPUSCULAR HEMOGLOBIN 32.6 pg (27.0-33.4); MEAN CORPUSCULAR HGB CONC 33.2 g/dL (32.0-36.0); MEAN CORPUSCULAR VOLUME 98 fl (80-97); PLATELET COUNT 354 10^3/uL (150-450); RED BLOOD COUNT 2.88 10^6/uL (3.72-5.28); WHITE BLOOD COUNT 18.4 10^3/uL (4.0-10.5)
[2017-06-09 22:29] LABS: BLOOD UREA NITROGEN 22 mg/dL (7-20); CHLORIDE 92 mmol/L (98-107); GLUCOSE 118 mg/dL (75-110); POTASSIUM 3.2 mmol/L (3.6-5.0)
[2017-06-09 23:04] LABS: ABSOLUTE LYMPHOCYTES# (MANUAL) 1.3 10^3/uL (0.5-4.7); ABSOLUTE MONOCYTES # (MANUAL) 0.9 10^3/uL (0.1-1.4); ABSOLUTE NEUTROPHILS# (MANUAL) 16.2 10^3/uL (1.7-8.2); BAND NEUTROPHILS % (MANUAL) 1 % (3-5); BASOPHILS % (MANUAL) 0 % (0-2); CARBON DIOXIDE 35 mmol/L (22-30); EOSINOPHILS % (MANUAL) 0 % (0-6); LYMPHOCYTES % (MANUAL) 7 % (13-45); MONOCYTES % (MANUAL) 5 % (3-13); SEGMENTED NEUTROPHILS % (MAN) 87 % (42-78); SODIUM 131.9 mmol/L (137-145); TOTAL CELLS COUNTED 100
[2017-06-09 23:05] LABS: ANISOCYTOSIS 1+; PLATELET COMMENT ADEQUATE
[2017-06-09 23:07] LABS: ANION GAP 5 (5-19)
[2017-06-09] MEDS: NORMAL SALINE 1000 ML 1,000 ML IV PRN (23:19)
[2017-06-09] MEDS ORDERED: POTASSIUM CHLORIDE 10 MEQ TABLET.SA PO ONE (23:20)
[2017-06-10] MEDS: NORMAL SALINE 1000 ML 1,000 ML IV PRN ×3 (00:34→10:45)
[2017-06-10] MEDS: GABAPENTIN 300 MG CAPSULE PEG SCH ×3 (06:01→22:02)
[2017-06-10] MEDS: HEPARIN SOD (PORCINE) 5,000 UNIT/ML 1 ML SYRINGE SUBCUT SCH ×3 (06:01→22:00)
--- NOTE | 2017-06-10 06:32 | PDOC H&P ---
History of Present Illness Admission Date/PCP: 06/09/17 21:27 DANYA DE LA TORRE, Patient complains of: Abdominal pain History of Present Illness: ALIE PATTERSON is a 71 year old female with a past medical history of chronic pancreatitis with pseudocyst, chronic pain, malnutrition, COPD and debility. Patient accompanied by family and presents with epigastric pain present prior to PEG placement. Patient has had anorexia and subsequent malnutrition and referred to the emergency room for evaluation. She is found to have pyuria, leukocytosis, hypokalemia, and hypoalbuminemia. She started on IV Rocephin and referred to the hospitalist for admission. Patient is a poor historian and unable to provide further history. Past Medical History Cardiac Medical History: Reports: None Pulmonary Medical History: Reports: Bronchitis, Chronic Obstructive Pulmonary Disease (COPD), Pneumonia EENT Medical History: Reports: None Neurological Medical History: Reports: None Endocrine Medical History: Reports: None Renal/ Medical History: Reports: None Malignancy Medical History: Reports: None GI Medical History: Reports: Other - Chronic pancreatitis with pseudocyst Musculoskeltal Medical History: Reports: Arthritis Past Surgical History Past Surgical History: Reports: Cholecystectomy, Orthopedic Surgery - Right Hip Replacement, Other - PEG tube Social History Information Source: Emergency Med Personnel, [facility] Records Smoking Status: Former Smoker Frequency of Alcohol Use: None Hx Recreational Drug Use: No Drugs: None Hx Prescription Drug Abuse: No - Advance Directive Resuscitation Status: Do Not Resuscitate Family History Family History: None - Unknown Parental Family History Reviewed: No - Unknown Children Family History Reviewed: No - Unknown Sibling(s) Family History Reviewed.: No - Unknown Medication/Allergy Home Medications: Albuterol Sulfate [Proair HFA] 2 puff IH Q4HP PRN 08/23/16 Fluticasone/Salmeterol [Advair 250-50 Diskus 28 dose] 1 puff IH BID 08/23/16 Furosemide [Lasix] 40 mg PO DAILY 08/23/16 Potassium Chloride [K-Tab ER] 10 meq PO BID 08/23/16 Roflumilast [Daliresp 500 mcg Tablet] 500 mcg PO DAILY 08/23/16 Tiotropium [place] [Spiriva Respimat] 2 puff IH DAILY 08/23/16 Folic Acid [Folvite 1 mg Tablet] 1 mg PO NOON tablet 07/24/17 Gabapentin [Neurontin 300 mg Capsule] 600 mg PO Q8 capsule 09/17/16 Lidocaine [Lidoderm 5% (700 mg) Transdermal Patch] 2 patch TP DAILY adh..patch 09/17/16 Prednisone [Deltasone 5 mg Tablet] 5 mg PO BID tablet 09/17/16 Tramadol HCl [Ultram 50 mg Tablet] 50 mg PO Q6HP PRN #10 tablet 09/17/16 Cephalexin 500 mg PO QID 7 Days susp.recon 06/09/17 Allergies/Adverse Reactions: No Known Allergies Allergy (Verified 08/23/16 15:00) Review of Systems ROS unobtainable: Due to mental status Constitutional: PRESENT: as per HPI Physical Exam Vital Signs: Temp Pulse Resp BP Pulse Ox 97.6 F 67 18 109/56 L 96 06/10/17 03:50 06/10/17 03:50 06/10/17 03:50 06/10/17 03:50 06/10/17 03:50 Intake & Output 06/08/17 06/09/17 06/10/17 11:59 11:59 11:59 Intake Total 0 Balance 0 Weight 66.8 kg General appearance: PRESENT: cooperative, disheveled, mild distress, other - Chronically ill appearing with cachexia and temporal wasting Head exam: PRESENT: atraumatic, normocephalic Eye exam: PRESENT: conjunctiva pink, EOMI, PERRLA. ABSENT: scleral icterus Ear exam: PRESENT: normal external ear exam Mouth exam: PRESENT: moist, tongue midline Neck exam: ABSENT: carotid bruit, JVD, lymphadenopathy, thyromegaly Respiratory exam: PRESENT: clear to auscultation madeline. ABSENT: rales, rhonchi, wheezes Cardiovascular exam: PRESENT: RRR. ABSENT: diastolic murmur, rubs, systolic murmur Pulses: PRESENT: normal dorsalis pedis pul Vascular exam: PRESENT: normal capillary refill GI/Abdominal exam: PRESENT: diminished bowel sounds, hypoactive bowel sounds, soft, tenderness. ABSENT: ascites, distended, firm, guarding, hernia, hyperactive bowel sounds, mass, Camp's sign, normal bowel sounds Rectal exam: PRESENT: deferred Extremities exam: PRESENT: full ROM, tenderness - Several areas of ecchymosis without open ulcer. ABSENT: calf tenderness, clubbing, pedal edema Neurological exam: PRESENT: alert, awake, oriented to person, CN II-XII grossly intact Psychiatric exam: PRESENT: appropriate affect, normal mood. ABSENT: homicidal ideation, suicidal ideation Skin exam: PRESENT: dry, intact, warm. ABSENT: cyanosis, rash Results Laboratory Results: 06/09/17 21:45 06/09/17 21:45 06/09/17 06/09/17 21:45 21:45 WBC 18.4 H RBC 2.88 L Hgb 9.4 L Hct 28.3 L MCV 98 H MCH 32.6 MCHC 33.2 RDW 16.0 H Plt Count 354 Seg Neutrophils % Not Reportable Lymphocytes % Not Reportable Monocytes % Not Reportable Eosinophils % Not Reportable Basophils % Not Reportable Absolute Neutrophils Not Reportable Absolute Lymphocytes Not Reportable Absolute Monocytes Not Reportable Absolute Eosinophils Not Reportable Absolute Basophils Not Reportable Sodium 131.9 L Potassium 3.2 L Chloride 92 L Carbon Dioxide 35 H Anion Gap 5 BUN 22 H Creatinine 0.57 Est GFR ( Amer) > 60 Est GFR (Non-Af Amer) > 60 Glucose 118 H Calcium 7.0 L* Impressions: Chest X-Ray 06/09/17 08:50 IMPRESSION: STABLE APPEARANCE OF THE CHEST WITH LEFT GREATER THAN RIGHT PLEURAL EFFUSIONS AND ASSOCIATED COMPRESSIVE ATELECTASIS. SATISFACTORY POSITION LEFT-SIDED PICC. KUB X-Ray 06/09/17 11:49 IMPRESSION: NO RADIOGRAPHIC EVIDENCE FOR ACUTE ABDOMINAL DISEASE. PERCUTANEOUS GASTROSTOMY TUBE PROJECTS OVER THE STOMACH BUBBLE. Abdomen/Pelvis CT 06/09/17 19:23 IMPRESSION: Interval placement of NG tube. There is adjacent intraperitoneal air almost certainly related to placement of the G-tube. Tube appears to be expected location. 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 Diverticulosis. Assessment & Plan - Diagnosis (1) Urinary tract infection Qualifiers: Urinary tract infection type: site unspecified Hematuria presence: without hematuria Qualified Code(s): N39.0 - Urinary tract infection, site not specified Is this a current diagnosis for this admission?: Yes Plan: IV fluid challenge, empiric antibiotics, follow-up CBC blood and urine culture (2) Pancreatitis Qualifiers: Chronicity: acute Acute pancreatitis complication: unspecified Is this a current diagnosis for this admission?: Yes Plan: Secondary to chronic alcoholism, trial of pancreatic enzyme, supportive measures (3) Malnutrition Is this a current diagnosis for this admission?: Yes Plan: Dietitian consult for PEG tube feeds given pancreatic insufficiency (4) Hypokalemia Is this a current diagnosis for this admission?: Yes Plan: Secondary to chronic pancreatitis and diarrhea. Replacement and reevaluation of chemistry. - Time Time Spent: 50 to 70 Minutes - Inpatient Certification Medical Necessity: Need Close Monitoring Due to Risk of Patient Decompensation
[2017-06-10 06:52] LABS: ABSOLUTE RETICS # 0.061 10^6/uL (0.028-0.122); BLOOD UREA NITROGEN 19 mg/dL (7-20); GLUCOSE 93 mg/dL (75-110); HEMATOCRIT 24.7 % (36.0-47.0); HEMOGLOBIN 8.1 g/dL (12.0-15.5); IRON(TIBC) 53.6 ug/dL (37-170); MEAN CORPUSCULAR HEMOGLOBIN 32.5 pg (27.0-33.4); MEAN CORPUSCULAR VOLUME 99 fl (80-97); PLATELET COUNT 382 10^3/uL (150-450); POTASSIUM 3.8 mmol/L (3.6-5.0); RETICULOCYTE COUNT (AUTO) 2.42 % (0.66-2.85); WHITE BLOOD COUNT 11.4 10^3/uL (4.0-10.5)
[2017-06-10 06:57] LABS: CARBON DIOXIDE 35 mmol/L (22-30); CHLORIDE 97 mmol/L (98-107); SODIUM 134.7 mmol/L (137-145)
[2017-06-10 08:02] LABS: ANION GAP 3 (5-19)
[2017-06-10 08:04] LABS: CALCIUM 6.6 mg/dL (8.4-10.2)
[2017-06-10] MEDS: FOLIC ACID 1 MG TABLET PEG SCH (10:45)
[2017-06-10] MEDS: FLUTICASONE/SALMETEROL DISKUS 250-50 MCG/DOSE IH SCH ×2 (10:46→17:49)
[2017-06-10] MEDS: DOCUSATE SODIUM 100 MG CAPSULE PO SCH ×2 (10:46→17:50)
[2017-06-10] MEDS: POTASSIUM CHLORIDE 10 MEQ TABLET.SA PO SCH ×2 (10:46→17:50)
[2017-06-10] MEDS: FUROSEMIDE 40 MG TABLET PEG SCH (10:46)
[2017-06-10] MEDS: PREDNISONE 5 MG TABLET PEG SCH ×2 (10:46→17:50)
[2017-06-10] MEDS: LIPASE/PROTEASE/AMYLASE 1 CAP CAPSULE.DR PO SCH ×2 (10:47→17:52)
[2017-06-10] MEDS: TIOTROPIUM BROMIDE DPI 5 CAP/KIT (18 MCG/CAP) IH SCH (10:47)
--- NOTE | 2017-06-10 16:48 | PDOC PROGRESS REPORT ---
Subjective Progress Note for:: 06/10/17 Subjective:: The patient is a 71-year-old female with past medical history of chronic pancreatitis with pseudocyst, chronic pain, malnutrition, COPD and debility. She was admitted 06/09/17 With urinary tract infection and chronic pancreatitis. She is seen on morning rounds with her significant other, Osito, present. She is found resting in bed comfortably on nasal cannula at 3 L/min. The patient is unable to recall whether or not she has been home O2 dependent. The patient is oriented to self and her family members; she is disoriented to place, time, situation and is very slow to respond. The patient's significant other cannot clearly state whether or not this is her baseline mental status. He does report that she has been acutely ill (probable CHF; s/o can not describe events but does report that her "heart lab" was >5000) and admitted to numerous facilities over the last month. The patient states that she is feeling fine at present. She denies fever, chills, chest pain, palpitations, dyspnea, orthopnea, abdominal pain, nausea vomiting diarrhea and constipation. She states that she does not eat because she is not hungry. They have no questions at this time. Reason For Visit: UTI SEPSIS HYPOTENSION Physical Exam Vital Signs: Temp Pulse Resp BP Pulse Ox 97.5 F 69 15 104/62 100 06/10/17 12:55 06/10/17 14:00 06/10/17 12:55 06/10/17 12:55 06/10/17 12:55 Intake & Output 06/09/17 06/10/17 06/11/17 06:59 06:59 06:59 Intake Total 1200 Balance 1200 Weight 66.8 kg General appearance: PRESENT: no acute distress, disheveled, well-developed, well -nourished, other - Chronically ill-appearing Head exam: PRESENT: atraumatic, normocephalic Eye exam: PRESENT: conjunctiva pink, EOMI, PERRLA. ABSENT: scleral icterus Ear exam: PRESENT: normal external ear exam Mouth exam: PRESENT: moist, tongue midline Teeth exam: PRESENT: edentulous, poor dentation Neck exam: ABSENT: carotid bruit, JVD, lymphadenopathy, thyromegaly Respiratory exam: PRESENT: clear to auscultation madeline, symmetrical, unlabored. ABSENT: rales, rhonchi, wheezes Cardiovascular exam: PRESENT: RRR, +S1, +S2. ABSENT: diastolic murmur, rubs, systolic murmur Pulses: PRESENT: normal dorsalis pedis pul Vascular exam: PRESENT: normal capillary refill GI/Abdominal exam: PRESENT: normal bowel sounds, soft. ABSENT: distended, guarding, mass, organolmegaly, rebound, tenderness Rectal exam: PRESENT: deferred Extremities exam: PRESENT: full ROM. ABSENT: calf tenderness, clubbing, pedal edema Neurological exam: PRESENT: alert, awake, oriented to person, CN II-XII grossly intact. ABSENT: oriented to place, oriented to time, oriented to situation, motor sensory deficit Psychiatric exam: PRESENT: appropriate affect, normal mood. ABSENT: homicidal ideation, suicidal ideation Skin exam: PRESENT: dry, intact, warm. ABSENT: cyanosis, rash Results Laboratory Results: 06/10/17 06:00 06/10/17 06:00 06/09/17 06/09/17 06/10/17 21:45 21:45 06:00 WBC 18.4 H 11.4 H RBC 2.88 L 2.50 L Hgb 9.4 L 8.1 L Hct 28.3 L 24.7 L MCV 98 H 99 H MCH 32.6 32.5 MCHC 33.2 33.0 RDW 16.0 H 16.0 H Plt Count 354 382 Seg Neutrophils % Not Reportable Lymphocytes % Not Reportable Monocytes % Not Reportable Eosinophils % Not Reportable Basophils % Not Reportable Absolute Neutrophils Not Reportable Absolute Lymphocytes Not Reportable Absolute Monocytes Not Reportable Absolute Eosinophils Not Reportable Absolute Basophils Not Reportable Retic Count (auto) 2.42 Absolute Retic 0.061 Sodium 131.9 L Potassium 3.2 L Chloride 92 L Carbon Dioxide 35 H Anion Gap 5 BUN 22 H Creatinine 0.57 Est GFR ( Amer) > 60 Est GFR (Non-Af Amer) > 60 Glucose 118 H Calcium 7.0 L* Iron TIBC % Saturation Ferritin Albumin Vitamin B12 Folate 06/10/17 06/10/17 06:00 06:00 WBC RBC Hgb Hct MCV MCH MCHC RDW Plt Count Seg Neutrophils % Lymphocytes % Monocytes % Eosinophils % Basophils % Absolute Neutrophils Absolute Lymphocytes Absolute Monocytes Absolute Eosinophils Absolute Basophils Retic Count (auto) Absolute Retic Sodium 134.7 L Potassium 3.8 Chloride 97 L Carbon Dioxide 35 H Anion Gap 3 L BUN 19 Creatinine 0.48 L Est GFR ( Amer) > 60 Est GFR (Non-Af Amer) > 60 Glucose 93 Calcium 6.6 L* Iron 53.6 TIBC 137 L % Saturation 39 Ferritin 572.00 H Albumin 1.7 L Vitamin B12 > 1000.0 H Folate 15.00 Impressions: Chest X-Ray 06/09/17 08:50 IMPRESSION: STABLE APPEARANCE OF THE CHEST WITH LEFT GREATER THAN RIGHT PLEURAL EFFUSIONS AND ASSOCIATED COMPRESSIVE ATELECTASIS. SATISFACTORY POSITION LEFT-SIDED PICC. KUB X-Ray 06/09/17 11:49 IMPRESSION: NO RADIOGRAPHIC EVIDENCE FOR ACUTE ABDOMINAL DISEASE. PERCUTANEOUS GASTROSTOMY TUBE PROJECTS OVER THE STOMACH BUBBLE. Abdomen/Pelvis CT 06/09/17 19:23 IMPRESSION: Interval placement of NG tube. There is adjacent intraperitoneal air almost certainly related to placement of the G-tube. Tube appears to be expected location. 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 Diverticulosis. Assessment & Plan - Diagnosis (1) Urinary tract infection Qualifiers: Urinary tract infection type: site unspecified Hematuria presence: without hematuria Qualified Code(s): N39.0 - Urinary tract infection, site not specified Is this a current diagnosis for this admission?: Yes Plan: Blood cultures are pending. Urine cultures demonstrate gram-negative rods. The patient is admitted to the [facility] on continuous cardiac telemetry. She is provided IV fluids. She has been placed on IV Rocephin; will adjust antibiotics as cultures result. (2) Hypocalcemia Is this a current diagnosis for this admission?: Yes Plan: Low serum calcium level in the setting of hypoalbuminemia; corrected calcium is 8.0 She is placed on calcium supplementation. We will continue to monitor. (3) Hypokalemia Is this a current diagnosis for this admission?: Yes Plan: Secondary to poor p.o. intake, diarrhea, chronic pancreatitis. She received potassium replacement today. We will monitor with serial chemistries and replace as necessary. (4) Hypomagnesemia Is this a current diagnosis for this admission?: Yes Plan: Magnesium upon admission is 1.4; she has received 1 g of magnesium IV. We will monitor her values and continue to replace as necessary. (5) Malnutrition Qualifiers: Malnutrition type: protein-calorie malnutrition Is this a current diagnosis for this admission?: Yes Plan: Secondary to poor p.o. intake. Patient received PEG tube placement on Saturday (4 days ago) due to refusal to eat. I have consulted psychiatry to evaluate for depression/SI versus capacity to choose hospice/comfort care services. I have consulted palliative care to review goals of care. I have consulted the registered dietitian. They have made recommendations for tube feedings, however, have concerns with regard to refeeding syndrome and recommend reevaluation and replacement of potassium, magnesium, and phosphorus before initiating tube feeds. I have ordered follow-up labs for the morning. (6) Pancreatitis Qualifiers: Chronicity: acute Acute pancreatitis complication: unspecified Is this a current diagnosis for this admission?: Yes Plan: Secondary to chronic alcoholism, will trial pancreatic enzymes. Supportive care. - Time Time Spent with patient: 35 or more minutes Medications reviewed and adjusted accordingly: Yes Anticipated discharge: SNF - Patient is a resident of [facility]. - Inpatient Certification Based on my medical assessment, after consideration of the patient's comorbidities, presenting symptoms, or acuity I expect that the services needed warrant INPATIENT care.: Yes I certify that my determination is in accordance with my understanding of Medicare's requirements for reasonable and necessary INPATIENT services [42 CFR 412.3e].: Yes Medical Necessity: Need Close Monitoring Due to Risk of Patient Decompensation, Need For IV Fluids, Need for IV Antibiotics
[2017-06-10] MEDS: CALCIUM CARBONATE 250 MG/VITAMIN D3 125 UNIT TABLET PO SCH (17:50)
[2017-06-10] MEDS: CEFTRIAXONE SODIUM 1,000 MG in NORMAL SALINE 100 ML IV SCH (17:51)
[2017-06-10] MEDS ORDERED: CEFTRIAXONE 1 GM/D5W RTU 1 GM/50 ML RTUPB IV SCH (18:00)
[2017-06-11 05:27] LABS: HEMATOCRIT 26.1 % (36.0-47.0); HEMOGLOBIN 8.6 g/dL (12.0-15.5); MEAN CORPUSCULAR HEMOGLOBIN 32.7 pg (27.0-33.4); MEAN CORPUSCULAR HGB CONC 33.1 g/dL (32.0-36.0); MEAN CORPUSCULAR VOLUME 99 fl (80-97); PLATELET COUNT 490 10^3/uL (150-450); RED BLOOD COUNT 2.64 10^6/uL (3.72-5.28); RED CELL DISTRIBUTION WIDTH 16.3 % (11.5-14.0); WHITE BLOOD COUNT 11.8 10^3/uL (4.0-10.5)
[2017-06-11 05:44] LABS: ALANINE AMINOTRANSFERASE 27 U/L (9-52); ALKALINE PHOSPHATASE 194 U/L (38-126); ANION GAP 6 (5-19); ASPARTATE AMINO TRANSFERASE 24 U/L (14-36); BILIRUBIN,DIRECT 0.2 mg/dL (0.0-0.4); BILIRUBIN,TOTAL 0.2 mg/dL (0.2-1.3); BLOOD UREA NITROGEN 17 mg/dL (7-20); CALCIUM 7.3 mg/dL (8.4-10.2); CARBON DIOXIDE 30 mmol/L (22-30); CHLORIDE 95 mmol/L (98-107); GLUCOSE 135 mg/dL (75-110); PHOSPHORUS 2.7 mg/dL (2.5-4.5); POTASSIUM 3.7 mmol/L (3.6-5.0); SODIUM 131.3 mmol/L (137-145); TOTAL PROTEIN 4.2 g/dL (6.3-8.2)
[2017-06-11 06:06] LABS: ABSOLUTE LYMPHOCYTES# (MANUAL) 0.4 10^3/uL (0.5-4.7); ABSOLUTE MONOCYTES # (MANUAL) 0.8 10^3/uL (0.1-1.4); ABSOLUTE NEUTROPHILS# (MANUAL) 10.6 10^3/uL (1.7-8.2); BASOPHILS % (MANUAL) 0 % (0-2); EOSINOPHILS % (MANUAL) 0 % (0-6); LYMPHOCYTES % (MANUAL) 3 % (13-45); MONOCYTES % (MANUAL) 7 % (3-13); SEGMENTED NEUTROPHILS % (MAN) 90 % (42-78); TOTAL CELLS COUNTED 100
[2017-06-11 06:07] LABS: PLATELET COMMENT INCREASED
[2017-06-11 06:09] LABS: ANISOCYTOSIS 1+; HYPOCHROMASIA SLIGHT; POLYCHROMASIA SLIGHT
[2017-06-11] MEDS: HEPARIN SOD (PORCINE) 5,000 UNIT/ML 1 ML SYRINGE SUBCUT SCH ×3 (06:17→22:53)
[2017-06-11] MEDS: GABAPENTIN 300 MG CAPSULE PEG SCH ×3 (06:18→22:49)
[2017-06-11] MEDS: LIPASE/PROTEASE/AMYLASE 1 CAP CAPSULE.DR PO SCH ×2 (08:58→15:50)
[2017-06-11] MEDS: CALCIUM CARBONATE 250 MG/VITAMIN D3 125 UNIT TABLET PO SCH ×2 (08:58→17:11)
[2017-06-11] MEDS: TIOTROPIUM BROMIDE DPI 5 CAP/KIT (18 MCG/CAP) IH SCH (08:59)
[2017-06-11] MEDS: FLUTICASONE/SALMETEROL DISKUS 250-50 MCG/DOSE IH SCH ×2 (09:00→17:11)
[2017-06-11] MEDS: DOCUSATE SODIUM 100 MG CAPSULE PO SCH ×2 (09:00→17:11)
[2017-06-11] MEDS: FUROSEMIDE 40 MG TABLET PEG SCH (09:01)
[2017-06-11] MEDS: POTASSIUM CHLORIDE 10 MEQ TABLET.SA PO SCH ×2 (09:01→17:11)
[2017-06-11] MEDS: PREDNISONE 5 MG TABLET PEG SCH ×2 (09:01→17:11)
[2017-06-11] MEDS: FOLIC ACID 1 MG TABLET PEG SCH (11:13)
[2017-06-11] MEDS ORDERED: CALCIUM CARBONATE 250 MG/VITAMIN D3 125 UNIT TABLET PO SCH (13:26)
[2017-06-11] MEDS ORDERED: ALBUMIN HUMAN 50 ML IV ONE (14:30)
[2017-06-11] MEDS ORDERED: POTASSIUM CHLORIDE 20 MEQ/15 ML UDCUP PO ONE (14:30)
[2017-06-11] MEDS: MAGNESIUM SULFATE/D5W 1 GM/100 ML RTUPB IV SCH ×2 (15:03→16:20)
--- NOTE | 2017-06-11 15:49 | PDOC PROGRESS REPORT ---
Subjective Progress Note for:: 06/11/17 Subjective:: ALIE PATTERSON is a 71 y.o. female with a PMH of chronic pancreatitis with pseudocyst, chronic pain, malnutrition, COPD and debility. She was admitted with a urinary tract infection and chronic pancreatitis. Additionally, the patient has stated to family and staff that she has no desire to live nor does she want to eat. PEG tube was placed prior to her arrival due to poor nutrition and the patient's refusal to eat. The patient is currently awaiting a psych evaluation to assess for capacity. The patient was seen this morning on rounds. She is resting comfortably in bed on room air. The patient is slow to respond to questions, she is oriented to herself but disoriented to place, time, and situation. According to nursing staff, the patient does experience brief moments where she is lucid, but for the most part she is confused. Her only complaint this morning is that the site around her PEG tube is slightly painful. There is very mild erythema at the incision site, however there is no drainage in the skin surrounding the PEG tube appears to be intact. Reason For Visit: UTI SEPSIS HYPOTENSION Physical Exam Vital Signs: Temp Pulse Resp BP Pulse Ox 98.4 F 81 16 124/61 97 06/11/17 12:10 06/11/17 13:25 06/11/17 13:25 06/11/17 12:10 06/11/17 13:25 Intake & Output 06/10/17 06/11/17 06/12/17 06:59 06:59 06:59 Intake Total 1200 2006 118 Balance 1200 2006 118 Weight 66.8 kg 66.8 kg General appearance: PRESENT: no acute distress Head exam: PRESENT: atraumatic Eye exam: PRESENT: conjunctiva pink, PERRLA Mouth exam: PRESENT: moist Teeth exam: PRESENT: poor dentation Neck exam: PRESENT: full ROM Respiratory exam: PRESENT: clear to auscultation madeline, symmetrical, unlabored Cardiovascular exam: PRESENT: +S1, +S2 Pulses: PRESENT: normal radial pulses, normal dorsalis pedis pul Vascular exam: PRESENT: normal capillary refill GI/Abdominal exam: PRESENT: normal bowel sounds, soft, other - Pain at the PEG tube insertion site. ABSENT: tenderness Rectal exam: PRESENT: deferred Extremities exam: PRESENT: full ROM. ABSENT: pedal edema Musculoskeletal exam: PRESENT: full ROM. ABSENT: ambulatory Neurological exam: PRESENT: alert, awake, oriented to person. ABSENT: oriented to place, oriented to time, oriented to situation Psychiatric exam: PRESENT: unusual affect Results Laboratory Results: 06/11/17 04:30 06/11/17 04:30 06/11/17 06/11/17 04:30 04:30 WBC 11.8 H RBC 2.64 L Hgb 8.6 L Hct 26.1 L MCV 99 H MCH 32.7 MCHC 33.1 RDW 16.3 H Plt Count 490 H Seg Neutrophils % Not Reportable Lymphocytes % Not Reportable Monocytes % Not Reportable Eosinophils % Not Reportable Basophils % Not Reportable Absolute Neutrophils Not Reportable Absolute Lymphocytes Not Reportable Absolute Monocytes Not Reportable Absolute Eosinophils Not Reportable Absolute Basophils Not Reportable Sodium 131.3 L Potassium 3.7 Chloride 95 L Carbon Dioxide 30 Anion Gap 6 BUN 17 Creatinine 0.62 Est GFR ( Amer) > 60 Est GFR (Non-Af Amer) > 60 Glucose 135 H Calcium 7.3 L Phosphorus 2.7 Magnesium 1.5 L Total Bilirubin 0.2 AST 24 ALT 27 Alkaline Phosphatase 194 H Total Protein 4.2 L Albumin 2.0 L Impressions: Chest X-Ray 06/09/17 08:50 IMPRESSION: STABLE APPEARANCE OF THE CHEST WITH LEFT GREATER THAN RIGHT PLEURAL EFFUSIONS AND ASSOCIATED COMPRESSIVE ATELECTASIS. SATISFACTORY POSITION LEFT-SIDED PICC. KUB X-Ray 06/09/17 11:49 IMPRESSION: NO RADIOGRAPHIC EVIDENCE FOR ACUTE ABDOMINAL DISEASE. PERCUTANEOUS GASTROSTOMY TUBE PROJECTS OVER THE STOMACH BUBBLE. Abdomen/Pelvis CT 06/09/17 19:23 IMPRESSION: Interval placement of NG tube. There is adjacent intraperitoneal air almost certainly related to placement of the G-tube. Tube appears to be expected location. 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 Diverticulosis. Status: Imported from PACS Assessment & Plan - Diagnosis (1) Urinary tract infection Qualifiers: Urinary tract infection type: site unspecified Hematuria presence: without hematuria Qualified Code(s): N39.0 - Urinary tract infection, site not specified Is this a current diagnosis for this admission?: Yes Plan: Blood cultures no growth in 24 hours. Urine cultures positive for gram-negative rods. Patient admitted to [facility] on continuous cardiac telemetry. Continue maintenance IV fluids. Continue IV Rocephin, will adjust antibiotics as cultures and sensitivities result (2) Hypocalcemia Is this a current diagnosis for this admission?: Yes Plan: Low serum calcium in the setting of hypoalbuminemia, corrected calcium is 8.9. Continue calcium supplementation. (3) Hypokalemia Is this a current diagnosis for this admission?: Yes Plan: Likely secondary to poor p.o. intake, diarrhea, chronic pancreatitis. Patient received p.o. potassium replacement today. Continue to monitor serial chemistries and replace as necessary. (4) Hypomagnesemia Is this a current diagnosis for this admission?: Yes Plan: Magnesium today is 1.5, plan to replace with 2 g IV magnesium. Continue to monitor daily chemistries (5) Malnutrition Qualifiers: Malnutrition type: protein-calorie malnutrition Is this a current diagnosis for this admission?: Yes Plan: Secondary to poor p.o. intake. Psych component, patient is refusing to eat. PEG tube placed Saturday06/07/2017 at outpatient facility due to refusal to eat. Psychiatry has been consulted to evaluate for depression/SI versus capacity to choose hospice/comfort care services. Palliative care consulted Registered dietitian consulted. They have made recommendations for enteral feeding, however have concerns regarding refeeding syndrome. Plan to replace potassium and magnesium today, as well as albumin. Phosphorus within normal limits. Plan to recheck chemistry this evening. If electrolytes are within normal range, plan to initiate enteral feeding. (6) Pancreatitis Qualifiers: Chronicity: acute Acute pancreatitis complication: unspecified Is this a current diagnosis for this admission?: Yes Plan: Secondary to chronic alcoholism. Currently on p.o. pancreatic enzymes. - Time Time Spent with patient: 15-24 minutes Medications reviewed and adjusted accordingly: Yes Anticipated discharge: SNF Within: within 72 hours - Inpatient Certification Based on my medical assessment, after consideration of the patient's comorbidities, presenting symptoms, or acuity I expect that the services needed warrant INPATIENT care.: Yes I certify that my determination is in accordance with my understanding of Medicare's requirements for reasonable and necessary INPATIENT services [42 CFR 412.3e].: Yes Medical Necessity: Risk of Complication if Not Cared For in Hospital - Plan Summary Plan Summary: Ultimately, the plan is to initiate enteral feeding and discharge the patient back to the [facility] from.
[2017-06-11] MEDS: CEFTRIAXONE SODIUM 1,000 MG in NORMAL SALINE 100 ML IV SCH (17:12)
[2017-06-11 19:58] LABS: ANION GAP 6 (5-19); BLOOD UREA NITROGEN 16 mg/dL (7-20); CALCIUM 7.5 mg/dL (8.4-10.2); CARBON DIOXIDE 29 mmol/L (22-30); CHLORIDE 93 mmol/L (98-107); GLUCOSE 102 mg/dL (75-110); POTASSIUM 3.7 mmol/L (3.6-5.0); SODIUM 127.6 mmol/L (137-145)
[2017-06-11 21:11] LABS: PHOSPHORUS 2.3 mg/dL (2.5-4.5)
[2017-06-11] MEDS ORDERED: PHOSPHORUS #1 250 MG TABLET PO ONE (23:19)
[2017-06-12] MEDS: HEPARIN SOD (PORCINE) 5,000 UNIT/ML 1 ML SYRINGE SUBCUT SCH ×3 (05:03→21:54)
[2017-06-12] MEDS: GABAPENTIN 300 MG CAPSULE PEG SCH ×3 (05:03→21:54)
[2017-06-12 05:38] LABS: HEMATOCRIT 23.7 % (36.0-47.0); MEAN CORPUSCULAR HEMOGLOBIN 31.9 pg (27.0-33.4); MEAN CORPUSCULAR HGB CONC 32.3 g/dL (32.0-36.0); MEAN CORPUSCULAR VOLUME 99 fl (80-97); PLATELET COUNT 388 10^3/uL (150-450); RED BLOOD COUNT 2.41 10^6/uL (3.72-5.28); WHITE BLOOD COUNT 12.3 10^3/uL (4.0-10.5)
[2017-06-12 05:41] LABS: HEMOGLOBIN 7.7 g/dL (12.0-15.5)
[2017-06-12 05:48] LABS: ANION GAP 7 (5-19); BLOOD UREA NITROGEN 15 mg/dL (7-20); CALCIUM 7.5 mg/dL (8.4-10.2); CARBON DIOXIDE 28 mmol/L (22-30); CHLORIDE 95 mmol/L (98-107); GLUCOSE 85 mg/dL (75-110); PHOSPHORUS 2.9 mg/dL (2.5-4.5); POTASSIUM 3.7 mmol/L (3.6-5.0); SODIUM 129.8 mmol/L (137-145)
[2017-06-12] MEDS ORDERED: NORMAL SALINE 250 ML IV PRN ×2 (07:54)
--- NOTE | 2017-06-12 08:23 | PDOC PROGRESS REPORT ---
Subjective Progress Note for:: 06/12/17 Subjective:: The patient states to feel better. She still appears to be slightly confused but denies any shortness of breath or pain. Reason For Visit: UTI SEPSIS HYPOTENSION Physical Exam Vital Signs: Temp Pulse Resp BP Pulse Ox 97.7 F 59 L 20 107/60 100 06/12/17 04:16 06/12/17 07:00 06/12/17 04:16 06/12/17 04:16 06/12/17 04:16 Intake & Output 06/11/17 06/12/17 06/13/17 06:59 06:59 06:59 Intake Total 2006 916 Output Total 0 Balance 2006 91 Weight 66.8 kg 75.8 kg General appearance: PRESENT: mild distress Head exam: PRESENT: atraumatic Eye exam: PRESENT: conjunctival injection Neck exam: PRESENT: carotid bruit Respiratory exam: PRESENT: rhonchi. ABSENT: wheezes Cardiovascular exam: PRESENT: RRR, +S1, +S2 Pulses: PRESENT: +1 pedal pulses bilateral GI/Abdominal exam: PRESENT: normal bowel sounds, soft, other Extremities exam: PRESENT: pedal edema, tenderness Musculoskeletal exam: PRESENT: tenderness Neurological exam: PRESENT: alert, awake Psychiatric exam: PRESENT: flat affect Results Laboratory Results: 06/12/17 05:00 06/12/17 05:00 06/11/17 06/11/17 06/12/17 19:20 19:20 05:00 WBC 12.3 H RBC 2.41 L Hgb 7.7 L Hct 23.7 L MCV 99 H MCH 31.9 MCHC 32.3 RDW 16.0 H Plt Count 388 Sodium 127.6 L Potassium 3.7 Chloride 93 L Carbon Dioxide 29 Anion Gap 6 BUN 16 Creatinine 0.71 Est GFR ( Amer) > 60 Est GFR (Non-Af Amer) > 60 Glucose 102 Calcium 7.5 L Phosphorus 2.3 L Magnesium 2.2 06/12/17 05:00 WBC RBC Hgb Hct MCV MCH MCHC RDW Plt Count Sodium 129.8 L Potassium 3.7 Chloride 95 L Carbon Dioxide 28 Anion Gap 7 BUN 15 Creatinine 0.68 Est GFR ( Amer) > 60 Est GFR (Non-Af Amer) > 60 Glucose 85 Calcium 7.5 L Phosphorus 2.9 Magnesium 2.0 Impressions: Chest X-Ray 06/09/17 08:50 IMPRESSION: STABLE APPEARANCE OF THE CHEST WITH LEFT GREATER THAN RIGHT PLEURAL EFFUSIONS AND ASSOCIATED COMPRESSIVE ATELECTASIS. SATISFACTORY POSITION LEFT-SIDED PICC. KUB X-Ray 06/09/17 11:49 IMPRESSION: NO RADIOGRAPHIC EVIDENCE FOR ACUTE ABDOMINAL DISEASE. PERCUTANEOUS GASTROSTOMY TUBE PROJECTS OVER THE STOMACH BUBBLE. Abdomen/Pelvis CT 06/09/17 19:23 IMPRESSION: Interval placement of NG tube. There is adjacent intraperitoneal air almost certainly related to placement of the G-tube. Tube appears to be expected location. 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 Diverticulosis. Assessment & Plan - Diagnosis (1) Anemia Qualifiers: Anemia type: iron deficiency Is this a current diagnosis for this admission?: Yes Plan: We will transfuse 2 units of packed red blood cells (2) Hypokalemia Is this a current diagnosis for this admission?: Yes (3) Hypomagnesemia Is this a current diagnosis for this admission?: Yes Plan: Continue supplementation (4) Malnutrition Qualifiers: Malnutrition type: protein-calorie malnutrition Is this a current diagnosis for this admission?: Yes Plan: We will start the tube feeding (5) Sepsis Qualifiers: Sepsis type: sepsis due to unspecified organism Qualified Code(s): A41.9 - Sepsis, unspecified organism Is this a current diagnosis for this admission?: Yes Plan: Continue current medications (6) Urinary tract infection Qualifiers: Urinary tract infection type: site unspecified Hematuria presence: without hematuria Qualified Code(s): N39.0 - Urinary tract infection, site not specified Is this a current diagnosis for this admission?: Yes Plan: We will add Levaquin (7) Dehydration Is this a current diagnosis for this admission?: Yes Plan: We will continue with IV fluids after the transfusion (8) Hyponatremia Is this a current diagnosis for this admission?: Yes Plan: We will fluid restrict
[2017-06-12] MEDS: PREDNISONE 5 MG TABLET PEG SCH ×2 (09:23→16:59)
[2017-06-12] MEDS: CALCIUM CARBONATE 250 MG/VITAMIN D3 125 UNIT TABLET PO SCH ×2 (09:23→16:59)
[2017-06-12] MEDS: LEVOFLOXACIN 500 MG TABLET PO SCH (09:24)
[2017-06-12] MEDS: TIOTROPIUM BROMIDE DPI 5 CAP/KIT (18 MCG/CAP) IH SCH (09:24)
[2017-06-12] MEDS: DOCUSATE SODIUM 100 MG CAPSULE PO SCH ×2 (09:24→16:58)
[2017-06-12] MEDS: POTASSIUM CHLORIDE 10 MEQ TABLET.SA PO SCH ×2 (09:24→16:59)
[2017-06-12] MEDS: FLUTICASONE/SALMETEROL DISKUS 250-50 MCG/DOSE IH SCH ×2 (09:24→16:59)
[2017-06-12] MEDS: FUROSEMIDE 40 MG TABLET PEG SCH (09:26)
[2017-06-12] MEDS: LIPASE/PROTEASE/AMYLASE 1 CAP CAPSULE.DR PO SCH ×2 (10:30→15:42)
[2017-06-12] MEDS: FOLIC ACID 1 MG TABLET PEG SCH (11:54)
[2017-06-12] MEDS: CEFTRIAXONE SODIUM 1,000 MG in NORMAL SALINE 100 ML IV SCH (16:59)
[2017-06-12 22:19] LABS: HEMATOCRIT 29.7 % (36.0-47.0); MEAN CORPUSCULAR HGB CONC 34.4 g/dL (32.0-36.0); PLATELET COUNT 279 10^3/uL (150-450); RED BLOOD COUNT 3.19 10^6/uL (3.72-5.28); RED CELL DISTRIBUTION WIDTH 18.2 % (11.5-14.0); WHITE BLOOD COUNT 10.5 10^3/uL (4.0-10.5)
[2017-06-12 22:22] LABS: HEMOGLOBIN 10.2 g/dL (12.0-15.5)
[2017-06-12 22:23] LABS: MEAN CORPUSCULAR VOLUME 93 fl (80-97)
--- NOTE | 2017-06-12 22:36 | EKG REPORT ---
SEVERITY:- ABNORMAL ECG - ATRIAL FIBRILLATION, CAN NOT R/O SINUS WITH APC, REC REPEAT EKG WITH FILTER NONSPECIFIC INTRAVENTRICULAR CONDUCTION DELAY : Confirmed by: Carolina Bustos 12-Jun-2017 22:35:51
[2017-06-13 05:13] LABS: HEMATOCRIT 29.9 % (36.0-47.0); HEMOGLOBIN 10.3 g/dL (12.0-15.5); MEAN CORPUSCULAR HEMOGLOBIN 31.5 pg (27.0-33.4); MEAN CORPUSCULAR HGB CONC 34.4 g/dL (32.0-36.0); MEAN CORPUSCULAR VOLUME 92 fl (80-97); PLATELET COUNT 295 10^3/uL (150-450); RED BLOOD COUNT 3.26 10^6/uL (3.72-5.28); RED CELL DISTRIBUTION WIDTH 18.2 % (11.5-14.0); WHITE BLOOD COUNT 9.8 10^3/uL (4.0-10.5)
[2017-06-13 05:30] LABS: ALANINE AMINOTRANSFERASE 30 U/L (9-52); ALBUMIN 2.1 g/dL (3.5-5.0); ALKALINE PHOSPHATASE 204 U/L (38-126); ANION GAP 8 (5-19); ASPARTATE AMINO TRANSFERASE 32 U/L (14-36); BLOOD UREA NITROGEN 12 mg/dL (7-20); CALCIUM 7.5 mg/dL (8.4-10.2); CARBON DIOXIDE 31 mmol/L (22-30); CHLORIDE 93 mmol/L (98-107); GLUCOSE 100 mg/dL (75-110); SODIUM 131.8 mmol/L (137-145)
[2017-06-13 05:31] LABS: BILIRUBIN,DIRECT 0.4 mg/dL (0.0-0.4); BILIRUBIN,TOTAL 0.6 mg/dL (0.2-1.3); TOTAL PROTEIN 3.9 g/dL (6.3-8.2)
[2017-06-13 06:16] LABS: BASOPHILS % (MANUAL) 0 % (0-2); EOSINOPHILS % (MANUAL) 0 % (0-6); PROMYELOCYTES % (MANUAL) 1 % (0); TOTAL CELLS COUNTED 100
[2017-06-13 06:20] LABS: ANISOCYTOSIS 2+; HYPOCHROMASIA 1+; TOXIC GRANULATION SLIGHT
[2017-06-13 06:21] LABS: PLATELET CLUMPS PRESENT
[2017-06-13] MEDS: HEPARIN SOD (PORCINE) 5,000 UNIT/ML 1 ML SYRINGE SUBCUT SCH ×3 (06:38→22:14)
[2017-06-13] MEDS: GABAPENTIN 300 MG CAPSULE PEG SCH ×3 (06:39→22:15)
[2017-06-13] MEDS ORDERED: POTASSIUM CHLORIDE 10 MEQ TABLET.SA PO ONE (07:00)
[2017-06-13 07:08] LABS: ABSOLUTE LYMPHOCYTES# (MANUAL) 0.3 10^3/uL (0.5-4.7); ABSOLUTE MONOCYTES # (MANUAL) 0.5 10^3/uL (0.1-1.4); BAND NEUTROPHILS % (MANUAL) 4 % (3-5); LYMPHOCYTES % (MANUAL) 3 % (13-45); METAMYELOCYTES % (MANUAL) 5 % (0); MONOCYTES % (MANUAL) 5 % (3-13); SEGMENTED NEUTROPHILS % (MAN) 79 % (42-78)
[2017-06-13 07:09] LABS: ABSOLUTE NEUTROPHILS# (MANUAL) 8.9 10^3/uL (1.7-8.2); MYELOCYTES % (MANUAL) 3 % (0)
[2017-06-13 07:11] LABS: POLYCHROMASIA SLIGHT
--- NOTE | 2017-06-13 08:43 | PDOC PROGRESS REPORT ---
Subjective Progress Note for:: 06/13/17 Subjective:: The patient states to feel better. She still appears to be slightly confused but denies any shortness of breath or pain. Reason For Visit: UTI SEPSIS HYPOTENSION Physical Exam Vital Signs: Temp Pulse Resp BP Pulse Ox 97.9 F 66 16 126/62 H 92 06/13/17 05:25 06/13/17 07:00 06/13/17 05:25 06/13/17 05:25 06/13/17 05:25 Intake & Output 06/12/17 06/13/17 06/14/17 06:59 06:59 06:59 Intake Total 916 1567 Output Total 0 Balance 916 1567 Weight 75.8 kg 76.5 kg General appearance: PRESENT: mild distress Head exam: PRESENT: atraumatic Neck exam: PRESENT: carotid bruit Respiratory exam: PRESENT: rhonchi Cardiovascular exam: PRESENT: +S1, +S2 Pulses: PRESENT: +1 pedal pulses bilateral Extremities exam: PRESENT: tenderness Musculoskeletal exam: PRESENT: tenderness Neurological exam: PRESENT: alert, awake Skin exam: PRESENT: abrasion Results Laboratory Results: 06/13/17 04:15 06/13/17 04:15 06/12/17 06/12/17 06/13/17 09:04 21:45 04:15 WBC 10.5 9.8 RBC 3.19 L 3.26 L Hgb 10.2 L D 10.3 L Hct 29.7 L 29.9 L MCV 93 D 92 MCH 32.0 31.5 MCHC 34.4 34.4 RDW 18.2 H 18.2 H Plt Count 279 295 Seg Neutrophils % Not Reportable Lymphocytes % Not Reportable Monocytes % Not Reportable Eosinophils % Not Reportable Basophils % Not Reportable Absolute Neutrophils Not Reportable Absolute Lymphocytes Not Reportable Absolute Monocytes Not Reportable Absolute Eosinophils Not Reportable Absolute Basophils Not Reportable Sodium Potassium Chloride Carbon Dioxide Anion Gap BUN Creatinine Est GFR ( Amer) Est GFR (Non-Af Amer) Glucose Calcium Magnesium Total Bilirubin AST ALT Alkaline Phosphatase Total Protein Albumin TSH Blood Type O POSITIVE Antibody Screen NEGATIVE 06/13/17 06/13/17 04:15 04:15 WBC RBC Hgb Hct MCV MCH MCHC RDW Plt Count Seg Neutrophils % Lymphocytes % Monocytes % Eosinophils % Basophils % Absolute Neutrophils Absolute Lymphocytes Absolute Monocytes Absolute Eosinophils Absolute Basophils Sodium 131.8 L Potassium 3.0 L* Chloride 93 L Carbon Dioxide 31 H Anion Gap 8 BUN 12 Creatinine 0.46 L Est GFR ( Amer) > 60 Est GFR (Non-Af Amer) > 60 Glucose 100 Calcium 7.5 L Magnesium 1.5 L Total Bilirubin 0.6 AST 32 ALT 30 Alkaline Phosphatase 204 H Total Protein 3.9 L Albumin 2.1 L TSH 25.50 H Blood Type Antibody Screen Impressions: Chest X-Ray 06/09/17 08:50 IMPRESSION: STABLE APPEARANCE OF THE CHEST WITH LEFT GREATER THAN RIGHT PLEURAL EFFUSIONS AND ASSOCIATED COMPRESSIVE ATELECTASIS. SATISFACTORY POSITION LEFT-SIDED PICC. KUB X-Ray 06/09/17 11:49 IMPRESSION: NO RADIOGRAPHIC EVIDENCE FOR ACUTE ABDOMINAL DISEASE. PERCUTANEOUS GASTROSTOMY TUBE PROJECTS OVER THE STOMACH BUBBLE. Abdomen/Pelvis CT 06/09/17 19:23 IMPRESSION: Interval placement of NG tube. There is adjacent intraperitoneal air almost certainly related to placement of the G-tube. Tube appears to be expected location. 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 Diverticulosis. Assessment & Plan - Diagnosis (1) Anemia Qualifiers: Anemia type: iron deficiency Is this a current diagnosis for this admission?: Yes Plan: We will transfuse 2 units of packed red blood cells (2) Hypokalemia Is this a current diagnosis for this admission?: Yes Plan: kcl 40 (3) Hypomagnesemia Is this a current diagnosis for this admission?: Yes Plan: Continue supplementation (4) Malnutrition Qualifiers: Malnutrition type: protein-calorie malnutrition Is this a current diagnosis for this admission?: Yes Plan: We will start the tube feeding (5) Sepsis Qualifiers: Sepsis type: sepsis due to unspecified organism Qualified Code(s): A41.9 - Sepsis, unspecified organism Is this a current diagnosis for this admission?: Yes (6) Urinary tract infection Qualifiers: Urinary tract infection type: site unspecified Hematuria presence: without hematuria Qualified Code(s): N39.0 - Urinary tract infection, site not specified Is this a current diagnosis for this admission?: Yes Plan: We will add Levaquin (7) Dehydration Is this a current diagnosis for this admission?: Yes Plan: We will continue with IV fluids after the transfusion (8) Hyponatremia Is this a current diagnosis for this admission?: Yes (9) Hypothyroid Qualifiers: Hypothyroidism type: acquired Qualified Code(s): E03.9 - Hypothyroidism, unspecified Is this a current diagnosis for this admission?: Yes Plan: continue meds
[2017-06-13] MEDS ORDERED: LEVOTHYROXINE SODIUM 0.1 MG TABLET PO ONE (09:00)
[2017-06-13] MEDS: CALCIUM CARBONATE 250 MG/VITAMIN D3 125 UNIT TABLET PO SCH ×2 (10:06→17:32)
[2017-06-13] MEDS: DOCUSATE SODIUM 100 MG CAPSULE PO SCH ×2 (10:06→17:32)
[2017-06-13] MEDS: LEVOFLOXACIN 500 MG TABLET PO SCH (10:06)
[2017-06-13] MEDS: LIPASE/PROTEASE/AMYLASE 1 CAP CAPSULE.DR PO SCH ×2 (10:06→17:32)
[2017-06-13] MEDS: PREDNISONE 5 MG TABLET PEG SCH ×2 (10:07→17:33)
[2017-06-13] MEDS: TIOTROPIUM BROMIDE DPI 5 CAP/KIT (18 MCG/CAP) IH SCH (10:07)
[2017-06-13] MEDS: FLUTICASONE/SALMETEROL DISKUS 250-50 MCG/DOSE IH SCH ×2 (10:07→22:15)
[2017-06-13] MEDS: MAGNESIUM OXIDE 400 MG TABLET PO SCH ×2 (10:07→17:55)
[2017-06-13] MEDS: FUROSEMIDE 40 MG TABLET PEG SCH (10:07)
[2017-06-13] MEDS: FOLIC ACID 1 MG TABLET PEG SCH (13:27)
[2017-06-13] MEDS ORDERED: FUROSEMIDE INJ/PF 40 MG/4 ML SDV IV ONE (17:00)
[2017-06-13] MEDS: CEFTRIAXONE SODIUM 1,000 MG in NORMAL SALINE 100 ML IV SCH (17:56)
[2017-06-13] MEDS ORDERED: POTASSIUM CHLORIDE 10 MEQ TABLET.SA PO SCH ×2 (18:00)
[2017-06-13] MEDS ORDERED: OLANZAPINE INJ/PF 10 MG SDV IM ONE (21:30)
[2017-06-13] MEDS: ATORVASTATIN CALCIUM 40 MG TABLET PEG SCH (22:14)
--- NOTE | 2017-06-14 00:01 | Progress Note ---
Provider Note Provider Note: Palliative Care Visit 06/13/17 3:00 PM Attempted to make PC visit today, but patient is disoriented and confused this afternoon. She did deny any pain or problems but thought she was at home and wanted scissors to cut her monitor wires. She is pleasant but unable to conduct any meaningful conversation. No family at hospital at this time. Nurse reports paris son also haa a daughter in serious condition in another hospital. No symptoms to address at present, DNR in place and nurse reports no new problems. Charles was inpatietn at [facility] before this admission. I will call patients son for support. Will follow as needed. No charge for this visit .
[2017-06-14] MEDS: HEPARIN SOD (PORCINE) 5,000 UNIT/ML 1 ML SYRINGE SUBCUT SCH ×3 (05:49→22:03)
[2017-06-14] MEDS: LANSOPRAZOLE 15 MG TAB.RAP.DR PO SCH (05:49)
[2017-06-14] MEDS: LEVOTHYROXINE SODIUM 0.1 MG TABLET PO SCH (05:50)
[2017-06-14] MEDS: GABAPENTIN 300 MG CAPSULE PEG SCH ×3 (05:50→22:03)
[2017-06-14 05:58] LABS: HEMATOCRIT 33.9 % (36.0-47.0); HEMOGLOBIN 11.5 g/dL (12.0-15.5); MEAN CORPUSCULAR HEMOGLOBIN 31.3 pg (27.0-33.4); MEAN CORPUSCULAR HGB CONC 34.1 g/dL (32.0-36.0); MEAN CORPUSCULAR VOLUME 92 fl (80-97); PLATELET COUNT 338 10^3/uL (150-450); RED BLOOD COUNT 3.69 10^6/uL (3.72-5.28); WHITE BLOOD COUNT 14.3 10^3/uL (4.0-10.5)
[2017-06-14 06:12] LABS: ANION GAP 8 (5-19); BLOOD UREA NITROGEN 8 mg/dL (7-20); CALCIUM 7.7 mg/dL (8.4-10.2); CARBON DIOXIDE 36 mmol/L (22-30); CHLORIDE 91 mmol/L (98-107); GLUCOSE 81 mg/dL (75-110); SODIUM 134.5 mmol/L (137-145)
[2017-06-14 06:21] LABS: POTASSIUM 2.8 mmol/L (3.6-5.0)
[2017-06-14 06:42] LABS: ABSOLUTE LYMPHOCYTES# (MANUAL) 1.9 10^3/uL (0.5-4.7); ABSOLUTE MONOCYTES # (MANUAL) 0.9 10^3/uL (0.1-1.4); ABSOLUTE NEUTROPHILS# (MANUAL) 11.6 10^3/uL (1.7-8.2); BAND NEUTROPHILS % (MANUAL) 1 % (3-5); BASOPHILS % (MANUAL) 0 % (0-2); EOSINOPHILS % (MANUAL) 0 % (0-6); LYMPHOCYTES % (MANUAL) 9 % (13-45); METAMYELOCYTES % (MANUAL) 1 % (0); MONOCYTES % (MANUAL) 6 % (3-13); SEGMENTED NEUTROPHILS % (MAN) 79 % (42-78); TOTAL CELLS COUNTED 100
[2017-06-14 06:44] LABS: ANISOCYTOSIS 1+; PLATELET COMMENT ADEQUATE; PLATELET LARGE PRESENT; POIKILOCYTOSIS SLIGHT; SCHISTOCYTES SLIGHT; TOXIC GRANULATION 1+; TOXIC VACUOLATION PRESENT
[2017-06-14] MEDS ORDERED: POTASSI CL 20 MEQ/50 ML RIDER 20 MEQ/50 ML RTUPB IV SCH (07:34)
[2017-06-14 08:50] LABS: ARTERIAL BLOOD BASE EXCESS 6.8 mmol/L; ARTERIAL BLOOD H2CO3 1.37 mmol/L (1.05-1.35); ARTERIAL BLOOD HCO3 31.6 mmol/L (20-26); ARTERIAL BLOOD PCO2 45.5 mmHg (35-45); ARTERIAL BLOOD PH 7.46 (7.35-7.45)
--- NOTE | 2017-06-14 09:05 | PDOC PROGRESS REPORT ---
Subjective Progress Note for:: 06/14/17 Subjective:: confused. Reason For Visit: UTI SEPSIS HYPOTENSION Physical Exam Vital Signs: Temp Pulse Resp BP Pulse Ox 97.6 F 62 20 107/67 97 06/14/17 04:01 06/14/17 04:01 06/14/17 04:01 06/14/17 04:01 06/14/17 04:01 Intake & Output 06/13/17 06/14/17 06/15/17 06:59 06:59 06:59 Intake Total 1916 754 Balance 1916 754 Weight 76.5 kg 74.8 kg General appearance: PRESENT: mild distress Head exam: PRESENT: atraumatic Eye exam: PRESENT: conjunctiva pink Neck exam: ABSENT: carotid bruit Respiratory exam: PRESENT: rhonchi. ABSENT: wheezes Cardiovascular exam: PRESENT: RRR, +S1, +S2 Pulses: PRESENT: +1 pedal pulses bilateral GI/Abdominal exam: PRESENT: normal bowel sounds, soft Extremities exam: PRESENT: tenderness Musculoskeletal exam: PRESENT: tenderness. ABSENT: ambulatory Neurological exam: PRESENT: awake. ABSENT: alert, oriented to time, oriented to situation Psychiatric exam: PRESENT: flat affect Focused psych exam: PRESENT: restlessness Skin exam: PRESENT: abrasion Results Laboratory Results: 06/14/17 05:30 06/14/17 05:30 06/14/17 06/14/17 06/14/17 05:30 05:30 08:30 WBC 14.3 H RBC 3.69 L Hgb 11.5 L Hct 33.9 L MCV 92 MCH 31.3 MCHC 34.1 RDW 18.0 H Plt Count 338 Seg Neutrophils % Not Reportable Lymphocytes % Not Reportable Monocytes % Not Reportable Eosinophils % Not Reportable Basophils % Not Reportable Absolute Neutrophils Not Reportable Absolute Lymphocytes Not Reportable Absolute Monocytes Not Reportable Absolute Eosinophils Not Reportable Absolute Basophils Not Reportable Carbonic Acid 1.37 H HCO3/H2CO3 Ratio 23:1 ABG pH 7.46 H ABG pCO2 45.5 H ABG pO2 104.0 H ABG HCO3 31.6 H ABG O2 Saturation 98.0 ABG Base Excess 6.8 FiO2 3.00 Sodium 134.5 L Potassium 2.8 L* Chloride 91 L Carbon Dioxide 36 H Anion Gap 8 BUN 8 Creatinine 0.47 L Est GFR ( Amer) > 60 Est GFR (Non-Af Amer) > 60 Glucose 81 Calcium 7.7 L Impressions: Chest X-Ray 06/09/17 08:50 IMPRESSION: STABLE APPEARANCE OF THE CHEST WITH LEFT GREATER THAN RIGHT PLEURAL EFFUSIONS AND ASSOCIATED COMPRESSIVE ATELECTASIS. SATISFACTORY POSITION LEFT-SIDED PICC. KUB X-Ray 06/09/17 11:49 IMPRESSION: NO RADIOGRAPHIC EVIDENCE FOR ACUTE ABDOMINAL DISEASE. PERCUTANEOUS GASTROSTOMY TUBE PROJECTS OVER THE STOMACH BUBBLE. Abdomen/Pelvis CT 06/09/17 19:23 IMPRESSION: Interval placement of NG tube. There is adjacent intraperitoneal air almost certainly related to placement of the G-tube. Tube appears to be expected location. 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 Diverticulosis. Assessment & Plan - Diagnosis (1) Anemia Qualifiers: Anemia type: iron deficiency Is this a current diagnosis for this admission?: Yes Plan: improved with PRBC (2) Hypokalemia Is this a current diagnosis for this admission?: Yes Plan: add kcl (3) Hypomagnesemia Is this a current diagnosis for this admission?: Yes Plan: Continue supplementation (4) Malnutrition Qualifiers: Malnutrition type: protein-calorie malnutrition Is this a current diagnosis for this admission?: Yes Plan: peg tube feeding (5) Sepsis Qualifiers: Sepsis type: sepsis due to unspecified organism Qualified Code(s): A41.9 - Sepsis, unspecified organism Is this a current diagnosis for this admission?: Yes Plan: Continue current medications (6) Urinary tract infection Qualifiers: Urinary tract infection type: site unspecified Hematuria presence: without hematuria Qualified Code(s): N39.0 - Urinary tract infection, site not specified Is this a current diagnosis for this admission?: Yes Plan: We will add Levaquin (7) Dehydration Is this a current diagnosis for this admission?: Yes (8) Hyponatremia Is this a current diagnosis for this admission?: Yes Plan: We will fluid restrict (9) Hypothyroid Qualifiers: Hypothyroidism type: acquired Qualified Code(s): E03.9 - Hypothyroidism, unspecified Is this a current diagnosis for this admission?: Yes Plan: started on synthroid
[2017-06-14] MEDS: LIPASE/PROTEASE/AMYLASE 1 CAP CAPSULE.DR PO SCH ×2 (09:06→18:44)
[2017-06-14] MEDS: POTASSIUM CHLORIDE 20 MEQ/15 ML UDCUP PEG SCH ×5 (09:08→22:03)
[2017-06-14] MEDS: ASPIRIN 81 MG TABLET, ENT COATED PO SCH (09:09)
[2017-06-14] MEDS: DOCUSATE SODIUM 100 MG CAPSULE PO SCH ×2 (09:09→18:43)
[2017-06-14] MEDS: CYANOCOBALAMIN (VITAMIN B-12) 1,000 MCG TABLET PEG SCH (09:09)
[2017-06-14] MEDS: FUROSEMIDE 40 MG TABLET PEG SCH (09:10)
[2017-06-14] MEDS: FOLIC ACID 1 MG TABLET PEG SCH (09:10)
[2017-06-14] MEDS: PREDNISONE 5 MG TABLET PEG SCH ×2 (09:10→18:45)
[2017-06-14] MEDS: THIAMINE HCL 100 MG TABLET PEG SCH (09:10)
[2017-06-14] MEDS: LEVOFLOXACIN 500 MG TABLET PO SCH (09:11)
[2017-06-14] MEDS: MAGNESIUM OXIDE 400 MG TABLET PO SCH ×2 (09:11→18:43)
[2017-06-14] MEDS: CALCIUM CARBONATE 250 MG/VITAMIN D3 125 UNIT TABLET PO SCH ×2 (09:12→18:46)
[2017-06-14] MEDS: FLUTICASONE/SALMETEROL DISKUS 250-50 MCG/DOSE IH SCH ×2 (09:13→22:05)
[2017-06-14] MEDS ORDERED: THIAMINE MONONITRATE 100 MG PEG SCH (10:00)
[2017-06-14] MEDS ORDERED: OLANZAPINE 2.5 MG TABLET PO SCH (10:00)
[2017-06-14] MEDS ORDERED: (PENDING PHARMACY ID) (Roflumilast [Daliresp 500 Mcg Tablet] 500 MCG) PEG SCH (10:00)
[2017-06-14] MEDS ORDERED: ROFLUMILAST 500 MCG TABLET PEG SCH (10:00)
[2017-06-14] MEDS: TIOTROPIUM BROMIDE DPI 5 CAP/KIT (18 MCG/CAP) IH SCH (14:40)
--- NOTE | 2017-06-14 15:57 | PSYCHOLOGICAL NOTE ---
Psych Note - Psych Note Psych Note: CAPACITY EVALUATION Patient is a 71-year-old female who presented to the [facility] ( [facility]) Emergency Department (ED) from care home facility (SNF) [facility] on 06/09/2017 via EMS for chest wall and abdominal wall pain ongoing for a few days prior. She had been treated at [facility] which is how she was placed at the SNF. ED Documentation noted patient had been to [facility] 06/03/17 after not eating or drinking for a month which resulted in a PICC Line and PEG Tube placement. She has a problem list of 26 with 7 being active: malnutrition, hypokalemia, hypocalcemia, hypomagnesemia (oral and IV medications replaced these), leukocytosis (felt to be as result of recent operative that placed PEG Tube), Urinary Tract Infection (UTI), Sepsis and DNR (per family). She was subsequently admitted to hospitalist services for: UTI, pancreatitis, malnutrition and hypokalemia. Hospitalist documentation from the ED noted patient was a poor historian and the following concerns: anorexia with subsequent malnutrition, pyuria, leukocytosis, hypokalemia, hypoalbuminemia and debility. Patients medical insurance is Medicare and Medicaid. Patient reported she resides in a private residence with live in boyfriend. Documentation noted she had come from an SNF that she had been placed in upon a recent discharge from [facility]. Her primary care physician is Dr. Eder Macedo MD. Medical documentation noted boyfriend at bedside and she has him and a son listed as Emergency Contacts. Department of [employer] Adult protective Service (DSS/APS) is involved along with hospital discharge planning. Review of chart revealed Patients medical history is positive for chronic pancreatitis with pseudocyst secondary to history of chronic alcohol use, chronic pain, malnutrition, COPD, bronchitis, thyroid issue, irregular heartbeat , degenerative disk disease and right hip replacement. She is being administered 24 medications in the hospital with Neurontin 600MG PEG every 8 hours scheduled being the only psychiatric medication likely being used for pain relief not psychiatric purposes. There is no Head CT on file however if she has chronic pancreatitis as a result of chronic alcohol use she likely also has neurogenerative processes as well (given her screening results). She has been coming to [facility] since 2011, all medical or lab related, and 3 this year ( current for UTI/sepsis/hypotension, 06/03/17 for generalized abdominal pain/ other electrolyte deficiencies, and 05/08/17 for difficulty breathing). She had 8 visits in 2017 and 4 in 2016. Current visit medical documentation from noted continued inpatient stay criteria as UTI, hypocalcemia, hypokalemia, hypomagnesemia, malnutrition and pancreatitis secondary to chronic alcoholism. A capacity evaluation was requested by the hospitalist due DSS/APS involvement and concerns for patients ability to have sound decision making. The role of a capacity evaluation is to assess and measure a Patients abstract/rational level of thinking, executive functioning/planning/sequencing, executive functioning/ switching, attention, orientation, safety/problem solving, memory, ability to complete daily living activities, and safety awareness. During the capacity evaluation patient presented calm and cooperative. She was alert and oriented to person and place but not to time or situation. Medical documentation from 06/10/17 noted patient was alert and oriented to self and family but not place, time or situation. It also stated patient had very slow response time. Mood was depressed with flat affect though she had just been dozing off prior to onset of screening. Patient denied current suicidal / homicidal ideations and no statements or gestures were made regarding suicidal and homicidal intent or plan. She did not appear to be responding to internal stimuli as evidenced by fair eye contact, answering questions and staying on topic. Thought processes were linear and concrete in nature. Conversational speech was within normal limits for rate, tone and prosody. She did trail off with sentences and mumbled often. Intellectual abilities were estimated within the average range. Insight, judgment, and impulse control were impaired given screening results which suggest neurodegenerative processes. Patient correctly answered 3 of 11 orientation questions. She correctly answered the day of the week, her birthday and current location being structure ([facility] but not city which she said [place], [facility] which she said she didnt know or state which she said [place]). Patient also incorrectly answered todays date as the 15 of March or may, month as April no May, year as 2018 or 2016, did not give a name for current President but said she knew and it would come to her and last 3 Presidents she mumbled 2 sets in separate attempts and did say [place]. She correctly answered 1 of 3 higher cortical abstract reasoning questions in which Patient is required to describe how two items are similar. These results suggested concrete thinking abilities without the capacity to employ skills necessary to navigate the nuances of conversation and safe problem solving. Patient was unable to repeat the name of 3-common objects (apple, audrey, car) after examiner instruction she said Happy, Audrey, Dont remember and she could not recall any after a 1-minute delay. She accurately spelled the word world forward and backward quickly completing the task. Patients problem solving for questions regarding personal safety or the safety of others was fair given 50 percent accuracy with the task. The Patient was administered the Clock Drawing Test, a standardized and peer reviewed measure of dementia. She lópez a medium size [place] near the top middle of portrait paper. She started with the number 12 and continued numbering sequentially through 11. Her spacing was off. She had to be reminded to put the hands at 10 til 11. The placing of hands was unrecognizable to even be hands on a clock showing any sort of time. She completed this task quickly. In terms of her ability to complete tasks of everyday living (e.g., mobility, bathing, cooking, grocery shopping, taking medications appropriately, etc.), the clinician observed Patient remain in same position in bed throughout entire encounter/screening. She reported she used a walker and wheelchair for mobility. She was required to utilize call desir for nurse assistance to use the restroom (bed santos). She reported she could dress and bathe herself. She stated she showers daily. She likely can feed herself given she could manipulate the pen for clock drawing (similar to eating utensil). She reported her live-in boyfriend does the cooking and grocery shopping. She stated she still drives, has a valid license and would likely drive the truck. She stated she knows some of the medications she takes, specifically recalled prednisone and commented the pills keep changing. Impression: The Patient is a 71-year-old , , retired female who was recently admitted to [facility] medical floor resulting in PICC line and PEG Tube placements. She was at a SNF that [facility] recently arranged after an admission there. She has not been eating or drinking in the last 2 months to the extent medical documentation says things like anorexia, malnutrition. Patient is a poor historian, has a reported history of chronic alcoholism which caused pancreatitis, is a former smoker (has COPD), requires assistance (person or mechanical) for mobility and has several medical issues. This year (2018) she has had 3 visits including current, in 2017 there were 8 and in 2016 there were 4 visits. Overall, results of the current evaluation revealed poor orientation to present and items of knowledge, concrete thinking patterns, poor memory (short and cable maintainer), poor sequencing, poor organizational abilities, poor visuospatial abilities, fair safety and problem solving, poor impulsivity and some ability to complete own ADLs. Screening results suggest likely neurodegenerative processes as seen in dementia which affect the already poor orientation, poor memory and concrete thinking. Given patients declining health which has resulted in 3 hospitalizations this year along with neurodegeneration, patient is at high risk for placing herself in unsafe situations. Subsequently, she is at high risk for exploitation and making decisions that place her at a disadvantage and vulnerable to undue influence, and victimization. Neurodegeneration is not reversible and causes cognitive deficits that impairs an individuals ability to appropriately function. It is with a reasonable degree of medical and clinical certainty, the Patient would benefit from a responsible and reliable Guardian to manage her medical, financial, legal, and personal affairs. She would benefit from 24 hour supervision with round the clock staff given her poor memory, poor organizational, poor visuospatial abilities, impaired problem solving and decision making skills, and with special considerations for mobility issues. The following diagnoses are offered: DIAGNOSES: 1. 294.40 (F01.50) Major Neurocognitive Disorder due to Vascular Disease Probable, Without Behavioral Disturbance 2. UTI 3. Hypocalcemia 4. Hypokalemia 5. Hypomagnesemia 6. Malnutrition 7. Pancreatitis secondary to history of chronic alcohol use RECOMMENDATIONS: 1. A Head CT for possible understanding of degree/severity of neurogenerative processes. 2. A responsible and reliable Guardian is recommended to manage medical, financial, legal, and personal affairs. 3. Psychiatric consultation with a provider is recommended to manage behavioral symptoms (mood lability, impulsivity, aggression) often associated with dementia. 4. Neurological consultation with a provider is recommended for further diagnosis. 5. Driving privileges should be evaluated if patient has license and still drives. 6. Patient would benefit from a structured environment with routine and 24- hour supervision by medical staff.
[2017-06-14] MEDS: CEFTRIAXONE SODIUM 1,000 MG in NORMAL SALINE 100 ML IV SCH (18:47)
[2017-06-14] MEDS: DIVALPROEX SODIUM 250 MG TABLET.DR PO SCH (22:03)
[2017-06-14] MEDS: BUSPIRONE HCL 10 MG TABLET PO SCH (22:04)
[2017-06-14] MEDS: ATORVASTATIN CALCIUM 40 MG TABLET PEG SCH (22:05)
[2017-06-15] MEDS: POTASSIUM CHLORIDE 20 MEQ/15 ML UDCUP PEG SCH ×3 (02:13→20:56)
[2017-06-15 05:49] LABS: HEMOGLOBIN 10.7 g/dL (12.0-15.5); MEAN CORPUSCULAR HEMOGLOBIN 31.4 pg (27.0-33.4); MEAN CORPUSCULAR HGB CONC 33.4 g/dL (32.0-36.0); MEAN CORPUSCULAR VOLUME 94 fl (80-97); RED CELL DISTRIBUTION WIDTH 18.2 % (11.5-14.0); WHITE BLOOD COUNT 14.6 10^3/uL (4.0-10.5)
[2017-06-15 06:02] LABS: BLOOD UREA NITROGEN 7 mg/dL (7-20); CALCIUM 7.7 mg/dL (8.4-10.2); CHLORIDE 93 mmol/L (98-107); GLUCOSE 115 mg/dL (75-110); POTASSIUM 3.5 mmol/L (3.6-5.0)
[2017-06-15 06:08] LABS: ANION GAP 5 (5-19)
[2017-06-15] MEDS: LANSOPRAZOLE 15 MG TAB.RAP.DR PO SCH (06:09)
[2017-06-15 06:10] LABS: ABSOLUTE LYMPHOCYTES# (MANUAL) 0.7 10^3/uL (0.5-4.7); ABSOLUTE MONOCYTES # (MANUAL) 0.9 10^3/uL (0.1-1.4); BAND NEUTROPHILS % (MANUAL) 1 % (3-5); BASOPHILS % (MANUAL) 0 % (0-2); EOSINOPHILS % (MANUAL) 0 % (0-6); LYMPHOCYTES % (MANUAL) 5 % (13-45); MONOCYTES % (MANUAL) 6 % (3-13); SEGMENTED NEUTROPHILS % (MAN) 88 % (42-78); TOTAL CELLS COUNTED 100
[2017-06-15] MEDS: HEPARIN SOD (PORCINE) 5,000 UNIT/ML 1 ML SYRINGE SUBCUT SCH ×3 (06:10→20:56)
[2017-06-15] MEDS: GABAPENTIN 300 MG CAPSULE PEG SCH ×3 (06:10→20:58)
[2017-06-15] MEDS: LEVOTHYROXINE SODIUM 0.1 MG TABLET PO SCH (06:10)
[2017-06-15 06:11] LABS: ANISOCYTOSIS 2+; POIKILOCYTOSIS 1+
[2017-06-15 06:12] LABS: PLATELET CLUMPS PRESENT; PLATELET COMMENT ADEQUATE; PLATELET COUNT 276 10^3/uL (150-450); STOMATOCYTES 1+; TEAR DROP CELLS SLIGHT
[2017-06-15 06:15] LABS: SODIUM 137.5 mmol/L (137-145)
[2017-06-15 06:22] LABS: CARBON DIOXIDE 40 mmol/L (22-30)
[2017-06-15] MEDS: CALCIUM CARBONATE 250 MG/VITAMIN D3 125 UNIT TABLET PO SCH ×2 (09:24→16:51)
[2017-06-15] MEDS: BUSPIRONE HCL 10 MG TABLET PO SCH ×2 (09:24→20:58)
[2017-06-15] MEDS: FLUTICASONE/SALMETEROL DISKUS 250-50 MCG/DOSE IH SCH ×2 (09:24→20:59)
[2017-06-15] MEDS: FUROSEMIDE 40 MG TABLET PEG SCH (09:25)
[2017-06-15] MEDS: FOLIC ACID 1 MG TABLET PEG SCH (09:25)
[2017-06-15] MEDS: CYANOCOBALAMIN (VITAMIN B-12) 1,000 MCG TABLET PEG SCH (09:25)
[2017-06-15] MEDS: ASPIRIN 81 MG TABLET, ENT COATED PO SCH (09:25)
[2017-06-15] MEDS: THIAMINE HCL 100 MG TABLET PEG SCH (09:25)
[2017-06-15] MEDS: LEVOFLOXACIN 500 MG TABLET PO SCH (09:26)
[2017-06-15] MEDS: DIVALPROEX SODIUM 250 MG TABLET.DR PO SCH ×2 (09:26→20:57)
[2017-06-15] MEDS: MAGNESIUM OXIDE 400 MG TABLET PO SCH ×2 (09:26→16:52)
[2017-06-15] MEDS: PREDNISONE 5 MG TABLET PEG SCH ×2 (09:26→16:52)
[2017-06-15] MEDS: RISPERIDONE 0.25 MG TABLET PO SCH ×2 (09:26→14:55)
[2017-06-15] MEDS: LIPASE/PROTEASE/AMYLASE 1 CAP CAPSULE.DR PO SCH ×2 (09:27→16:52)
[2017-06-15] MEDS: TIOTROPIUM BROMIDE DPI 5 CAP/KIT (18 MCG/CAP) IH SCH (09:27)
[2017-06-15] MEDS: DOCUSATE SODIUM 100 MG CAPSULE PO SCH ×2 (09:43→16:54)
--- NOTE | 2017-06-15 10:14 | PROGRESS NOTE E ---
Progress Note NAME: ALIE PATTERSON : 1945 AGE: 71Y DATE: 06/15/2017 ROOM: 306 SUBJECTIVE: The patient is currently lying in bed. The patient denies any nausea or vomiting. She does admit to some back pain. The patient has been afebrile. Her blood pressure has been in a good range. The patient ate a good part of her breakfast this morning and the patient does not voice any other concerns at this time. REVIEW OF SYSTEMS: The rest of the review of systems is negative. MEDICATIONS: Reviewed. OBJECTIVE: GENERAL: The patient is a 71-year-old female who is awake and alert. She is oriented to person, place, not fully oriented to details. Does not appear to be distressed. VITAL SIGNS: As follows: Temperature 97.8, pulse 78, respirations 18, blood pressure 100/60, oxygen saturation is 94% on 4L of O2 cannula. SKIN: Pale, dry. No rashes, not diaphoretic. HEENT: Pupils are reactive. Conjunctivae are pink. There is no evidence of JVP. CARDIOVASCULAR: Heart is regular. No rub. CHEST: Symmetrical, diminished, unlabored. ABDOMEN: Soft, nontender. EXTREMITIES: No clubbing, cyanosis or edema. PSYCHIATRIC: The patient does have a flat affect. DIAGNOSTICS: Lab values are as follows: Hematology obtained on 06/15/2017: WBC 4.6, hemoglobin 10.7, hematocrit 32.0, platelet count 276,000. Chemistry obtained on 06/15/2017: Sodium 137, potassium 3.5, chloride 93, carbon dioxide 40, BUN 7, creatinine 1.48, glucose 115, calcium 7.7, magnesium 1.8. IMPRESSION AND PLAN: 1. POLYMICROBIAL URINARY TRACT INFECTION, INCLUDING PSEUDOMONAS. Both are sensitive to Levaquin. We will continue. 2. SEPSIS, SECONDARY TO NUMBER ONE. The patient appears to be overall stabilized. 3. IRON DEFICIENCY ANEMIA. The patient has been transfused. 4. HYPOKALEMIA. Potassium was added yesterday. We will give an additional dose today. 5. HYPOMAGNESEMIA. We will continue to supplement. 6. MALNUTRITION. The patient gets supplement via PEG. 7. HYPONATREMIA. We will discourage free water consumption. 8. DEHYDRATION. The patient's chemistries are improved. 9. HYPOTHYROIDISM. We will continue Synthroid. DISPOSITION: The patient is a DO NOT RESUSCITATE/DO NOT INTUBATE. Pending patient's symptomatology and diagnostic findings, will reevaluate in the a.m. Time spent on this followup including assessment, plan, physical examination, patient education, and review of records is 25 minutes. DICTATING PHYSICIAN: DANYA HOLDEN NP [id number] PHY#: [id number] ID: [id number] JOB#: [id number] ACCT: [id number] cc: >
[2017-06-15] MEDS ORDERED: ZINC OXIDE 20% OINTMENT 28.35 GM TP PRN (15:37)
[2017-06-15] MEDS ORDERED: NYSTATIN CREAM 15 GM TP PRN (15:37)
--- NOTE | 2017-06-15 16:32 | RADIOLOGY REPORT (SQ) ---
EXAM DESCRIPTION: CT HEAD WITHOUT COMPLETED DATE/TIME: 06/15/2017 4:23 pm REASON FOR STUDY: DEMENTIA/SUSTAINED AMS COMPARISON: None. TECHNIQUE: Axial images acquired through the brain without intravenous contrast. Images reviewed wi th bone, brain and subdural windows. Images stored on PACS. All CT scanners at this facility use dose modulation, iterative reconstruction, and/or weight based d osing when appropriate to reduce radiation dose to as low as reasonably achievable (ALARA). [facility]: Dose Right [facility]: CareDose [facility]: Dose Right [facility]: Teradose 4D [facility]: Smart Radar[place] RADIATION DOSE: CT Rad equipment meets quality standard of care and radiation dose reduction techniq ues were employed. CTDIvol: 53.2 mGy. DLP: 1017 mGy-cm. mGy. LIMITATIONS: None. FINDINGS: VENTRICLES: Prominent. CEREBRUM: No masses. No hemorrhage. No midline shift. Areas of low density in the white matter mos t likely due to chronic micro-vascular ischemic change. No evidence for acute infarction. CEREBELLUM: No masses. No hemorrhage. No alteration of density. No evidence for acute infarction. EXTRAAXIAL SPACES: Mild age-related involutional change. No fluid collections. No masses. ORBITS AND GLOBE: No intra- or extraconal masses. Normal contour of globe without masses. CALVARIUM: No fracture. PARANASAL SINUSES: No fluid or mucosal thickening. SOFT TISSUES: No mass or hematoma. OTHER: No other significant finding. IMPRESSION: MILD CHRONIC CHANGES OF ATROPHY AND MICROVASCULAR ISCHEMIA. NO ACUTE PROCESS. EVIDENCE OF ACUTE STROKE: NO. TECHNICAL DOCUMENTATION: JOB ID: [id number] Quality ID # [id number]: Final reports with documentation of one or more dose reduction techniques (e.g., Au tomated exposure control, adjustment of the mA and/or kV according to patient size, use of iterative reconstruction technique) 2010 [employer]- All Rights Reserved Reading location - IP/workstation name: [email or web address]
[2017-06-15] MEDS ORDERED: CEFTRIAXONE SODIUM 1,000 MG in DEXTROSE 5%-WATER 50 ML IV SCH (18:00)
[2017-06-15] MEDS: ATORVASTATIN CALCIUM 40 MG TABLET PEG SCH (20:58)
[2017-06-16] MEDS: LEVOTHYROXINE SODIUM 0.1 MG TABLET PO SCH (06:07)
[2017-06-16] MEDS: HEPARIN SOD (PORCINE) 5,000 UNIT/ML 1 ML SYRINGE SUBCUT SCH (06:07)
[2017-06-16] MEDS: LANSOPRAZOLE 15 MG TAB.RAP.DR PO SCH (06:07)
[2017-06-16] MEDS: GABAPENTIN 300 MG CAPSULE PEG SCH ×3 (06:07→22:29)
[2017-06-16 08:22] LABS: HEMATOCRIT 30.9 % (36.0-47.0); HEMOGLOBIN 10.3 g/dL (12.0-15.5); MEAN CORPUSCULAR HEMOGLOBIN 31.8 pg (27.0-33.4); MEAN CORPUSCULAR HGB CONC 33.3 g/dL (32.0-36.0); MEAN CORPUSCULAR VOLUME 95 fl (80-97); PLATELET COUNT 251 10^3/uL (150-450); RED BLOOD COUNT 3.25 10^6/uL (3.72-5.28); WHITE BLOOD COUNT 13.3 10^3/uL (4.0-10.5)
[2017-06-16 08:41] LABS: BLOOD UREA NITROGEN 9 mg/dL (7-20); CALCIUM 8.2 mg/dL (8.4-10.2); CHLORIDE 92 mmol/L (98-107); GLUCOSE 118 mg/dL (75-110); POTASSIUM 4.5 mmol/L (3.6-5.0); SODIUM 134.9 mmol/L (137-145)
[2017-06-16 08:55] LABS: ANION GAP 3 (5-19)
[2017-06-16] MEDS: BUSPIRONE HCL 10 MG TABLET PO SCH ×2 (08:59→22:29)
[2017-06-16] MEDS: LIPASE/PROTEASE/AMYLASE 1 CAP CAPSULE.DR PO SCH ×2 (08:59→17:17)
[2017-06-16] MEDS: RISPERIDONE 0.25 MG TABLET PO SCH ×2 (09:00→14:33)
[2017-06-16 09:02] LABS: CARBON DIOXIDE 40 mmol/L (22-30)
[2017-06-16] MEDS: DIVALPROEX SODIUM 250 MG TABLET.DR PO SCH ×2 (09:02→22:29)
[2017-06-16] MEDS: THIAMINE HCL 100 MG TABLET PEG SCH (09:02)
[2017-06-16] MEDS: ASPIRIN 81 MG TABLET, ENT COATED PO SCH (09:03)
[2017-06-16] MEDS: FOLIC ACID 1 MG TABLET PEG SCH (09:03)
[2017-06-16] MEDS: LEVOFLOXACIN 500 MG TABLET PO SCH (09:03)
[2017-06-16] MEDS: PREDNISONE 5 MG TABLET PEG SCH ×2 (09:03→17:17)
[2017-06-16] MEDS: MAGNESIUM OXIDE 400 MG TABLET PO SCH ×2 (09:03→17:16)
[2017-06-16] MEDS: FUROSEMIDE 40 MG TABLET PEG SCH (09:03)
[2017-06-16] MEDS: CYANOCOBALAMIN (VITAMIN B-12) 1,000 MCG TABLET PEG SCH (09:04)
[2017-06-16] MEDS: CALCIUM CARBONATE 250 MG/VITAMIN D3 125 UNIT TABLET PO SCH ×2 (09:04→17:16)
[2017-06-16] MEDS: FLUTICASONE/SALMETEROL DISKUS 250-50 MCG/DOSE IH SCH ×2 (09:04→22:28)
[2017-06-16] MEDS: TIOTROPIUM BROMIDE DPI 5 CAP/KIT (18 MCG/CAP) IH SCH (09:05)
[2017-06-16] MEDS: POTASSIUM CHLORIDE 20 MEQ/15 ML UDCUP PEG SCH ×2 (09:06→22:28)
[2017-06-16] MEDS: DOCUSATE SODIUM 100 MG CAPSULE PO SCH (09:08)
--- NOTE | 2017-06-16 10:35 | PROGRESS NOTE E ---
Progress Note NAME: ALIE PATTERSON : 1945 AGE: 71Y DATE: 06/16/2017 ROOM: 306 SUBJECTIVE: The patient is currently lying in bed. The patient is more awake and alert than she was yesterday. At this time, the patient denies any nausea, vomiting, diarrhea. No shortness of breath, dizziness or chest pain. The patient does complain of some back pain which appears to be chronic for her. In addition, patient does complain with difficulty moving her extremities at times. The patient's blood pressures have been soft and the patient does not voice any other concerns at this time. BRIEF HISTORY: The patient is a 71-year-old female with a past medical history of chronic pancreatitis suspected from alcoholism as well as dementia that has been deemed incompetent during this stay by Psychiatric Services. The patient has been treated for polymicrobial urinary tract infection. The patient has recently had a PEG tube placed at another facility due to her poor nutrition. Additionally, the patient has been seen by Palliative Care. It appears that the patient has been in a steady state of decline for the past couple of months and has ever-increasing confusion. The patient does have changes on CT to suggest significant hepatic insufficiencies and in addition to chronic CO2 retention as well. REVIEW OF SYSTEMS: The rest of the review of systems is negative. MEDICATIONS: Reviewed. OBJECTIVE: GENERAL: The patient is a 71-year-old female who is awake and alert. She is oriented to place but not fully oriented to situation. She does not appear to be distressed. VITAL SIGNS: As follows: Temperature 97.4, pulse 79, respirations 16, blood pressure 91/52, oxygen saturation is 90% on 2 L nasal cannula. SKIN: Pale, thin. She is not diaphoretic. HEENT: Pupils are equal, round and reactive to light and accommodation. Conjunctivae is very pale. There is no evidence of JVP. CARDIOVASCULAR: Heart is regular. No rub. CHEST: Diminished, symmetrical, unlabored. ABDOMEN: Soft. PEG tube in situ. EXTREMITIES: No clubbing, cyanosis. The patient appears to have some dependent edema. PSYCHIATRIC: More awake and alert than yesterday. DIAGNOSTICS: Lab values are as follows: Hematology obtained on 06/16/2017: WBC 11.3, hemoglobin 10.3, hematocrit 30.9, platelet count 251,000. Chemistry obtained on 06/16/2017: Sodium 139, potassium 4.5, chloride 92, carbon dioxide 40, BUN 9, creatinine 1.42, glucose 118, calcium 8.2. IMPRESSION AND PLAN: 1. POLYMICROBIAL URINARY TRACT INFECTION, INCLUDING PSEUDOMONAS. Both agents were sensitive to Levaquin. Will continue this orally and follow. 2. SEPSIS, SECONDARY TO NUMBER ONE. The patient appears stabilized. 3. IRON DEFICIENCY ANEMIA. The patient is post transfusion. 4. HYPOKALEMIA. This was repleted yesterday. Will continue supplementation. 5. HYPOMAGNESEMIA. We will continue to supplement. 6. MALNUTRITION. The patient is getting supplemental feedings via PEG. This is evident of the patient's low creatinine and significantly low albumin. The patient does have poor oral intake. Will hold Lasix today. 7. HYPONATREMIA. Will lessen free water consumption. 8. DEHYDRATION. The patient's chemistries overall improved. 9. HYPOTHYROIDISM. Will continue levothyroxine. 10. MULTIFOCAL DEMENTIA. This appears to be most likely contributory to the patient's underlying history of alcohol use as well as possibly a vascular component to this. There are no new findings on head CT. 11. Chronic pancreatitis. Will continue enzyme supplementation. 12. HYPERTENSION. The patient's blood pressures have actually been hypotensive. Again, going to hold today's Lasix. This may just be a volume issue and follow. 13. POOR SKIN INTEGRITY. This appears to be due to chronic malnutrition, underlying chronic disease as well. The patient does have easy skin tearing as well as easily oozing blood. Will hold heparin for now and utilize SCDs for DVT prophylaxis. DISPOSITION: The patient is a DO NOT RESUSCITATE/DO NOT INTUBATE. Pending patient's symptomatology and diagnostic findings, will reevaluate in the a.m. The patient can be downgraded to a medical bed. The patient is being followed by Palliative Care. Time spent on this followup including assessment, plan, physical examination, patient education, and review of records is 25 minutes. DICTATING PHYSICIAN: DANYA HOLDEN NP [id number] PHY#: [id number] ID: [id number] JOB#: [id number] ACCT: [id number] cc: > [facility]
[2017-06-16] MEDS ORDERED: CHOLESTYRAMINE/ASPARTAME 4 GM PACKET PO SCH (12:48)
[2017-06-16] MEDS: LACTOBACILLUS ACIDOPHILUS 250 MG TAB PO SCH (17:16)
[2017-06-16] MEDS: CHOLESTYRAMINE/ASPARTAME 4 GM PACKET PEG SCH ×2 (17:18→22:30)
[2017-06-16] MEDS: ATORVASTATIN CALCIUM 40 MG TABLET PEG SCH (22:30)
[2017-06-17] MEDS: GABAPENTIN 300 MG CAPSULE PEG SCH ×3 (06:12→22:10)
[2017-06-17] MEDS: LEVOTHYROXINE SODIUM 0.1 MG TABLET PO SCH (06:13)
[2017-06-17] MEDS: LANSOPRAZOLE 15 MG TAB.RAP.DR PO SCH (06:13)
[2017-06-17 07:12] LABS: HEMATOCRIT 32.5 % (36.0-47.0); HEMOGLOBIN 10.6 g/dL (12.0-15.5); MEAN CORPUSCULAR HEMOGLOBIN 31.2 pg (27.0-33.4); MEAN CORPUSCULAR HGB CONC 32.6 g/dL (32.0-36.0); MEAN CORPUSCULAR VOLUME 96 fl (80-97); PLATELET COUNT 291 10^3/uL (150-450); RED CELL DISTRIBUTION WIDTH 18.1 % (11.5-14.0); WHITE BLOOD COUNT 13.7 10^3/uL (4.0-10.5)
[2017-06-17 07:56] LABS: ANION GAP 5 (5-19); BLOOD UREA NITROGEN 9 mg/dL (7-20); CALCIUM 7.9 mg/dL (8.4-10.2); CARBON DIOXIDE 39 mmol/L (22-30); CHLORIDE 93 mmol/L (98-107); GLUCOSE 122 mg/dL (75-110); POTASSIUM 5.2 mmol/L (3.6-5.0); SODIUM 137.2 mmol/L (137-145)
--- NOTE | 2017-06-17 08:57 | PDOC PROGRESS REPORT ---
Subjective Progress Note for:: 06/17/17 Subjective:: doing much better. AAOx3 no complaints Reason For Visit: UTI SEPSIS HYPOTENSION Physical Exam Vital Signs: Temp Pulse Resp BP Pulse Ox 98.3 F 77 18 105/66 98 06/17/17 07:32 06/17/17 07:32 06/17/17 07:32 06/17/17 07:32 06/17/17 07:32 Intake & Output 06/16/17 06/17/17 06/18/17 06:59 06:59 06:59 Intake Total 1929 1904 Balance 1929 1904 General appearance: PRESENT: no acute distress Head exam: PRESENT: atraumatic Eye exam: PRESENT: conjunctiva pink Neck exam: PRESENT: tenderness. ABSENT: carotid bruit Respiratory exam: PRESENT: rhonchi. ABSENT: wheezes Cardiovascular exam: PRESENT: RRR, +S1, +S2 GI/Abdominal exam: PRESENT: normal bowel sounds, soft Neurological exam: PRESENT: alert, awake, oriented to person, oriented to place , oriented to time, CN II-XII grossly intact Skin exam: PRESENT: abrasion Results Laboratory Results: 06/17/17 06:00 06/17/17 06:00 06/16/17 06/17/17 06/17/17 08:05 06:00 06:00 WBC 13.7 H RBC 3.40 L Hgb 10.6 L Hct 32.5 L MCV 96 MCH 31.2 MCHC 32.6 RDW 18.1 H Plt Count 291 Sodium 134.9 L 137.2 Potassium 4.5 5.2 H Chloride 92 L 93 L Carbon Dioxide 40 H* 39 H Anion Gap 3 L 5 BUN 9 9 Creatinine 0.42 L 0.45 L Est GFR ( Amer) > 60 > 60 Est GFR (Non-Af Amer) > 60 > 60 Glucose 118 H 122 H Calcium 8.2 L 7.9 L Impressions: Chest X-Ray 06/09/17 08:50 IMPRESSION: STABLE APPEARANCE OF THE CHEST WITH LEFT GREATER THAN RIGHT PLEURAL EFFUSIONS AND ASSOCIATED COMPRESSIVE ATELECTASIS. SATISFACTORY POSITION LEFT-SIDED PICC. KUB X-Ray 06/09/17 11:49 IMPRESSION: NO RADIOGRAPHIC EVIDENCE FOR ACUTE ABDOMINAL DISEASE. PERCUTANEOUS GASTROSTOMY TUBE PROJECTS OVER THE STOMACH BUBBLE. Abdomen/Pelvis CT 06/09/17 19:23 IMPRESSION: Interval placement of NG tube. There is adjacent intraperitoneal air almost certainly related to placement of the G-tube. Tube appears to be expected location. 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 Diverticulosis. Head CT 06/15/17 15:13 IMPRESSION: MILD CHRONIC CHANGES OF ATROPHY AND MICROVASCULAR ISCHEMIA. NO ACUTE PROCESS. EVIDENCE OF ACUTE STROKE: NO. Assessment & Plan - Diagnosis (1) Anemia Qualifiers: Anemia type: iron deficiency Is this a current diagnosis for this admission?: Yes Plan: resolved (2) Hypokalemia Is this a current diagnosis for this admission?: Yes Plan: resolved (3) Hypomagnesemia Is this a current diagnosis for this admission?: Yes Plan: resolved (4) Malnutrition Qualifiers: Malnutrition type: protein-calorie malnutrition Is this a current diagnosis for this admission?: Yes Plan: improving. tolerating peg feeding ond oral intake (5) Sepsis Qualifiers: Sepsis type: sepsis due to unspecified organism Qualified Code(s): A41.9 - Sepsis, unspecified organism Is this a current diagnosis for this admission?: Yes Plan: resolved (6) Urinary tract infection Qualifiers: Urinary tract infection type: site unspecified Hematuria presence: without hematuria Qualified Code(s): N39.0 - Urinary tract infection, site not specified Is this a current diagnosis for this admission?: Yes Plan: We will add Levaquin (7) Dehydration Is this a current diagnosis for this admission?: Yes (8) Hyponatremia Is this a current diagnosis for this admission?: Yes (9) Hypothyroid Qualifiers: Hypothyroidism type: acquired Qualified Code(s): E03.9 - Hypothyroidism, unspecified Is this a current diagnosis for this admission?: Yes Plan: started on synthroid (10) COPD (chronic obstructive pulmonary disease) Is this a current diagnosis for this admission?: Yes Plan: copd
[2017-06-17] MEDS: RISPERIDONE 0.25 MG TABLET PO SCH ×2 (09:41→13:05)
[2017-06-17] MEDS: BUSPIRONE HCL 10 MG TABLET PO SCH ×2 (09:41→22:11)
[2017-06-17] MEDS: LACTOBACILLUS ACIDOPHILUS 250 MG TAB PO SCH ×2 (09:41→17:09)
[2017-06-17] MEDS: DIVALPROEX SODIUM 250 MG TABLET.DR PO SCH ×2 (09:42→22:11)
[2017-06-17] MEDS: LEVOFLOXACIN 500 MG TABLET PO SCH (09:42)
[2017-06-17] MEDS: CYANOCOBALAMIN (VITAMIN B-12) 1,000 MCG TABLET PEG SCH (09:42)
[2017-06-17] MEDS: CALCIUM CARBONATE 250 MG/VITAMIN D3 125 UNIT TABLET PO SCH ×2 (09:42→17:09)
[2017-06-17] MEDS: ASPIRIN 81 MG TABLET, ENT COATED PO SCH (09:42)
[2017-06-17] MEDS: PREDNISONE 5 MG TABLET PEG SCH ×2 (09:42→17:09)
[2017-06-17] MEDS: LIPASE/PROTEASE/AMYLASE 1 CAP CAPSULE.DR PO SCH ×2 (09:42→17:08)
[2017-06-17] MEDS: CHOLESTYRAMINE/ASPARTAME 4 GM PACKET PEG SCH ×4 (09:43→22:11)
[2017-06-17] MEDS: FLUTICASONE/SALMETEROL DISKUS 250-50 MCG/DOSE IH SCH ×2 (09:43→22:11)
[2017-06-17] MEDS: THIAMINE HCL 100 MG TABLET PEG SCH (09:43)
[2017-06-17] MEDS: MAGNESIUM OXIDE 400 MG TABLET PO SCH ×2 (09:43→17:09)
[2017-06-17] MEDS: FOLIC ACID 1 MG TABLET PEG SCH (09:43)
[2017-06-17] MEDS: TIOTROPIUM BROMIDE DPI 5 CAP/KIT (18 MCG/CAP) IH SCH (09:43)
[2017-06-17] MEDS ORDERED: POTASSIUM CHLORIDE 20 MEQ/15 ML UDCUP PEG SCH (10:00)
[2017-06-17] MEDS: ATORVASTATIN CALCIUM 40 MG TABLET PEG SCH (22:10)
[2017-06-18] MEDS: GABAPENTIN 300 MG CAPSULE PEG SCH ×3 (05:47→22:06)
[2017-06-18] MEDS: LEVOTHYROXINE SODIUM 0.1 MG TABLET PO SCH (05:47)
[2017-06-18] MEDS: LANSOPRAZOLE 15 MG TAB.RAP.DR PO SCH (05:47)
[2017-06-18 07:02] LABS: HEMATOCRIT 31.5 % (36.0-47.0); HEMOGLOBIN 10.4 g/dL (12.0-15.5); MEAN CORPUSCULAR HEMOGLOBIN 31.6 pg (27.0-33.4); MEAN CORPUSCULAR HGB CONC 33.1 g/dL (32.0-36.0); MEAN CORPUSCULAR VOLUME 96 fl (80-97); PLATELET COUNT 246 10^3/uL (150-450); WHITE BLOOD COUNT 12.9 10^3/uL (4.0-10.5)
[2017-06-18 07:25] LABS: BLOOD UREA NITROGEN 10 mg/dL (7-20); CALCIUM 8.1 mg/dL (8.4-10.2); CHLORIDE 91 mmol/L (98-107); GLUCOSE 86 mg/dL (75-110); POTASSIUM 4.7 mmol/L (3.6-5.0)
[2017-06-18 07:31] LABS: SODIUM 132.7 mmol/L (137-145)
[2017-06-18 07:35] LABS: ANION GAP 2 (5-19)
[2017-06-18 07:36] LABS: CARBON DIOXIDE 40 mmol/L (22-30)
[2017-06-18] MEDS ORDERED: FUROSEMIDE INJ/PF 40 MG/4 ML SDV IV ONE (09:30)
--- NOTE | 2017-06-18 09:34 | PDOC PROGRESS REPORT ---
Subjective Progress Note for:: 06/18/17 Subjective:: The patient states to feel much better. Her mental state has improved. She has completed 50% of her meals yesterday. She has been receiving the tube feeding and tolerated well. Discussed the discharge Reason For Visit: UTI SEPSIS HYPOTENSION Physical Exam Vital Signs: Temp Pulse Resp BP Pulse Ox 97.3 F 80 15 105/75 99 06/18/17 07:42 06/18/17 07:42 06/18/17 07:42 06/18/17 07:42 06/18/17 07:42 Intake & Output 06/17/17 06/18/17 06/19/17 06:59 06:59 06:59 Intake Total 1905 1063 Output Total 2 Balance 1905 1061 General appearance: PRESENT: mild distress Head exam: PRESENT: atraumatic Eye exam: PRESENT: conjunctiva pink Neck exam: ABSENT: carotid bruit Respiratory exam: PRESENT: crackles, rhonchi Cardiovascular exam: PRESENT: RRR, +S1, +S2 GI/Abdominal exam: PRESENT: normal bowel sounds, soft Extremities exam: PRESENT: pedal edema, tenderness Musculoskeletal exam: PRESENT: tenderness Neurological exam: PRESENT: awake Results Laboratory Results: 06/18/17 06:30 06/18/17 06:30 06/18/17 06/18/17 06/18/17 06:30 06:30 06:30 WBC 12.9 H RBC 3.30 L Hgb 10.4 L Hct 31.5 L MCV 96 MCH 31.6 MCHC 33.1 RDW 18.0 H Plt Count 246 Sodium 132.7 L Potassium 4.7 Chloride 91 L Carbon Dioxide 40 H* Anion Gap 2 L BUN 10 Creatinine 0.42 L Est GFR ( Amer) > 60 Est GFR (Non-Af Amer) > 60 Glucose 86 Calcium 8.1 L Magnesium 1.9 TSH 39.60 H Impressions: Chest X-Ray 06/09/17 08:50 IMPRESSION: STABLE APPEARANCE OF THE CHEST WITH LEFT GREATER THAN RIGHT PLEURAL EFFUSIONS AND ASSOCIATED COMPRESSIVE ATELECTASIS. SATISFACTORY POSITION LEFT-SIDED PICC. KUB X-Ray 06/09/17 11:49 IMPRESSION: NO RADIOGRAPHIC EVIDENCE FOR ACUTE ABDOMINAL DISEASE. PERCUTANEOUS GASTROSTOMY TUBE PROJECTS OVER THE STOMACH BUBBLE. Abdomen/Pelvis CT 06/09/17 19:23 IMPRESSION: Interval placement of NG tube. There is adjacent intraperitoneal air almost certainly related to placement of the G-tube. Tube appears to be expected location. 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 Diverticulosis. Head CT 06/15/17 15:13 IMPRESSION: MILD CHRONIC CHANGES OF ATROPHY AND MICROVASCULAR ISCHEMIA. NO ACUTE PROCESS. EVIDENCE OF ACUTE STROKE: NO. Assessment & Plan - Diagnosis (1) Anemia Qualifiers: Anemia type: iron deficiency Iron deficiency anemia type: other iron deficiency Qualified Code(s): D50.8 - Other iron deficiency anemias Is this a current diagnosis for this admission?: Yes (2) Hypokalemia Is this a current diagnosis for this admission?: Yes (3) Hypomagnesemia Is this a current diagnosis for this admission?: Yes (4) Malnutrition Qualifiers: Malnutrition type: protein-calorie malnutrition Is this a current diagnosis for this admission?: Yes Plan: Improved with tube feeding PICC line and oral intake. We will stop the PICC line and remove it. (5) Sepsis Qualifiers: Sepsis type: sepsis due to unspecified organism Qualified Code(s): A41.9 - Sepsis, unspecified organism Is this a current diagnosis for this admission?: Yes Plan: Resolved. Will complete 7 days of Levaquin (6) Urinary tract infection Qualifiers: Urinary tract infection type: site unspecified Hematuria presence: without hematuria Qualified Code(s): N39.0 - Urinary tract infection, site not specified Is this a current diagnosis for this admission?: Yes (7) Dehydration Is this a current diagnosis for this admission?: Yes (8) Hyponatremia Is this a current diagnosis for this admission?: Yes (9) Hypothyroid Qualifiers: Hypothyroidism type: acquired Qualified Code(s): E03.9 - Hypothyroidism, unspecified Is this a current diagnosis for this admission?: Yes Plan: Stable continue current dose of levothyroxine. We will recheck the TSH (10) COPD (chronic obstructive pulmonary disease) Is this a current diagnosis for this admission?: Yes Plan: Stable continue current treatment
[2017-06-18] MEDS: LACTOBACILLUS ACIDOPHILUS 250 MG TAB PO SCH ×2 (09:35→17:44)
[2017-06-18] MEDS: ASPIRIN 81 MG TABLET, ENT COATED PO SCH (09:35)
[2017-06-18] MEDS: BUSPIRONE HCL 10 MG TABLET PO SCH ×2 (09:36→22:06)
[2017-06-18] MEDS: DIVALPROEX SODIUM 250 MG TABLET.DR PO SCH ×2 (09:38→22:07)
[2017-06-18] MEDS: LEVOFLOXACIN 500 MG TABLET PO SCH (09:38)
[2017-06-18] MEDS: LIPASE/PROTEASE/AMYLASE 1 CAP CAPSULE.DR PO SCH ×2 (09:38→17:44)
[2017-06-18] MEDS: PREDNISONE 5 MG TABLET PEG SCH ×2 (09:38→17:44)
[2017-06-18] MEDS: THIAMINE HCL 100 MG TABLET PEG SCH (09:38)
[2017-06-18] MEDS: CALCIUM CARBONATE 250 MG/VITAMIN D3 125 UNIT TABLET PO SCH ×2 (09:39→17:44)
[2017-06-18] MEDS: MAGNESIUM OXIDE 400 MG TABLET PO SCH ×2 (09:39→17:44)
[2017-06-18] MEDS: RISPERIDONE 0.25 MG TABLET PO SCH ×2 (09:39→12:56)
[2017-06-18] MEDS: TIOTROPIUM BROMIDE DPI 5 CAP/KIT (18 MCG/CAP) IH SCH (09:39)
[2017-06-18] MEDS: CYANOCOBALAMIN (VITAMIN B-12) 1,000 MCG TABLET PEG SCH (09:40)
[2017-06-18] MEDS: FOLIC ACID 1 MG TABLET PEG SCH (09:40)
[2017-06-18] MEDS: CHOLESTYRAMINE/ASPARTAME 4 GM PACKET PEG SCH ×4 (09:40→22:07)
[2017-06-18] MEDS: FLUTICASONE/SALMETEROL DISKUS 250-50 MCG/DOSE IH SCH ×2 (12:57→22:07)
[2017-06-18] MEDS: ATORVASTATIN CALCIUM 40 MG TABLET PEG SCH (22:06)
[2017-06-19] MEDS: LANSOPRAZOLE 15 MG TAB.RAP.DR PO SCH (06:41)
[2017-06-19] MEDS: GABAPENTIN 300 MG CAPSULE PEG SCH ×2 (06:41→13:11)
[2017-06-19] MEDS: LEVOTHYROXINE SODIUM 0.1 MG TABLET PO SCH (06:41)
--- NOTE | 2017-06-19 08:56 | PDOC TRANSFER SUMMARY ---
General - Admit/Disc Date/PCP Admission Date/Primary Care Provider: 06/09/17 21:27 DANYA DE LA TORRE, Discharge Date: 06/19/17 - Discharge Diagnosis (1) Anemia Is this a current diagnosis for this admission?: Yes (2) Hypokalemia Is this a current diagnosis for this admission?: Yes (3) Hypomagnesemia Is this a current diagnosis for this admission?: Yes Summary: Continue mag oxide (4) Malnutrition Is this a current diagnosis for this admission?: Yes Summary: Continue with tube feedings and encourage p.o. intake (5) Sepsis Is this a current diagnosis for this admission?: Yes (6) Urinary tract infection Is this a current diagnosis for this admission?: Yes (7) Dehydration Is this a current diagnosis for this admission?: Yes (8) Hyponatremia Is this a current diagnosis for this admission?: Yes (9) Hypothyroid Is this a current diagnosis for this admission?: Yes Summary: Continue current dose of levothyroxine (10) COPD (chronic obstructive pulmonary disease) Is this a current diagnosis for this admission?: Yes Summary: Continue with supplemental oxygen and inhalers and nebulizer treatments (11) DNR (do not resuscitate) Is this a current diagnosis for this admission?: Yes Summary: Continue DNR status. - Additional Information Resuscitation Status: Do Not Resuscitate Discharge Diet: Regular, Tube Feeding (Comments) Discharge Activity: Activity As Tolerated Home Medications: Aspirin [Aspirin EC] 81 mg PEG DAILY 06/10/17 Atorvastatin Calcium [Lipitor 40 mg Tablet] 40 mg PEG QHS 06/10/17 Carvedilol [Coreg 3.125 mg Tablet] 3.125 mg PEG BIDBS 06/10/17 Cyanocobalamin (Vitamin B-12) [Vitamin B-12] 1,000 mcg PEG DAILY 06/10/17 Fluticasone/Salmeterol [Advair 250-50 Diskus 28 dose] 1 inh IH Q12 06/10/17 Folic Acid [Folvite 1 mg Tablet] 1 mg PEG DAILY 06/10/17 Omeprazole 20 mg PO DAILY 06/10/17 Roflumilast [Daliresp 500 mcg Tablet] 500 mcg PEG DAILY 06/10/17 Thiamine Mononitrate (Vit B1) [Vitamin B-1] 100 mg PEG DAILY 06/10/17 Acetaminophen [Tylenol 325 mg Tablet] 650 mg PO Q4HP PRN tablet 06/19/17 Buspirone HCl [Buspar 10 mg Tablet] 5 mg PO QAM tablet 06/19/17 Buspirone HCl [Buspar 10 mg Tablet] 10 mg PO QHS tablet 06/19/17 Calcium Carbonate/Vitamin D3 [Os-Drew 250 mg with Vitamin D 125 Units] 1 tab PO BID tablet 06/19/17 Cholestyramine/Aspartame [Questran Light 4 gm Packet] 4 gm PEG QID packet 06/19 Cyanocobalamin (Vitamin B-12) [Vitamin B-12 1000 mcg Tablet] 1,000 mcg PEG DAILY tablet 06/19/17 Docusate Sodium [Colace 100 mg Capsule] 100 mg PO BID capsule 06/19/17 Furosemide [Lasix 40 mg Tablet] 40 mg PEG DAILY tablet 06/19/17 Gabapentin [Neurontin 300 mg Capsule] 600 mg PEG Q8 capsule 06/19/17 Lactobacillus Acidophilus [Bacid 250 mg Tablet] 500 mg PO BID tab 06/19/17 Levothyroxine Sodium [Synthroid 0.1 mg Tablet] 0.1 mg PO Q6AM tablet 06/19/17 Lipase/Protease/Amylase [Pancreaze-10 Capsule.] 1 cap PO BIDACBS capsule. 06/19/17 Magnesium Oxide [Mag-Ox 400 mg Tablet] 400 mg PO BID tablet 06/19/17 Nystatin [Mycostatin Cream 15 gm] 1 applic TP DAILYP PRN tube 06/19/17 Potassium Chloride [Kaon-Cl 20 Meq/15 ml Udcup] 20 meq PEG DAILY udc 06/19/17 Prednisone [Deltasone 5 mg Tablet] 5 mg PEG BID tablet 06/19/17 Risperidone [Risperdal 0.25 mg Tablet] 0.25 mg PO BID@0800,1300 tablet Tiotropium [place] [Spiriva Handihaler 5 Cap/Kit (18 Mcg/Cap)] 1 cap IH DAILY kit 06/19/17 Zinc Oxide [Zinc Oxide 20% Ointment 28.35 gm] 1 applic TP DAILYP PRN tube 06/19 History of Present Illness Admission Date/PCP: 06/09/17 21:27 DANYA DE LA TORRE, History of Present Illness: ALIE PATTERSON is a 71 year old female Hospital Course Hospital Course: The patient was admitted because of urinary tract infection and sepsis. She was treated with antibiotics. Apparently she had difficulty with failure to thrive and a PEG tube was placed. The patient was started on tube feedings which she tolerated well. She had a PICC line which was removed eventually because of difficulty with IV access. She had couple of episodes of confusion most probably secondary to sundowning' s. After her medications have been adjusted the patient did well. She is presently alert awake oriented 3. Because the patient is residing at the skilled nursing she will be discharged from my service. I will no longer be available for any further admissions at the hospital Physical Exam Vital Signs: Temp Pulse Resp BP Pulse Ox 97.2 F 68 16 91/52 L 100 06/19/17 08:24 06/19/17 08:24 06/19/17 08:24 06/19/17 08:24 06/19/17 08:24 Intake & Output 06/18/17 06/19/17 06/20/17 06:59 06:59 06:59 Intake Total 1063 939 Output Total 2 Balance 1061 939 General appearance: PRESENT: no acute distress Head exam: PRESENT: atraumatic Eye exam: PRESENT: conjunctiva pink Neck exam: ABSENT: carotid bruit Respiratory exam: PRESENT: rhonchi. ABSENT: wheezes Cardiovascular exam: PRESENT: RRR, +S1, +S2 Pulses: PRESENT: +1 pedal pulses bilateral GI/Abdominal exam: PRESENT: normal bowel sounds, soft Extremities exam: PRESENT: tenderness Musculoskeletal exam: PRESENT: tenderness Neurological exam: PRESENT: alert, awake, oriented to person, oriented to place , oriented to time, CN II-XII grossly intact Psychiatric exam: PRESENT: flat affect Results Laboratory Results: 06/18/17 06:30 06/18/17 06:30 Impressions: Chest X-Ray 06/09/17 08:50 IMPRESSION: STABLE APPEARANCE OF THE CHEST WITH LEFT GREATER THAN RIGHT PLEURAL EFFUSIONS AND ASSOCIATED COMPRESSIVE ATELECTASIS. SATISFACTORY POSITION LEFT-SIDED PICC. KUB X-Ray 06/09/17 11:49 IMPRESSION: NO RADIOGRAPHIC EVIDENCE FOR ACUTE ABDOMINAL DISEASE. PERCUTANEOUS GASTROSTOMY TUBE PROJECTS OVER THE STOMACH BUBBLE. Abdomen/Pelvis CT 06/09/17 19:23 IMPRESSION: Interval placement of NG tube. There is adjacent intraperitoneal air almost certainly related to placement of the G-tube. Tube appears to be expected location. 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 Diverticulosis. Head CT 06/15/17 15:13 IMPRESSION: MILD CHRONIC CHANGES OF ATROPHY AND MICROVASCULAR ISCHEMIA. NO ACUTE PROCESS. EVIDENCE OF ACUTE STROKE: NO. Qualifiers - * PATEINT BEING DISCHARGED WITH ANY OF THE FOLLOWING DIAGNOSIS?: No Plan Discharge Plan: The patient will be transferred to [facility]. She will be discharged from my practice and my services. The physician at the skilled nursing will assume the care of the patient
[2017-06-19] MEDS: CALCIUM CARBONATE 250 MG/VITAMIN D3 125 UNIT TABLET PO SCH (11:06)
[2017-06-19] MEDS: THIAMINE HCL 100 MG TABLET PEG SCH (11:06)
[2017-06-19] MEDS: DIVALPROEX SODIUM 250 MG TABLET.DR PO SCH (11:07)
[2017-06-19] MEDS: LACTOBACILLUS ACIDOPHILUS 250 MG TAB PO SCH (11:07)
[2017-06-19] MEDS: MAGNESIUM OXIDE 400 MG TABLET PO SCH (11:07)
[2017-06-19] MEDS: CYANOCOBALAMIN (VITAMIN B-12) 1,000 MCG TABLET PEG SCH (11:07)
[2017-06-19] MEDS: FOLIC ACID 1 MG TABLET PEG SCH (11:08)
[2017-06-19] MEDS: LIPASE/PROTEASE/AMYLASE 1 CAP CAPSULE.DR PO SCH (11:08)
[2017-06-19] MEDS: ASPIRIN 81 MG TABLET, ENT COATED PO SCH (11:08)
[2017-06-19] MEDS: RISPERIDONE 0.25 MG TABLET PO SCH ×2 (11:08→13:11)
[2017-06-19] MEDS: PREDNISONE 5 MG TABLET PEG SCH (11:08)
[2017-06-19] MEDS: FLUTICASONE/SALMETEROL DISKUS 250-50 MCG/DOSE IH SCH (11:09)
[2017-06-19] MEDS: TIOTROPIUM BROMIDE DPI 5 CAP/KIT (18 MCG/CAP) IH SCH (11:09)
[2017-06-19] MEDS: CHOLESTYRAMINE/ASPARTAME 4 GM PACKET PEG SCH ×2 (11:10→13:11)
[2017-06-19] MEDS: BUSPIRONE HCL 10 MG TABLET PO SCH (11:14)
[2017-06-19 12:23] VITALS: BP 86/47
== END 2017-06-19 14:46 | DRG 871 ==
LOC: ER 08:48 → EH 21:27 → 3N 23:01
PROVIDERS: ADMIT Internal Medicine; ATTEND Internal Medicine
PROC: 3E0F73Z Introduction of Anti-inflammatory into Respiratory Tract, Via Natural or Artificial Opening (ICD-10-PCS; 2017-06-10)
PROC: 30233N1 Transfusion of Nonautologous Red Blood Cells into Peripheral Vein, Percutaneous Approach (ICD-10-PCS; principal; 2017-06-12)
DX: A41.9 Sepsis, unspecified organism (principal); K85.20 Alcohol induced acute pancreatitis without necrosis or infection; N39.0 Urinary tract infection, site not specified; E46 Unspecified protein-calorie malnutrition; E87.1 Hypo-osmolality and hyponatremia; F05 Delirium due to known physiological condition; K86.0 Alcohol-induced chronic pancreatitis; K86.3 Pseudocyst of pancreas; Z66 Do not resuscitate; E87.6 Hypokalemia; E86.0 Dehydration; E83.42 Hypomagnesemia; Z68.24 Body mass index [BMI] 24.0-24.9, adult; E03.9 Hypothyroidism, unspecified; J44.9 Chronic obstructive pulmonary disease, unspecified; Z51.5 Encounter for palliative care; R62.7 Adult failure to thrive; M19.90 Unspecified osteoarthritis, unspecified site; Z96.641 Presence of right artificial hip joint; E83.51 Hypocalcemia; Z93.1 Gastrostomy status; D50.9 Iron deficiency anemia, unspecified; K57.90 Diverticulosis of intestine, part unspecified, without perforation or abscess without bleeding; I10 Essential (primary) hypertension; F01.50 Vascular dementia, unspecified severity, without behavioral disturbance, psychotic disturbance, mood disturbance, and anxiety; B96.5 Pseudomonas (aeruginosa) (mallei) (pseudomallei) as the cause of diseases classified elsewhere; Z90.49 Acquired absence of other specified parts of digestive tract; Z87.891 Personal history of nicotine dependence; Z79.899 Other long term (current) drug therapy; Z79.52 Long term (current) use of systemic steroids
CPT/HCPCS: 36415; 36430; 51701; 70450; 71045; 74018; 74177; 80048; 80053; 81001; 82040; 82533; 82550; 82553; 82607; 82668; 82728; 82746; 82803; 82962; 83540; 83550; 83690; 83735; 84100; 84443; 84484; 85025; 85027; 85045; 86850; 86900; 86901; 86920; 87040; 87086; 87088; 87186; 87493; 93005; 93010; 96361; 96365; 96367; 96375; 99285; G8981-GP; G8982-GP; J0696; J1642; J1644; J1940; J2405; J3475; J3480; J3490; J7030; J7512; P9016; P9047

== ENCOUNTER 2017-06-26 07:12 | Inpatient (IN) | payer MEDICARE, MEDICAID ==
--- NOTE | 2017-06-26 07:20 | ER Document Report ---
ED General - General Stated Complaint: DIFFICULTY BREATHING Time Seen by Provider: 06/26/17 07:19 TRAVEL OUTSIDE OF THE [place] IN LAST 30 DAYS: No - Related Data Allergies/Adverse Reactions: No Known Allergies Allergy (Verified 08/23/16 15:00) Past Medical History - Social History Family History: None - Unknown Pulmonary Medical History: Reports: Hx Bronchitis, Hx COPD, Hx Pneumonia Renal/ Medical History: Denies: Hx Peritoneal Dialysis Musculoskeltal Medical History: Reports Hx Arthritis Past Surgical History: Reports: Hx Cholecystectomy, Hx Orthopedic Surgery - Right Hip Replacement, Other - PEG tube - Immunizations Hx Diphtheria, Pertussis, Tetanus Vaccination: No Hx Pneumococcal Vaccination: 02/25/11
[2017-06-26] MEDS ORDERED: NORMAL SALINE 1000 ML 1,000 ML IV ONE ×3 (07:31→12:15)
[2017-06-26] MEDS ORDERED: CEFEPIME INJ 1 GM VIAL IM ONE (07:31)
[2017-06-26] MEDS ORDERED: VANCOMYCIN HCL INJ 1000 MG VIAL IV ONE (07:31)
--- NOTE | 2017-06-26 07:38 | ER Document Report ---
ED General - General Stated Complaint: DIFFICULTY BREATHING Time Seen by Provider: 06/26/17 07:19 Notes: 71-year-old female presents to the emergency department with altered mental status, fever and difficulty breathing. She was sent from a halfway. The history is not very clear. The patient was found this morning to having difficulty breathing and to be altered. The patient was brought in via EMS. It was stated that the patient is DNR but there is no supporting paperwork for this. The patient was having sats in the 80s on 15 L. The patient was found to have a fever. The patient cannot provide any history she will open her eyes when questioned but will not verbally contribute. TRAVEL OUTSIDE OF THE [place] IN LAST 30 DAYS: No - Related Data Allergies/Adverse Reactions: No Known Allergies Allergy (Verified 08/23/16 15:00) Past Medical History - Social History Smoking Status: Current Every Day Smoker Family History: None - Unknown Pulmonary Medical History: Reports: Hx Bronchitis, Hx COPD, Hx Pneumonia Renal/ Medical History: Denies: Hx Peritoneal Dialysis Musculoskeltal Medical History: Reports Hx Arthritis Past Surgical History: Reports: Hx Cholecystectomy, Hx Orthopedic Surgery - Right Hip Replacement, Other - PEG tube - Immunizations Hx Diphtheria, Pertussis, Tetanus Vaccination: No Hx Pneumococcal Vaccination: 02/25/11 Review of Systems - Review of Systems -: Yes ROS unobtainable due to patient's medical condition - Patient is nonverbal all information gleaned from EMS and halfway. Physical Exam - Vital signs Vitals: Pulse Resp BP Pulse Ox 81 20 101/61 88 L 06/26/17 07:15 06/26/17 07:15 06/26/17 07:15 06/26/17 07:15 - Notes Notes: GENERAL_APPEARANCE: well_nourished, alert, cooperative, no_acute_distress, no_ obvious_discomfort. VITALS: reviewed, see vital signs table. HEAD: no_swelling\tenderness on the head. EYES: PERRL, EOMI, conjunctiva_clear. NOSE: no_nasal_discharge. MOUTH: (-)decreased moisture. THROAT: no_airway_obstruction. no_lymphadenopathy NECK: supple, no_neck_tenderness, (-)thyromegaly. Positive JVD BACK: no_back_tenderness. CHEST_WALL: no_chest_tenderness. LUNGS: no_wheezing, bilateral rales, no_rhonchi, moderate accessory muscle use , poor air exchange bilateral. HEART: normal_rate, normal_rhythm, normal_S1, normal_S2, (-)S3, (-)S4, no_ murmur, no_rub. ABDOMEN: normal_BS, soft, no_abd_tenderness, (-)guarding, (-)rebound, no_ organomegaly, no_abd_masses. EXTREMITIES: strength 5/5 in all_extremities, good pulses in all_extremities, no_swelling\tenderness in the extremities, no_edema. SKIN: warm, dry, good_color, no_rash. Multiple bruising all over the body large skin tear left arm MENTAL_STATUS: Will open eyes to verbal stimuli but will not talk. NEURO: Withdraws to pain in all 4 extremities no obvious motor or sensory deficits cranial nerves II through XII appear intact could not test cerebellar signs. 2+ patellar reflex Course - Re-evaluation Re-evalutation: 06/26/17 07:37 71-year-old female who comes in with fever, altered mental status difficulty breathing. The patient sounds wet on auscultation this may be failure versus pneumonia. The patient will start out given fluid will be placed on BiPAP. We will confirm the patient's DNR status. We will start her sepsis protocol. We will give broad-spectrum antibiotics. Also scan the brain was a precautionary measure I think the patient's mental status changes are due to metabolic encephalopathy due to the sepsis fever and hypoxia. 06/26/17 08:24 Family/significant other arrives --he confirms the patient is DNR. He tells me a story that the patient had arrested at one point in the past and was taken to [facility]. Family forgot she had a DNR and they resuscitated her. After coming to the patient was mad at the family for resuscitation and family states the DNR is still in effect they want everything done and want her treated but if she were to require ventilation or life support they do not wish this. 06/26/17 12:04 The son Domingo has arrived. He confirms the DNR for which we have on the chart and wants conservative measures. We will not do pressors. We lost our axis here in order to do any kind of treatment we would need access I spoke with him about a central line and they have consented I placed a right femoral central line. This is the patient's only access she is very puffy and has lots of edema makings peripheral access impossible. Due to the large pleural effusion on the left radiology made a recommendation of possibly going somewhere where they have cardiothoracic surgery or VATS. I spoke with the son about this and he stated again he would like to keep this morning to conservative and comfort care type picture. They have went to [place] before and do not want to go again they are happy with whatever care they get here and if the patient does get worse or they would rather keep her comfortable then put her through any additional heroic measures. The patient remains hypotensive. We have been giving her fluids and broad- spectrum antibiotics. Due to the DNR status we did not start pressors. She is doing better actually on the BiPAP. And is actually able to have a conversation. I spoke with the hospitalist who agrees for admission. - Vital Signs Vital signs: Temp Pulse Resp BP Pulse Ox 99.1 F 71 33 H 67/43 L 94 06/26/17 11:21 06/26/17 11:21 06/26/17 11:29 06/26/17 11:21 06/26/17 11:29 - Laboratory Result Diagrams: 06/26/17 07:25 06/26/17 07:25 Laboratory results interpreted by me: 06/26/17 06/26/17 06/26/17 07:25 07:25 07:25 WBC 18.8 H RBC 3.65 L Hgb 11.4 L Hct 35.0 L RDW 18.6 H Band Neutrophils % 1 L Lymphocytes % (Manual) 10 L Myelocytes % 1 H Promyelocytes % 1 H Abs Neuts (Manual) 14.9 H Abs Monocytes (Manual) 1.9 H Carbonic Acid ABG pCO2 ABG pO2 ABG HCO3 ABG Total CO2 ABG O2 Saturation Sodium 134.8 L Chloride 95 L Carbon Dioxide 38 H Anion Gap 2 L BUN 26 H Creatinine 0.44 L Glucose 118 H POC Glucose Alkaline Phosphatase 156 H NT-Pro-B Natriuret Pep 2660 H Total Protein 4.8 L Albumin 2.4 L Urine Ketones Urine Urobilinogen Ur Leukocyte Esterase Urine Ascorbic Acid 06/26/17 06/26/17 06/26/17 07:25 07:56 08:26 WBC RBC Hgb Hct RDW Band Neutrophils % Lymphocytes % (Manual) Myelocytes % Promyelocytes % Abs Neuts (Manual) Abs Monocytes (Manual) Carbonic Acid 1.45 H ABG pCO2 48.1 H ABG pO2 56.6 L ABG HCO3 32.9 H ABG Total CO2 34.4 H ABG O2 Saturation 90.5 L Sodium Chloride Carbon Dioxide Anion Gap BUN Creatinine Glucose POC Glucose 117 H Alkaline Phosphatase NT-Pro-B Natriuret Pep Total Protein Albumin Urine Ketones TRACE H Urine Urobilinogen 4.0 H Ur Leukocyte Esterase LARGE H Urine Ascorbic Acid 40 H - EKG Interpretation by Ga EKG shows normal: Sinus rhythm Rate: Normal [place]/QRS: Left axis deviation When compared to previous EKG there are: No significant change Procedures - Central Line Right Femoral Consent obtained: Yes Central line pre-insertion: Sterile PPE donned, Chloraprep applied Central line lumen type: Triple Anesthetic type: 1% Lidocaine mL's of anesthesia: 3 Central line post-insertion: Blood return from lumens Critical Care Note - Critical Care Note Total time excluding time spent on procedures (mins): 45 Discharge - Discharge Clinical Impression: Sepsis Qualifiers: Sepsis type: sepsis due to unspecified organism Qualified Code(s): A41.9 - Sepsis, unspecified organism Condition: Critical Disposition: ADMITTED INPATIENT Admitting Provider: Hospitalist Unit Admitted: ICU Referrals: ANGELA DOMINGUEZ MD [Primary Care Provider] - Follow up as needed
[2017-06-26 08:05] LABS: PROTHROMBIN TIME 12.7 SEC (11.4-15.4)
[2017-06-26 08:10] LABS: ARTERIAL BLOOD BASE EXCESS 7.8 mmol/L; ARTERIAL BLOOD H2CO3 1.45 mmol/L (1.05-1.35); ARTERIAL BLOOD HCO3 32.9 mmol/L (20-26); ARTERIAL BLOOD O2 SATURATION 90.5 % (94-98); ARTERIAL BLOOD PCO2 48.1 mmHg (35-45); ARTERIAL BLOOD PH 7.45 (7.35-7.45); ARTERIAL BLOOD PO2 56.6 mmHg (80-100); ARTERIAL BLOOD TOTAL CO2 34.4 mmol/L (21-25)
[2017-06-26 08:11] LABS: ARTERIAL BLOOD FIO2 70%
[2017-06-26 08:14] LABS: ALANINE AMINOTRANSFERASE 25 U/L (9-52); ALBUMIN 2.4 g/dL (3.5-5.0); ALKALINE PHOSPHATASE 156 U/L (38-126); ASPARTATE AMINO TRANSFERASE 27 U/L (14-36); BILIRUBIN,DIRECT 0.3 mg/dL (0.0-0.4); BILIRUBIN,TOTAL 0.4 mg/dL (0.2-1.3); BLOOD UREA NITROGEN 26 mg/dL (7-20); CALCIUM 8.7 mg/dL (8.4-10.2); CARBON DIOXIDE 38 mmol/L (22-30); CHLORIDE 95 mmol/L (98-107); GLUCOSE 118 mg/dL (75-110); LIPASE 123.9 U/L (23-300); TOTAL PROTEIN 4.8 g/dL (6.3-8.2)
[2017-06-26] MEDS ORDERED: CEFEPIME 2 GM/D5W RTU 2 GM/50 ML RTUPB IV SCH (08:15)
[2017-06-26 08:17] LABS: AMORPHOUS SEDIMENT,URINE TRACE /HPF; APPEARANCE,URINE SLIGHTLY-CLOUDY; BILIRUBIN,URINE NEGATIVE (NEGATIVE); GLUCOSE, URINE NEGATIVE (NEGATIVE); KETONES,URINE TRACE mg/dL (NEGATIVE); LEUKOCYTE ESTERASE,URINE LARGE (NEGATIVE); NITRITE,URINE NEGATIVE (NEGATIVE); PROTEIN,URINE NEGATIVE (NEGATIVE); URINE SPECIFIC GRAVITY 1.019
[2017-06-26 08:19] LABS: SODIUM 134.8 mmol/L (137-145)
[2017-06-26 08:20] LABS: ANION GAP 2 (5-19)
[2017-06-26 08:23] LABS: COLOR,URINE YELLOW
[2017-06-26 08:30] LABS: HEMOGLOBIN 11.4 g/dL (12.0-15.5); MEAN CORPUSCULAR HEMOGLOBIN 31.1 pg (27.0-33.4); MEAN CORPUSCULAR HGB CONC 32.4 g/dL (32.0-36.0); MEAN CORPUSCULAR VOLUME 96 fl (80-97); PLATELET COUNT 387 10^3/uL (150-450); RED BLOOD COUNT 3.65 10^6/uL (3.72-5.28); RED CELL DISTRIBUTION WIDTH 18.6 % (11.5-14.0); WHITE BLOOD COUNT 18.8 10^3/uL (4.0-10.5)
--- NOTE | 2017-06-26 08:49 | RADIOLOGY REPORT (SQ) ---
EXAM DESCRIPTION: CHEST SINGLE VIEW COMPLETED DATE/TIME: 06/26/2017 8:35 am REASON FOR STUDY: fever COMPARISON: 05/08/2017, 06/09/2017 EXAM PARAMETERS: NUMBER OF VIEWS: One view. TECHNIQUE: Single frontal radiographic view of the chest acquired. RADIATION DOSE: NA LIMITATIONS: None. FINDINGS: LUNGS AND PLEURA: There is near complete collapse of the left lung with bulging of the lef t hilum. This is worrisome for and left hilar or endobronchial tumor with postobstructive pneumonia. Follow-up chest CT with IV contrast recommended. Right lung is hyperlucent and hyperinflated and clear. No pneumothorax. No gross pleural effusion. MEDIASTINUM AND HILAR STRUCTURES: No masses. Contour normal. HEART AND VASCULAR STRUCTURES: Heart normal in size. Normal vasculature. BONES: No acute findings. HARDWARE: None in the chest. OTHER: No other significant finding. IMPRESSION: Near complete collapse of the left lung with bulging of the left hilum. Worrisome for l eft hilar or endobronchial tumor. Follow-up chest CT with IV contrast recommended TECHNICAL DOCUMENTATION: JOB ID: [id number] [employer]- All Rights Reserved Reading location - IP/workstation name: [email or web address]
[2017-06-26 08:59] LABS: ABSOLUTE LYMPHOCYTES# (MANUAL) 2.1 10^3/uL (0.5-4.7); ABSOLUTE MONOCYTES # (MANUAL) 1.9 10^3/uL (0.1-1.4); ABSOLUTE NEUTROPHILS# (MANUAL) 14.9 10^3/uL (1.7-8.2); BAND NEUTROPHILS % (MANUAL) 1 % (3-5); BASOPHILS % (MANUAL) 0 % (0-2); EOSINOPHILS % (MANUAL) 0 % (0-6); LYMPHOCYTES % (MANUAL) 10 % (13-45); MONOCYTES % (MANUAL) 10 % (3-13); MYELOCYTES % (MANUAL) 1 % (0); NUCLEATED RED BLOOD CELLS 1 /100 WBC (0); SEGMENTED NEUTROPHILS % (MAN) 76 % (42-78); TOTAL CELLS COUNTED 100
[2017-06-26 09:00] LABS: PROMYELOCYTES % (MANUAL) 1 % (0)
[2017-06-26 09:04] LABS: ANISOCYTOSIS 2+; PLATELET COMMENT ADEQUATE; POLYCHROMASIA 1+; TOXIC GRANULATION SLIGHT; TOXIC VACUOLATION PRESENT
--- NOTE | 2017-06-26 09:13 | EKG REPORT ---
SEVERITY:- ABNORMAL ECG - SINUS RHYTHM LEFT AXIS DEVIATION ABNORMAL T, CONSIDER ISCHEMIA, LATERAL LEADS : Confirmed by: Carolina Bustos 26-Jun-2017 09:12:23
--- NOTE | 2017-06-26 11:13 | RADIOLOGY REPORT (SQ) ---
EXAM DESCRIPTION: CT HEAD WITHOUT COMPLETED DATE/TIME: 06/26/2017 10:45 am REASON FOR STUDY: AMS COMPARISON: CT brain 06/15/2017 TECHNIQUE: Axial images acquired through the brain without intravenous contrast. Images reviewed wi th bone, brain and subdural windows. Additional sagittal and coronal reconstructions were generated. Images stored on PACS. All CT scanners at this facility use dose modulation, iterative reconstruction, and/or weight based d osing when appropriate to reduce radiation dose to as low as reasonably achievable (ALARA). [facility]: Dose Right [facility]: CareDose [facility]: Dose Right [facility]: Teradose 4D [facility]: Terra Tech RADIATION DOSE: CT Rad equipment meets quality standard of care and radiation dose reduction techniq ues were employed. CTDIvol: 53.2 mGy. DLP: 1044 mGy-cm. mGy. LIMITATIONS: None. FINDINGS: VENTRICLES: Normal size and contour. CEREBRUM: No masses. No hemorrhage. No midline shift. No evidence for acute infarction. Age-approp riate minimal low attenuation in the bifrontal and biparietal deep periventricular white matter from minimal chronic small vessel ischemic change. CEREBELLUM: No masses. No hemorrhage. No alteration of density. No evidence for acute infarction. EXTRAAXIAL SPACES: No fluid collections. No masses. ORBITS AND GLOBE: No intra- or extraconal masses. Normal contour of globe without masses. CALVARIUM: No fracture. PARANASAL SINUSES: No fluid or mucosal thickening. SOFT TISSUES: No mass or hematoma. OTHER: No other significant finding. IMPRESSION: No acute findings. EVIDENCE OF ACUTE STROKE: NO. COMMENT: Quality ID # [id number]: Final reports with documentation of one or more dose reduction techniques (e.g., Automated exposure control, adjustment of the mA and/or kV according to patient size, use of iterative reconstruction technique) TECHNICAL DOCUMENTATION: JOB ID: [id number] [employer]- All Rights Reserved Reading location - IP/workstation name: [email or web address]
--- NOTE | 2017-06-26 11:54 | RADIOLOGY REPORT (SQ) ---
EXAM DESCRIPTION: CT CHEST WITH COMPLETED DATE/TIME: 06/26/2017 10:45 am REASON FOR STUDY: abnormal cxr COMPARISON: CT chest 04/30/2016, 01/16/2016 Chest films 06/26/2017, 06/09/2017, 05/08/2017 TECHNIQUE: CT scan of the chest performed using helical scanning technique with dynamic intravenous contrast injection. Images reviewed with lung, soft tissue and bone windows. Reconstructed coronal and sagittal MPR images reviewed. All images stored on PACS. All CT scanners at this facility use dose modulation, iterative reconstruction, and/or weight based d osing when appropriate to reduce radiation dose to as low as reasonably achievable (ALARA). [facility]: Dose Right [facility]: CareDose [facility]: Dose Right [facility]: Teradose 4D [facility]: Advisity CONTRAST TYPE AND DOSE: contrast/concentration: Isovue 370.00 mg/ml; Total Contrast Delivered: 70.0 ml; Total Saline Delivered: 55.1 ml RENAL FUNCTION: Creatinine 0.44 RADIATION DOSE: CT Rad equipment meets quality standard of care and radiation dose reduction techniq ues were employed. CTDIvol: 14.4 mGy. DLP: 543 mGy-cm. . LIMITATIONS: None. FINDINGS: LUNGS AND PLEURA: On the left side, the mainstem bronchus, and left upper and lower lobe b ronchi are opacified with fluid, best shown on axial images 21-27. There is near complete collapse of the left upper lobe and left lower lobe. Moderate size left pleural effusion is present, in the posterior left chest and left subpulmonic merrill on. On the right side, the lung is hyperinflated and hyperlucent from obstructive disease. There is mini mal atelectasis in the right posterior costophrenic sulcus with trace right pleural effusion. No right or left pneumothorax HILAR AND MEDIASTINAL STRUCTURES: There is shift of mediastinal structures into the left chest. HEART AND VASCULAR STRUCTURES: No aneurysm or dissection. No central pulmonary emboli. No pericardi al effusion. HARDWARE: None in the chest. UPPER ABDOMEN: G tube in good positioning axial image 59 THYROID AND OTHER SOFT TISSUES: No masses. No adenopathy. BONES: Osteoporotic with T6-T7 and T8 upper endplate 25% compression deformities OTHER: No other significant finding. IMPRESSION: Left bronchi color opacified with fluid/debris. Near complete left lung collapse with s hift of mediastinal structures into the left hemithorax. Moderate-sized subacute left pleural effusi on is present. Results discussed with Dr. Yang TECHNICAL DOCUMENTATION: JOB ID: [id number] Quality ID # [id number]: Final reports with documentation of one or more dose reduction techniques (e.g., Au tomated exposure control, adjustment of the mA and/or kV according to patient size, use of iterative reconstruction technique) 2010 [employer]- All Rights Reserved Reading location - IP/workstation name: [email or web address]
[2017-06-26] MEDS ORDERED: VANCOMYCIN HCL 0 MG in DEXTROSE 5%-WATER 250 ML IV NR (13:15)
[2017-06-26] MEDS ORDERED: DEXTROSE 5%-WATER 250 ML with NOREPINEPHRINE BITARTRATE 4 MG IV PRN ×2 (13:56)
[2017-06-26] MEDS ORDERED: NOREPINEPHRINE BITARTRATE INJ/PF 4 MG/4 ML SDV IV ONE ×2 (14:01→19:49)
[2017-06-26] MEDS ORDERED: ENOXAPARIN SODIUM INJ 40 MG/0.4 ML DISP.SYRIN SUBCUT ONE (15:30)
[2017-06-26 15:39] LABS: PATH REVIEW PATHOLOGIST REVIEWED
[2017-06-26] MEDS ORDERED: NYSTATIN CREAM 15 GM TP PRN (19:35)
[2017-06-26] MEDS ORDERED: ACETAMINOPHEN 325 MG TABLET PEG PRN (19:35)
[2017-06-26] MEDS ORDERED: TRAMADOL HCL 50 MG TABLET PEG PRN (19:35)
--- NOTE | 2017-06-26 19:50 | PDOC H&P ---
History of Present Illness Admission Date/PCP: 06/26/17 13:09 ANGELA DOMINGUEZ MD Patient complains of: Shortness of breath History of Present Illness: ALIE PATTERSON is a 71 year old female with history of COPD, debility,, most recently admitted to this hospital from to06/19/17 when she was treated for pneumonia and sepsis. She was discharged to a nursing home facility. She is now presents with worsening shortness of breath and evaluation in the ED significant for leukocytosis, moderate right pleural effusion. Patient hypotensive with blood pressures in the 70s and treated with fluid boluses. However blood pressure currently is still only 80 over 40. She has also been started on empiric Vanco and cefepime for sepsis at the ED. Son present patient is DO NOT RESUSCITATE. They do not want aggressive measures, including chest compressions or intubation. However, he would like trial of vasopressors for blood pressure. Patient is now being started on levophed and being admitted to intensive care unit. Patient is awake, following simple commands. No chest pain or palpitations at this time. She has had cough, not sure if productive or not. Past Medical History Pulmonary Medical History: Reports: Bronchitis, Chronic Obstructive Pulmonary Disease (COPD), Pneumonia Musculoskeltal Medical History: Reports: Arthritis Past Surgical History Past Surgical History: Reports: Cholecystectomy, Orthopedic Surgery - Right Hip Replacement, Other - PEG tube Social History Smoking Status: Current Every Day Smoker Frequency of Alcohol Use: None Hx Recreational Drug Use: No Drugs: None Hx Prescription Drug Abuse: No Family History Family History: None - Unknown Parental Family History Reviewed: Yes Children Family History Reviewed: Yes Sibling(s) Family History Reviewed.: Yes Medication/Allergy Home Medications: Acetaminophen [Tylenol 325 mg Tablet] 650 mg PEG Q6HP PRN 06/26/17 Acidoph/L.bulg/Bif.b/S.thermop [Bacid Caplet] 2 each PEG BID 06/26/17 Aspirin [Aspirin 81 mg Chewable Tablet] 81 mg PEG DAILY 06/26/17 Atorvastatin Calcium [Lipitor 40 mg Tablet] 40 mg PEG QHS 06/26/17 Buspirone HCl [Buspar 10 mg Tablet] 10 mg PEG QHS 06/26/17 Buspirone HCl [Buspar 5 mg Tablet] 5 mg PEG DAILY 06/26/17 Calcium Carbonate/Vitamin D3 [Calcium 600 + Vit D 400 Tablet] 1 tab PEG DAILY Carvedilol [Coreg 3.125 mg Tablet] 3.125 mg PEG Q12 06/26/17 Cholestyramine/Aspartame [Questran Light 4 Gm Packet] 4 gm PEG QID 06/26/17 Cyanocobalamin (Vitamin B-12) [Vitamin B-12 1000 Mcg Tablet] 1,000 mcg PEG DAILY 06/26/17 Docusate Sodium 100 mg PEG BID 06/26/17 Fluticasone/Salmeterol [Advair 250-50 Diskus 28 dose] 1 inh IH Q12 06/26/17 Folic Acid [Folvite 1 mg Tablet] 1 mg PEG DAILY 06/26/17 Furosemide [Lasix 40 mg Tablet] 40 mg PEG DAILY 06/26/17 Gabapentin [Neurontin] 600 mg PEG Q8 06/26/17 Levothyroxine Sodium [Synthroid 0.1 mg Tablet] 0.1 mg PEG Q6AM 06/26/17 Lidocaine [Lidoderm 5% (700 mg) Transdermal Patch] 2 patch TP DAILY 06/26/17 Lipase/Protease/Amylase [Pancrease Mt-10 Ec Capsule] 1 each PEG BID 06/26/17 Magnesium Oxide [Mag-Ox 400 mg Tablet] 400 mg PEG BID 06/26/17 Nystatin [Mycostatin Cream] 1 applic TP DAILYP PRN 06/26/17 Omeprazole 20 mg PEG DAILY 06/26/17 Potassium Chloride 20 meq PEG DAILY 06/26/17 Prednisone [Deltasone 5 mg Tablet] 5 mg PEG BID 06/26/17 Roflumilast [Daliresp 500 mcg Tablet] 500 mcg PEG DAILY 06/26/17 Thiamine HCl [Thiamine 100 mg Tablet] 100 mg PEG DAILY 06/26/17 Tiotropium [place] [Spiriva Handihaler 18 mcg/dose (30 Dose)] 1 cap IH DAILY 04/14 Tramadol HCl [Ultram] 50 mg PEG Q6HP PRN 06/26/17 Zinc Oxide [Zinc Oxide 20% Ointment 28.35 gm] 1 applic TP DAILYP PRN 06/26/17 Allergies/Adverse Reactions: No Known Allergies Allergy (Verified 08/23/16 15:00) Physical Exam Vital Signs: Temp Pulse Resp BP Pulse Ox 99.0 F 71 27 H 79/55 L 94 06/26/17 13:00 06/26/17 11:21 06/26/17 13:00 06/26/17 13:00 06/26/17 12:46 GENERAL: Well-developed, elderly female, no acute distress HEENT: Normocephalic/atraumatic NECK supple, no JVD CARDIOVASCULAR: RRR, normal S1-S2 LUNGS: Decreased breath sounds left base, few bilateral crackles ABDOMEN: Soft, NT, NL bowel sounds EXTREMITIES: No edema, clubbing, cyanosis NEUROLOGICAL: Alert, oriented to name, place Results Laboratory Results: CBC significant for white blood cells 18.8, hemoglobin 11.4, platelets 387. Sodium 134.8, potassium 4.0 BUN 26, creatinine 0.44, BNP 2660. Impressions: Chest X-Ray 06/26/17 07:32 IMPRESSION: Near complete collapse of the left lung with bulging of the left hilum. Worrisome for left hilar or endobronchial tumor. Follow-up chest CT with IV contrast recommended Head CT 06/26/17 07:33 IMPRESSION: No acute findings. EVIDENCE OF ACUTE STROKE: NO. Chest CT 06/26/17 09:30 IMPRESSION: Left bronchi color opacified with fluid/debris. Near complete left lung collapse with shift of mediastinal structures into the left hemithorax. Moderate-sized subacute left pleural effusion is present. Results discussed with Dr. Yang Assessment & Plan - Diagnosis (1) Sepsis Qualifiers: Sepsis type: sepsis due to unspecified organism Qualified Code(s): A41.9 - Sepsis, unspecified organism Is this a current diagnosis for this admission?: Yes Plan: We will admit to ICU. Continue IV fluids, levofed. Broad-spectrum antibiotics with vancomycin and cefepime in light of recent hospitalization. (2) Pleural effusion Is this a current diagnosis for this admission?: Yes Plan: Patient so bloated chest dated back graciously treatment. We plan is supportively for now. Will consider pulmonology consult. (3) Urinary tract infection Qualifiers: Is this a current diagnosis for this admission?: Yes Plan: Broad-spectrum antibiotics as in sepsis above. Follow blood and urine culture results. (4) Pneumonia Is this a current diagnosis for this admission?: Yes Plan: Suspected, healthcare associated. Antibiotics versus sepsis above. - Inpatient Certification Medical Necessity: Significant Comorbidiites Make Outpatient Treatment Too Risky , Need Close Monitoring Due to Risk of Patient Decompensation, Need For Continuous Telemetry Monitoring, Need for IV Antibiotics
[2017-06-26] MEDS ORDERED: ATORVASTATIN CALCIUM 40 MG TABLET PEG SCH (22:00)
[2017-06-26] MEDS ORDERED: BUSPIRONE HCL 10 MG TABLET PEG SCH (22:00)
[2017-06-26] MEDS ORDERED: VANCOMYCIN HCL 750 MG in DEXTROSE 5%-WATER 250 ML IV SCH (22:00)
[2017-06-26] MEDS ORDERED: FLUTICASONE/SALMETEROL DISKUS 250-50 MCG/DOSE IH SCH (22:00)
[2017-06-26] MEDS ORDERED: CHOLESTYRAMINE/ASPARTAME 4 GM PACKET PEG SCH (22:00)
[2017-06-26 22:32] VITALS: BP 78/49
[2017-06-26] MEDS ORDERED: ATORVASTATIN CALCIUM 40 MG TABLET PEG ONE (23:00)
[2017-06-26] MEDS ORDERED: BUSPIRONE HCL 10 MG TABLET PEG ONE (23:00)
[2017-06-27] MEDS ORDERED: LEVOTHYROXINE SODIUM 0.1 MG TABLET PEG SCH (06:00)
[2017-06-27] MEDS ORDERED: TIOTROPIUM BROMIDE DPI 5 CAP/KIT (18 MCG/CAP) IH SCH (10:00)
[2017-06-27] MEDS ORDERED: FUROSEMIDE 40 MG TABLET PEG SCH (10:00)
[2017-06-27] MEDS ORDERED: MAGNESIUM OXIDE 400 MG TABLET PEG SCH (10:00)
[2017-06-27] MEDS ORDERED: ENOXAPARIN SODIUM INJ 40 MG/0.4 ML DISP.SYRIN SUBCUT SCH (10:00)
[2017-06-27] MEDS ORDERED: ASPIRIN 81 MG TABLET, CHEWABLE PEG SCH (10:00)
[2017-06-27] MEDS ORDERED: PREDNISONE 5 MG TABLET PEG SCH (10:00)
[2017-06-27] MEDS ORDERED: LACTOBACILLUS ACIDOPHILUS 250 MG TAB PEG SCH (10:00)
--- NOTE | 2017-06-27 19:08 | Death Summary ---
Summary Date : 06/27/17 Time of :: 23:09 Autopsy: No Resuscitation Status: Do Not Resuscitate - Final Diagnosis (1) Sepsis Is this a current diagnosis for this admission?: Yes (2) Pneumonia Is this a current diagnosis for this admission?: Yes (3) Pleural effusion Is this a current diagnosis for this admission?: Yes (4) Urinary tract infection Is this a current diagnosis for this admission?: Yes Hospital Course:: ALIE PATTERSON was a 71 year old female with history of COPD, debility,, most recently admitted to [facility] from to 06/19/17 when she was treated for pneumonia and sepsis. She was discharged to a longterm facility. She now presented with worsening shortness of breath and evaluation in the ED significant for leukocytosis, moderate right pleural effusion. Patient was hypotensive with blood pressures in the 70s and she treated with fluid boluses. However blood pressure was still only 80/40 when I saw the patient . She had also been started on empiric Vanco and cefepime for sepsis at the ED. Son was present as she and patient is wished for the patient to be DO NOT RESUSCITATE. They did not want aggressive measures, including chest compressions or intubation. However, wanted a trial of vasopressors for blood pressure. Patient was started on levophed and admitted to lately intensive care unit. unfortunately clinical course continued to decline and she overnight while I was off duty, just hours after admission. Time of : 23:09 hrs.
[2017-06-27] MEDS ORDERED: IPRATROPIUM/ALBUTEROL 0.5-2.5 MG/3 ML AMPUL NEB ONE (21:04)
== END 2017-06-26 23:09 | disposition left against medical advice (07) | DRG 871 ==
LOC: ER 07:12 → EH 13:09
PROVIDERS: ADMIT Family Medicine; ATTEND Family Medicine
PROC: 5A09357 Assistance with Respiratory Ventilation, Less than 24 Consecutive Hours, Continuous Positive Airway Pressure (ICD-10-PCS; principal; 2017-06-26)
PROC: 06HM33Z Insertion of Infusion Device into Right Femoral Vein, Percutaneous Approach (ICD-10-PCS; 2017-06-26)
DX: A41.9 Sepsis, unspecified organism (principal); J18.9 Pneumonia, unspecified organism; J44.0 Chronic obstructive pulmonary disease with (acute) lower respiratory infection; J90 Pleural effusion, not elsewhere classified; N39.0 Urinary tract infection, site not specified; J44.9 Chronic obstructive pulmonary disease, unspecified; Z66 Do not resuscitate; Z51.5 Encounter for palliative care; M19.90 Unspecified osteoarthritis, unspecified site; F17.210 Nicotine dependence, cigarettes, uncomplicated; Z96.641 Presence of right artificial hip joint; Z79.82 Long term (current) use of aspirin; Z79.899 Other long term (current) drug therapy; Z79.52 Long term (current) use of systemic steroids; Z90.49 Acquired absence of other specified parts of digestive tract
CPT/HCPCS: 36415; 36600; 70450; 71045; 71260; 80053; 81001; 82803; 82962; 83605; 83690; 83880; 85025; 85610; 87040; 87086; 87088; 87186; 93005; 93010; 94660; 96361; 96365; 96366; 96367; 99291; C1751; J0692; J1650; J3370; J3490; J7030; J7060